=== PATIENT | female | born 1960 | race Caucasian/White ===

== ENCOUNTER 2017-09-17 14:17 | Inpatient (IN) | payer MEDICARE, OTHER ==
--- NOTE | 2017-09-17 15:27 | RAD ---
PORTABLE CHEST 1 VIEW: Date: 09/17/17 Time: 1510 hours HISTORY: Cough. FINDINGS/IMPRESSION: Comparison made with exam of 04/27/17. The heart size is prominent. There is suggestion of an infiltrate at the left lung base laterally. No pneumothoraces seen. A small accompanying left effusion cannot be excluded. No pneumothoraces or fra nk pulmonary edema are seen. POS: [facility]
[2017-09-17 16:01] LABS: #Basophils 0.1 thou/uL (0.0-0.2); #Eosinphils 0.5 thou/uL (0.0-0.7); #Lymphocytes 2.6 thou/uL (1.20-3.40); #Monocytes 1.3 thou/uL (0.11-0.59); #Neutrophils 12.4 thou/uL (1.40-6.50); %Basophils 0.6 % (0.0-1.0); %Eosinophils 3.1 % (0.0-10.0); %Lymphocytes 15.1 % (21.0-51.0); %Monocytes 7.5 % (0.0-10.0); %Neutrophils 73.7 % (42.0-75.0); Mean Corpuscular HGB CONC 32.6 g/dL (32.0-36.0); Mean Corpuscular Hemoglobin 29.6 pg (27.0-31.0); Mean Corpuscular Volume 90.6 fl (81.0-99.0); Platelet Count 438 thou/uL (130-400); RBC Distribution Width 13.5 % (11.5-14.5); Red Blood Cell (RBC) Count 5.74 mill/uL (4.20-5.40); White Blood Cell (WBC) Count 16.9 thou/uL (4.8-10.8)
[2017-09-17 16:24] LABS: CKMB 0.3 ng/mL (0-6.6); Troponin I Less than 0.010 ng/mL (< 0.028)
[2017-09-17 16:33] LABS: ALT (SGPT) 25 U/L (8-55); AST (SGOT) 24 U/L (5-34); Albumin 3.7 g/dL (3.5-5.0); Alkaline Phosphatase 146 U/L (40-150); Anion Gap 19 mmol/L (10-20); BUN (Urea Nitrogen) 4 mg/dL (9.8-20.1); Bilirubin, Total 0.8 mg/dL (0.2-1.2); CK (CPK) 26 U/L (29-168); Calc. Creatinine Clearance 0 mL/min (70-130); Carbon Dioxide 26 mmol/L (22-29); Chloride 99 mmol/L (98-107); Estimated GFR-MDRD Greater than 90; Globulin 4.2 g/dL (2.4-3.5); Glucose 104 mg/dL (70-105); Potassium 3.8 mmol/L (3.5-5.1); Protein, Total 7.9 g/dL (6.0-8.3); Sodium 140 mmol/L (136-145)
[2017-09-17] MEDS ORDERED: cefTRIAXone\\ROCEPHIN 2 GM in Sodium Chloride 0.9% 100 ML IVPB SCH (16:45)
[2017-09-17] MEDS ORDERED: Bisacodyl 5 MG TAB PO PRN (18:23)
[2017-09-17] MEDS ORDERED: Acetaminophen 325 MG TAB PO PRN (18:23)
[2017-09-17] MEDS ORDERED: Acetaminophen 650 MG Suppository PR PRN (18:23)
[2017-09-17] MEDS ORDERED: cefTRIAXone\\ROCEPHIN 1 GM in Sodium Chloride 0.9% 100 ML IVPB SCH (18:30)
--- NOTE | 2017-09-17 23:29 | HP ---
PRIMARY CARE PHYSICIAN: Saleem Vivas M.D. CHIEF COMPLAINT: Cough. HISTORY OF PRESENT ILLNESS: Ms. Monreal is a pleasant 57-year-old lady who was seen at [facility] on 09/17/2017. She reports that she had a cough for the last 4 days. She reports that the cough is productive of gr eenish yellow sputum. She also reports fevers, with a temperature of 101 degrees Fahrenheit at home. She also reports retrosternal burning sensation that started yesterday, worse with deep breathing. She describes it as in the retrosternal region, nonradiating, constant, worse with deep breathing, n ot accompanied by nausea. No known aggravating or relieving factors. She came to the emergency room because of ongoing cough. REVIEW OF SYSTEMS: The following complete review of systems was negative, unless otherwise mentioned in the HPI or below: Constitutional: Weight loss or gain, ability to conduct usual activities. Skin: Rash, itching. Eyes: Double vision, pain. ENT/Mouth: Nose bleeding, neck stiffness, pain, tenderness. Cardiovascular: Palpitations, dyspnea on exertion, orthopnea. Respiratory: Shortness of breath, wheezing, cough, hemoptysis, fever or night sweats. Gastrointestinal: Poor appetite, abdominal pain, heartburn, nausea, vomiting, constipation, or diarrhea. Genitourinary: Urgency, frequency, dysuria, nocturia. Musculoskeletal: Pain, swelling. Neurologic/Psychiatric: Anxiety, depression. Allergy/Immunologic: Skin rash, bleeding tendency. PAST MEDICAL HISTORY: Significant for progressive multiple sclerosis, ulcerative colitis, morbid obe sity, chronic sinus tachycardia, hypertension, depression, Raynaud's syndrome, urinary incontinence w ith chronic Telles catheter and chronic lymphedema of lower extremities, Crohn's disease. PAST SURGICAL HISTORY: Significant for tubal ligation, laparoscopic ileostomy, colectomy and colosto my. FAMILY HISTORY: The patient denies any family history of premature coronary artery disease. ALLERGIES: CLARITHROMYCIN. CURRENT MEDICATIONS: Include baclofen, Canasa, cranberry plus vitamin C, Prozac, cyclobenzaprine, ga bapentin, Gas-X Ultra Strength, multivitamins, nortriptyline, Oscimin, stool softener, vitamin D3, al buterol, Bactroban, Calmoseptine, ibuprofen, morphine, nystatin, Zofran, Robitussin, and acyclovir. SOCIAL HISTORY: The patient denies tobacco use, alcohol use, or recreational drug use. She is an ex -smoker. PHYSICAL EXAMINATION: GENERAL: Mr. Monreal is awake and alert, not in acute distress. VITAL SIGNS: Blood pressure is 120/87, pulse is 132. She is breathing at rate of 20 and saturating 98% on 2 liters of oxygen. She is afebrile. She is morbidly obese, weighing 158.76 kilograms. EYES: No scleral icterus. No conjunctival pallor. ENT: Dry mucosal membranes. No oropharyngeal erythema or exudates. NECK: Supple, nontender, normal range of moment. Trachea is midline. RESPIRATORY: Accessory muscles of breathing are not active. Chest wall movements are symmetric bila terally. LUNGS: Clear to auscultation with diminished air entry at the left base. CARDIOVASCULAR: S1 and S2 are heard, tachycardic and regular. LUNGS: Peripheral pulses palpable. No carotid bruit, no pericardial rub. ABDOMEN: Distended, soft, nontender, bowel sounds heard, she has an ostomy. NEUROLOGIC: Cranial nerves II-XII are intact. MUSCULOSKELETAL: Power is 5/5 in all 4 extremities. SKIN: She has what appears to be a healing herpetic lesion over the upper lip on the left side. LYMPHATIC: No cervical lymphadenopathy. PSYCHIATRIC: Normal mood, normal affect, patient is oriented to person, place, and time. LABORATORY DATA: Mr. Monreal labs and investigations were reviewed. I reviewed her electrocardiogram , which shows sinus tachycardia, no ST changes to suggest an acute coronary syndrome. She has a few premature atrial complexes. I also reviewed her chest x-ray, which shows left-sided pleural effusion and possible left lower lobe infiltrate. She has leukocytosis with 16,900 white cells, of which 73. 7% are neutrophils, elevated hemoglobin of 17, elevated platelet count of 438, normal electrolytes, n ormal creatinine, and unremarkable liver profile. Troponin I is normal. BNP is less than 10. ASSESSMENT AND PLAN: Mr. Monreal is a pleasant 57-year-old lady who was seen at [facility] on 09/17/2017. Her problem list includes: 1. Sepsis: Mr. Monreal is presenting with sepsis, most likely secondary to pneumonia. She will be a dmitted to the hospital for further management, including intravenous fluids and antibiotics. 2. Community-acquired pneumonia. She has already received levofloxacin, ceftriaxone, which I will c ontinue. We will also put her on DuoNebs as needed. 3. Sinus tachycardia: It is unclear whether this is from sepsis or from her past history of chronic sinus tachycardia. I will continue to keep an eye on the heart rate. 4. Multiple sclerosis. Continue home medications once doses are clarified. 5. Hypertension: Monitor vital signs, titrate antihypertensives as needed. 6. Polycythemia and thrombocythemia: Probably secondary to dehydration. Recheck hemoglobin and veronica telet count. Many thanks for allowing me to participate in your patient's care. Please feel free to contact me wi th any questions or concerns. LEVEL OF RISK: High. LEVEL OF COMPLEXITY: High.
[2017-09-18 05:55] LABS: #Eosinphils 0.3 thou/uL (0.0-0.7); #Lymphocytes 2.3 thou/uL (1.20-3.40); #Monocytes 1.3 thou/uL (0.11-0.59); %Basophils 0.1 % (0.0-1.0); %Eosinophils 2.5 % (0.0-10.0); %Lymphocytes 16.3 % (21.0-51.0); %Monocytes 9.5 % (0.0-10.0); %Neutrophils 71.6 % (42.0-75.0); Hemoglobin 15.5 g/dL (12.0-16.0); Mean Corpuscular HGB CONC 31.7 g/dL (32.0-36.0); Mean Corpuscular Hemoglobin 29.2 pg (27.0-31.0); Mean Platelet Volume 6.6 fL (7.4-10.4); Platelet Count 400 thou/uL (130-400); RBC Distribution Width 13.2 % (11.5-14.5); Red Blood Cell (RBC) Count 5.32 mill/uL (4.20-5.40); White Blood Cell (WBC) Count 13.9 thou/uL (4.8-10.8)
[2017-09-18 06:35] LABS: Anion Gap 13 mmol/L (10-20); BUN (Urea Nitrogen) 6 mg/dL (9.8-20.1); Calc. Creatinine Clearance 114 mL/min (70-130); Calcium 9.5 mg/dL (7.8-10.44); Carbon Dioxide 26 mmol/L (22-29); Chloride 101 mmol/L (98-107); Estimated GFR-MDRD Greater than 90; Glucose 94 mg/dL (70-105); Potassium 3.3 mmol/L (3.5-5.1); Sodium 137 mmol/L (136-145)
[2017-09-18] MEDS: Enoxaparin Sodium 40 MG/0.4 ML SYRINGE SC SCH (09:16)
[2017-09-18] MEDS ORDERED: HYDROcodone/Acetaminophen 5/325 mg Tablet PO PRN ×3 (09:47→10:34)
[2017-09-18] MEDS ORDERED: Mesalamine 1000 MG Suppository PR PRN (09:47)
[2017-09-18] MEDS ORDERED: Ondansetron ODT 4 MG TAB PO PRN (09:47)
[2017-09-18] MEDS ORDERED: Guaifenesin DM 100-10/5 ML UDCUP PO PRN (09:47)
[2017-09-18] MEDS ORDERED: Ondansetron HCl/PF 4 MG/2 ML Vial IVP PRN (10:11)
[2017-09-18] MEDS: Baclofen 10 MG TAB PO SCH ×3 (13:23→20:31)
[2017-09-18] MEDS: Simethicone Chewable 80 MG TAB PO SCH ×3 (13:23→21:57)
[2017-09-18] MEDS ORDERED: CRANBERRY FRUIT EXTRACT 500 MG PO SCH (15:00)
[2017-09-18] MEDS: Cyclobenzaprine 10 MG TAB PO SCH ×2 (16:11→20:33)
[2017-09-18] MEDS: Brimonidine Tartrate 0.2% Ophth Soln 5 ml Bottle R EYE SCH ×2 (16:15→20:31)
[2017-09-18] MEDS ORDERED: cefTRIAXone\\ROCEPHIN 1 GM, Syringe 0.4 ML in Sterile Water 9.6 ML SLOW IVP SCH (17:00)
--- NOTE | 2017-09-18 17:52 | PDOC.PN ---
- Subjective Encounter Start Date: 09/18/17 Encounter Start Time: 08:20 Pt seen for followup re: sepsis. Says she still has cough. Sputum+ - Objective MAR Reviewed: Yes Vital Signs & Weight: Vital Signs (12 hours) Temp Pulse Resp BP Pulse Ox 09/18/17 16:58 99.5 F 120 H 18 142/84 H 95 09/18/17 14:03 116 H 18 99 09/18/17 11:36 99.2 F 109 H 18 149/86 H 95 09/18/17 08:00 99.2 F 109 H 18 97 09/18/17 07:46 99.0 F 102 H 16 135/93 H 97 I&O: 09/17/17 09/18/17 09/19/17 06:59 06:59 06:59 Intake Total 430 100 Output Total 650 175 Balance -220 -75 Result Diagrams: 09/18/17 05:05 09/18/17 05:05 Phys Exam - Physical Examination Constitutional: NAD HEENT: PERRLA, moist MMs, sclera anicteric, oral pharynx no lesions Neck: no nodes, no JVD, supple, full ROM Respiratory: no wheezing, no rales, no rhonchi, clear to auscultation bilateral Cardiovascular: RRR, no rub Gastrointestinal: soft, non-tender, no distention, positive bowel sounds ostomy Neurological: moves all 4 limbs Psychiatric: normal affect Dx/Plan (1) Sepsis Code(s): A41.9 - SEPSIS, UNSPECIFIED ORGANISM Status: Acute (2) Hypokalemia Code(s): E87.6 - HYPOKALEMIA Status: Acute (3) Pneumonia Code(s): J18.9 - PNEUMONIA, UNSPECIFIED ORGANISM Status: Acute (4) Multiple sclerosis, secondary progressive Code(s): G35 - MULTIPLE SCLEROSIS Status: Chronic (5) Sinus tachycardia Code(s): R00.0 - TACHYCARDIA, UNSPECIFIED Status: Chronic (6) HTN (hypertension) Code(s): I10 - ESSENTIAL (PRIMARY) HYPERTENSION Status: Chronic - Plan continue antibiotics, PT/OT * . Replace potassium. Continue antibiotics as below. Monitor vital signs, titrate antihypertensives as needed. Review of Systems - Review of Systems Constitutional: negative: fever, chills, sweats, weakness, malaise Respiratory: Cough, Sputum. negative: Dry, Shortness of Breath, Hemoptysis, SOB with Excertion, Pleuritic Pain, Wheezing Cardiovascular: negative: chest pain, palpitations, orthopnea, paroxysmal nocturnal dyspnea, edema, light headedness Gastrointestinal: negative: Nausea, Vomiting, Abdominal Pain, Diarrhea, Constipation, Melena, Hematochezia Genitourinary: negative: Dysuria, Frequency, Incontinence, Hematuria, Retention - Medications/Allergies Allergies/Adverse Reactions: Allergies Allergy/AdvReac Type Severity Reaction Status Date / Time clarithromycin [From Biaxin] Allergy Hives Verified 09/17/17 22:11 Medications: Current Medications Acetaminophen (Tylenol) 650 mg PO Q4H PRN PRN Reason: Headache/Fever or Pain Last Admin: 09/17/17 22:47 Dose: 650 mg Acetaminophen (Tylenol) 650 mg PA Q4H PRN PRN Reason: Headache/Fever or Pain Hydrocodone Bitart/Acetaminophen ([place] 5/325) 1 tab PO Q6H PRN PRN Reason: Moderate Pain (4-6) Hydrocodone Bitart/Acetaminophen ([place] 5/325) 2 tab PO Q6H PRN PRN Reason: Severe Pain (7-10) Albuterol/Ipratropium (Duoneb) 3 ml NEB [id number] PRN PRN Reason: SOB &/or Wheezing Last Admin: 09/18/17 14:03 Dose: 3 ml Baclofen (Lioresal) 10 mg PO QID [facility] Last Admin: 09/18/17 13:23 Dose: 10 mg Bisacodyl (Dulcolax) 10 mg PO DAILYPRN PRN PRN Reason: Constipation Brimonidine Tartrate (Alphagan 0.2% [facility]) 1 drop R EYE TID [facility] Last Admin: 09/18/17 16:15 Dose: 1 drop Cholecalciferol (Vitamin D3) 2,000 units PO DAILY [facility] Cyclobenzaprine HCl (Flexeril) 10 mg PO TID [facility] Last Admin: 09/18/17 16:11 Dose: 10 mg Docusate Sodium (Colace) 100 mg PO DAILY [facility] Enoxaparin Sodium (Lovenox) 40 mg SC 0900 [facility] Last Admin: 09/18/17 09:16 Dose: 40 mg Fluoxetine HCl (Prozac) 20 mg PO BID [facility] Gabapentin (Neurontin) 800 mg PO BID [facility] Guaifenesin/Dextromethorphan (Robitussin Dm) 5 ml PO Q6HR PRN PRN Reason: Congestion Hyoscyamine Sulfate (Levsin) 0.25 mg PO ACHS [facility] Last Admin: 09/18/17 13:23 Dose: 0.25 mg Levofloxacin 750 mg/ Device 150 mls @ 100 mls/hr IVPB 1700 [facility] Last Admin: 09/18/17 16:11 Dose: 150 mls Ceftriaxone Sodium 1 gm/ (Syringe 0.4 ml/ Sterile Water) 10 mls @ 120 mls/hr SLOW IVP 1700 [facility] Ibuprofen (Motrin) 800 mg PO Q6H PRN PRN Reason: Fever>101/MILD Pain Latanoprost (Xalatan 0.005% Ophth Soln) 1 drop EA EYE HS [facility] Melatonin (Melatonin) 3 mg PO HS [facility] Mesalamine (Canasa) 1,000 mg PA HS PRN PRN Reason: Bleeding (Acyclovir [ Acyclovir 3% Ointment] 0.05 Applic) 0.05 applic TOP Q4HR [facility] Ondansetron HCl (Zofran Odt) 4 mg PO Q8H PRN PRN Reason: Nausea/Vomiting Ondansetron HCl (Zofran) 4 mg IVP Q6H PRN PRN Reason: Nausea/Vomiting Last Admin: 09/18/17 10:32 Dose: 4 mg Multivit/Folic Acid/Iron ( Vitamin) 1 tab PO DAILY [facility] Simethicone (Mylicon Chewable) 180 mg PO [facility] Last Admin: 09/18/17 13:23 Dose: 180 mg
[2017-09-18] MEDS ORDERED: Potassium Chloride 20 MEQ TAB PO SCH (18:00)
[2017-09-18] MEDS: FLUoxetine HCl 20 MG CAP PO SCH (20:33)
[2017-09-18] MEDS: Gabapentin 400 MG CAP PO SCH (20:33)
[2017-09-18] MEDS: Melatonin 3 MG TAB PO SCH (20:34)
[2017-09-18] MEDS: Ibuprofen 800 MG TAB PO PRN (20:35)
[2017-09-18] MEDS: Latanoprost 0.005% Ophth Soln 2.5 ml Bottle EA EYE SCH (20:36)
[2017-09-19 06:01] LABS: #Basophils 0.1 thou/uL (0.0-0.2); #Eosinphils 0.6 thou/uL (0.0-0.7); #Lymphocytes 2.9 thou/uL (1.20-3.40); #Monocytes 1.4 thou/uL (0.11-0.59); #Neutrophils 7.7 thou/uL (1.40-6.50); %Basophils 0.5 % (0.0-1.0); %Eosinophils 5.1 % (0.0-10.0); %Lymphocytes 22.8 % (21.0-51.0); %Monocytes 11.1 % (0.0-10.0); %Neutrophils 60.6 % (42.0-75.0); Hemoglobin 14.6 g/dL (12.0-16.0); Mean Corpuscular HGB CONC 31.8 g/dL (32.0-36.0); Mean Corpuscular Hemoglobin 29.3 pg (27.0-31.0); Mean Corpuscular Volume 92.2 fl (81.0-99.0); Mean Platelet Volume 6.3 fL (7.4-10.4); Platelet Count 417 thou/uL (130-400); Red Blood Cell (RBC) Count 4.97 mill/uL (4.20-5.40); White Blood Cell (WBC) Count 12.7 thou/uL (4.8-10.8)
[2017-09-19 06:29] LABS: Anion Gap 12 mmol/L (10-20); BUN (Urea Nitrogen) 10 mg/dL (9.8-20.1); Calc. Creatinine Clearance 78 mL/min (70-130); Calcium 10.1 mg/dL (7.8-10.44); Carbon Dioxide 31 mmol/L (22-29); Chloride 102 mmol/L (98-107); Estimated GFR-MDRD 68; Glucose 108 mg/dL (70-105); Potassium 5.1 mmol/L (3.5-5.1); Sodium 140 mmol/L (136-145)
[2017-09-19] MEDS: FLUoxetine HCl 20 MG CAP PO SCH ×2 (08:54→20:49)
[2017-09-19] MEDS: Docusate 100 MG CAP PO SCH (08:54)
[2017-09-19] MEDS: Baclofen 10 MG TAB PO SCH ×4 (08:55→20:48)
[2017-09-19] MEDS: Simethicone Chewable 80 MG TAB PO SCH ×4 (08:55→20:52)
[2017-09-19] MEDS: Gabapentin 400 MG CAP PO SCH ×2 (08:55→20:49)
[2017-09-19] MEDS: Prenatal Vitamin 1 TAB PO SCH (08:56)
[2017-09-19] MEDS: Cyclobenzaprine 10 MG TAB PO SCH ×3 (08:56→20:48)
[2017-09-19] MEDS: Enoxaparin Sodium 40 MG/0.4 ML SYRINGE SC SCH (08:57)
[2017-09-19] MEDS: Brimonidine Tartrate 0.2% Ophth Soln 5 ml Bottle R EYE SCH ×3 (08:57→20:48)
--- NOTE | 2017-09-19 10:18 | PRG ---
DATE OF SERVICE: 09/19/2017 SUBJECTIVE: The patient was seen and examined at the bedside. She is doing better, but she still altman s quite a bit of cough, which is most of the time nonproductive. Each time she takes deep breath in, it would take her airways and triggers the cough. Her appetite is fair. She stays in bed all the t melina except for the time when she is transferred to the wheelchair, but this is not accomplished yet. OBJECTIVE: VITAL SIGNS: Blood pressure is 146/87, pulse is 97, temperature is 98, respiratory rate is 22, and p ulse oximetry is 97% on 2 liters by nasal cannula. GENERAL: Ms. Monreal is obese lady. HEENT: Head atraumatic, normocephalic. She has a herpetic lesion on her lower lip, which is dry up. Her eyes are PERRLA. Sclerae is nonicteric. NECK: Obese. LUNGS: Breath sounds diminished, especially at the left base with few crackles and rales, no wheezin g. CARDIOVASCULAR: S1, S2, mildly tachycardic. No S3, no S4. ABDOMEN: Obese, slightly tender to deep palpation in the right upper quadrant, and colostomy bag in the left lower abdomen is present with some brownish stool liquidy. EXTREMITIES: A 1-2+ peripheral edema. LABORATORY DATA: Showed a white count of 12.7, hemoglobin 14.6, hematocrit 45.8, platelet count is 4 17, normal electrolytes, CO2 of 31, BUN 10, creatinine 0.86, glucose 108. Microbiology negative for influenza type A and B and the 2 blood cultures are negative. IMPRESSION: 1. Pneumonia. 2. Hypokalemia, improved. 3. Multiple sclerosis, progressive. 4. Hypertension. 5. Herpes labialis. 6. Status post colostomy placement. PLAN: Discontinue Rocephin. Continue Levaquin. Start Mucinex DM. Start physical therapy. We are going to get her bed with trapeze, so she can use her upper extremities until progressive that is wha t she does at home. We will lower her oxygenation to 1 liter per nasal cannula since her pulse oxime try is 97% on 2 liters. We would continue the rest of the regimen.
[2017-09-19] MEDS: guaiFENesin/DM ER PO SCH ×2 (10:26→20:49)
[2017-09-19] MEDS: Latanoprost 0.005% Ophth Soln 2.5 ml Bottle EA EYE SCH (20:50)
[2017-09-19] MEDS: Melatonin 3 MG TAB PO SCH (20:51)
[2017-09-20 05:46] LABS: #Basophils 0.1 thou/uL (0.0-0.2); #Eosinphils 0.6 thou/uL (0.0-0.7); #Monocytes 1.2 thou/uL (0.11-0.59); #Neutrophils 7.7 thou/uL (1.40-6.50); %Basophils 0.5 % (0.0-1.0); %Eosinophils 4.4 % (0.0-10.0); %Lymphocytes 24.3 % (21.0-51.0); %Monocytes 9.4 % (0.0-10.0); %Neutrophils 61.3 % (42.0-75.0); Hemoglobin 14.6 g/dL (12.0-16.0); Mean Corpuscular HGB CONC 32.1 g/dL (32.0-36.0); Mean Corpuscular Hemoglobin 29.3 pg (27.0-31.0); Mean Corpuscular Volume 91.2 fl (81.0-99.0); Mean Platelet Volume 6.8 fL (7.4-10.4); Platelet Count 456 thou/uL (130-400); White Blood Cell (WBC) Count 12.5 thou/uL (4.8-10.8)
[2017-09-20 05:57] LABS: Anion Gap 12 mmol/L (10-20); BUN (Urea Nitrogen) 7 mg/dL (9.8-20.1); Calc. Creatinine Clearance 108 mL/min (70-130); Calcium 9.5 mg/dL (7.8-10.44); Carbon Dioxide 28 mmol/L (22-29); Chloride 101 mmol/L (98-107); Estimated GFR-MDRD Greater than 90; Glucose 92 mg/dL (70-105); Potassium 3.5 mmol/L (3.5-5.1); Sodium 137 mmol/L (136-145)
[2017-09-20] MEDS: Brimonidine Tartrate 0.2% Ophth Soln 5 ml Bottle R EYE SCH ×3 (08:19→21:31)
[2017-09-20] MEDS: Cyclobenzaprine 10 MG TAB PO SCH ×3 (08:20→21:31)
[2017-09-20] MEDS: Baclofen 10 MG TAB PO SCH ×4 (08:20→21:30)
[2017-09-20] MEDS: Gabapentin 400 MG CAP PO SCH ×2 (08:21→21:32)
[2017-09-20] MEDS: FLUoxetine HCl 20 MG CAP PO SCH ×2 (08:22→21:32)
[2017-09-20] MEDS: guaiFENesin/DM ER PO SCH ×2 (08:22→21:32)
[2017-09-20] MEDS: Docusate 100 MG CAP PO SCH (08:23)
[2017-09-20] MEDS: Enoxaparin Sodium 40 MG/0.4 ML SYRINGE SC SCH (08:23)
[2017-09-20] MEDS: Prenatal Vitamin 1 TAB PO SCH (08:23)
[2017-09-20] MEDS: Simethicone Chewable 80 MG TAB PO SCH ×4 (10:53→21:33)
[2017-09-20] MEDS ORDERED: PROVENTIL INHALER 6.7 G (200 INHALATIONS) INH PRN (16:07)
--- NOTE | 2017-09-20 16:09 | PDOC.PN ---
- Subjective Encounter Start Date: 09/20/17 Encounter Start Time: 16:09 Subjective: c/o coughing spells w nausea and SOB - Objective MAR Reviewed: Yes Vital Signs & Weight: Vital Signs (12 hours) Temp Pulse Pulse Resp BP Pulse Ox Pulse Ox 09/20/17 11:38 98.7 F 108 H 22 H 117/73 95 09/20/17 09:13 107 H 94 L 09/20/17 08:00 98.7 F 108 H 22 H 95 09/20/17 07:36 99.0 F 106 H 16 126/82 92 L I&O: 09/19/17 09/20/17 09/21/17 06:59 06:59 06:59 Intake Total 230 630 Output Total 875 1900 Balance -645 -1270 Result Diagrams: 09/20/17 04:36 09/20/17 04:36 Additional Labs: Microbiology 09/17/17 16:22 Nasal swab Influenza Types A,B Direct EIA - Final 09/17/17 16:02 Venous blood - Right Hand Blood Culture - Preliminary NO GROWTH AT 48 HOURS 09/17/17 15:38 Venous blood - Left Arm Blood Culture - Preliminary NO GROWTH AT 48 HOURS Phys Exam - Physical Examination Constitutional: NAD HEENT: PERRLA, moist MMs, sclera anicteric, oral pharynx no lesions, 2+ tonsils Neck: no nodes, no JVD, supple, full ROM Respiratory: no wheezing, no rales, no rhonchi, clear to auscultation bilateral Cardiovascular: RRR, no significant murmur, no rub, gallop Gastrointestinal: soft, non-tender, no distention, positive bowel sounds Musculoskeletal: no edema, pulses present paralysis lower extremities Psychiatric: normal affect, A&O x 3 Skin: no rash Dx/Plan (1) Pneumonia Code(s): J18.9 - PNEUMONIA, UNSPECIFIED ORGANISM Status: Acute Qualifiers: Laterality: left Lung location: lower lobe of lung (2) Sepsis Code(s): A41.9 - SEPSIS, UNSPECIFIED ORGANISM Status: Acute (3) HTN (hypertension) Code(s): I10 - ESSENTIAL (PRIMARY) HYPERTENSION Status: Chronic (4) Morbid obesity Code(s): E66.01 - MORBID (SEVERE) OBESITY DUE TO EXCESS CALORIES Status: Acute (5) Ulcerative colitis Code(s): K51.90 - ULCERATIVE COLITIS, UNSPECIFIED, WITHOUT COMPLICATIONS Status: Acute (6) Multiple sclerosis, secondary progressive Code(s): G35 - MULTIPLE SCLEROSIS Status: Chronic (7) Colostomy in place Code(s): Z93.3 - COLOSTOMY STATUS Status: Acute - Plan continue antibiotics, PT/OT, respiratory therapy, incentive spirometry, DVT proph w/SCDs Add Flonase,albuterol for cough.cont ABx -: will try to find Trapeze for upper body mobilization -: hemodynamically stable. -: DC nikole ein next 24-48 hours -: am labs * . Review of Systems - Review of Systems Constitutional: negative: fever, chills, sweats, weakness, malaise, other Respiratory: Cough, Shortness of Breath. negative: Dry, Hemoptysis, SOB with Excertion, Pleuritic Pain, Sputum, Wheezing Cardiovascular: negative: chest pain, palpitations, orthopnea, paroxysmal nocturnal dyspnea, edema, light headedness, other Gastrointestinal: negative: Nausea, Vomiting, Abdominal Pain, Diarrhea, Constipation, Melena, Hematochezia, Other Genitourinary: negative: Dysuria, Frequency, Incontinence, Hematuria, Retention , Other Musculoskeletal: negative: Neck Pain, Shoulder Pain, Arm Pain, Back Pain, Hand Pain, Leg Pain, Foot Pain, Other Skin: negative: Rash, Lesions, Kenan, Bruising, Other Neurological: negative: Weakness, Numbness, Incoordination, Change in Speech, Confusion, Seizures, Other - Medications/Allergies Allergies/Adverse Reactions: Allergies Allergy/AdvReac Type Severity Reaction Status Date / Time clarithromycin [From Biaxin] Allergy Hives Verified 09/17/17 22:11 Medications: Current Medications Acetaminophen (Tylenol) 650 mg PO Q4H PRN PRN Reason: Headache/Fever or Pain Last Admin: 09/17/17 22:47 Dose: 650 mg Acetaminophen (Tylenol) 650 mg ND Q4H PRN PRN Reason: Headache/Fever or Pain Hydrocodone Bitart/Acetaminophen ([place] 5/325) 1 tab PO Q6H PRN PRN Reason: Moderate Pain (4-6) Hydrocodone Bitart/Acetaminophen ([place] 5/325) 2 tab PO Q6H PRN PRN Reason: Severe Pain (7-10) Albuterol Sulfate (Proventil Hfa) 1 puff INH Q4H PRN PRN Reason: SOB &/or Wheezing Albuterol/Ipratropium (Duoneb) 3 ml NEB [id number] PRN PRN Reason: SOB &/or Wheezing Last Admin: 09/18/17 22:32 Dose: 3 ml Baclofen (Lioresal) 10 mg PO QID [facility] Last Admin: 09/20/17 14:57 Dose: 10 mg Bisacodyl (Dulcolax) 10 mg PO DAILYPRN PRN PRN Reason: Constipation Brimonidine Tartrate (Alphagan 0.2% Oph Soln) 1 drop R EYE TID [facility] Last Admin: 09/20/17 14:56 Dose: 1 drop Cholecalciferol (Vitamin D3) 2,000 units PO DAILY [facility] Last Admin: 09/20/17 08:20 Dose: 2,000 units Cyclobenzaprine HCl (Flexeril) 10 mg PO TID [facility] Last Admin: 09/20/17 14:56 Dose: 10 mg Docusate Sodium (Colace) 100 mg PO DAILY [facility] Last Admin: 09/20/17 08:23 Dose: 100 mg Enoxaparin Sodium (Lovenox) 40 mg SC 0900 [facility] Last Admin: 09/20/17 08:23 Dose: 40 mg Fluoxetine HCl (Prozac) 20 mg PO BID [facility] Last Admin: 09/20/17 08:22 Dose: 20 mg Fluticasone Propionate (Flonase Nasal [place]) 1 gm NASAL DAILY [facility] Gabapentin (Neurontin) 800 mg PO BID [facility] Last Admin: 09/20/17 08:21 Dose: 800 mg Guaifenesin/Dextromethorphan (Robitussin Dm) 5 ml PO Q6HR PRN PRN Reason: Congestion Guaifenesin/Dextromethorphan (Mucinex Dm) 2 tab PO Q12HR [facility] Last Admin: 09/20/17 08:22 Dose: 2 tab Hyoscyamine Sulfate (Levsin) 0.25 mg PO ACHS [facility] Last Admin: 09/20/17 10:52 Dose: 0.25 mg Levofloxacin 750 mg/ Device 150 mls @ 100 mls/hr IVPB 1700 [facility] Last Admin: 09/19/17 17:30 Dose: 150 mls Ibuprofen (Motrin) 800 mg PO Q6H PRN PRN Reason: Fever>101/MILD Pain Last Admin: 09/18/17 20:35 Dose: 800 mg Latanoprost (Xalatan 0.005% Ophth Soln) 1 drop EA EYE [facility] Last Admin: 09/19/17 20:50 Dose: 1 drp Melatonin (Melatonin) 3 mg PO [facility] Last Admin: 09/19/17 20:51 Dose: 3 mg Mesalamine (Canasa) 1,000 mg ND HS PRN PRN Reason: Bleeding (Acyclovir [ Acyclovir 3% Ointment] 0.05 Applic) 0.05 applic TOP Q4HR [facility] Ondansetron HCl (Zofran Odt) 4 mg PO Q8H PRN PRN Reason: Nausea/Vomiting Ondansetron HCl (Zofran) 4 mg IVP Q6H PRN PRN Reason: Nausea/Vomiting Last Admin: 09/18/17 10:32 Dose: 4 mg Multivit/Folic Acid/Iron ( Vitamin) 1 tab PO DAILY [facility] Last Admin: 09/20/17 08:23 Dose: 1 tab Simethicone (Mylicon Chewable) 180 mg PO [facility] Last Admin: 09/20/17 14:57 Dose: 180 mg
[2017-09-20] MEDS: Melatonin 3 MG TAB PO SCH (21:33)
[2017-09-20] MEDS: Ibuprofen 800 MG TAB PO PRN (21:33)
[2017-09-21] MEDS: Simethicone Chewable 80 MG TAB PO SCH ×4 (10:39→20:33)
[2017-09-21] MEDS: Enoxaparin Sodium 40 MG/0.4 ML SYRINGE SC SCH (10:41)
[2017-09-21] MEDS: Prenatal Vitamin 1 TAB PO SCH (10:41)
[2017-09-21] MEDS: Docusate 100 MG CAP PO SCH (10:42)
[2017-09-21] MEDS: Baclofen 10 MG TAB PO SCH ×4 (10:42→20:34)
[2017-09-21] MEDS: guaiFENesin/DM ER PO SCH ×2 (10:42→20:33)
[2017-09-21] MEDS: Cyclobenzaprine 10 MG TAB PO SCH ×3 (10:42→20:34)
[2017-09-21] MEDS: Gabapentin 400 MG CAP PO SCH ×2 (10:42→20:34)
[2017-09-21] MEDS: Fluticasone Propionate Nasal Spray 16 gm Bottle NASAL SCH (10:42)
[2017-09-21] MEDS: Brimonidine Tartrate 0.2% Ophth Soln 5 ml Bottle R EYE SCH ×3 (10:43→22:01)
[2017-09-21] MEDS: FLUoxetine HCl 20 MG CAP PO SCH ×2 (10:43→20:34)
--- NOTE | 2017-09-21 14:20 | PDOC.PN ---
- Subjective Encounter Start Date: 09/21/17 Encounter Start Time: 14:18 Subjective: feels better.stronger w PT.wants to continue - Objective MAR Reviewed: Yes Vital Signs & Weight: Vital Signs (12 hours) Temp Pulse Resp BP Pulse Ox 09/21/17 12:00 97.9 F 100 20 128/87 94 L 09/21/17 08:00 98.2 F 93 16 94 L 09/21/17 07:30 98.2 F 93 16 136/87 91 L 09/21/17 04:00 98.2 F 101 H 20 132/88 94 L I&O: 09/20/17 09/21/17 09/22/17 06:59 06:59 06:59 Intake Total 630 260 Output Total 1900 1580 16 Balance -1270 -1320 -16 Result Diagrams: 09/20/17 04:36 09/20/17 04:36 Additional Labs: Microbiology 09/17/17 16:22 Nasal swab Influenza Types A,B Direct EIA - Final 09/17/17 16:02 Venous blood - Right Hand Blood Culture - Preliminary NO GROWTH AT 48 HOURS 09/17/17 15:38 Venous blood - Left Arm Blood Culture - Preliminary NO GROWTH AT 48 HOURS Phys Exam - Physical Examination Constitutional: NAD HEENT: PERRLA, moist MMs, sclera anicteric, oral pharynx no lesions Neck: no nodes, no JVD, supple, full ROM Respiratory: no wheezing, no rales, no rhonchi, clear to auscultation bilateral Cardiovascular: RRR, no significant murmur Gastrointestinal: soft, non-tender, no distention, positive bowel sounds Musculoskeletal: no edema, pulses present Neurological: non-focal LE paralysis Psychiatric: normal affect, A&O x 3 Skin: no rash Dx/Plan (1) Pneumonia Code(s): J18.9 - PNEUMONIA, UNSPECIFIED ORGANISM Status: Acute Qualifiers: Laterality: left Lung location: lower lobe of lung (2) Sepsis Code(s): A41.9 - SEPSIS, UNSPECIFIED ORGANISM Status: Acute (3) HTN (hypertension) Code(s): I10 - ESSENTIAL (PRIMARY) HYPERTENSION Status: Chronic (4) Morbid obesity Code(s): E66.01 - MORBID (SEVERE) OBESITY DUE TO EXCESS CALORIES Status: Acute (5) Ulcerative colitis Code(s): K51.90 - ULCERATIVE COLITIS, UNSPECIFIED, WITHOUT COMPLICATIONS Status: Acute (6) Multiple sclerosis, secondary progressive Code(s): G35 - MULTIPLE SCLEROSIS Status: Chronic (7) Colostomy in place Code(s): Z93.3 - COLOSTOMY STATUS Status: Acute - Plan continue antibiotics, respiratory therapy, incentive spirometry, DVT proph w/ SCDs Pt requesting Rehab ,will have eval done. -: cont levaquin PO.nebs prn.clinically better -: DC to rehab tomorrow if accepted.if not,resume HH -: hemodynamically stable * . Review of Systems - Review of Systems Constitutional: negative: fever, chills, sweats, weakness, malaise, other ENT: negative: Ear Pain, Ear Discharge, Nose Pain, Nose Discharge, Nose Congestion, Mouth Pain, Mouth Swelling, Throat Pain, Throat Swelling, Other Respiratory: negative: Cough, Dry, Shortness of Breath, Hemoptysis, SOB with Excertion, Pleuritic Pain, Sputum, Wheezing Cardiovascular: negative: chest pain, palpitations, orthopnea, paroxysmal nocturnal dyspnea, edema, light headedness, other Gastrointestinal: negative: Nausea, Vomiting, Abdominal Pain, Diarrhea, Constipation, Melena, Hematochezia, Other Genitourinary: negative: Dysuria, Frequency, Incontinence, Hematuria, Retention , Other Musculoskeletal: negative: Neck Pain, Shoulder Pain, Arm Pain, Back Pain, Hand Pain, Leg Pain, Foot Pain, Other Skin: negative: Rash, Lesions, Kenan, Bruising, Other Neurological: negative: Weakness, Numbness, Incoordination, Change in Speech, Confusion, Seizures, Other - Medications/Allergies Allergies/Adverse Reactions: Allergies Allergy/AdvReac Type Severity Reaction Status Date / Time clarithromycin [From Biaxin] Allergy Hives Verified 09/17/17 22:11 Medications: Current Medications Acetaminophen (Tylenol) 650 mg PO Q4H PRN PRN Reason: Headache/Fever or Pain Last Admin: 09/17/17 22:47 Dose: 650 mg Acetaminophen (Tylenol) 650 mg MD Q4H PRN PRN Reason: Headache/Fever or Pain Hydrocodone Bitart/Acetaminophen ([place] 5/325) 1 tab PO Q6H PRN PRN Reason: Moderate Pain (4-6) Hydrocodone Bitart/Acetaminophen ([place] 5/325) 2 tab PO Q6H PRN PRN Reason: Severe Pain (7-10) Albuterol Sulfate (Proventil Hfa) 1 puff INH Q4H PRN PRN Reason: SOB &/or Wheezing Albuterol/Ipratropium (Duoneb) 3 ml NEB [id number] PRN PRN Reason: SOB &/or Wheezing Last Admin: 09/18/17 22:32 Dose: 3 ml Baclofen (Lioresal) 10 mg PO QID [facility] Last Admin: 09/21/17 12:40 Dose: 10 mg Bisacodyl (Dulcolax) 10 mg PO DAILYPRN PRN PRN Reason: Constipation Brimonidine Tartrate ([place] 0.2% [facility]) 1 drop R EYE TID [facility] Last Admin: 09/21/17 10:43 Dose: 1 drop Cholecalciferol (Vitamin D3) 2,000 units PO DAILY [facility] Last Admin: 09/21/17 10:42 Dose: 2,000 units Cyclobenzaprine HCl (Flexeril) 10 mg PO TID [facility] Last Admin: 09/21/17 10:42 Dose: 10 mg Docusate Sodium (Colace) 100 mg PO DAILY [facility] Last Admin: 09/21/17 10:42 Dose: 100 mg Enoxaparin Sodium (Lovenox) 40 mg SC 0900 [facility] Last Admin: 09/21/17 10:41 Dose: 40 mg Fluoxetine HCl (Prozac) 20 mg PO BID [facility] Last Admin: 09/21/17 10:43 Dose: 20 mg Fluticasone Propionate (Flonase Nasal [place]) 1 gm NASAL DAILY [facility] Last Admin: 09/21/17 10:42 Dose: 1 spr Gabapentin (Neurontin) 800 mg PO BID [facility] Last Admin: 09/21/17 10:42 Dose: 800 mg Guaifenesin/Dextromethorphan (Robitussin Dm) 5 ml PO Q6HR PRN PRN Reason: Congestion Guaifenesin/Dextromethorphan (Mucinex Dm) 2 tab PO Q12HR [facility] Last Admin: 09/21/17 10:42 Dose: 2 tab Hyoscyamine Sulfate (Levsin) 0.25 mg PO ACHS [facility] Last Admin: 09/21/17 10:44 Dose: Not Given Levofloxacin 750 mg/ Device 150 mls @ 100 mls/hr IVPB 1700 [facility] Last Admin: 09/20/17 19:14 Dose: Not Given Ibuprofen (Motrin) 800 mg PO Q6H PRN PRN Reason: Fever>101/MILD Pain Last Admin: 09/20/17 21:33 Dose: 800 mg Levofloxacin (Levaquin) 750 mg PO 2000 [facility] Last Admin: 09/20/17 21:30 Dose: 750 mg Melatonin (Melatonin) 3 mg PO HS [facility] Last Admin: 09/20/17 21:33 Dose: 3 mg Mesalamine (Canasa) 1,000 mg MD HS PRN PRN Reason: Bleeding Ondansetron HCl (Zofran Odt) 4 mg PO Q8H PRN PRN Reason: Nausea/Vomiting Ondansetron HCl (Zofran) 4 mg IVP Q6H PRN PRN Reason: Nausea/Vomiting Last Admin: 09/18/17 10:32 Dose: 4 mg Multivit/Folic Acid/Iron ( Vitamin) 1 tab PO DAILY [facility] Last Admin: 09/21/17 10:41 Dose: 1 tab Simethicone (Mylicon Chewable) 180 mg PO [facility] Last Admin: 09/21/17 12:38 Dose: 180 mg
[2017-09-21] MEDS: Melatonin 3 MG TAB PO SCH (22:01)
[2017-09-22] MEDS: guaiFENesin/DM ER PO SCH ×2 (08:40→20:20)
[2017-09-22] MEDS: Cyclobenzaprine 10 MG TAB PO SCH ×3 (08:40→20:20)
[2017-09-22] MEDS: Gabapentin 400 MG CAP PO SCH ×2 (08:41→20:20)
[2017-09-22] MEDS: FLUoxetine HCl 20 MG CAP PO SCH ×2 (08:41→20:19)
[2017-09-22] MEDS: Prenatal Vitamin 1 TAB PO SCH (08:41)
[2017-09-22] MEDS: Docusate 100 MG CAP PO SCH (08:41)
[2017-09-22] MEDS: Baclofen 10 MG TAB PO SCH ×4 (08:41→20:20)
[2017-09-22] MEDS: Enoxaparin Sodium 40 MG/0.4 ML SYRINGE SC SCH (08:42)
[2017-09-22] MEDS: Fluticasone Propionate Nasal Spray 16 gm Bottle NASAL SCH (08:42)
[2017-09-22] MEDS: Brimonidine Tartrate 0.2% Ophth Soln 5 ml Bottle R EYE SCH ×3 (08:43→20:20)
[2017-09-22] MEDS: Simethicone Chewable 80 MG TAB PO SCH ×4 (08:51→20:19)
[2017-09-22 13:31] VITALS: BMI 48.0
--- NOTE | 2017-09-22 14:19 | PDOC.PN ---
- Subjective Encounter Start Date: 09/22/17 Encounter Start Time: 14:18 Subjective: feels much better.able to use her fingers and snap - Objective MAR Reviewed: Yes Vital Signs & Weight: Vital Signs (12 hours) Temp Pulse Resp BP Pulse Ox 09/22/17 12:00 97.5 F L 98 18 139/82 95 09/22/17 08:01 98.4 F 98 18 95 09/22/17 07:46 98.4 F 98 18 144/93 H 95 Weight Weight 334 lb 11.2 oz I&O: 09/21/17 09/22/17 09/23/17 06:59 06:59 06:59 Intake Total 260 Output Total 7070 882 16 Balance -1320 -882 -16 Result Diagrams: 09/20/17 04:36 09/20/17 04:36 Phys Exam - Physical Examination Constitutional: NAD HEENT: PERRLA, moist MMs, sclera anicteric, oral pharynx no lesions Neck: no nodes, no JVD, supple, full ROM Respiratory: no wheezing, no rales, no rhonchi, clear to auscultation bilateral Cardiovascular: RRR, no significant murmur Gastrointestinal: soft, non-tender, no distention, positive bowel sounds Musculoskeletal: no edema, pulses present paraplegia Psychiatric: normal affect, A&O x 3 Skin: no rash Dx/Plan (1) Pneumonia Code(s): J18.9 - PNEUMONIA, UNSPECIFIED ORGANISM Status: Acute Qualifiers: Laterality: left Lung location: lower lobe of lung (2) Sepsis Code(s): A41.9 - SEPSIS, UNSPECIFIED ORGANISM Status: Acute (3) HTN (hypertension) Code(s): I10 - ESSENTIAL (PRIMARY) HYPERTENSION Status: Chronic (4) Morbid obesity Code(s): E66.01 - MORBID (SEVERE) OBESITY DUE TO EXCESS CALORIES Status: Acute (5) Ulcerative colitis Code(s): K51.90 - ULCERATIVE COLITIS, UNSPECIFIED, WITHOUT COMPLICATIONS Status: Acute (6) Multiple sclerosis, secondary progressive Code(s): G35 - MULTIPLE SCLEROSIS Status: Chronic (7) Colostomy in place Code(s): Z93.3 - COLOSTOMY STATUS Status: Acute - Plan PT/OT, DVT proph w/SCDs rehab eval. -: po ABx.clinically better -: DC when accepted. * . Review of Systems - Review of Systems Constitutional: weakness, malaise. negative: fever, chills, sweats, other ENT: negative: Ear Pain, Ear Discharge, Nose Pain, Nose Discharge, Nose Congestion, Mouth Pain, Mouth Swelling, Throat Pain, Throat Swelling, Other Respiratory: negative: Cough, Dry, Shortness of Breath, Hemoptysis, SOB with Excertion, Pleuritic Pain, Sputum, Wheezing Cardiovascular: negative: chest pain, palpitations, orthopnea, paroxysmal nocturnal dyspnea, edema, light headedness, other Gastrointestinal: negative: Nausea, Vomiting, Abdominal Pain, Diarrhea, Constipation, Melena, Hematochezia, Other Genitourinary: negative: Dysuria, Frequency, Incontinence, Hematuria, Retention , Other Musculoskeletal: negative: Neck Pain, Shoulder Pain, Arm Pain, Back Pain, Hand Pain, Leg Pain, Foot Pain, Other Skin: negative: Rash, Lesions, Kenan, Bruising, Other Neurological: Weakness. negative: Numbness, Incoordination, Change in Speech, Confusion, Seizures, Other - Medications/Allergies Allergies/Adverse Reactions: Allergies Allergy/AdvReac Type Severity Reaction Status Date / Time clarithromycin [From Biaxin] Allergy Hives Verified 09/17/17 22:11 Medications: Current Medications Acetaminophen (Tylenol) 650 mg PO Q4H PRN PRN Reason: Headache/Fever or Pain Last Admin: 09/17/17 22:47 Dose: 650 mg Acetaminophen (Tylenol) 650 mg SD Q4H PRN PRN Reason: Headache/Fever or Pain Hydrocodone Bitart/Acetaminophen ([place] 5/325) 1 tab PO Q6H PRN PRN Reason: Moderate Pain (4-6) Hydrocodone Bitart/Acetaminophen ([place] 5/325) 2 tab PO Q6H PRN PRN Reason: Severe Pain (7-10) Albuterol Sulfate (Proventil Hfa) 1 puff INH Q4H PRN PRN Reason: SOB &/or Wheezing Albuterol/Ipratropium (Duoneb) 3 ml NEB [id number] PRN PRN Reason: SOB &/or Wheezing Last Admin: 09/18/17 22:32 Dose: 3 ml Baclofen (Lioresal) 10 mg PO QID [facility] Last Admin: 09/22/17 12:14 Dose: 10 mg Bisacodyl (Dulcolax) 10 mg PO DAILYPRN PRN PRN Reason: Constipation Brimonidine Tartrate ([place] 0.2% [facility]) 1 drop R EYE TID [facility] Last Admin: 09/22/17 08:43 Dose: 1 drop Cholecalciferol (Vitamin D3) 2,000 units PO DAILY [facility] Last Admin: 09/22/17 08:41 Dose: 2,000 units Cyclobenzaprine HCl (Flexeril) 10 mg PO TID [facility] Last Admin: 09/22/17 08:40 Dose: 10 mg Docusate Sodium (Colace) 100 mg PO DAILY [facility] Last Admin: 09/22/17 08:41 Dose: 100 mg Enoxaparin Sodium (Lovenox) 40 mg SC 0900 [facility] Last Admin: 09/22/17 08:42 Dose: 40 mg Fluoxetine HCl (Prozac) 20 mg PO BID [facility] Last Admin: 09/22/17 08:41 Dose: 20 mg Fluticasone Propionate (Flonase Nasal [place]) 1 gm NASAL DAILY [facility] Last Admin: 09/22/17 08:42 Dose: 1 spr Gabapentin (Neurontin) 800 mg PO BID [facility] Last Admin: 09/22/17 08:41 Dose: 800 mg Guaifenesin/Dextromethorphan (Robitussin Dm) 5 ml PO Q6HR PRN PRN Reason: Congestion Guaifenesin/Dextromethorphan (Mucinex Dm) 2 tab PO Q12HR [facility] Last Admin: 09/22/17 08:40 Dose: 2 tab Hyoscyamine Sulfate (Levsin) 0.25 mg PO ACHS [facility] Last Admin: 09/22/17 12:08 Dose: 0.25 mg Ibuprofen (Motrin) 800 mg PO Q6H PRN PRN Reason: Fever>101/MILD Pain Last Admin: 09/20/17 21:33 Dose: 800 mg Levofloxacin (Levaquin) 750 mg PO 2000 [facility] Last Admin: 09/21/17 20:34 Dose: 750 mg Melatonin (Melatonin) 3 mg PO HS [facility] Last Admin: 09/21/17 22:01 Dose: 3 mg Mesalamine (Canasa) 1,000 mg SD HS PRN PRN Reason: Bleeding Ondansetron HCl (Zofran Odt) 4 mg PO Q8H PRN PRN Reason: Nausea/Vomiting Ondansetron HCl (Zofran) 4 mg IVP Q6H PRN PRN Reason: Nausea/Vomiting Last Admin: 09/18/17 10:32 Dose: 4 mg Multivit/Folic Acid/Iron ( Vitamin) 1 tab PO DAILY [facility] Last Admin: 09/22/17 08:41 Dose: 1 tab Simethicone (Mylicon Chewable) 180 mg PO [facility] Last Admin: 09/22/17 12:14 Dose: 180 mg
[2017-09-22] MEDS: Melatonin 3 MG TAB PO SCH (20:20)
[2017-09-23] MEDS: Baclofen 10 MG TAB PO SCH ×4 (08:24→21:07)
[2017-09-23] MEDS: guaiFENesin/DM ER PO SCH ×3 (08:24→21:09)
[2017-09-23] MEDS: FLUoxetine HCl 20 MG CAP PO SCH ×2 (08:25→21:07)
[2017-09-23] MEDS: Prenatal Vitamin 1 TAB PO SCH (08:25)
[2017-09-23] MEDS: Cyclobenzaprine 10 MG TAB PO SCH ×3 (08:25→21:13)
[2017-09-23] MEDS: Docusate 100 MG CAP PO SCH (08:25)
[2017-09-23] MEDS: Brimonidine Tartrate 0.2% Ophth Soln 5 ml Bottle R EYE SCH ×3 (08:25→21:09)
[2017-09-23] MEDS: Gabapentin 400 MG CAP PO SCH ×2 (08:25→21:07)
[2017-09-23] MEDS: Enoxaparin Sodium 40 MG/0.4 ML SYRINGE SC SCH (08:26)
[2017-09-23] MEDS: Fluticasone Propionate Nasal Spray 16 gm Bottle NASAL SCH (08:26)
[2017-09-23] MEDS: Simethicone Chewable 80 MG TAB PO SCH ×4 (08:27→21:13)
--- NOTE | 2017-09-23 15:05 | PDOC.PN ---
- Subjective Encounter Start Date: 09/23/17 Encounter Start Time: 15:04 Subjective: feels better.no new complaints. -: discussed home situation - Objective MAR Reviewed: Yes Vital Signs & Weight: Vital Signs (12 hours) Temp Pulse Resp BP Pulse Ox 09/23/17 12:00 98.3 F 107 H 22 H 127/83 96 09/23/17 07:51 98.8 F 107 H 22 H 09/23/17 07:23 98.8 F 107 H 22 H 120/78 97 09/23/17 05:59 98.2 F 111 H 20 121/79 97 Weight Weight 334 lb 11.2 oz I&O: 09/22/17 09/23/17 09/24/17 06:59 06:59 06:59 Intake Total 1800 Output Total 882 1507 16 Balance -882 293 -16 Result Diagrams: 09/20/17 04:36 09/20/17 04:36 Additional Labs: Microbiology 09/17/17 16:22 Nasal swab Influenza Types A,B Direct EIA - Final 09/17/17 16:02 Venous blood - Right Hand Blood Culture - Final NO GROWTH IN 5 DAYS 09/17/17 15:38 Venous blood - Left Arm Blood Culture - Final NO GROWTH IN 5 DAYS Phys Exam - Physical Examination Constitutional: NAD HEENT: PERRLA, moist MMs, sclera anicteric, oral pharynx no lesions Neck: no nodes, no JVD, supple, full ROM Respiratory: no wheezing, no rales, no rhonchi, clear to auscultation bilateral Cardiovascular: RRR, no significant murmur Gastrointestinal: soft, non-tender, no distention, positive bowel sounds Musculoskeletal: pulses present, edema present (chr lymphedema w/o excoriation) LE paraplegia Psychiatric: A&O x 3 tearful Skin: no rash Dx/Plan (1) Pneumonia Code(s): J18.9 - PNEUMONIA, UNSPECIFIED ORGANISM Status: Acute Qualifiers: Laterality: left Lung location: lower lobe of lung (2) HTN (hypertension) Code(s): I10 - ESSENTIAL (PRIMARY) HYPERTENSION Status: Chronic (3) Morbid obesity Code(s): E66.01 - MORBID (SEVERE) OBESITY DUE TO EXCESS CALORIES Status: Acute (4) Ulcerative colitis Code(s): K51.90 - ULCERATIVE COLITIS, UNSPECIFIED, WITHOUT COMPLICATIONS Status: Acute (5) Multiple sclerosis, secondary progressive Code(s): G35 - MULTIPLE SCLEROSIS Status: Chronic (6) Colostomy in place Code(s): Z93.3 - COLOSTOMY STATUS Status: Acute (7) Sepsis Code(s): A41.9 - SEPSIS, UNSPECIFIED ORGANISM Status: Suspected - Plan continue antibiotics, PT/OT, incentive spirometry, DVT proph w/SCDs Rehab eval in progress. -: consult PCT for emotional support & Home situation -: cont empiric ABx. -: aspen HERNANDEZ to [facility] today Or tomorrow. * . Review of Systems - Review of Systems Constitutional: negative: fever, chills, sweats, weakness, malaise, other Eyes: negative: Pain, Vision Change, Conjunctivae Inflammation, Eyelid Inflammation, Redness, Other ENT: negative: Ear Pain, Ear Discharge, Nose Pain, Nose Discharge, Nose Congestion, Mouth Pain, Mouth Swelling, Throat Pain, Throat Swelling, Other Respiratory: negative: Cough, Dry, Shortness of Breath, Hemoptysis, SOB with Excertion, Pleuritic Pain, Sputum, Wheezing Cardiovascular: negative: chest pain, palpitations, orthopnea, paroxysmal nocturnal dyspnea, edema, light headedness, other Gastrointestinal: negative: Nausea, Vomiting, Abdominal Pain, Diarrhea, Constipation, Melena, Hematochezia, Other Genitourinary: negative: Dysuria, Frequency, Incontinence, Hematuria, Retention , Other Musculoskeletal: negative: Neck Pain, Shoulder Pain, Arm Pain, Back Pain, Hand Pain, Leg Pain, Foot Pain, Other Skin: negative: Rash, Lesions, Kenan, Bruising, Other Neurological: Weakness (paraplegia LE) - Medications/Allergies Allergies/Adverse Reactions: Allergies Allergy/AdvReac Type Severity Reaction Status Date / Time clarithromycin [From Biaxin] Allergy Hives Verified 09/17/17 22:11 Medications: Current Medications Acetaminophen (Tylenol) 650 mg PO Q4H PRN PRN Reason: Headache/Fever or Pain Last Admin: 09/17/17 22:47 Dose: 650 mg Acetaminophen (Tylenol) 650 mg [place] Q4H PRN PRN Reason: Headache/Fever or Pain Hydrocodone Bitart/Acetaminophen ([place] 5/325) 1 tab PO Q6H PRN PRN Reason: Moderate Pain (4-6) Hydrocodone Bitart/Acetaminophen ([place] 5/325) 2 tab PO Q6H PRN PRN Reason: Severe Pain (7-10) Albuterol Sulfate (Proventil Hfa) 1 puff INH Q4H PRN PRN Reason: SOB &/or Wheezing Albuterol/Ipratropium (Duoneb) 3 ml NEB [id number] PRN PRN Reason: SOB &/or Wheezing Last Admin: 09/18/17 22:32 Dose: 3 ml Baclofen (Lioresal) 10 mg PO QID [facility] Last Admin: 09/23/17 12:06 Dose: 10 mg Bisacodyl (Dulcolax) 10 mg PO DAILYPRN PRN PRN Reason: Constipation Brimonidine Tartrate ([place]ph[place] 0.2% [facility]) 1 drop R EYE TID [facility] Last Admin: 09/23/17 08:25 Dose: 1 drop Cholecalciferol (Vitamin D3) 2,000 units PO DAILY [facility] Last Admin: 09/23/17 09:49 Dose: 2,000 units Cyclobenzaprine HCl (Flexeril) 10 mg PO TID [facility] Last Admin: 09/23/17 08:25 Dose: 10 mg Docusate Sodium (Colace) 100 mg PO DAILY [facility] Last Admin: 09/23/17 08:25 Dose: 100 mg Enoxaparin Sodium (Lovenox) 40 mg SC 0900 [facility] Last Admin: 09/23/17 08:26 Dose: 40 mg Fluoxetine HCl (Prozac) 20 mg PO BID [facility] Last Admin: 09/23/17 08:25 Dose: 20 mg Fluticasone Propionate (Flonase Nasal [place]) 1 gm NASAL DAILY [facility] Last Admin: 09/23/17 08:26 Dose: 1 spr Gabapentin (Neurontin) 800 mg PO BID [facility] Last Admin: 09/23/17 08:25 Dose: 800 mg Guaifenesin/Dextromethorphan (Robitussin Dm) 5 ml PO Q6HR PRN PRN Reason: Congestion Guaifenesin/Dextromethorphan (Mucinex Dm) 2 tab PO Q12HR [facility] Last Admin: 09/23/17 08:24 Dose: 2 tab Hyoscyamine Sulfate (Levsin) 0.25 mg PO ACHS [facility] Last Admin: 09/23/17 12:06 Dose: 0.25 mg Ibuprofen (Motrin) 800 mg PO Q6H PRN PRN Reason: Fever>101/MILD Pain Last Admin: 09/20/17 21:33 Dose: 800 mg Levofloxacin (Levaquin) 750 mg PO 2000 [facility] Last Admin: 09/22/17 20:20 Dose: 750 mg Melatonin (Melatonin) 3 mg PO HS [facility] Last Admin: 09/22/17 20:20 Dose: 3 mg Mesalamine (Canasa) 1,000 mg GA HS PRN PRN Reason: Bleeding Ondansetron HCl (Zofran Odt) 4 mg PO Q8H PRN PRN Reason: Nausea/Vomiting Ondansetron HCl (Zofran) 4 mg IVP Q6H PRN PRN Reason: Nausea/Vomiting Last Admin: 09/18/17 10:32 Dose: 4 mg Multivit/Folic Acid/Iron ( Vitamin) 1 tab PO DAILY [facility] Last Admin: 09/23/17 08:25 Dose: 1 tab Simethicone (Mylicon Chewable) 180 mg PO [facility] Last Admin: 09/23/17 12:07 Dose: 180 mg
[2017-09-23] MEDS: Melatonin 3 MG TAB PO SCH (21:08)
[2017-09-24] MEDS: Cyclobenzaprine 10 MG TAB PO SCH ×3 (08:16→20:31)
[2017-09-24] MEDS: Baclofen 10 MG TAB PO SCH ×4 (08:16→20:31)
[2017-09-24] MEDS: Enoxaparin Sodium 40 MG/0.4 ML SYRINGE SC SCH (08:16)
[2017-09-24] MEDS: FLUoxetine HCl 20 MG CAP PO SCH ×2 (08:17→20:31)
[2017-09-24] MEDS: Docusate 100 MG CAP PO SCH (08:17)
[2017-09-24] MEDS: Gabapentin 400 MG CAP PO SCH ×2 (08:17→20:30)
[2017-09-24] MEDS: Prenatal Vitamin 1 TAB PO SCH (08:17)
[2017-09-24] MEDS: Simethicone Chewable 80 MG TAB PO SCH ×4 (08:20→20:32)
[2017-09-24] MEDS: Fluticasone Propionate Nasal Spray 16 gm Bottle NASAL SCH (08:20)
[2017-09-24] MEDS: Brimonidine Tartrate 0.2% Ophth Soln 5 ml Bottle R EYE SCH ×3 (08:21→20:31)
[2017-09-24] MEDS: guaiFENesin/DM ER PO SCH ×2 (08:22→20:37)
--- NOTE | 2017-09-24 13:23 | PDOC.PN ---
- Subjective Encounter Start Date: 09/24/17 Encounter Start Time: 13:20 Ms. Monreal was seen in follow-up. She says she believes her cough has returned some, and feels a little more short of breath. - Objective MAR Reviewed: Yes Vital Signs & Weight: Vital Signs (12 hours) Temp Pulse Resp BP Pulse Ox 09/24/17 08:00 98.5 F 104 H 20 94 L 09/24/17 07:44 98.5 F 104 H 20 162/90 H 94 L 09/24/17 04:00 98.2 F 104 H 18 146/93 H 96 Weight Weight 334 lb 11.2 oz I&O: 09/23/17 09/24/17 09/25/17 06:59 06:59 06:59 Intake Total 1800 1200 480 Output Total 1507 1982 Balance 293 -782 480 Result Diagrams: 09/20/17 04:36 09/20/17 04:36 Phys Exam - Physical Examination HEENT: PERRLA + rales at the bases Cardiovascular: RRR, no significant murmur, no rub Gastrointestinal: soft, non-tender, positive bowel sounds Musculoskeletal: edema present trace pedal edema, and muscle atrophy Dx/Plan (1) Pneumonia Code(s): J18.9 - PNEUMONIA, UNSPECIFIED ORGANISM Status: Acute Qualifiers: Laterality: left Lung location: lower lobe of lung (2) HTN (hypertension) Code(s): I10 - ESSENTIAL (PRIMARY) HYPERTENSION Status: Chronic (3) Morbid obesity Code(s): E66.01 - MORBID (SEVERE) OBESITY DUE TO EXCESS CALORIES Status: Acute (4) Ulcerative colitis Code(s): K51.90 - ULCERATIVE COLITIS, UNSPECIFIED, WITHOUT COMPLICATIONS Status: Acute (5) Multiple sclerosis, secondary progressive Code(s): G35 - MULTIPLE SCLEROSIS Status: Chronic - Plan * Pneumonia- will re-check CXR in the AM * Incentive Spirometry to help with improving lung expansion * MS- she is not currently on any specific treatment for this * Continue PT/OT. * Awaiting Rehab transfer
[2017-09-24] MEDS: Melatonin 3 MG TAB PO SCH (20:37)
--- NOTE | 2017-09-25 07:51 | RAD ---
CHEST 1 VIEW: HISTORY: Pneumonia. Followup. COMPARISON: 09/17/17. FINDINGS: Cardiac silhouette is magnified by projection. Pulmonary vasculature is unremarkable. Mediastinum i s midline. Left pleural fluid and basilar infiltrate is unchanged from the previous exam. No eviden ce of pneumothorax. IMPRESSION: Left basilar infiltrate and pleural fluid are stable. No new abnormalities are demonstrated. POS: [facility]
[2017-09-25] MEDS: Simethicone Chewable 80 MG TAB PO SCH ×3 (08:27→18:18)
[2017-09-25] MEDS: Cyclobenzaprine 10 MG TAB PO SCH ×2 (08:29→16:22)
[2017-09-25] MEDS: guaiFENesin/DM ER PO SCH (08:29)
[2017-09-25] MEDS: FLUoxetine HCl 20 MG CAP PO SCH (08:29)
[2017-09-25] MEDS: Baclofen 10 MG TAB PO SCH ×3 (08:29→16:25)
[2017-09-25] MEDS: Gabapentin 400 MG CAP PO SCH (08:29)
[2017-09-25] MEDS: Docusate 100 MG CAP PO SCH (08:30)
[2017-09-25] MEDS: Enoxaparin Sodium 40 MG/0.4 ML SYRINGE SC SCH (08:30)
[2017-09-25] MEDS: Brimonidine Tartrate 0.2% Ophth Soln 5 ml Bottle R EYE SCH ×2 (08:31→16:22)
[2017-09-25] MEDS: Fluticasone Propionate Nasal Spray 16 gm Bottle NASAL SCH (08:31)
[2017-09-25] MEDS: Prenatal Vitamin 1 TAB PO SCH (08:32)
--- NOTE | 2017-09-25 11:34 | PDOC.PN ---
- Subjective Encounter Start Date: 09/25/17 Encounter Start Time: 11:32 Ms. Monreal was seen today in follow-up. She is feeling a bit better. Coughing is less. She is using the Incentive Spirometry, and is able to get it up to about 1200ml. - Objective MAR Reviewed: Yes Vital Signs & Weight: Vital Signs (12 hours) Temp Pulse Resp BP Pulse Ox 09/25/17 08:35 98.6 F 106 H 20 97/60 94 L Weight Weight 334 lb 11.2 oz I&O: 09/24/17 09/25/17 09/26/17 06:59 06:59 06:59 Intake Total 1200 480 240 Output Total 1982 350 Balance -782 130 240 Result Diagrams: 09/20/17 04:36 09/20/17 04:36 Phys Exam - Physical Examination HEENT: PERRLA Respiratory: no wheezing, no rales, no rhonchi, clear to auscultation bilateral Cardiovascular: RRR, no significant murmur Gastrointestinal: soft, non-tender, positive bowel sounds Musculoskeletal: no edema Dx/Plan (1) Pneumonia Code(s): J18.9 - PNEUMONIA, UNSPECIFIED ORGANISM Status: Acute Qualifiers: Laterality: left Lung location: lower lobe of lung (2) HTN (hypertension) Code(s): I10 - ESSENTIAL (PRIMARY) HYPERTENSION Status: Chronic (3) Morbid obesity Code(s): E66.01 - MORBID (SEVERE) OBESITY DUE TO EXCESS CALORIES Status: Acute (4) Ulcerative colitis Code(s): K51.90 - ULCERATIVE COLITIS, UNSPECIFIED, WITHOUT COMPLICATIONS Status: Acute (5) Multiple sclerosis, secondary progressive Code(s): G35 - MULTIPLE SCLEROSIS Status: Chronic - Plan * Pneumonia- Improving clinically- continue Levaquin * MS- continue PT/OT. She has noted some improvement in her dexterity in her hands with PT and OT. She also has been able to sit up at the side of the bed with assistance, and is looking forward to being able to do this on her own, and be more independent at home. * HTN- blood pressure is stable * Tachycardia- this may be due to deconditioning- will. Crystal check TFT's in the AM .
[2017-09-25 19:34] VITALS: BP 131/83; TEMP 98.6
--- NOTE | 2017-09-25 22:43 | DIS ---
PRIMARY CARE PHYSICIAN: Dr. Vivas. DATE OF ADMISSION: 09/17/2017 DATE OF DISCHARGE: 09/25/2017 DISCHARGE DISPOSITION: Inpatient rehabilitation at [facility]. DISCHARGE DIAGNOSES: 1. Community-acquired pneumonia. 2. Multiple sclerosis. 3. Severe deconditioning. 4. Hypertension. 5. Raynaud's syndrome. 6. Depression. 7. History of ulcerative colitis. 8. Obesity. DISCHARGE MEDICATIONS: Include Levaquin 750 mg p.o. q. day for 3 days, Travatan Z one drop in the ri ght eye at bedtime, simethicone p.r.n., Zofran 4 mg q.8 hours as needed, mesalamine 1000 mg per rectu m as needed, melatonin 3 mg at bedtime, ibuprofen 800 mg q. 6 hours as needed, hyoscyamine sulfate 0. 125 mg 2 tabs q.i.d., Nesbit 5/325 one to two tabs q.6 hours as needed, gabapentin 800 mg twice a day, Prozac 20 mg twice daily, Colace 100 mg daily, Flexeril 10 mg t.i.d., cranberry extract 500 mg t.i.d ., vitamin D3 of 1000 units daily, Alphagan 0.2 ophthalmic 1 drop in the right eye t.i.d. and baclofe n 10 mg q.i.d. CODE STATUS: FULL CODE. ALLERGIES: CLARITHROMYCIN. HOSPITAL COURSE: Ms. Monreal is a 57-year-old female who presented to the emergency room with product radha cough and fever and also noted some burning in her chest. She was diagnosed with community-acqui red pneumonia. She had an elevated white blood cell count and with a fever qualified for admission [facility]. She was treated with IV antibiotics and improved over the course of the next few d ays. She also had mentioned that she has been very deconditioned due to both the pneumonia as well a s progressive multiple sclerosis and her goal was to be more mobile and more independent at home and for this reason she was screened for inpatient rehabilitation and was accepted and able to be transfe rred there on 09/25/2017.
--- NOTE | 2017-10-01 07:31 | PQF ---
MERRY DONOVAN TONI MD [id number] CLINICAL DOCUMENTATION CLARIFICATION FORM: POST DISCHARGE Addendum to original discharge summary date: 09/25/2017 MERRY DONOVAN [id number] JENNIE ARROYO PLEASE DOCUMENT YOUR RESPONSE BELOW YOUR INPUT IS NEEDED TO CORRECTLY CODE A DIAGNOSIS FOR YOUR PATIENT. DATE: 10/01/2017 ATTN: Dr. Pak Please exercise your independent, professional judgment in responding to the clarification form. Clinical indicators are provided on the bottom of this form for your review Please check appropriate box(s) to clarify if the following diagnosis has been ruled in our ruled out: Please clarify if the diagnosis of sepsis was: [ X ] Sepsis was a Ruled in diagnosis [ ] Continue to treat [ ] Resolved [ ] Sepsis was a Ruled out diagnosis [ ] Cannot rule out diagnosis [ ] Other diagnosis (please specify) [ ] Unable to determine In addition, please specify: Present on Admission (POA): [ X ] Yes [ ] No [ ] Unable to determine For continuity of documentation, please document condition throughout progress notes and discharge summary. Thank You. SIGNS / SYMPTOMS / LABS Per H&P: Sinus tachycardia (unclear if from sepsis or past history of chronic sinus tachycardia). Per ED: Temp max: 101 to 101.9. . Per H&P: Sepsis most likely secondary to pneumonia. Progress notes 09/18 to 07/22: Sepsis. Progress note 09/23: Sepsis, suspected. Progress notes 09/24, 09/25 and discharge summary: No mention of sepsis. RISK FACTORS (per H&P) Pneumonia. TREATMENTS (per progress notes) IV Levofloxacin. IV Ceftriaxone. (This form is maintained as a part of the permanent medical record) 2014 [employer]. All Rights Reserved Catie [email or web address] [phone] MTDMaria Del Carmen
== END 2017-09-25 19:30 | DRG 871 ==
LOC: ERS 14:17 → T4-A 20:23
PROVIDERS: ADMIT Internal Medicine; ATTEND Internal Medicine
DX: A41.9 Sepsis, unspecified organism (principal); J18.9 Pneumonia, unspecified organism; D69.59 Other secondary thrombocytopenia; D75.1 Secondary polycythemia; E66.01 Morbid (severe) obesity due to excess calories; Z68.42 Body mass index [BMI] 45.0-49.9, adult; G35 Multiple sclerosis; E86.0 Dehydration; I10 Essential (primary) hypertension; I73.00 Raynaud's syndrome without gangrene; E87.6 Hypokalemia; B00.1 Herpesviral vesicular dermatitis; F32.9 Major depressive disorder, single episode, unspecified; R32 Unspecified urinary incontinence; Z88.1 Allergy status to other antibiotic agents; Z79.899 Other long term (current) drug therapy; Z93.3 Colostomy status
CPT/HCPCS: 36415; 71045; 80048; 80053; 82550; 82553; 83605; 83880; 84484; 85025; 85379; 87040; 87804; 93005; 94640; 94760; 96365; 96367; A4216; G8978-GP-CN; G8979-GP-CK; G8987-GO-CL; G8988-GO-CK; J0696; J1650; J1956; J2405; J7050; J7620

== ENCOUNTER 2017-11-25 10:26 | Outpatient (CLI) | payer MEDICARE, OTHER ==
--- NOTE | 2017-11-26 01:09 | HP ---
DATE OF SERVICE: 11/25/2017 HISTORY OF PRESENT ILLNESS: Ms. Jose Monreal is a very pleasant 57-year-old who [facility] for evaluation of lymphedema of the lower extremities and trunk. The patient was refer red to the Wound Center by Dr. Rigoberto Tsang. The patient's primary care provider is Dr. Tray laird. Ms. Jose Monreal has no other complaints today. She denies any fever or chills. PAST MEDICAL HISTORY: 1. Multiple sclerosis. 2. Crohn disease. 3. Lymphedema. 4. Raynaud syndrome. 5. History of ulcerative colitis. PAST SURGICAL HISTORY: 1. Tubal ligation. 2. Ganglion cyst removal from the left wrist. 3. Laparoscopic ileostomy in 05/2014. 4. Colectomy and ostomy placement. MEDICATIONS: Patient does not have a list of her medications with her today. She states that her me dications, however, include Flexeril, baclofen, Prozac, gabapentin, melatonin, vitamin D, multivitami n, and probiotic. ALLERGIES: BIAXIN. SOCIAL HISTORY: Significant for tobacco use of 1/2 of a pack of cigarettes per day for 16 years. Th e patient states that she stopped smoking 30 years ago. The patient denies any history of EtOH use. FAMILY HISTORY: Negative for diabetes mellitus or coronary artery disease. PHYSICAL EXAMINATION: VITAL SIGNS: Temperature 98.2, pulse 113, respirations 20, blood pressure 140/83. GENERAL: A 57-year-old sitting on wheelchair in examination room, in no acute distress. HEENT: Normocephalic, atraumatic. NECK: No nuchal rigidity. CHEST: Clear to auscultation. CARDIAC: Regular rate and rhythm. ABDOMEN: Soft. EXTREMITIES: Lymphedema of the lower extremities is present, affecting also the trunk. Circumferenc es of the right lower extremity at the ankle, calf, knee, and thigh are 29 cm, 45 cm, 43 cm, and 63 c m. Circumferences of the left lower extremity at the ankle, calf, knee, and thigh are 29 cm, 40 cm, 46 cm, and 64 cm. The abdominal circumference is 170 cm. Hyperpigmentation and hyperkeratosis are p resent over the right and left lower extremities. NEUROLOGIC: Grossly nonfocal. ASSESSMENT AND PLAN: 1. Lymphedema tarda, stage III. The patient is presently using a pneumatic pump specifically [employer] mpression [id number] at a pressure setting of 60. I will see Ms. Monreal again in 4 weeks, at this time, t he circumferences of the right and left lower extremities and of the abdomen will be obtained again. The patient has been instructed in self MLD with . The patient has also been instructed to fol low a low sodium diet. 2. Multiple sclerosis. 3. Crohn disease. 4. Raynaud syndrome. 5. History of ulcerative colitis.
== END 2017-11-25 10:27 | disposition home or self-care (01) ==
LOC: WCC 10:26
PROVIDERS: ATTEND Family Medicine
DX: I89.0 Lymphedema, not elsewhere classified (principal); G35 Multiple sclerosis; K50.90 Crohn's disease, unspecified, without complications; I73.00 Raynaud's syndrome without gangrene; Z87.898 Personal history of other specified conditions
CPT/HCPCS: 97139; G0463; 99203

== ENCOUNTER 2017-12-23 08:35 | Outpatient (CLI) | payer MEDICARE, OTHER ==
--- NOTE | 2017-12-23 12:26 | PRG ---
DATE OF SERVICE: 12/23/2017 HISTORY OF PRESENT ILLNESS: Ms. Jose Monreal is a very pleasant 57-year-old who presents to the [facility] Center for evaluation of lymphedema of the lower extremities and trunk. The patient was refer red to the Wound Center by Zulema Tsang. The patient's primary care physician is Dr. Vivas. Ms. Jose Monreal has no complaints today. She denies any fever or chills. PHYSICAL EXAMINATION: VITAL SIGNS: Temperature 98.4, respirations 19, blood pressure 134/88. EXTREMITIES: Lymphedema of the right lower extremities is present affecting also the trunk. Circumf erences of the right lower extremity at the ankle, calf, and knee are 29.4 cm, 39.7 cm, and 54.5 cm. Circumferences of the left lower extremity at the ankle, calf, and knee are 29.5 cm, 40.5 cm, and 57 .8 cm. Hyperpigmentation and keratosis are present over the right and left lower extremities. ASSESSMENT AND PLAN: 1. Lymphedema tarda, stage 3. The patient is currently using a pneumatic pump specifically bio [employer] ression [id number] at a pressure setting of 60. The patient has been using her pneumatic pump on a daily basis. She has also been performing self manual lymph drainage in conjunction with the use of her pn eumatic pump. The patient was previously placed on a low sodium diet. Ms. Monreal will be discharged from clinic today with followup on a p.r.n. basis. 2. Multiple sclerosis. 3. Crohn's disease. 4. Raynaud's syndrome. 5. History of ulcerative colitis.
== END 2017-12-23 08:36 | disposition home or self-care (01) ==
LOC: WCC 08:35
PROVIDERS: ATTEND Family Medicine
DX: I80.9 Phlebitis and thrombophlebitis of unspecified site (principal); G35 Multiple sclerosis; K50.90 Crohn's disease, unspecified, without complications; I73.00 Raynaud's syndrome without gangrene; Z87.19 Personal history of other diseases of the digestive system
CPT/HCPCS: 97139; G0463; 99213

== ENCOUNTER 2017-12-31 15:41 | Emergency (ER) | payer MEDICARE, OTHER ==
[2017-12-31 16:25] LABS: #Basophils 0.1 thou/uL (0.0-0.2); #Eosinphils 0.6 thou/uL (0.0-0.7); #Lymphocytes 3.2 thou/uL (1.20-3.40); #Monocytes 0.7 thou/uL (0.11-0.59); #Neutrophils 5.3 thou/uL (1.40-6.50); %Eosinophils 5.7 % (0.0-10.0); %Lymphocytes 32.4 % (21.0-51.0); Hemoglobin 15.9 g/dL (12.0-16.0); Mean Corpuscular HGB CONC 33.2 g/dL (32.0-36.0); Mean Corpuscular Hemoglobin 29.8 pg (27.0-31.0); Mean Corpuscular Volume 89.7 fl (81.0-99.0); Mean Platelet Volume 6.3 fL (7.4-10.4); Platelet Count 379 thou/uL (130-400); RBC Distribution Width 13.2 % (11.5-14.5); Red Blood Cell (RBC) Count 5.33 mill/uL (4.20-5.40); White Blood Cell (WBC) Count 9.7 thou/uL (4.8-10.8)
[2017-12-31 16:27] LABS: Bilirubin Negative (Negative); Blood, Urine Large (Negative); Clarity TURBID (Clear); Glucose, Urine (Dipstick) Negative (Negative); Leukocyte Large (Negative); Nitrite Positive (Negative); Protein, Urine (Dipstick) 30 mg/dL (Neg-Trace); Specific Gravity, Urine 1.014 (1.002-1.036); Urobilinogen 0.2 mg/dL (0.2-1.0); pH, Urine 5.5 (5.0-9.0)
[2017-12-31 16:30] LABS: Bacteria/HPF 4+ HPF (None Seen); Hyaline Casts/LPF 4-6 HYALINE CAST LPF (0-3 Hyaline); Pathc Cast-AUWi Flag 1.43 (0-2.49); Squamous Epithelial 0-3 HPF (0-3)
[2017-12-31 16:31] LABS: Yeast-AUWi Flag 486.6 (0-25.0)
[2017-12-31 16:51] LABS: ALT (SGPT) 29 U/L (8-55); AST (SGOT) 27 U/L (5-34); Albumin 3.5 g/dL (3.5-5.0); Alkaline Phosphatase 123 U/L (40-150); Anion Gap 14 mmol/L (10-20); BUN (Urea Nitrogen) 4 mg/dL (9.8-20.1); Bilirubin, Total 0.4 mg/dL (0.2-1.2); CK (CPK) 12 U/L (29-168); Calc. Creatinine Clearance 0 mL/min (70-130); Calcium 9.3 mg/dL (7.8-10.44); Carbon Dioxide 23 mmol/L (22-29); Chloride 103 mmol/L (98-107); Estimated GFR-MDRD Greater than 90; Globulin 4.1 g/dL (2.4-3.5); Glucose 115 mg/dL (70-105); Potassium 3.9 mmol/L (3.5-5.1); Protein, Total 7.6 g/dL (6.0-8.3); Sodium 136 mmol/L (136-145)
[2017-12-31 16:53] LABS: Crystals/HPF RARE CA OXALATE HPF (Negative); Yeast-All Forms None Seen HPF (None Seen)
[2017-12-31 16:56] LABS: CKMB 0.4 ng/mL (0-6.6); Troponin I Less than 0.010 ng/mL (< 0.028)
[2017-12-31] MEDS ORDERED: cefTRIAXone\\ROCEPHIN 2 GM VIAL ONE (17:18)
[2017-12-31] MEDS ORDERED: methylPREDNISolone Sod Succ/PF 125 MG/2 ML VIAL ONE (17:18)
[2017-12-31] MEDS ORDERED: Water For Inject, Bacteriostat 30 ML ONE (17:18)
--- NOTE | 2017-12-31 18:03 | RAD ---
CHEST ONE VIEW: HISTORY: Abdominal pain and shortness of breath x2 weeks. Hematuria. COMPARISON: 09/25/2017 FINDINGS: Stable cardiac silhouette. The pulmonary vessels are within normal limits. Chronic blunting of the left costophrenic angle. Patchy opacities of the lung parenchyma. No consolidation or mass. No pne umothorax or osseous abnormalities. IMPRESSION: 1. Chronic changes in the left lung base. 2. No acute cardiopulmonary process. POS: NAVEEN
--- NOTE | 2017-12-31 19:38 | CT ---
CT ABDOMEN AND PELVIS NONCONTRAST: INDICATIONS: Right flank pain. COMPARISON: CT from 03/16/2011. FINDINGS: Scattered patchy densities of the imaged lung bases are incompletely evaluated and may relate to volu me loss and/or scarring. No discrete urolithiasis or obstructive uropathy. A left lower quadrant os malcolm is present. There is scattered vascular disease. Vague hypodensity at the superior aspect of t he right hepatic lobe is incompletely assessed on the basis of the noncontrast imaging. No free air or ascites. There is scattered osseous degenerative change. There are areas of endplate irregularit y and associated height loss of the imaged lower thoracic and lumbar spine. Otherwise, no significan t interval change. IMPRESSION: No urolithiasis or obstructive uropathy. Additional details are as described above, within the limit ations of a noncontrast technique. POS: LUCIANO
== END 2017-12-31 19:58 | disposition home or self-care (01) ==
LOC: ERS 15:41
DX: N30.01 Acute cystitis with hematuria (principal); G35 Multiple sclerosis; E66.9 Obesity, unspecified; F32.9 Major depressive disorder, single episode, unspecified; Z87.891 Personal history of nicotine dependence; Z79.899 Other long term (current) drug therapy
CPT/HCPCS: 71045; 74176; 80053; 81003; 81015; 82553; 84484; 85025; 93005; 94640; 96365; 96375; J0696; J2930; J7620

== ENCOUNTER 2018-07-09 17:25 | Inpatient (IN) | payer MEDICARE, OTHER ==
[2018-07-09 18:24] LABS: #Lymphocytes 1.1 thou/uL (1.20-3.40); #Monocytes 0.5 thou/uL (0.11-0.59); #Neutrophils 15.4 thou/uL (1.40-6.50); %Basophils 0.2 % (0.0-1.0); %Eosinophils 0.2 % (0.0-10.0); %Lymphocytes 6.6 % (21.0-51.0); %Monocytes 2.8 % (0.0-10.0); %Neutrophils 90.1 % (42.0-75.0); Hemoglobin 16.9 g/dL (12.0-16.0); Mean Corpuscular HGB CONC 32.3 g/dL (32.0-36.0); Mean Corpuscular Hemoglobin 28.8 pg (27.0-31.0); Mean Corpuscular Volume 89.2 fL (78.0-98.0); Mean Platelet Volume 6.4 fL (7.4-10.4); Platelet Count 459 thou/uL (130-400); RBC Distribution Width 13.4 % (11.5-14.5); Red Blood Cell (RBC) Count 5.85 mill/uL (4.20-5.40)
[2018-07-09 18:47] LABS: ALT (SGPT) 35 U/L (8-55); AST (SGOT) 29 U/L (5-34); Albumin 3.9 g/dL (3.5-5.0); Alkaline Phosphatase 149 U/L (40-150); Anion Gap 12 mmol/L (10-20); BUN (Urea Nitrogen) 10 mg/dL (9.8-20.1); Bilirubin, Total 0.4 mg/dL (0.2-1.2); Calc. Creatinine Clearance 0 mL/min (70-130); Calcium 9.9 mg/dL (7.8-10.44); Carbon Dioxide 28 mmol/L (22-29); Chloride 104 mmol/L (98-107); Estimated GFR-MDRD Greater than 90; Globulin 4.3 g/dL (2.4-3.5); Glucose 140 mg/dL (70-105); Potassium 4.1 mmol/L (3.5-5.1); Protein, Total 8.2 g/dL (6.0-8.3); Sodium 140 mmol/L (136-145)
--- NOTE | 2018-07-09 18:57 | RAD ---
CHEST ONE VIEW: 07/09/18 INDICATION: History of cough. COMPARISON: Prior chest radiograph dated 12/31/17. FINDINGS: There is stable prominent left pericardial fat pad. Chronic lung changes are stable. Moderate cardiom egaly is stable. No acute osseous abnormality is evident. IMPRESSION: No acute abnormality. POS: BH
--- NOTE | 2018-07-09 19:00 | RAD ---
LEFT FOOT THREE VIEWS: 07/09/18 INDICATION: History of a sore in the left heel. FINDINGS: There is soft tissue gas involving the posterior heel pad. There is diffuse osteopenia. There is scat tered osteoporosis. No definite acute osseous abnormality is evident. IMPRESSION: Soft tissue wound involving the posterior heel. Diffuse osteopenia. No acute osseous abnormality. POS: BH
[2018-07-09] MEDS ORDERED: Piperacillin/Tazobactam 4.5 GM VIAL ONE (20:41)
[2018-07-09 21:07] LABS: Bilirubin Negative (Negative); Blood, Urine Negative (Negative); Clarity CLOUDY (Clear); Glucose, Urine (Dipstick) Negative (Negative); Leukocyte Moderate (Negative); Nitrite Positive (Negative); Protein, Urine (Dipstick) Negative (Neg-Trace); Specific Gravity, Urine 1.021 (1.002-1.036); Urobilinogen 0.2 mg/dL (0.2-1.0)
[2018-07-09 21:08] LABS: Bacteria/HPF 1+ HPF (None Seen); Pathc Cast-AUWi Flag 1.45 (0-2.49); Squamous Epithelial None Seen HPF (0-3); WBC/HPF 21-50 HPF (0-3)
[2018-07-09 21:18] LABS: RBC/HPF 0-3 HPF (0-3)
[2018-07-09 21:19] LABS: Hyaline Casts/LPF NONE SEEN LPF (0-3 Hyaline)
[2018-07-09] MEDS ORDERED: Clindamycin/D5W 600 mg/50 ml Premix Bag ONE (21:34)
[2018-07-09 21:49] LABS: Lactic Acid 1.5 mmol/L (0.5-2.2)
[2018-07-09] MEDS ORDERED: Vancomycin HCl 1.5 GM in Sodium Chloride 0.9% 250 ML 300 ML IVPB SCH (23:15)
[2018-07-09 23:43] VITALS: BMI 43.3
[2018-07-10] MEDS ORDERED: Ondansetron ODT 4 MG TAB PO PRN (00:07)
[2018-07-10] MEDS ORDERED: Bisacodyl 5 MG TAB PO PRN (00:07)
[2018-07-10] MEDS ORDERED: Guaifenesin DM 100-10/5 ML UDCUP PO PRN (00:07)
[2018-07-10] MEDS ORDERED: Zolpidem Tartrate 5 MG TAB PO PRN (00:07)
[2018-07-10] MEDS ORDERED: HYDROcodone/Acetaminophen 5/325 mg Tablet PO PRN (00:07)
[2018-07-10] MEDS ORDERED: Acetaminophen 325 MG TAB PO PRN (00:07)
[2018-07-10] MEDS ORDERED: Senokot S 8.6-50 MG TAB PO PRN (00:07)
[2018-07-10] MEDS ORDERED: Ondansetron PF 4 MG/2 ML Vial IVP PRN (00:07)
[2018-07-10] MEDS: Sodium Chloride 0.9% 1,000 ML IV SCH (00:39)
[2018-07-10] MEDS: Piperacillin/Tazobactam 3.375 GM in Sodium Chloride 0.9% 100 ML IVPB SCH ×3 (03:33→15:33)
[2018-07-10] MEDS ORDERED: HYDROcodone/Acetaminophen 7.5/325 mg Tablet PO PRN (03:59)
[2018-07-10] MEDS ORDERED: Mesalamine 1000 MG Suppository PR PRN (03:59)
[2018-07-10] MEDS ORDERED: Ibuprofen 800 MG TAB PO PRN (03:59)
[2018-07-10] MEDS ORDERED: traZODone HCl 50 MG TAB PO PRN (03:59)
[2018-07-10 05:52] LABS: #Basophils 0.1 thou/uL (0.0-0.2); #Eosinphils 0.1 thou/uL (0.0-0.7); #Lymphocytes 4.2 thou/uL (1.20-3.40); #Monocytes 1.7 thou/uL (0.11-0.59); #Neutrophils 13.3 thou/uL (1.40-6.50); %Basophils 0.3 % (0.0-1.0); %Eosinophils 0.5 % (0.0-10.0); %Lymphocytes 21.8 % (21.0-51.0); %Monocytes 8.5 % (0.0-10.0); %Neutrophils 68.9 % (42.0-75.0); Hemoglobin 14.7 g/dL (12.0-16.0); Mean Corpuscular HGB CONC 32.8 g/dL (32.0-36.0); Mean Corpuscular Hemoglobin 29.2 pg (27.0-31.0); Mean Corpuscular Volume 88.9 fL (78.0-98.0); Mean Platelet Volume 6.5 fL (7.4-10.4); Platelet Count 407 thou/uL (130-400); RBC Distribution Width 13.3 % (11.5-14.5); Red Blood Cell (RBC) Count 5.03 mill/uL (4.20-5.40); White Blood Cell (WBC) Count 19.4 thou/uL (4.8-10.8)
[2018-07-10] MEDS: Baclofen 10 MG TAB PO SCH ×4 (05:52→21:39)
--- NOTE | 2018-07-10 06:00 | HP ---
CHIEF COMPLAINT: Left lower heel cellulitis. HISTORY OF PRESENT ILLNESS: This is a 58-year-old female with past medical history of multiple sclerosis, Crohn disease, Raynaud syndrome, scotopic sensitivity syndrome, lymphedema, obesity, right eye blindness, presenting with left lower heel cellulitis. Per patient, she had a little blister that was noted at the heel. It was like the size of a quarter, very small, and the patient stated that she lanced it by herself with a sterile needle and since then has become erythematous, painful, and that prompted her to come to the hospital. Per patient, she states that she was diagnosed with multiple sclerosis when she was 30 years old back in . The patient states that in 2008, she became wheelchair-bound. In 2013, she became bedbound and now she feels like she has been progressively getting better and now she just wheelchair. She is able to go out and she feels like she has progressed a little better in terms of her multiple sclerosis, but the patient states that in the past couple of days, she was having severe nerve pain, which at that time, her gabapentin was increased, and the patient now noticed that she has a little blister, and she lanced the blister and now it has turned to be very erythematous and very painful. The patient also states that due to the nerve pain that she was having, she was also started on prednisone for her multiple sclerosis related pain. At this point, the patient endorses left lower extremity pain. Otherwise, the patient denies any shortness of breath, chest pain, palpitations, fever, nausea, vomiting, dysuria, hematuria, melena, or hematochezia. Of note, the patient has had cellulitis in the past. In 2009, the patient stated that she had something similar to what she has now. PAST MEDICAL HISTORY: Significant for Crohn disease, multiple sclerosis, Raynaud, scotopic sensitivity syndrome, right eye blindness, and lymphedema. FAMILY HISTORY: Reviewed and noncontributory to this visit. PAST SURGICAL HISTORY: The patient had colon removed. The patient had tubal ligation done. The patient had left wrist surgery in the past. The patient had colostomy in the past. PSYCHIATRIC HISTORY: Depression. SOCIAL HISTORY: The patient lives at home. The patient states that she has her in the home. The patient denies any alcohol use or illicit drug use. The patient was a former tobacco user. The patient smoked cigarettes. The patient quit a long time ago. ALLERGIES: THE PATIENT IS ALLERGIC TO BIAXIN AND CLARITHROMYCIN. CURRENT MEDICATIONS: 1. Advair. 2. Baclofen. 3. Flexeril. 4. Brimonidine. 5. Travatan. 6. Gabapentin. 7. Melatonin. 8. Hyoscyamine. 9. Prednisone. 10. Vitamin D3. 11. [place]. PHYSICAL EXAMINATION: VITAL SIGNS: Blood pressure is 152/130, pulse of 99, respiratory rate of 18, temperature of 98.7, and O2 saturation of 97%. EKG that was done in the ED shows sinus tachycardia. IMAGING: The patient's chest films were negative. The patient's lower extremity, left, x-ray showed soft tissue gas involving the posterior heel. There is diffuse osteopenia. There is scattered osteoporosis. No definite acute osseous abnormality is evident. LABORATORY DATA: WBC is 17,000, hemoglobin is 16.9, platelet count is 459, and neutrophils 90%. Sodium is 140, potassium is 4.1, chloride is 104, carbon dioxide of 28, BUN is 10, creatinine is 0.66, glucose is 140. Lactic acid of 2.5. CRP is 1.82. Urinalysis, positive urine nitrite and leukocyte esterases. ASSESSMENT AND PLAN: This is a 58-year-old female with multiple comorbidities being admitted for; 1. Sepsis secondary to the left lower heel ulcer. At this point, we will rule out osteomyelitis. We have ordered MRI of the left lower extremity. We will follow up results of the MRI. We will start the patient on broad-spectrum antibiotics. We will continue IV fluids. We will monitor the patient's CBC in the a.m. 2. Urinary tract infection, asymptomatic. At this point, the patient is on antibiotics. We will continue the patient on antibiotics. 3. History of multiple sclerosis, currently stable. We will monitor the patient closely. We will continue the patient on her home medications. 4. History of Crohn disease, currently stable. We will continue the patient on her home medications. 5. Hypertension, uncontrolled at this time. We will give the patient p.r.n. blood pressure medications to control the patient's blood pressure. 6. Obesity. We will manage the patient on healthy diet. 7. Hyperlipidemia. We will continue the patient on home medications. 8. Functional quadriplegic. At this point, we will continue to care for the patient and we will manage the patient accordingly. 9. Deep venous thrombosis and gastrointestinal prophylaxis. Job ID: [id number]
[2018-07-10 06:07] LABS: Anion Gap 10 mmol/L (10-20); BUN (Urea Nitrogen) 9 mg/dL (9.8-20.1); Calc. Creatinine Clearance 240 mL/min (70-130); Carbon Dioxide 22 mmol/L (22-29); Chloride 110 mmol/L (98-107); Estimated GFR-MDRD Greater than 90; Glucose 85 mg/dL (70-105); Potassium 3.4 mmol/L (3.5-5.1); Sodium 139 mmol/L (136-145)
[2018-07-10] MEDS: Mometasone/Formoterol 120 PUFF INHALER INH SCH ×2 (07:34→18:55)
[2018-07-10] MEDS: predniSONE 20 MG TAB PO SCH (08:27)
[2018-07-10] MEDS: FLUoxetine HCl 20 MG CAP PO SCH ×2 (08:29→21:36)
[2018-07-10] MEDS: Simethicone Chewable 80 MG TAB PO SCH ×4 (08:30→21:32)
[2018-07-10] MEDS: Cyclobenzaprine 10 MG TAB PO SCH ×3 (08:30→21:35)
[2018-07-10] MEDS: Lactinex Tablet PO SCH (08:31)
[2018-07-10] MEDS: Gabapentin 400 MG CAP PO SCH ×4 (08:32→21:36)
[2018-07-10] MEDS: Famotidine 20 MG TAB PO SCH ×2 (08:32→21:39)
[2018-07-10] MEDS: Enoxaparin Sodium 40 MG/0.4 ML SYRINGE SC SCH (08:34)
[2018-07-10] MEDS: Famotidine/PF 20 mg/2ml Vial SLOW IVP SCH ×2 (08:35→21:54)
[2018-07-10] MEDS ORDERED: Non-Formulary Item 1 EACH (Fluticasone/Salmeterol [Advair Hfa 115/21 Inhaler] 2 INH) INH SCH (09:00)
--- NOTE | 2018-07-10 09:21 | PDOC.PN ---
- Subjective Encounter Start Date: 07/10/18 Encounter Start Time: 07:40 -: old records requested/rev Patient seen and examined. No new complaints. No overnight events - Objective Resuscitation Status - Order Detail: 07/10/18 00:07 Resuscitation Status Routine Resuscitation Status: DNAR: NO Resuscitation Discussed with: patient MAR Reviewed: Yes Vital Signs & Weight: Vital Signs (12 hours) Temp Pulse Resp BP Pulse Ox 07/10/18 08:13 98.7 F 98 147/88 H 97 07/10/18 07:34 97 20 99 07/10/18 03:41 98.1 F 102 H 15 134/78 95 07/10/18 00:07 98.7 F 107 H 18 141/91 H 96 07/09/18 23:35 96 07/09/18 23:20 98.7 F 111 H 18 141/91 H 96 Weight Weight 302 lb I&O: 07/09/18 07/10/18 07/11/18 06:59 06:59 06:59 Intake Total 1400 Output Total 775 Balance 625 Result Diagrams: 07/10/18 05:34 07/10/18 05:34 Radiology Reviewed by me: Yes (foot xray and chest xray) EKG Reviewed by me: Yes (nsr) Phys Exam - Physical Examination Constitutional: NAD HEENT: PERRLA, moist MMs, sclera anicteric Neck: no JVD, supple Respiratory: no wheezing, no rales, no rhonchi Cardiovascular: RRR, no significant murmur, no rub Gastrointestinal: soft, non-tender, no distention, positive bowel sounds morbid obesity rodriguez+ Musculoskeletal: no edema, pulses present left heel with dressing Lymphatic: no nodes Psychiatric: normal affect, A&O x 3 Skin: no rash, normal turgor Dx/Plan (1) Complicated UTI (urinary tract infection) Code(s): N39.0 - URINARY TRACT INFECTION, SITE NOT SPECIFIED Status: Acute Comment: related with indwelling rodriguez catheter (2) Hypokalemia Code(s): E87.6 - HYPOKALEMIA Status: Acute (3) Lactic acidosis Code(s): E87.2 - ACIDOSIS Status: Acute (4) Sepsis Code(s): A41.9 - SEPSIS, UNSPECIFIED ORGANISM Status: Acute (5) Colostomy in place Code(s): Z93.3 - COLOSTOMY STATUS Status: Chronic (6) HTN (hypertension) Code(s): I10 - ESSENTIAL (PRIMARY) HYPERTENSION Status: Chronic (7) Morbid obesity Code(s): E66.01 - MORBID (SEVERE) OBESITY DUE TO EXCESS CALORIES Status: Chronic Comment: with BMI 43 (8) Multiple sclerosis, secondary progressive Code(s): G35 - MULTIPLE SCLEROSIS Status: Chronic (9) Ulcerative colitis Code(s): K51.90 - ULCERATIVE COLITIS, UNSPECIFIED, WITHOUT COMPLICATIONS Status: Chronic (10) Neurogenic bladder Code(s): N31.9 - NEUROMUSCULAR DYSFUNCTION OF BLADDER, UNSPECIFIED Status: Chronic - Plan cont current plan of care, continue antibiotics * continue vancomycin and zosyn * wound care * continue IVF * will consult dr ocampo * medication reviewed as below * symptomatic treatment * follow culture result. * home medication reconciled Review of Systems - Review of Systems ENT: negative: Ear Pain, Ear Discharge, Nose Pain, Nose Discharge, Nose Congestion, Mouth Pain, Mouth Swelling, Throat Pain, Throat Swelling, Other Respiratory: negative: Cough, Dry, Shortness of Breath, Hemoptysis, SOB with Excertion, Pleuritic Pain, Sputum, Wheezing Cardiovascular: negative: chest pain, palpitations, orthopnea, paroxysmal nocturnal dyspnea, edema, light headedness, other Gastrointestinal: negative: Nausea, Vomiting, Abdominal Pain, Diarrhea, Constipation, Melena, Hematochezia, Other Genitourinary: negative: Dysuria, Frequency, Incontinence, Hematuria, Retention , Other Musculoskeletal: negative: Neck Pain, Shoulder Pain, Arm Pain, Back Pain, Hand Pain, Leg Pain, Foot Pain, Other Skin: negative: Rash, Lesions, Kenan, Bruising, Other - Medications/Allergies Allergies/Adverse Reactions: Allergies Allergy/AdvReac Type Severity Reaction Status Date / Time clarithromycin [From Biaxin] Allergy Hives Verified 07/10/18 00:44 Medications: Current Medications Acetaminophen (Tylenol) 650 mg PO Q4H PRN PRN Reason: Headache/Fever/Mild Pain (1-3) Hydrocodone Bitart/Acetaminophen ([place] 5/325) 1 tab PO Q4H PRN PRN Reason: Moderate Pain (4-6) Hydrocodone Bitart/Acetaminophen ([place] 7.5/325) 1 tab PO Q4H PRN PRN Reason: Severe Pain (7-10) Acidophilus (Floranex) 1 tab PO DAILY [facility] Last Admin: 07/10/18 08:31 Dose: 1 tab Baclofen (Lioresal) 15 mg PO 0600,2100 [facility] Last Admin: 07/10/18 05:52 Dose: 15 mg Baclofen (Lioresal) 5 mg PO 1100,1600 [facility] Bisacodyl (Dulcolax) 10 mg PO DAILYPRN PRN PRN Reason: Constipation Last Admin: 07/10/18 00:54 Dose: 10 mg Brimonidine Tartrate (Alphagan 0.2% Ophth Soln) 1 drop R EYE TID [facility] Cholecalciferol (Vitamin D3) 5,000 units PO DAILY [facility] Last Admin: 07/10/18 08:28 Dose: 5,000 units Cyclobenzaprine HCl (Flexeril) 10 mg PO TID [facility] Last Admin: 07/10/18 08:30 Dose: 10 mg Docusate Sodium (Colace) 100 mg PO HS [facility] Enoxaparin Sodium (Lovenox) 40 mg SC 0900 [facility] Last Admin: 07/10/18 08:34 Dose: 40 mg Famotidine (Pepcid) 20 mg SLOW IVP Q12HR [facility] Last Admin: 07/10/18 08:35 Dose: Not Given Famotidine (Pepcid) 20 mg PO BID [facility] Last Admin: 07/10/18 08:32 Dose: 20 mg Fluoxetine HCl (Prozac) 20 mg PO BID [facility] Last Admin: 07/10/18 08:29 Dose: 20 mg Gabapentin (Neurontin) 800 mg PO QID [facility] Last Admin: 07/10/18 08:32 Dose: 800 mg Guaifenesin/Dextromethorphan (Robitussin Dm) 15 ml PO Q4H PRN PRN Reason: Cough Hyoscyamine Sulfate (Levsin) 0.25 mg PO QID [facility] Last Admin: 07/10/18 08:31 Dose: 0.25 mg Sodium Chloride (Normal Saline 0.9%) 1,000 mls @ 60 mls/hr IV .[id number] [facility] Last Admin: 07/10/18 00:39 Dose: 1,000 mls Vancomycin HCl 2 gm/ Sodium (Chloride) 500 mls @ 250 mls/hr IVPB 0100,1300 [facility] Last Admin: 07/10/18 00:46 Dose: 500 mls Piperacillin Sod/Tazobactam (Sod 3.375 gm/ Sodium Chloride) 100 mls @ 200 mls/ hr IVPB 0300,0900,1500,2100 [facility] Last Admin: 07/10/18 08:23 Dose: 100 mls Ibuprofen (Motrin) 800 mg PO Q6H PRN PRN Reason: Fever>101/(Mi/Mod/Sev) Pain Influenza Virus Vaccine Quadrival (Fluzone Quad 0928-9968 Syringe) 0.5 ml IM .ONCE ONE Stop: 07/11/18 09:01 Latanoprost (Xalatan 0.005% Ophth Soln) 1 drop R EYE HS [facility] Mesalamine (Canasa) 1,000 mg MS HSPRN PRN PRN Reason: Bleeding Miscellaneous Medication (Pharmacy To Dose) 0 each IVPB PRN PRN PRN Reason: VANC/ZOSYN Pharmacy to Dose Mometasone Furoate/Formoterol Fumar (Dulera 100 Mcg/5 Mcg Inhaler) 2 puff INH BID-RT [facility] Last Admin: 07/10/18 07:34 Dose: 2 puff Ondansetron HCl (Zofran Odt) 4 mg PO Q6H PRN PRN Reason: Nausea/Vomiting Ondansetron HCl (Zofran) 4 mg IVP Q6H PRN PRN Reason: Nausea/Vomiting Prednisone (Prednisone) 20 mg PO QAM-WM [facility] Stop: 07/12/18 08:01 Last Admin: 07/10/18 08:27 Dose: 20 mg Prednisone (Prednisone) 10 mg PO QA-[facility] Stop: 07/16/18 08:01 Senna/Docusate Sodium (Senokot S) 2 tab PO BIDPRN PRN PRN Reason: Constipation Simethicone (Mylicon Chewable) 240 mg PO QID [facility] Last Admin: 07/10/18 08:30 Dose: 240 mg Sodium Chloride (Flush - Normal Saline) 10 ml IVF Q12HR [facility] Last Admin: 07/10/18 08:35 Dose: Not Given Sodium Chloride (Flush - Normal Saline) 10 ml IVF PRN PRN PRN Reason: Saline Flush Last Admin: 07/10/18 03:34 Dose: 10 ml Sodium Chloride (Nancy-128 5% Oph Kandy) 1 drop R EYE QID KAREN Trazodone HCl (Desyrel) 50 mg PO HS PRN PRN Reason: Insomnia Zolpidem Tartrate (Ambien) 5 mg PO HSPRN PRN PRN Reason: Insomnia
--- NOTE | 2018-07-10 13:11 | MRI ---
MRI LEFT HEEL WITHOUT CONTRAST: INDICATIONS: History of left heel ulcer. Concern for osteomyelitis. FINDINGS: There is some soft tissue edema overlying the posterior aspect of the heel without evidence of a defi nite drainable fluid collection. There is some bone marrow edema involving the superior aspect of th e posterior tuberosity of the calcaneus, near the Achilles insertion, which is more suspicious for st ress reaction from the Achilles. There is no definite destructive osteolysis on this noncontrast MRI examination to suggest osteomyelitis. The visualized ATFL, PTFL, and calcaneofibular ligaments appe ar intact. The deltoid ligaments appear intact. The visualized aspects of the syndesmotic ligaments are intact. The talar dome appears within normal limits. No joint effusion is evident. The planta r fascia appears within normal limits. There is mild edema of the intrinsic foot musculature. There is subcutaneous edema involving the ankle, the hindfoot, and the dorsal aspect of the midfoot. Lisf ranc ligaments are intact. IMPRESSION: 1. Soft tissue ulceration at the posterior aspect of the heel. Possible cellulitis of the foot, ank le, and hindfoot. This can also be seen with lymphedema. 2. No definite destructive osteolysis suggestive of osteomyelitis. 3. Mild marrow edema involving the superior aspect of the posterior tuberosity of the calcaneus, mike r the Achilles insertion, which may reflect a stress reaction from the Achilles insertion. Osteomyel itis is felt to be less likely. POS: LUCIANO
[2018-07-10] MEDS: Brimonidine Tartrate 0.2% Ophth Soln 5 ml Bottle R EYE SCH ×3 (13:22→21:42)
[2018-07-10] MEDS: Sodium Chloride 5% Opth 15 ML BOT R EYE SCH ×4 (13:22→21:31)
[2018-07-10] MEDS: cefTRIAXone\\ROCEPHIN 2 GM in Sodium Chloride 0.9% 100 ML IVPB SCH (17:13)
[2018-07-10] MEDS ORDERED: Non-Formulary Item 1 EACH (Travoprost [Travatan Z] 1 DROP) R EYE SCH (21:00)
[2018-07-10] MEDS: Docusate 100 MG CAP PO SCH (21:38)
[2018-07-10] MEDS: Latanoprost 0.005% Ophth Soln 2.5 ml Bottle R EYE SCH (21:41)
[2018-07-11] MEDS: Sodium Chloride 0.9% 1,000 ML IV SCH ×2 (04:03→15:21)
[2018-07-11] MEDS: Baclofen 10 MG TAB PO SCH ×4 (06:44→21:16)
--- NOTE | 2018-07-11 07:51 | CON ---
DATE OF CONSULTATION: 07/10/2018 REASON FOR CONSULTATION: Heel area of ulceration and erythema. HISTORY OF PRESENT ILLNESS: 58-year-old who has a longstanding history of multiple sclerosis with paraparesis, Raynaud disease, and Crohn disease as well as the patient had the total colectomy in 2013, which the main reason was because of her problems in dealing with frequent episodes of severe constipation. The biopsy of the colon done by Dr. Alvarez in the past identified the ulcerative colitis rather than Crohn disease. At this time, she presents for admission with a heel ulcer on the left side, which developed as an initial little blister. The patient takes very careful precautions to prevent pressure in the sites and she believes that pressure is not the reason for this area of blistering. She was concerned of the possibility of a spider bite. She proceeded to puncture that blister with a needle and then she developed erythema and pain, and was admitted for management. Otherwise, she seems to be getting better from her neurological function, at least according to her own perception. Denies any headaches. No visual symptoms, sore throat, odynophagia, or dysphagia. No dyspnea or chest pain. No abdominal pain. She has a little bit increase in stool output since she came to the hospital through the ileostomy. MEDICAL HISTORY: Includes ulcerative colitis, multiple sclerosis with paraparesis, Raynaud disease, blindness, and lymphedema. FAMILY HISTORY: Noncontributory. SURGICAL HISTORY: Total colectomy, mostly for management of severe constipation episodes; has had a previous tubal ligation, previous colostomy, and now an ileostomy. SOCIAL HISTORY: Lives at home, has a lot of help and spends most of the time in the bed. Former smoker. ALLERGIES: BIAXIN. MEDICATIONS: Current medication list includes; 1. Tylenol. 2. [place]. 3. Floranex. 4. Lioresal. 5. Dulcolax. 6. Alphagan. 7. Vitamin D. 8. Colace. 9. Flexeril. 10. Lovenox. 11. Pepcid. 12. Prozac. 13. Neurontin. 14. Robitussin. 15. Fluzone. 16. Dulera. 17. Zosyn. 18. Vancomycin. PHYSICAL EXAMINATION: VITAL SIGNS: She has been afebrile. Other vital signs are not remarkable. SKIN: Shows the area of ulceration in the left heel, measuring about 2 cm, oval shaped. The base is fresh and red. There is a little bit of erythema surrounding this area. The patient has a peripheral IV access and has a chronic indwelling Telles catheter for many years now. HEENT: Ocular movements conjugate. Oral cavity is not remarkable. NECK: No jugular venous distention. LUNGS: Symmetric. Clear breath sounds. CARDIAC: S1, S2, regular rate. No S3 or S4. ABDOMEN: Soft. Not distended or tender. Ileostomy appears well. Bowel sounds are present. EXTREMITIES: She has paraparesis and she can slightly move her toes more on the right side than the left. NEUROLOGIC: Cognitive function appears to be intact. LABORATORY DATA: White cell count was 17,000 and now 19.4, hemoglobin 14, platelets 407. Chemistry with a sodium 139 and creatinine 0.56. Liver profile was normal. Urinalysis with 21 to 50 wbc's. MICROBIOLOGY: Urine with Klebsiella, Enterobacter, and nonhemolytic Streptococcus. 2 sets of blood cultures thus far no growth. IMAGING STUDIES: Include a lower extremity MRI with soft tissue ulceration, possible cellulitis, no destructive osteolysis to suggest osteomyelitis, mild marrow edema, superior aspect of posterior tuberosity of the calcaneus near the Achilles insertion. Foot x-ray with soft tissue wound and diffuse osteopenia. There is a chest x-ray from July 09 with no acute abnormalities noted. There is an abdomen and pelvis CT with no urolithiasis or obstructive uropathy noted. ASSESSMENT: 1. Multiple sclerosis with paraparesis, which is quite severe. 2. Left heel area of blistering followed by ulceration after the patient decided to poke the blister with a needle with evidence of cellulitis. 3. Leukocytosis with a left shift. 4. Prednisone use. DISCUSSION: The neutrophilia is probably related mostly due to the corticosteroids administered in the form of prednisone. The inflammatory process in the left heel is not of the extent that one would expect that degree of neutrophilia. We will transition her regimen to Rocephin daily, discontinue the current antimicrobials, and eventually transition to oral antimicrobials for discharge planning. The patient is pretty adamant that she does not believe this is a pressure-induced change since she is so careful with her foot and she suspects more of an insect-related injury. Job ID: [id number]
[2018-07-11] MEDS: Mometasone/Formoterol 120 PUFF INHALER INH SCH ×2 (08:02→19:17)
[2018-07-11] MEDS: Brimonidine Tartrate 0.2% Ophth Soln 5 ml Bottle R EYE SCH ×3 (09:25→21:18)
[2018-07-11] MEDS: Sodium Chloride 5% Opth 15 ML BOT R EYE SCH ×4 (09:25→21:18)
[2018-07-11] MEDS: Enoxaparin Sodium 40 MG/0.4 ML SYRINGE SC SCH (09:25)
[2018-07-11] MEDS: predniSONE 20 MG TAB PO SCH (09:26)
[2018-07-11] MEDS: Simethicone Chewable 80 MG TAB PO SCH ×4 (09:26→21:16)
[2018-07-11] MEDS: Gabapentin 400 MG CAP PO SCH ×4 (09:26→21:17)
[2018-07-11] MEDS: FLUoxetine HCl 20 MG CAP PO SCH ×2 (09:26→21:17)
[2018-07-11] MEDS: Famotidine 20 MG TAB PO SCH ×2 (09:27→21:18)
[2018-07-11] MEDS: Cyclobenzaprine 10 MG TAB PO SCH ×3 (09:27→21:17)
[2018-07-11] MEDS: Lactinex Tablet PO SCH (09:27)
--- NOTE | 2018-07-11 11:09 | PDOC.PN ---
- Subjective Encounter Start Date: 07/11/18 Encounter Start Time: 08:30 Patient seen and examined. No new complaints. No overnight events - Objective Resuscitation Status - Order Detail: 07/10/18 00:07 Resuscitation Status Routine Resuscitation Status: DNAR: NO Resuscitation Discussed with: patient ROXANN Reviewed: Yes Vital Signs & Weight: Vital Signs (12 hours) Temp Pulse Resp BP Pulse Ox 07/11/18 08:00 97.5 F L 87 18 150/88 H 96 07/11/18 03:57 97.9 F 93 13 163/93 H 99 07/11/18 00:10 98.0 F 98 20 129/69 94 L Weight Weight 302 lb I&O: 07/10/18 07/11/18 07/12/18 06:59 06:59 06:59 Intake Total 1400 3670 Output Total 775 4575 Balance 625 -905 Result Diagrams: 07/10/18 05:34 07/10/18 05:34 Radiology Reviewed by me: Yes (mri leg noted) EKG Reviewed by me: Yes (nsr) Phys Exam - Physical Examination Constitutional: NAD HEENT: PERRLA, moist MMs, sclera anicteric Neck: no JVD, supple Respiratory: no wheezing, no rales, no rhonchi Cardiovascular: RRR, no significant murmur, no rub Gastrointestinal: soft, no distention, positive bowel sounds Musculoskeletal: no edema, pulses present left foot with dressing Psychiatric: normal affect, A&O x 3 Skin: no rash, normal turgor Dx/Plan (1) Complicated UTI (urinary tract infection) Code(s): N39.0 - URINARY TRACT INFECTION, SITE NOT SPECIFIED Status: Acute Comment: related with indwelling rodriguez catheter (2) Hypokalemia Code(s): E87.6 - HYPOKALEMIA Status: Acute (3) Lactic acidosis Code(s): E87.2 - ACIDOSIS Status: Acute (4) Sepsis Code(s): A41.9 - SEPSIS, UNSPECIFIED ORGANISM Status: Acute (5) Colostomy in place Code(s): Z93.3 - COLOSTOMY STATUS Status: Chronic (6) HTN (hypertension) Code(s): I10 - ESSENTIAL (PRIMARY) HYPERTENSION Status: Chronic (7) Morbid obesity Code(s): E66.01 - MORBID (SEVERE) OBESITY DUE TO EXCESS CALORIES Status: Chronic Comment: with BMI 43 (8) Multiple sclerosis, secondary progressive Code(s): G35 - MULTIPLE SCLEROSIS Status: Chronic (9) Ulcerative colitis Code(s): K51.90 - ULCERATIVE COLITIS, UNSPECIFIED, WITHOUT COMPLICATIONS Status: Chronic (10) Neurogenic bladder Code(s): N31.9 - NEUROMUSCULAR DYSFUNCTION OF BLADDER, UNSPECIFIED Status: Chronic - Plan cont current plan of care, continue antibiotics * medication reviewed as below * symptomatic treatment * continue rocephin. * wound care * transfer to medical Review of Systems - Review of Systems ENT: negative: Ear Pain, Ear Discharge, Nose Pain, Nose Discharge, Nose Congestion, Mouth Pain, Mouth Swelling, Throat Pain, Throat Swelling, Other Respiratory: negative: Cough, Dry, Shortness of Breath, Hemoptysis, SOB with Excertion, Pleuritic Pain, Sputum, Wheezing Cardiovascular: negative: chest pain, palpitations, orthopnea, paroxysmal nocturnal dyspnea, edema, light headedness, other Gastrointestinal: negative: Nausea, Vomiting, Abdominal Pain, Diarrhea, Constipation, Melena, Hematochezia, Other Genitourinary: negative: Dysuria, Frequency, Incontinence, Hematuria, Retention , Other Musculoskeletal: negative: Neck Pain, Shoulder Pain, Arm Pain, Back Pain, Hand Pain, Leg Pain, Foot Pain, Other Skin: negative: Rash, Lesions, Ken[place], Bruising, Other - Medications/Allergies Allergies/Adverse Reactions: Allergies Allergy/AdvReac Type Severity Reaction Status Date / Time clarithromycin [From Biaxin] Allergy Hives Verified 07/10/18 00:44 Medications: Current Medications Acetaminophen (Tylenol) 650 mg PO Q4H PRN PRN Reason: Headache/Fever/Mild Pain (1-3) Hydrocodone Bitart/Acetaminophen ([place] 5/325) 1 tab PO Q4H PRN PRN Reason: Moderate Pain (4-6) Hydrocodone Bitart/Acetaminophen ([place] 7.5/325) 1 tab PO Q4H PRN PRN Reason: Severe Pain (7-10) Acidophilus (Floranex) 1 tab PO DAILY [facility] Last Admin: 07/11/18 09:27 Dose: 1 tab Baclofen (Lioresal) 15 mg PO 0600,2100 [facility] Last Admin: 07/11/18 06:44 Dose: 15 mg Baclofen (Lioresal) 5 mg PO 1100,1600 [facility] Last Admin: 07/10/18 17:13 Dose: 5 mg Bisacodyl (Dulcolax) 10 mg PO DAILYPRN PRN PRN Reason: Constipation Last Admin: 07/10/18 00:54 Dose: 10 mg Brimonidine Tartrate (Alphagan 0.2% Ophth Soln) 1 drop R EYE TID [facility] Last Admin: 07/11/18 09:25 Dose: 1 drop Cholecalciferol (Vitamin D3) 5,000 units PO DAILY [facility] Last Admin: 07/11/18 09:27 Dose: 5,000 units Cyclobenzaprine HCl (Flexeril) 10 mg PO TID [facility] Last Admin: 07/11/18 09:27 Dose: 10 mg Docusate Sodium (Colace) 100 mg PO HS [facility] Last Admin: 07/10/18 21:38 Dose: 100 mg Enoxaparin Sodium (Lovenox) 40 mg SC 0900 [facility] Last Admin: 07/11/18 09:25 Dose: 40 mg Famotidine (Pepcid) 20 mg PO BID [facility] Last Admin: 07/11/18 09:27 Dose: 20 mg Fluoxetine HCl (Prozac) 20 mg PO BID [facility] Last Admin: 07/11/18 09:26 Dose: 20 mg Gabapentin (Neurontin) 800 mg PO QID [facility] Last Admin: 07/11/18 09:26 Dose: 800 mg Guaifenesin/Dextromethorphan (Robitussin Dm) 15 ml PO Q4H PRN PRN Reason: Cough Hyoscyamine Sulfate (Levsin) 0.25 mg PO QID [facility] Last Admin: 07/11/18 09:26 Dose: 0.25 mg Sodium Chloride (Normal Saline 0.9%) 1,000 mls @ 60 mls/hr IV .[id number] [facility] Last Admin: 07/11/18 04:03 Dose: 1,000 mls Ceftriaxone Sodium 2 gm/ (Sodium Chloride) 100 mls @ 200 mls/hr IVPB 1600 [facility] Last Admin: 07/10/18 17:13 Dose: 100 mls Ibuprofen (Motrin) 800 mg PO Q6H PRN PRN Reason: Fever>101/(Mi/Mod/Sev) Pain Latanoprost (Xalatan 0.005% Ophth Soln) 1 drop R EYE HS [facility] Last Admin: 07/10/18 21:41 Dose: 1 drop Mesalamine (Canasa) 1,000 mg DC HSPRN PRN PRN Reason: Bleeding Mometasone Furoate/Formoterol Fumar (Dulera 100 Mcg/5 Mcg Inhaler) 2 puff INH BID-RT [facility] Last Admin: 07/11/18 08:02 Dose: 2 puff Ondansetron HCl (Zofran Odt) 4 mg PO Q6H PRN PRN Reason: Nausea/Vomiting Ondansetron HCl (Zofran) 4 mg IVP Q6H PRN PRN Reason: Nausea/Vomiting Prednisone (Prednisone) 20 mg PO QA-[facility] Stop: 07/12/18 08:01 Last Admin: 07/11/18 09:26 Dose: 20 mg Prednisone (Prednisone) 10 mg PO [facility] [place] Stop: 07/16/18 08:01 Senna/Docusate Sodium (Senokot S) 2 tab PO BIDPRN PRN PRN Reason: Constipation Simethicone (Mylicon Chewable) 240 mg PO QID [facility] Last Admin: 07/11/18 09:26 Dose: 240 mg Sodium Chloride (Flush - Normal Saline) 10 ml IVF Q12HR [facility] Last Admin: 07/11/18 09:30 Dose: Not Given Sodium Chloride (Flush - Normal Saline) 10 ml IVF PRN PRN PRN Reason: Saline Flush Last Admin: 07/10/18 03:34 Dose: 10 ml Sodium Chloride (Nancy-128 5% Oph Kandy) 1 drop R EYE QID [facility] Last Admin: 07/11/18 09:25 Dose: 1 drop Trazodone HCl (Desyrel) 50 mg PO HS PRN PRN Reason: Insomnia Zolpidem Tartrate (Ambien) 5 mg PO HSPRN PRN PRN Reason: Insomnia
[2018-07-11] MEDS: cefTRIAXone\\ROCEPHIN 2 GM in Sodium Chloride 0.9% 100 ML IVPB SCH (15:19)
--- NOTE | 2018-07-11 16:16 | PQF ---
MERRY DONOVAN, MONTY CHU MD [id number] [facility] [id number] CLINICAL DOCUMENTATION IMPROVEMENT CLARIFICATION FORM: ICD-10 Updated PLEASE DO AN ADDENDUM TO THE PROGRESS NOTE WITH ANY DOCUMENTATION UPDATES OR ADDITIONS AND CARRY THROUGH TO DC SUMMARY. THANK YOU. DATE: 07-11-18 ATTN: DR. MONTE Please exercise your independent, professional judgment in responding to the clarification form. Clinical indicators are provided on the bottom of this form for your review Please check appropriate box(es): [ x ] Sepsis due to UTI due to Indwelling Bella Catheter [ x ] Sepsis due to Left Heel Cellulitis [ ] Other diagnosis [ ] Unable to determine In addition, please specify: Present on Admission (POA): [ x ] Yes [ ] No [ ] Unable to determine For continuity of documentation, please document condition throughout progress notes and discharge summary. Thank You. CLINICAL INDICATORS - SIGNS / SYMPTOMS / LABS LABS: WBC LACTIC ACID 07-09 17.0 2.5 - 19.4 ED: PULSE 99 -125; BP 161/119 ED DX: CELLULITIS; SEPSIS; UTI 12- H&P ([facility]): SEPSIS SECONDARY TO LEFT LOWER HEEL ULCER; UTI, ASYMPTOMATIC. 12-2 ([facility]): COMPLICATED UTI R/T INDWELLING BELLA CATHETER; SEPSIS; 2 (GE): LEFT HEEL W/ EVIDENCE OF CELLULITIS RISK FACTORS ED: HX MULTIPLE SCLEROSIS 12- H&P ([facility]): PRESENTED WITH LEFT LOWER HEEL CELLULITIS - ([facility]) COMPLICATED UTI R/T INDWELLING BELLA; NEUROGENIC BLADDER TREATMENTS: ED: LEFT FOOT X-RAY CPOE: * ID CONSULT * -2 LE MRI MAR: VANCOMYCIN IV 12- CLINDAMYCIN IV 12- ZOSYN IV 12- ROCEPHIN IV 07-10 IVF NS 12- X 2L / 07-10 THANK YOU, MONY (This form is maintained as a part of the permanent medical record) 2014 [email or web address]. All Rights Reserved Mony Emmanuel RN, BS [email or web address] Cell [facility]
[2018-07-11] MEDS: Docusate 100 MG CAP PO SCH (21:17)
[2018-07-11] MEDS: Latanoprost 0.005% Ophth Soln 2.5 ml Bottle R EYE SCH (21:18)
[2018-07-12 02:10] LABS: Vancomycin, Trough 4.6 ug/mL
[2018-07-12] MEDS: Baclofen 10 MG TAB PO SCH ×4 (06:05→20:46)
[2018-07-12] MEDS: Mometasone/Formoterol 120 PUFF INHALER INH SCH ×2 (07:10→18:48)
[2018-07-12] MEDS: Lactinex Tablet PO SCH (08:11)
[2018-07-12] MEDS: FLUoxetine HCl 20 MG CAP PO SCH ×2 (08:11→20:35)
[2018-07-12] MEDS: Gabapentin 400 MG CAP PO SCH ×4 (08:11→20:36)
[2018-07-12] MEDS: Famotidine 20 MG TAB PO SCH ×2 (08:11→20:35)
[2018-07-12] MEDS: predniSONE 20 MG TAB PO SCH (08:11)
[2018-07-12] MEDS: Cyclobenzaprine 10 MG TAB PO SCH ×3 (08:11→20:35)
[2018-07-12] MEDS: Simethicone Chewable 80 MG TAB PO SCH ×4 (08:12→20:47)
[2018-07-12] MEDS: Enoxaparin Sodium 40 MG/0.4 ML SYRINGE SC SCH (08:12)
[2018-07-12] MEDS: Sodium Chloride 5% Opth 15 ML BOT R EYE SCH ×4 (08:13→20:38)
[2018-07-12] MEDS: Brimonidine Tartrate 0.2% Ophth Soln 5 ml Bottle R EYE SCH ×3 (08:14→20:35)
[2018-07-12 08:53] LABS: #Basophils 0.1 thou/uL (0.0-0.2); #Eosinphils 0.6 thou/uL (0.0-0.7); #Lymphocytes 4.4 thou/uL (1.20-3.40); #Monocytes 1.2 thou/uL (0.11-0.59); #Neutrophils 8.5 thou/uL (1.40-6.50); %Basophils 0.5 % (0.0-1.0); %Eosinophils 4.1 % (0.0-10.0); %Lymphocytes 29.9 % (21.0-51.0); %Monocytes 7.8 % (0.0-10.0); %Neutrophils 57.6 % (42.0-75.0); Mean Corpuscular HGB CONC 31.3 g/dL (32.0-36.0); Mean Corpuscular Hemoglobin 27.9 pg (27.0-31.0); Mean Corpuscular Volume 89.1 fL (78.0-98.0); Mean Platelet Volume 7.3 fL (7.4-10.4); Platelet Count 405 thou/uL (130-400); RBC Distribution Width 13.4 % (11.5-14.5); Red Blood Cell (RBC) Count 5.39 mill/uL (4.20-5.40); White Blood Cell (WBC) Count 14.8 thou/uL (4.8-10.8)
[2018-07-12 09:02] LABS: Anion Gap 11 mmol/L (10-20); BUN (Urea Nitrogen) 9 mg/dL (9.8-20.1); CRP (Inflammatory) 1.57 mg/dL (= or < 0.5); Calc. Creatinine Clearance 240 mL/min (70-130); Carbon Dioxide 25 mmol/L (22-29); Chloride 106 mmol/L (98-107); Estimated GFR-MDRD Greater than 90; Glucose 86 mg/dL (70-105); Potassium 3.7 mmol/L (3.5-5.1); Sodium 138 mmol/L (136-145)
[2018-07-12 10:54] LABS: Band 1 % (5-11); Eosinophils 1 % (0-10); Lymphocytes 29 % (21-51); MDiff Complete? YES; Monocytes 6 % (0-10); Neutrophil 60 % (42-75); PLT Morphology Comment Appears Adequate; Reactive Lymphocytes 2 % (0-10)
--- NOTE | 2018-07-12 11:53 | PDOC.PN ---
- Subjective Encounter Start Date: 07/12/18 Encounter Start Time: 09:45 Patient seen and examined. No new complaints. No overnight events - Objective Resuscitation Status - Order Detail: 07/10/18 00:07 Resuscitation Status Routine Resuscitation Status: DNAR: NO Resuscitation Discussed with: patient ROXANN Reviewed: Yes Vital Signs & Weight: Vital Signs (12 hours) Temp Pulse Resp BP Pulse Ox 07/12/18 09:00 96 07/12/18 07:31 97.7 F 95 18 133/83 96 07/12/18 05:43 97.7 F 95 18 127/85 97 07/12/18 01:00 97.9 F 100 16 125/80 94 L Weight Admit Weight 302 lb Weight 302 lb I&O: 07/11/18 07/12/18 07/13/18 06:59 06:59 06:59 Intake Total 3670 2848 Output Total 4575 3850 Balance -905 -1002 Result Diagrams: 07/12/18 08:28 07/12/18 08:28 Additional Labs: Accuchecks 07/12/18 05:21 POC Glucose 96 Phys Exam - Physical Examination Constitutional: NAD HEENT: PERRLA, moist MMs, sclera anicteric Neck: no JVD, supple Respiratory: no wheezing, no rales, no rhonchi Cardiovascular: RRR, no significant murmur, no rub Gastrointestinal: soft, non-tender, no distention, positive bowel sounds Musculoskeletal: no edema, pulses present left foot wound with dressing Neurological: non-focal, normal sensation Lymphatic: no nodes Psychiatric: normal affect Skin: no rash, normal turgor Dx/Plan (1) Complicated UTI (urinary tract infection) Code(s): N39.0 - URINARY TRACT INFECTION, SITE NOT SPECIFIED Status: Acute Comment: related with indwelling rodriguez catheter (2) Hypokalemia Code(s): E87.6 - HYPOKALEMIA Status: Acute (3) Lactic acidosis Code(s): E87.2 - ACIDOSIS Status: Acute (4) Sepsis Code(s): A41.9 - SEPSIS, UNSPECIFIED ORGANISM Status: Acute (5) Colostomy in place Code(s): Z93.3 - COLOSTOMY STATUS Status: Chronic (6) HTN (hypertension) Code(s): I10 - ESSENTIAL (PRIMARY) HYPERTENSION Status: Chronic (7) Morbid obesity Code(s): E66.01 - MORBID (SEVERE) OBESITY DUE TO EXCESS CALORIES Status: Chronic Comment: with BMI 43 (8) Multiple sclerosis, secondary progressive Code(s): G35 - MULTIPLE SCLEROSIS Status: Chronic (9) Ulcerative colitis Code(s): K51.90 - ULCERATIVE COLITIS, UNSPECIFIED, WITHOUT COMPLICATIONS Status: Chronic (10) Neurogenic bladder Code(s): N31.9 - NEUROMUSCULAR DYSFUNCTION OF BLADDER, UNSPECIFIED Status: Chronic - Plan cont current plan of care, continue antibiotics * continue rocephin * add macrobid * medication reviewed as below * symptomatic treatment * wound care. Review of Systems - Review of Systems ENT: negative: Ear Pain, Ear Discharge, Nose Pain, Nose Discharge, Nose Congestion, Mouth Pain, Mouth Swelling, Throat Pain, Throat Swelling, Other Respiratory: negative: Cough, Dry, Shortness of Breath, Hemoptysis, SOB with Excertion, Pleuritic Pain, Sputum, Wheezing Cardiovascular: negative: chest pain, palpitations, orthopnea, paroxysmal nocturnal dyspnea, edema, light headedness, other Gastrointestinal: negative: Nausea, Vomiting, Abdominal Pain, Diarrhea, Constipation, Melena, Hematochezia, Other Genitourinary: negative: Dysuria, Frequency, Incontinence, Hematuria, Retention , Other Musculoskeletal: negative: Neck Pain, Shoulder Pain, Arm Pain, Back Pain, Hand Pain, Leg Pain, Foot Pain, Other - Medications/Allergies Allergies/Adverse Reactions: Allergies Allergy/AdvReac Type Severity Reaction Status Date / Time clarithromycin [From Biaxin] Allergy Hives Verified 07/10/18 00:44 Medications: Current Medications Acetaminophen (Tylenol) 650 mg PO Q4H PRN PRN Reason: Headache/Fever/Mild Pain (1-3) Hydrocodone Bitart/Acetaminophen ([place] 5/325) 1 tab PO Q4H PRN PRN Reason: Moderate Pain (4-6) Hydrocodone Bitart/Acetaminophen ([place] 7.5/325) 1 tab PO Q4H PRN PRN Reason: Severe Pain (7-10) Acidophilus (Floranex) 1 tab PO DAILY [facility] Last Admin: 07/12/18 08:11 Dose: 1 tab Baclofen (Lioresal) 15 mg PO 0600,2100 [facility] Last Admin: 07/12/18 06:05 Dose: 15 mg Baclofen (Lioresal) 5 mg PO 1100,1600 [facility] Last Admin: 07/12/18 11:07 Dose: 5 mg Bisacodyl (Dulcolax) 10 mg PO DAILYPRN PRN PRN Reason: Constipation Last Admin: 07/10/18 00:54 Dose: 10 mg Brimonidine Tartrate (Alphagan 0.2% Ophth Soln) 1 drop R EYE TID [facility] Last Admin: 07/12/18 08:14 Dose: 1 drop Cholecalciferol (Vitamin D3) 5,000 units PO DAILY [facility] Last Admin: 07/12/18 09:02 Dose: 5,000 units Cyclobenzaprine HCl (Flexeril) 10 mg PO TID [facility] Last Admin: 07/12/18 08:11 Dose: 10 mg Docusate Sodium (Colace) 100 mg PO HS [facility] Last Admin: 07/11/18 21:17 Dose: 100 mg Enoxaparin Sodium (Lovenox) 40 mg SC 0900 [facility] Last Admin: 07/12/18 08:12 Dose: 40 mg Famotidine (Pepcid) 20 mg PO BID [facility] Last Admin: 07/12/18 08:11 Dose: 20 mg Fluoxetine HCl (Prozac) 20 mg PO BID [facility] Last Admin: 07/12/18 08:11 Dose: 20 mg Gabapentin (Neurontin) 800 mg PO QID [facility] Last Admin: 07/12/18 08:11 Dose: 800 mg Guaifenesin/Dextromethorphan (Robitussin Dm) 15 ml PO Q4H PRN PRN Reason: Cough Hyoscyamine Sulfate (Levsin) 0.25 mg PO QID [facility] Last Admin: 07/12/18 08:10 Dose: 0.25 mg Ceftriaxone Sodium 2 gm/ (Sodium Chloride) 100 mls @ 200 mls/hr IVPB 1600 [facility] Last Admin: 07/11/18 15:19 Dose: 100 mls Ibuprofen (Motrin) 800 mg PO Q6H PRN PRN Reason: Fever>101/(Mi/Mod/Sev) Pain Latanoprost (Xalatan 0.005% Ophth Soln) 1 drop R EYE HS [facility] Last Admin: 07/11/18 21:18 Dose: 1 drop Mesalamine (Canasa) 1,000 mg NV HSPRN PRN PRN Reason: Bleeding Mometasone Furoate/Formoterol Fumar (Dulera 100 Mcg/5 Mcg Inhaler) 2 puff INH BID-RT [facility] Last Admin: 07/12/18 07:10 Dose: 2 puff Ondansetron HCl (Zofran Odt) 4 mg PO Q6H PRN PRN Reason: Nausea/Vomiting Ondansetron HCl (Zofran) 4 mg IVP Q6H PRN PRN Reason: Nausea/Vomiting Prednisone (Prednisone) 10 mg PO QAM-[facility] Stop: 07/16/18 08:01 Senna/Docusate Sodium (Senokot S) 2 tab PO BIDPRN PRN PRN Reason: Constipation Simethicone (Mylicon Chewable) 240 mg PO QID [facility] Last Admin: 07/12/18 08:12 Dose: 240 mg Sodium Chloride (Flush - Normal Saline) 10 ml IVF Q12HR [facility] Last Admin: 07/12/18 08:14 Dose: 10 ml Sodium Chloride (Flush - Normal Saline) 10 ml IVF PRN PRN PRN Reason: Saline Flush Last Admin: 07/10/18 03:34 Dose: 10 ml Sodium Chloride (Nancy-128 5% Oph Kandy) 1 drop R EYE QID [facility] Last Admin: 07/12/18 08:13 Dose: 1 drop Trazodone HCl (Desyrel) 50 mg PO HS PRN PRN Reason: Insomnia Zolpidem Tartrate (Ambien) 5 mg PO HSPRN PRN PRN Reason: Insomnia
[2018-07-12] MEDS: cefTRIAXone\\ROCEPHIN 2 GM in Sodium Chloride 0.9% 100 ML IVPB SCH (16:40)
[2018-07-12] MEDS: Amoxicillin/Potassium Clav 875 MG TAB PO SCH (20:33)
[2018-07-12] MEDS: Docusate 100 MG CAP PO SCH (20:35)
[2018-07-12] MEDS: Latanoprost 0.005% Ophth Soln 2.5 ml Bottle R EYE SCH (20:37)
[2018-07-12] MEDS ORDERED: Nitrofurantoin Monohyd/M-Cryst 100 MG CAP PO SCH (21:00)
[2018-07-13] MEDS: Baclofen 10 MG TAB PO SCH ×4 (06:34→21:08)
[2018-07-13] MEDS: Mometasone/Formoterol 120 PUFF INHALER INH SCH ×2 (07:11→19:32)
[2018-07-13] MEDS: predniSONE 5 MG TAB PO SCH (09:05)
[2018-07-13] MEDS: Cyclobenzaprine 10 MG TAB PO SCH ×3 (09:06→21:08)
[2018-07-13] MEDS: Amoxicillin/Potassium Clav 875 MG TAB PO SCH ×2 (09:06→21:07)
[2018-07-13] MEDS: Gabapentin 400 MG CAP PO SCH ×4 (09:07→21:08)
[2018-07-13] MEDS: FLUoxetine HCl 20 MG CAP PO SCH ×2 (09:07→21:08)
[2018-07-13] MEDS: Lactinex Tablet PO SCH (09:07)
[2018-07-13] MEDS: Enoxaparin Sodium 40 MG/0.4 ML SYRINGE SC SCH (09:07)
[2018-07-13] MEDS: Famotidine 20 MG TAB PO SCH ×2 (09:07→21:09)
[2018-07-13] MEDS: Simethicone Chewable 80 MG TAB PO SCH ×4 (09:08→21:10)
[2018-07-13] MEDS: Sodium Chloride 5% Opth 15 ML BOT R EYE SCH ×4 (09:09→21:07)
[2018-07-13] MEDS: Brimonidine Tartrate 0.2% Ophth Soln 5 ml Bottle R EYE SCH ×3 (09:09→21:07)
--- NOTE | 2018-07-13 09:56 | PDOC.PN ---
- Subjective Encounter Start Date: 07/13/18 Encounter Start Time: 08:50 Patient seen and examined. No new complaints. No overnight events - Objective Resuscitation Status - Order Detail: 07/10/18 00:07 Resuscitation Status Routine Resuscitation Status: DNAR: NO Resuscitation Discussed with: patient ROXANN Reviewed: Yes Vital Signs & Weight: Vital Signs (12 hours) Temp Pulse Resp BP Pulse Ox 07/13/18 08:03 97.8 F 79 18 129/86 99 07/13/18 07:11 85 16 98 07/13/18 04:00 97.5 F L 90 18 115/79 95 07/13/18 00:00 98.1 F 90 18 127/86 96 Weight Admit Weight 302 lb Weight 302 lb I&O: 07/12/18 07/13/18 07/14/18 06:59 06:59 06:59 Intake Total 2848 2920 Output Total 3850 5850 Balance -1002 2931 Result Diagrams: 07/12/18 08:28 07/12/18 08:28 Phys Exam - Physical Examination Constitutional: NAD HEENT: PERRLA, moist MMs, sclera anicteric Neck: no JVD, supple Respiratory: no wheezing, no rales, no rhonchi Cardiovascular: RRR, no significant murmur, no rub Gastrointestinal: soft, non-tender, no distention, positive bowel sounds morbid obesity+ Musculoskeletal: no edema, pulses present wound with dressing Lymphatic: no nodes Psychiatric: normal affect Skin: no rash, normal turgor Dx/Plan (1) Complicated UTI (urinary tract infection) Code(s): N39.0 - URINARY TRACT INFECTION, SITE NOT SPECIFIED Status: Acute Comment: related with indwelling rodriguez catheter (2) Hypokalemia Code(s): E87.6 - HYPOKALEMIA Status: Acute (3) Lactic acidosis Code(s): E87.2 - ACIDOSIS Status: Acute (4) Sepsis Code(s): A41.9 - SEPSIS, UNSPECIFIED ORGANISM Status: Acute (5) Colostomy in place Code(s): Z93.3 - COLOSTOMY STATUS Status: Chronic (6) HTN (hypertension) Code(s): I10 - ESSENTIAL (PRIMARY) HYPERTENSION Status: Chronic (7) Morbid obesity Code(s): E66.01 - MORBID (SEVERE) OBESITY DUE TO EXCESS CALORIES Status: Chronic Comment: with BMI 43 (8) Multiple sclerosis, secondary progressive Code(s): 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 Review of Systems - Review of Systems ENT: negative: Ear Pain, Ear Discharge, Nose Pain, Nose Discharge, Nose Congestion, Mouth Pain, Mouth Swelling, Throat Pain, Throat Swelling, Other Respiratory: negative: Cough, Dry, Shortness of Breath, Hemoptysis, SOB with Excertion, Pleuritic Pain, Sputum, Wheezing Cardiovascular: negative: chest pain, palpitations, orthopnea, paroxysmal nocturnal dyspnea, edema, light headedness, other Gastrointestinal: negative: Nausea, Vomiting, Abdominal Pain, Diarrhea, Constipation, Melena, Hematochezia, Other Genitourinary: negative: Dysuria, Frequency, Incontinence, Hematuria, Retention , Other Musculoskeletal: negative: Neck Pain, Shoulder Pain, Arm Pain, Back Pain, Hand Pain, Leg Pain, Foot Pain, Other - Medications/Allergies Allergies/Adverse Reactions: Allergies Allergy/AdvReac Type Severity Reaction Status Date / Time clarithromycin [From Biaxin] Allergy Hives Verified 07/10/18 00:44 Medications: Current Medications Acetaminophen (Tylenol) 650 mg PO Q4H PRN PRN Reason: Headache/Fever/Mild Pain (1-3) Hydrocodone Bitart/Acetaminophen ([place] 5/325) 1 tab PO Q4H PRN PRN Reason: Moderate Pain (4-6) Hydrocodone Bitart/Acetaminophen ([place] 7.5/325) 1 tab PO Q4H PRN PRN Reason: Severe Pain (7-10) Acidophilus (Floranex) 1 tab PO DAILY [facility] Last Admin: 07/13/18 09:07 Dose: 1 tab Amoxicillin/Clavulanate Potassium (Augmentin) 875 mg PO BID [facility] Last Admin: 07/13/18 09:06 Dose: 875 mg Baclofen (Lioresal) 15 mg PO 0600,2100 [facility] Last Admin: 07/13/18 06:34 Dose: 15 mg Baclofen (Lioresal) 5 mg PO 1100,1600 [facility] Last Admin: 07/12/18 16:06 Dose: 5 mg Bisacodyl (Dulcolax) 10 mg PO DAILYPRN PRN PRN Reason: Constipation Last Admin: 07/10/18 00:54 Dose: 10 mg Brimonidine Tartrate (Alphagan 0.2% Ophth Soln) 1 drop R EYE TID [facility] Last Admin: 07/13/18 09:09 Dose: 1 drop Cholecalciferol (Vitamin D3) 5,000 units PO DAILY [facility] Last Admin: 07/13/18 09:06 Dose: 5,000 units Cyclobenzaprine HCl (Flexeril) 10 mg PO TID [facility] Last Admin: 07/13/18 09:06 Dose: 10 mg Docusate Sodium (Colace) 100 mg PO HS [facility] Last Admin: 07/12/18 20:35 Dose: 100 mg Enoxaparin Sodium (Lovenox) 40 mg SC 0900 [facility] Last Admin: 07/13/18 09:07 Dose: 40 mg Famotidine (Pepcid) 20 mg PO BID [facility] Last Admin: 07/13/18 09:07 Dose: 20 mg Fluoxetine HCl (Prozac) 20 mg PO BID [facility] Last Admin: 07/13/18 09:07 Dose: 20 mg Gabapentin (Neurontin) 800 mg PO QID [facility] Last Admin: 07/13/18 09:07 Dose: 800 mg Guaifenesin/Dextromethorphan (Robitussin Dm) 15 ml PO Q4H PRN PRN Reason: Cough Hyoscyamine Sulfate (Levsin) 0.25 mg PO QID [facility] Last Admin: 07/13/18 09:07 Dose: 0.25 mg Ibuprofen (Motrin) 800 mg PO Q6H PRN PRN Reason: Fever>101/(Mi/Mod/Sev) Pain Latanoprost (Xalatan 0.005% Ophth Soln) 1 drop R EYE HS [facility] Last Admin: 07/12/18 20:37 Dose: 1 drop Mesalamine (Canasa) 1,[address] HSPRN PRN PRN Reason: Bleeding Mometasone Furoate/Formoterol Fumar (Dulera 100 Mcg/5 Mcg Inhaler) 2 puff INH BID-RT [facility] Last Admin: 07/13/18 07:11 Dose: 2 puff Ondansetron HCl (Zofran Odt) 4 mg PO Q6H PRN PRN Reason: Nausea/Vomiting Ondansetron HCl (Zofran) 4 mg IVP Q6H PRN PRN Reason: Nausea/Vomiting Prednisone (Prednisone) 10 mg PO QAM[facility] Stop: 07/16/18 08:01 Last Admin: 07/13/18 09:05 Dose: 10 mg Senna/Docusate Sodium (Senokot S) 2 tab PO BIDPRN PRN PRN Reason: Constipation Simethicone (Mylicon Chewable) 240 mg PO QID [facility] Last Admin: 07/13/18 09:08 Dose: 240 mg Sodium Chloride (Flush - Normal Saline) 10 ml IVF Q12HR [facility] Last Admin: 07/13/18 09:08 Dose: 10 ml Sodium Chloride (Flush - Normal Saline) 10 ml IVF PRN PRN PRN Reason: Saline Flush Last Admin: 07/10/18 03:34 Dose: 10 ml Sodium Chloride (Nancy-128 5% Oph Kandy) 1 drop R EYE QID [facility] Last Admin: 07/13/18 09:09 Dose: 1 drop Trazodone HCl (Desyrel) 50 mg PO HS PRN PRN Reason: Insomnia Zolpidem Tartrate (Ambien) 5 mg PO HSPRN PRN PRN Reason: Insomnia
[2018-07-13] MEDS: Latanoprost 0.005% Ophth Soln 2.5 ml Bottle R EYE SCH (21:07)
[2018-07-13] MEDS: Docusate 100 MG CAP PO SCH (21:09)
[2018-07-14] MEDS: Baclofen 10 MG TAB PO SCH ×4 (05:12→20:56)
[2018-07-14] MEDS: Mometasone/Formoterol 120 PUFF INHALER INH SCH ×2 (06:25→19:50)
[2018-07-14 08:29] LABS: #Basophils 0.1 thou/uL (0.0-0.2); #Eosinphils 0.4 thou/uL (0.0-0.7); #Monocytes 1.1 thou/uL (0.11-0.59); %Eosinophils 3.1 % (0.0-10.0); %Lymphocytes 29.3 % (21.0-51.0); %Monocytes 8.1 % (0.0-10.0); %Neutrophils 58.5 % (42.0-75.0); Hemoglobin 15.6 g/dL (12.0-16.0); Mean Corpuscular HGB CONC 30.4 g/dL (32.0-36.0); Mean Corpuscular Hemoglobin 27.3 pg (27.0-31.0); Mean Platelet Volume 6.5 fL (7.4-10.4); Platelet Count 408 thou/uL (130-400); RBC Distribution Width 13.3 % (11.5-14.5); Red Blood Cell (RBC) Count 5.69 mill/uL (4.20-5.40); White Blood Cell (WBC) Count 13.6 thou/uL (4.8-10.8)
[2018-07-14] MEDS: Simethicone Chewable 80 MG TAB PO SCH ×4 (08:44→20:59)
[2018-07-14] MEDS: Gabapentin 400 MG CAP PO SCH ×4 (08:44→20:58)
[2018-07-14] MEDS: Lactinex Tablet PO SCH (08:44)
[2018-07-14] MEDS: predniSONE 5 MG TAB PO SCH (08:44)
[2018-07-14] MEDS: Amoxicillin/Potassium Clav 875 MG TAB PO SCH ×2 (08:45→20:56)
[2018-07-14] MEDS: Famotidine 20 MG TAB PO SCH ×2 (08:45→20:58)
[2018-07-14] MEDS: Cyclobenzaprine 10 MG TAB PO SCH ×3 (08:45→20:58)
[2018-07-14] MEDS: FLUoxetine HCl 20 MG CAP PO SCH ×2 (08:45→20:58)
[2018-07-14] MEDS: Enoxaparin Sodium 40 MG/0.4 ML SYRINGE SC SCH (08:46)
[2018-07-14] MEDS: Sodium Chloride 5% Opth 15 ML BOT R EYE SCH ×4 (08:46→20:56)
[2018-07-14] MEDS: Brimonidine Tartrate 0.2% Ophth Soln 5 ml Bottle R EYE SCH ×3 (08:46→20:56)
[2018-07-14 08:52] LABS: Anion Gap 13 mmol/L (10-20); BUN (Urea Nitrogen) 16 mg/dL (9.8-20.1); Calc. Creatinine Clearance 228 mL/min (70-130); Calcium 9.7 mg/dL (7.8-10.44); Carbon Dioxide 28 mmol/L (22-29); Chloride 102 mmol/L (98-107); Estimated GFR-MDRD Greater than 90; Glucose 85 mg/dL (70-105); Potassium 3.7 mmol/L (3.5-5.1); Sodium 139 mmol/L (136-145)
--- NOTE | 2018-07-14 10:17 | PDOC.PN ---
- Subjective Encounter Start Date: 07/14/18 Encounter Start Time: 09:30 Patient seen and examined. No new complaints. No overnight events - Objective Resuscitation Status - Order Detail: 07/10/18 00:07 Resuscitation Status Routine Resuscitation Status: DNAR: NO Resuscitation Discussed with: patient ROXANN Reviewed: Yes Vital Signs & Weight: Vital Signs (12 hours) Temp Pulse Resp BP Pulse Ox 07/14/18 08:21 97.7 F 90 20 125/90 95 07/14/18 06:25 87 16 97 07/14/18 05:11 97.4 F L 90 18 131/87 95 07/14/18 00:55 97.9 F 95 18 92/68 95 Weight Admit Weight 302 lb Weight 302 lb I&O: 07/13/18 07/14/18 07/15/18 06:59 06:59 06:59 Intake Total 2920 3420 Output Total 5850 3400 Balance -2930 20 Result Diagrams: 07/14/18 08:17 07/14/18 08:17 Phys Exam - Physical Examination Constitutional: NAD HEENT: PERRLA, moist MMs, sclera anicteric Neck: no JVD, supple Respiratory: no wheezing, no rales, no rhonchi Cardiovascular: RRR, no significant murmur, no rub Gastrointestinal: soft, non-tender, no distention, positive bowel sounds Musculoskeletal: no edema, pulses present Lymphatic: no nodes Psychiatric: normal affect, A&O x 3 Skin: no rash, normal turgor Dx/Plan (1) Complicated UTI (urinary tract infection) Code(s): N39.0 - URINARY TRACT INFECTION, SITE NOT SPECIFIED Status: Acute Comment: related with indwelling rodriguez catheter (2) Hypokalemia Code(s): E87.6 - HYPOKALEMIA Status: Acute (3) Lactic acidosis Code(s): E87.2 - ACIDOSIS Status: Acute (4) Sepsis Code(s): A41.9 - SEPSIS, UNSPECIFIED ORGANISM Status: Acute (5) Colostomy in place Code(s): Z93.3 - COLOSTOMY STATUS Status: Chronic (6) HTN (hypertension) Code(s): I10 - ESSENTIAL (PRIMARY) HYPERTENSION Status: Chronic (7) Morbid obesity Code(s): E66.01 - MORBID (SEVERE) OBESITY DUE TO EXCESS CALORIES Status: Chronic Comment: with BMI 43 (8) Multiple sclerosis, secondary progressive Code(s): 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 Review of Systems - Review of Systems ENT: negative: Ear Pain, Ear Discharge, Nose Pain, Nose Discharge, Nose Congestion, Mouth Pain, Mouth Swelling, Throat Pain, Throat Swelling, Other Respiratory: negative: Cough, Dry, Shortness of Breath, Hemoptysis, SOB with Excertion, Pleuritic Pain, Sputum, Wheezing Cardiovascular: negative: chest pain, palpitations, orthopnea, paroxysmal nocturnal dyspnea, edema, light headedness, other Gastrointestinal: negative: Nausea, Vomiting, Abdominal Pain, Diarrhea, Constipation, Melena, Hematochezia, Other Genitourinary: negative: Dysuria, Frequency, Incontinence, Hematuria, Retention , Other Musculoskeletal: negative: Neck Pain, Shoulder Pain, Arm Pain, Back Pain, Hand Pain, Leg Pain, Foot Pain, Other Skin: negative: Rash, Lesions, [place], Bruising, Other - Medications/Allergies Allergies/Adverse Reactions: Allergies Allergy/AdvReac Type Severity Reaction Status Date / Time clarithromycin [From Biaxin] Allergy Hives Verified 07/10/18 00:44 Medications: Current Medications Acetaminophen (Tylenol) 650 mg PO Q4H PRN PRN Reason: Headache/Fever/Mild Pain (1-3) Hydrocodone Bitart/Acetaminophen ([place] 5/325) 1 tab PO Q4H PRN PRN Reason: Moderate Pain (4-6) Hydrocodone Bitart/Acetaminophen ([place] 7.5/325) 1 tab PO Q4H PRN PRN Reason: Severe Pain (7-10) Acidophilus (Floranex) 1 tab PO DAILY [facility] Last Admin: 07/14/18 08:44 Dose: 1 tab Amoxicillin/Clavulanate Potassium (Augmentin) 875 mg PO BID [facility] Last Admin: 07/14/18 08:45 Dose: 875 mg Baclofen (Lioresal) 15 mg PO 0600,2100 [facility] Last Admin: 07/14/18 05:12 Dose: 15 mg Baclofen (Lioresal) 5 mg PO 1100,1600 [facility] Last Admin: 07/13/18 16:24 Dose: 5 mg Bisacodyl (Dulcolax) 10 mg PO DAILYPRN PRN PRN Reason: Constipation Last Admin: 07/10/18 00:54 Dose: 10 mg Brimonidine Tartrate (Alphagan 0.2% Ophth Soln) 1 drop R EYE TID [facility] Last Admin: 07/14/18 08:46 Dose: 1 drop Cholecalciferol (Vitamin D3) 5,000 units PO DAILY [facility] Last Admin: 07/14/18 08:45 Dose: 5,000 units Cyclobenzaprine HCl (Flexeril) 10 mg PO TID [facility] Last Admin: 07/14/18 08:45 Dose: 10 mg Docusate Sodium (Colace) 100 mg PO [facility] Last Admin: 07/13/18 21:09 Dose: 100 mg Enoxaparin Sodium (Lovenox) 40 mg SC 0900 [facility] Last Admin: 07/14/18 08:46 Dose: 40 mg Famotidine (Pepcid) 20 mg PO BID [facility] Last Admin: 07/14/18 08:45 Dose: 20 mg Fluoxetine HCl (Prozac) 20 mg PO BID [facility] Last Admin: 07/14/18 08:45 Dose: 20 mg Gabapentin (Neurontin) 800 mg PO QID [facility] Last Admin: 07/14/18 08:44 Dose: 800 mg Guaifenesin/Dextromethorphan (Robitussin Dm) 15 ml PO Q4H PRN PRN Reason: Cough Hyoscyamine Sulfate (Levsin) 0.25 mg PO QID [facility] Last Admin: 07/14/18 08:43 Dose: 0.25 mg Ibuprofen (Motrin) 800 mg PO Q6H PRN PRN Reason: Fever>101/(Mi/Mod/Sev) Pain Last Admin: 07/13/18 21:27 Dose: 800 mg Latanoprost (Xalatan 0.005% Ophth Soln) 1 drop R EYE [facility] Last Admin: 07/13/18 21:07 Dose: 1 drop Mesalamine (Canasa) 1,000 mg [place] HSPRN PRN PRN Reason: Bleeding Mometasone Furoate/Formoterol Fumar (Dulera 100 Mcg/5 Mcg Inhaler) 2 puff INH BID-RT [facility] Last Admin: 07/14/18 06:25 Dose: 2 puff Ondansetron HCl (Zofran Odt) 4 mg PO Q6H PRN PRN Reason: Nausea/Vomiting Ondansetron HCl (Zofran) 4 mg IVP Q6H PRN PRN Reason: Nausea/Vomiting Prednisone (Prednisone) 10 mg PO QAM[facility] Stop: 07/16/18 08:01 Last Admin: 07/14/18 08:44 Dose: 10 mg Senna/Docusate Sodium (Senokot S) 2 tab PO BIDPRN PRN PRN Reason: Constipation Simethicone (Mylicon Chewable) 240 mg PO QID [facility] Last Admin: 07/14/18 08:44 Dose: 240 mg Sodium Chloride (Flush - Normal Saline) 10 ml IVF Q12HR [facility] Last Admin: 07/14/18 08:47 Dose: 10 ml Sodium Chloride (Flush - Normal Saline) 10 ml IVF PRN PRN PRN Reason: Saline Flush Last Admin: 07/10/18 03:34 Dose: 10 ml Sodium Chloride (Nancy-128 5% Oph Kandy) 1 drop R EYE QID [facility] Last Admin: 07/14/18 08:46 Dose: 1 drop Trazodone HCl (Desyrel) 50 mg PO HS PRN PRN Reason: Insomnia Zolpidem Tartrate (Ambien) 5 mg PO HSPRN PRN PRN Reason: Insomnia
[2018-07-14] MEDS: Latanoprost 0.005% Ophth Soln 2.5 ml Bottle R EYE SCH (20:56)
[2018-07-14] MEDS: Docusate 100 MG CAP PO SCH (20:58)
[2018-07-15] MEDS: Baclofen 10 MG TAB PO SCH ×4 (05:44→20:57)
[2018-07-15] MEDS: Mometasone/Formoterol 120 PUFF INHALER INH SCH ×2 (07:36→19:08)
[2018-07-15] MEDS: Sodium Chloride 5% Opth 15 ML BOT R EYE SCH ×4 (09:24→20:54)
[2018-07-15] MEDS: Simethicone Chewable 80 MG TAB PO SCH ×4 (09:25→20:57)
[2018-07-15] MEDS: FLUoxetine HCl 20 MG CAP PO SCH ×2 (09:26→20:56)
[2018-07-15] MEDS: Cyclobenzaprine 10 MG TAB PO SCH ×3 (09:26→20:58)
[2018-07-15] MEDS: Gabapentin 400 MG CAP PO SCH ×4 (09:27→20:56)
[2018-07-15] MEDS: Amoxicillin/Potassium Clav 875 MG TAB PO SCH ×2 (09:27→20:56)
[2018-07-15] MEDS: Lactinex Tablet PO SCH (09:27)
[2018-07-15] MEDS: predniSONE 5 MG TAB PO SCH (09:27)
[2018-07-15] MEDS: Enoxaparin Sodium 40 MG/0.4 ML SYRINGE SC SCH (09:28)
[2018-07-15] MEDS: Famotidine 20 MG TAB PO SCH ×2 (09:28→20:58)
[2018-07-15] MEDS: Brimonidine Tartrate 0.2% Ophth Soln 5 ml Bottle R EYE SCH ×3 (09:29→20:55)
--- NOTE | 2018-07-15 11:01 | PDOC.PN ---
- Subjective Encounter Start Date: 07/15/18 Encounter Start Time: 09:30 Patient seen and examined. No new complaints. No overnight events - Objective Resuscitation Status - Order Detail: 07/10/18 00:07 Resuscitation Status Routine Resuscitation Status: DNAR: NO Resuscitation Discussed with: patient ROXANN Reviewed: Yes Vital Signs & Weight: Vital Signs (12 hours) Temp Pulse Resp BP Pulse Ox 07/15/18 08:00 98.2 F 93 18 118/88 07/15/18 04:51 97.7 F 91 16 134/84 97 07/15/18 01:20 97.9 F 96 16 125/85 95 Weight Admit Weight 302 lb Weight 302 lb I&O: 07/14/18 07/15/18 07/16/18 06:59 06:59 06:59 Intake Total 3420 2210 Output Total 3400 4210 Balance -1999 Result Diagrams: 07/14/18 08:17 07/14/18 08:17 Phys Exam - Physical Examination Constitutional: NAD HEENT: PERRLA, moist MMs, sclera anicteric Neck: no JVD, supple Respiratory: no wheezing, no rales, no rhonchi Cardiovascular: RRR, no significant murmur, no rub Gastrointestinal: soft, non-tender, no distention Musculoskeletal: no edema, pulses present Lymphatic: no nodes Psychiatric: normal affect Skin: no rash, normal turgor Dx/Plan (1) Complicated UTI (urinary tract infection) Code(s): N39.0 - URINARY TRACT INFECTION, SITE NOT SPECIFIED Status: Acute Comment: related with indwelling rodriguez catheter (2) Hypokalemia Code(s): E87.6 - HYPOKALEMIA Status: Acute (3) Lactic acidosis Code(s): E87.2 - ACIDOSIS Status: Acute (4) Sepsis Code(s): A41.9 - SEPSIS, UNSPECIFIED ORGANISM Status: Acute (5) Colostomy in place Code(s): Z93.3 - COLOSTOMY STATUS Status: Chronic (6) HTN (hypertension) Code(s): I10 - ESSENTIAL (PRIMARY) HYPERTENSION Status: Chronic (7) Morbid obesity Code(s): E66.01 - MORBID (SEVERE) OBESITY DUE TO EXCESS CALORIES Status: Chronic Comment: with BMI 43 (8) Multiple sclerosis, secondary progressive Code(s): G35 - MULTIPLE SCLEROSIS Status: Chronic (9) Ulcerative colitis Code(s): K51.90 - ULCERATIVE COLITIS, UNSPECIFIED, WITHOUT COMPLICATIONS Status: Chronic (10) Neurogenic bladder Code(s): N31.9 - NEUROMUSCULAR DYSFUNCTION OF BLADDER, UNSPECIFIED Status: Chronic - Plan cont current plan of care, continue antibiotics, PT/OT, social science instructor * medication reviewed as below * symptomatic treatment * stable medically * await final discharge disposition decision as rehab declined and she does not want to go to [facility]. Review of Systems - Review of Systems ENT: negative: Ear Pain, Ear Discharge, Nose Pain, Nose Discharge, Nose Congestion, Mouth Pain, Mouth Swelling, Throat Pain, Throat Swelling, Other Respiratory: negative: Cough, Dry, Shortness of Breath, Hemoptysis, SOB with Excertion, Pleuritic Pain, Sputum, Wheezing Cardiovascular: negative: chest pain, palpitations, orthopnea, paroxysmal nocturnal dyspnea, edema, light headedness, other Gastrointestinal: negative: Nausea, Vomiting, Abdominal Pain, Diarrhea, Constipation, Melena, Hematochezia, Other Genitourinary: negative: Dysuria, Frequency, Incontinence, Hematuria, Retention , Other Musculoskeletal: negative: Neck Pain, Shoulder Pain, Arm Pain, Back Pain, Hand Pain, Leg Pain, Foot Pain, Other - Medications/Allergies Allergies/Adverse Reactions: Allergies Allergy/AdvReac Type Severity Reaction Status Date / Time clarithromycin [From Biaxin] Allergy Hives Verified 07/10/18 00:44 Medications: Current Medications Acetaminophen (Tylenol) 650 mg PO Q4H PRN PRN Reason: Headache/Fever/Mild Pain (1-3) Hydrocodone Bitart/Acetaminophen ([place] 5/325) 1 tab PO Q4H PRN PRN Reason: Moderate Pain (4-6) Hydrocodone Bitart/Acetaminophen ([place] 7.5/325) 1 tab PO Q4H PRN PRN Reason: Severe Pain (7-10) Acidophilus (Floranex) 1 tab PO DAILY [facility] Last Admin: 07/15/18 09:27 Dose: 1 tab Amoxicillin/Clavulanate Potassium (Augmentin) 875 mg PO BID [facility] Last Admin: 07/15/18 09:27 Dose: 875 mg Baclofen (Lioresal) 15 mg PO 0600,2100 [facility] Last Admin: 07/15/18 05:44 Dose: 15 mg Baclofen (Lioresal) 5 mg PO 1100,1600 [facility] Last Admin: 07/14/18 16:50 Dose: 5 mg Bisacodyl (Dulcolax) 10 mg PO DAILYPRN PRN PRN Reason: Constipation Last Admin: 07/10/18 00:54 Dose: 10 mg Brimonidine Tartrate (Alphagan 0.2% Ophth Soln) 1 drop R EYE TID [facility] Last Admin: 07/15/18 09:29 Dose: 1 drop Cholecalciferol (Vitamin D3) 5,000 units PO DAILY [facility] Last Admin: 07/15/18 09:26 Dose: 5,000 units Cyclobenzaprine HCl (Flexeril) 10 mg PO TID [facility] Last Admin: 07/15/18 09:26 Dose: 10 mg Docusate Sodium (Colace) 100 mg PO HS [facility] Last Admin: 07/14/18 20:58 Dose: 100 mg Enoxaparin Sodium (Lovenox) 40 mg SC 0900 [facility] Last Admin: 07/15/18 09:28 Dose: 40 mg Famotidine (Pepcid) 20 mg PO BID [facility] Last Admin: 07/15/18 09:28 Dose: 20 mg Fluoxetine HCl (Prozac) 20 mg PO BID [facility] Last Admin: 07/15/18 09:26 Dose: 20 mg Gabapentin (Neurontin) 800 mg PO QID [facility] Last Admin: 07/15/18 09:27 Dose: 800 mg Guaifenesin/Dextromethorphan (Robitussin Dm) 15 ml PO Q4H PRN PRN Reason: Cough Hyoscyamine Sulfate (Levsin) 0.25 mg PO QID [facility] Last Admin: 07/15/18 09:29 Dose: 0.25 mg Ibuprofen (Motrin) 800 mg PO Q6H PRN PRN Reason: Fever>101/(Mi/Mod/Sev) Pain Last Admin: 07/13/18 21:27 Dose: 800 mg Latanoprost (Xalatan 0.005% Ophth Soln) 1 drop R EYE HS [facility] Last Admin: 07/14/18 20:56 Dose: 1 drop Mesalamine (Canasa) 1,000 mg [place] HSPRN PRN PRN Reason: Bleeding Mometasone Furoate/Formoterol Fumar (Dulera 100 Mcg/5 Mcg Inhaler) 2 puff INH BID-RT [facility] Last Admin: 07/15/18 07:36 Dose: 2 puff Ondansetron HCl (Zofran Odt) 4 mg PO Q6H PRN PRN Reason: Nausea/Vomiting Ondansetron HCl (Zofran) 4 mg IVP Q6H PRN PRN Reason: Nausea/Vomiting Prednisone (Prednisone) 10 mg PO QAM-[facility] Stop: 07/16/18 08:01 Last Admin: 07/15/18 09:27 Dose: 10 mg Senna/Docusate Sodium (Senokot S) 2 tab PO BIDPRN PRN PRN Reason: Constipation Simethicone (Mylicon Chewable) 240 mg PO QID [facility] Last Admin: 07/15/18 09:25 Dose: 240 mg Sodium Chloride (Flush - Normal Saline) 10 ml IVF Q12HR [facility] Last Admin: 07/15/18 09:30 Dose: 10 ml Sodium Chloride (Flush - Normal Saline) 10 ml IVF PRN PRN PRN Reason: Saline Flush Last Admin: 07/10/18 03:34 Dose: 10 ml Sodium Chloride (Nancy-128 5% Oph Kandy) 1 drop R EYE QID [facility] Last Admin: 07/15/18 09:24 Dose: 1 drop Trazodone HCl (Desyrel) 50 mg PO HS PRN PRN Reason: Insomnia Zolpidem Tartrate (Ambien) 5 mg PO HSPRN PRN PRN Reason: Insomnia
[2018-07-15] MEDS: Latanoprost 0.005% Ophth Soln 2.5 ml Bottle R EYE SCH (20:56)
[2018-07-15] MEDS: Docusate 100 MG CAP PO SCH (20:57)
[2018-07-16] MEDS: Baclofen 10 MG TAB PO SCH ×4 (05:21→20:23)
[2018-07-16] MEDS: Mometasone/Formoterol 120 PUFF INHALER INH SCH ×2 (06:59→17:58)
[2018-07-16] MEDS: Sodium Chloride 5% Opth 15 ML BOT R EYE SCH ×4 (08:46→20:24)
[2018-07-16] MEDS: Lactinex Tablet PO SCH (08:48)
[2018-07-16] MEDS: Amoxicillin/Potassium Clav 875 MG TAB PO SCH ×2 (08:48→20:26)
[2018-07-16] MEDS: Cyclobenzaprine 10 MG TAB PO SCH ×3 (08:48→20:26)
[2018-07-16] MEDS: Famotidine 20 MG TAB PO SCH ×2 (08:49→20:27)
[2018-07-16] MEDS: FLUoxetine HCl 20 MG CAP PO SCH ×2 (08:49→20:27)
[2018-07-16] MEDS: predniSONE 5 MG TAB PO SCH (08:49)
[2018-07-16] MEDS: Enoxaparin Sodium 40 MG/0.4 ML SYRINGE SC SCH (08:50)
[2018-07-16] MEDS: Gabapentin 400 MG CAP PO SCH ×4 (08:50→20:27)
[2018-07-16] MEDS: Simethicone Chewable 80 MG TAB PO SCH ×4 (08:51→20:26)
[2018-07-16] MEDS: Brimonidine Tartrate 0.2% Ophth Soln 5 ml Bottle R EYE SCH ×3 (08:55→20:25)
--- NOTE | 2018-07-16 10:38 | PDOC.PN ---
- Subjective Encounter Start Date: 07/16/18 Encounter Start Time: 09:30 Patient seen and examined. No new complaints. No overnight events - Objective Resuscitation Status - Order Detail: 07/10/18 00:07 Resuscitation Status Routine Resuscitation Status: DNAR: NO Resuscitation Discussed with: patient ROXANN Reviewed: Yes Vital Signs & Weight: Vital Signs (12 hours) Temp Pulse Resp BP BP Pulse Ox 07/16/18 08:00 97.8 F 98 18 104/71 97 07/16/18 06:59 93 20 99 07/16/18 04:00 97.9 F 89 20 122/84 95 07/16/18 00:29 98.1 F 97 20 120/85 95 Weight Admit Weight 302 lb Weight 302 lb I&O: 07/15/18 07/16/18 07/17/18 06:59 06:59 06:59 Intake Total 2210 2970 Output Total 4210 3600 Balance -2000 -630 Result Diagrams: 07/14/18 08:17 07/14/18 08:17 Phys Exam - Physical Examination Constitutional: NAD HEENT: PERRLA, moist MMs, sclera anicteric Neck: no JVD, supple Respiratory: no wheezing, no rales, no rhonchi Cardiovascular: RRR, no significant murmur, no rub Gastrointestinal: soft, non-tender, no distention Musculoskeletal: no edema, pulses present Lymphatic: no nodes Psychiatric: normal affect, A&O x 3 Skin: no rash, normal turgor Dx/Plan (1) Complicated UTI (urinary tract infection) Code(s): N39.0 - URINARY TRACT INFECTION, SITE NOT SPECIFIED Status: Acute Comment: related with indwelling rodriguez catheter (2) Hypokalemia Code(s): E87.6 - HYPOKALEMIA Status: Acute (3) Lactic acidosis Code(s): E87.2 - ACIDOSIS Status: Acute (4) Sepsis Code(s): A41.9 - SEPSIS, UNSPECIFIED ORGANISM Status: Acute (5) Colostomy in place Code(s): Z93.3 - COLOSTOMY STATUS Status: Chronic (6) HTN (hypertension) Code(s): I10 - ESSENTIAL (PRIMARY) HYPERTENSION Status: Chronic (7) Morbid obesity Code(s): E66.01 - MORBID (SEVERE) OBESITY DUE TO EXCESS CALORIES Status: Chronic Comment: with BMI 43 (8) Multiple sclerosis, secondary progressive Code(s): G35 - MULTIPLE SCLEROSIS Status: Chronic (9) Ulcerative colitis Code(s): K51.90 - ULCERATIVE COLITIS, UNSPECIFIED, WITHOUT COMPLICATIONS Status: Chronic (10) Neurogenic bladder Code(s): N31.9 - NEUROMUSCULAR DYSFUNCTION OF BLADDER, UNSPECIFIED Status: Chronic - Plan cont current plan of care, continue antibiotics, licensed social worker * medication reviewed as below * symptomatic treatment * continue augmentin * await discharge placement. Review of Systems - Review of Systems ENT: negative: Ear Pain, Ear Discharge, Nose Pain, Nose Discharge, Nose Congestion, Mouth Pain, Mouth Swelling, Throat Pain, Throat Swelling, Other Respiratory: negative: Cough, Dry, Shortness of Breath, Hemoptysis, SOB with Excertion, Pleuritic Pain, Sputum, Wheezing Cardiovascular: negative: chest pain, palpitations, orthopnea, paroxysmal nocturnal dyspnea, edema, light headedness, other Gastrointestinal: negative: Nausea, Vomiting, Abdominal Pain, Diarrhea, Constipation, Melena, Hematochezia, Other Genitourinary: negative: Dysuria, Frequency, Incontinence, Hematuria, Retention , Other Musculoskeletal: negative: Neck Pain, Shoulder Pain, Arm Pain, Back Pain, Hand Pain, Leg Pain, Foot Pain, Other - Medications/Allergies Allergies/Adverse Reactions: Allergies Allergy/AdvReac Type Severity Reaction Status Date / Time clarithromycin [From Biaxin] Allergy Hives Verified 07/10/18 00:44 Medications: Current Medications Acetaminophen (Tylenol) 650 mg PO Q4H PRN PRN Reason: Headache/Fever/Mild Pain (1-3) Hydrocodone Bitart/Acetaminophen ([place] 5/325) 1 tab PO Q4H PRN PRN Reason: Moderate Pain (4-6) Hydrocodone Bitart/Acetaminophen ([place] 7.5/325) 1 tab PO Q4H PRN PRN Reason: Severe Pain (7-10) Acidophilus (Floranex) 1 tab PO DAILY [facility] Last Admin: 07/16/18 08:48 Dose: 1 tab Amoxicillin/Clavulanate Potassium (Augmentin) 875 mg PO BID [facility] Last Admin: 07/16/18 08:48 Dose: 875 mg Baclofen (Lioresal) 15 mg PO 0600,2100 [facility] Last Admin: 07/16/18 05:21 Dose: 15 mg Baclofen (Lioresal) 5 mg PO 1100,1600 [facility] Last Admin: 07/16/18 10:34 Dose: 5 mg Bisacodyl (Dulcolax) 10 mg PO DAILYPRN PRN PRN Reason: Constipation Last Admin: 07/10/18 00:54 Dose: 10 mg Brimonidine Tartrate (Alphagan 0.2% Ophth Soln) 1 drop R EYE TID [facility] Last Admin: 07/16/18 08:55 Dose: 1 drop Cholecalciferol (Vitamin D3) 5,000 units PO DAILY [facility] Last Admin: 07/16/18 08:49 Dose: 5,000 units Cyclobenzaprine HCl (Flexeril) 10 mg PO TID [facility] Last Admin: 07/16/18 08:48 Dose: 10 mg Docusate Sodium (Colace) 100 mg PO HS [facility] Last Admin: 07/15/18 20:57 Dose: 100 mg Enoxaparin Sodium (Lovenox) 40 mg SC 0900 [facility] Last Admin: 07/16/18 08:50 Dose: 40 mg Famotidine (Pepcid) 20 mg PO BID [facility] Last Admin: 07/16/18 08:49 Dose: 20 mg Fluoxetine HCl (Prozac) 20 mg PO BID [facility] Last Admin: 07/16/18 08:49 Dose: 20 mg Gabapentin (Neurontin) 800 mg PO QID [facility] Last Admin: 07/16/18 08:50 Dose: 800 mg Guaifenesin/Dextromethorphan (Robitussin Dm) 15 ml PO Q4H PRN PRN Reason: Cough Hyoscyamine Sulfate (Levsin) 0.25 mg PO QID [facility] Last Admin: 07/16/18 08:52 Dose: 0.25 mg Ibuprofen (Motrin) 800 mg PO Q6H PRN PRN Reason: Fever>101/(Mi/Mod/Sev) Pain Last Admin: 07/13/18 21:27 Dose: 800 mg Latanoprost (Xalatan 0.005% Ophth Soln) 1 drop R EYE HS [facility] Last Admin: 07/15/18 20:56 Dose: 1 drop Mesalamine (Canasa) 1,000 mg ME HSPRN PRN PRN Reason: Bleeding Last Admin: 07/15/18 11:59 Dose: 1,000 mg Mometasone Furoate/Formoterol Fumar (Dulera 100 Mcg/5 Mcg Inhaler) 2 puff INH BID-RT [facility] Last Admin: 07/16/18 06:59 Dose: 2 puff Ondansetron HCl (Zofran Odt) 4 mg PO Q6H PRN PRN Reason: Nausea/Vomiting Ondansetron HCl (Zofran) 4 mg IVP Q6H PRN PRN Reason: Nausea/Vomiting Senna/Docusate Sodium (Senokot S) 2 tab PO BIDPRN PRN PRN Reason: Constipation Simethicone (Mylicon Chewable) 240 mg PO QID [facility] Last Admin: 07/16/18 08:51 Dose: 240 mg Sodium Chloride (Flush - Normal Saline) 10 ml IVF Q12HR [facility] Last Admin: 07/16/18 08:53 Dose: 10 ml Sodium Chloride (Flush - Normal Saline) 10 ml IVF PRN PRN PRN Reason: Saline Flush Last Admin: 07/10/18 03:34 Dose: 10 ml Sodium Chloride (Nancy-128 5% Oph Kandy) 1 drop R EYE QID [facility] Last Admin: 07/16/18 08:46 Dose: 1 drop Trazodone HCl (Desyrel) 50 mg PO HS PRN PRN Reason: Insomnia Zolpidem Tartrate (Ambien) 5 mg PO HSPRN PRN PRN Reason: Insomnia
--- NOTE | 2018-07-16 12:12 | EKG ---
Test Reason : Blood Pressure : / mmHG Vent. Rate : 116 BPM Atrial Rate : 116 BPM P-R Int : 146 ms QRS Dur : 088 ms QT Int : 344 ms P-R-T Axes : 028 002 000 degrees QTc Int : 478 ms Sinus tachycardia Otherwise normal EKG Confirmed by ELENA REYES DO ([id number]), business editor KATIE MICHAELS ([id number]) on 07/16/2018 12:12:02 PM Referred By: AMY Confirmed By:ELENA REYES DO
[2018-07-16] MEDS: Docusate 100 MG CAP PO SCH (20:26)
[2018-07-16] MEDS: Latanoprost 0.005% Ophth Soln 2.5 ml Bottle R EYE SCH (20:26)
[2018-07-17] MEDS: Baclofen 10 MG TAB PO SCH ×4 (05:08→21:43)
--- NOTE | 2018-07-17 08:34 | PDOC.PN ---
- Subjective Encounter Start Date: 07/17/18 Encounter Start Time: 07:10 Patient seen and examined. No new complaints. No overnight events - Objective Resuscitation Status - Order Detail: 07/10/18 00:07 Resuscitation Status Routine Resuscitation Status: DNAR: NO Resuscitation Discussed with: patient ROXANN Reviewed: Yes Vital Signs & Weight: Vital Signs (12 hours) Temp Pulse Resp BP Pulse Ox 07/17/18 08:00 97.9 F 86 18 130/83 97 07/17/18 04:00 98.2 F 87 16 123/83 96 07/17/18 00:00 97.7 F 90 16 108/78 95 Weight Admit Weight 302 lb Weight 302 lb I&O: 07/16/18 07/17/18 07/18/18 06:59 06:59 06:59 Intake Total 2970 4560 Output Total 3600 3900 Balance -630 660 Result Diagrams: 07/14/18 08:17 07/14/18 08:17 Phys Exam - Physical Examination Constitutional: NAD HEENT: PERRLA, moist MMs, sclera anicteric Neck: no JVD, supple Respiratory: no wheezing, no rales, no rhonchi Cardiovascular: RRR, no significant murmur, no rub Gastrointestinal: soft, non-tender, no distention rodriguez+ Musculoskeletal: no edema, pulses present left heel with dressing Lymphatic: no nodes Psychiatric: normal affect, A&O x 3 Skin: no rash, normal turgor Dx/Plan (1) Complicated UTI (urinary tract infection) Code(s): N39.0 - URINARY TRACT INFECTION, SITE NOT SPECIFIED Status: Acute Comment: related with indwelling rodriguez catheter (2) Hypokalemia Code(s): E87.6 - HYPOKALEMIA Status: Acute (3) Lactic acidosis Code(s): E87.2 - ACIDOSIS Status: Acute (4) Sepsis Code(s): A41.9 - SEPSIS, UNSPECIFIED ORGANISM Status: Acute (5) Colostomy in place Code(s): Z93.3 - COLOSTOMY STATUS Status: Chronic (6) HTN (hypertension) Code(s): I10 - ESSENTIAL (PRIMARY) HYPERTENSION Status: Chronic (7) Morbid obesity Code(s): E66.01 - MORBID (SEVERE) OBESITY DUE TO EXCESS CALORIES Status: Chronic Comment: with BMI 43 (8) Multiple sclerosis, secondary progressive Code(s): G35 - MULTIPLE SCLEROSIS Status: Chronic (9) Ulcerative colitis Code(s): K51.90 - ULCERATIVE COLITIS, UNSPECIFIED, WITHOUT COMPLICATIONS Status: Chronic (10) Neurogenic bladder Code(s): N31.9 - NEUROMUSCULAR DYSFUNCTION OF BLADDER, UNSPECIFIED Status: Chronic (11) Functional quadriplegia secondary to MS Code(s): G35 - MULTIPLE SCLEROSIS; R53.2 - FUNCTIONAL QUADRIPLEGIA Status: Chronic (12) Pressure ulcer, heel, left, unstageable Code(s): L89.620 - PRESSURE ULCER OF LEFT HEEL, UNSTAGEABLE Status: Acute Comment: present on admission - Plan cont current plan of care, continue antibiotics * continue augmentin * pt is not feeling safe to go home, she prefer to go to rehab at [facility], await approval * medication reviewed as below * symptomatic treatment * wound care. Review of Systems - Review of Systems Eyes: negative: Pain, Vision Change, Conjunctivae Inflammation, Eyelid Inflammation, Redness, Other ENT: negative: Ear Pain, Ear Discharge, Nose Pain, Nose Discharge, Nose Congestion, Mouth Pain, Mouth Swelling, Throat Pain, Throat Swelling, Other Respiratory: negative: Cough, Dry, Shortness of Breath, Hemoptysis, SOB with Excertion, Pleuritic Pain, Sputum, Wheezing Cardiovascular: negative: chest pain, palpitations, orthopnea, paroxysmal nocturnal dyspnea, edema, light headedness, other Gastrointestinal: negative: Nausea, Vomiting, Abdominal Pain, Diarrhea, Constipation, Melena, Hematochezia, Other Genitourinary: negative: Dysuria, Frequency, Incontinence, Hematuria, Retention , Other Musculoskeletal: negative: Neck Pain, Shoulder Pain, Arm Pain, Back Pain, Hand Pain, Leg Pain, Foot Pain, Other Skin: negative: Rash, Lesions, Ken[place], Bruising, Other - Medications/Allergies Allergies/Adverse Reactions: Allergies Allergy/AdvReac Type Severity Reaction Status Date / Time clarithromycin [From Biaxin] Allergy Hives Verified 07/10/18 00:44 Medications: Current Medications Acetaminophen (Tylenol) 650 mg PO Q4H PRN PRN Reason: Headache/Fever/Mild Pain (1-3) Hydrocodone Bitart/Acetaminophen ([place] 5/325) 1 tab PO Q4H PRN PRN Reason: Moderate Pain (4-6) Hydrocodone Bitart/Acetaminophen ([place] 7.5/325) 1 tab PO Q4H PRN PRN Reason: Severe Pain (7-10) Acidophilus (Floranex) 1 tab PO DAILY [facility] Last Admin: 07/16/18 08:48 Dose: 1 tab Amoxicillin/Clavulanate Potassium (Augmentin) 875 mg PO BID [facility] Last Admin: 07/16/18 20:26 Dose: 875 mg Baclofen (Lioresal) 15 mg PO 0600,2100 [facility] Last Admin: 07/17/18 05:08 Dose: 15 mg Baclofen (Lioresal) 5 mg PO 1100,1600 [facility] Last Admin: 07/16/18 16:24 Dose: 5 mg Bisacodyl (Dulcolax) 10 mg PO DAILYPRN PRN PRN Reason: Constipation Last Admin: 07/10/18 00:54 Dose: 10 mg Brimonidine Tartrate (Alphagan 0.2% Ophth Soln) 1 drop R EYE TID [facility] Last Admin: 07/16/18 20:25 Dose: 1 drop Cholecalciferol (Vitamin D3) 5,000 units PO DAILY [facility] Last Admin: 07/16/18 08:49 Dose: 5,000 units Cyclobenzaprine HCl (Flexeril) 10 mg PO TID [facility] Last Admin: 07/16/18 20:26 Dose: 10 mg Docusate Sodium (Colace) 100 mg PO HS [facility] Last Admin: 07/16/18 20:26 Dose: 100 mg Enoxaparin Sodium (Lovenox) 40 mg SC 0900 [facility] Last Admin: 07/16/18 08:50 Dose: 40 mg Famotidine (Pepcid) 20 mg PO BID [facility] Last Admin: 07/16/18 20:27 Dose: 20 mg Fluoxetine HCl (Prozac) 20 mg PO BID [facility] Last Admin: 07/16/18 20:27 Dose: 20 mg Gabapentin (Neurontin) 800 mg PO QID [facility] Last Admin: 07/16/18 20:27 Dose: 800 mg Guaifenesin/Dextromethorphan (Robitussin Dm) 15 ml PO Q4H PRN PRN Reason: Cough Hyoscyamine Sulfate (Levsin) 0.25 mg PO QID [facility] Last Admin: 07/16/18 20:22 Dose: 0.25 mg Ibuprofen (Motrin) 800 mg PO Q6H PRN PRN Reason: Fever>101/(Mi/Mod/Sev) Pain Last Admin: 07/13/18 21:27 Dose: 800 mg Latanoprost (Xalatan 0.005% Ophth Soln) 1 drop R EYE HS [facility] Last Admin: 07/16/18 20:26 Dose: 1 drop Mesalamine (Canasa) 1,000 mg ME HSPRN PRN PRN Reason: Bleeding Last Admin: 07/15/18 11:59 Dose: 1,000 mg Mometasone Furoate/Formoterol Fumar (Dulera 100 Mcg/5 Mcg Inhaler) 2 puff INH BID-RT [facility] Last Admin: 07/16/18 17:58 Dose: 2 puff Ondansetron HCl (Zofran Odt) 4 mg PO Q6H PRN PRN Reason: Nausea/Vomiting Ondansetron HCl (Zofran) 4 mg IVP Q6H PRN PRN Reason: Nausea/Vomiting Senna/Docusate Sodium (Senokot S) 2 tab PO BIDPRN PRN PRN Reason: Constipation Simethicone (Mylicon Chewable) 240 mg PO QID [facility] Last Admin: 07/16/18 20:26 Dose: 240 mg Sodium Chloride (Flush - Normal Saline) 10 ml IVF Q12HR [facility] Last Admin: 07/16/18 20:28 Dose: 10 ml Sodium Chloride (Flush - Normal Saline) 10 ml IVF PRN PRN PRN Reason: Saline Flush Last Admin: 07/10/18 03:34 Dose: 10 ml Sodium Chloride (Nancy-128 5% Oph Kandy) 1 drop R EYE QID [facility] Last Admin: 07/16/18 20:24 Dose: 1 drop Trazodone HCl (Desyrel) 50 mg PO HS PRN PRN Reason: Insomnia Zolpidem Tartrate (Ambien) 5 mg PO HSPRN PRN PRN Reason: Insomnia
[2018-07-17] MEDS: Sodium Chloride 5% Opth 15 ML BOT R EYE SCH ×4 (09:17→21:39)
[2018-07-17] MEDS: Enoxaparin Sodium 40 MG/0.4 ML SYRINGE SC SCH (09:18)
[2018-07-17] MEDS: Lactinex Tablet PO SCH (09:19)
[2018-07-17] MEDS: Amoxicillin/Potassium Clav 875 MG TAB PO SCH ×2 (09:19→21:42)
[2018-07-17] MEDS: Cyclobenzaprine 10 MG TAB PO SCH ×3 (09:19→21:44)
[2018-07-17] MEDS: FLUoxetine HCl 20 MG CAP PO SCH ×2 (09:20→21:44)
[2018-07-17] MEDS: Simethicone Chewable 80 MG TAB PO SCH ×4 (09:20→21:41)
[2018-07-17] MEDS: Famotidine 20 MG TAB PO SCH ×2 (09:20→21:44)
[2018-07-17] MEDS: Brimonidine Tartrate 0.2% Ophth Soln 5 ml Bottle R EYE SCH ×3 (09:25→16:12)
[2018-07-17] MEDS: Gabapentin 400 MG CAP PO SCH ×4 (09:25→21:42)
[2018-07-17] MEDS: Mometasone/Formoterol 120 PUFF INHALER INH SCH ×2 (12:20→18:11)
[2018-07-17] MEDS: Latanoprost 0.005% Ophth Soln 2.5 ml Bottle R EYE SCH (21:44)
[2018-07-17] MEDS: Docusate 100 MG CAP PO SCH (21:44)
[2018-07-18] MEDS: Baclofen 10 MG TAB PO SCH ×3 (05:21→16:16)
[2018-07-18] MEDS: Mometasone/Formoterol 120 PUFF INHALER INH SCH (06:55)
[2018-07-18 07:53] VITALS: BP 108/73; TEMP 98.2
[2018-07-18] MEDS: Simethicone Chewable 80 MG TAB PO SCH ×3 (09:42→16:17)
[2018-07-18] MEDS: Lactinex Tablet PO SCH (09:43)
[2018-07-18] MEDS: Gabapentin 400 MG CAP PO SCH ×3 (09:43→16:15)
[2018-07-18] MEDS: FLUoxetine HCl 20 MG CAP PO SCH (09:43)
[2018-07-18] MEDS: Amoxicillin/Potassium Clav 875 MG TAB PO SCH (09:44)
[2018-07-18] MEDS: Brimonidine Tartrate 0.2% Ophth Soln 5 ml Bottle R EYE SCH ×2 (09:44→16:15)
[2018-07-18] MEDS: Famotidine 20 MG TAB PO SCH (09:44)
[2018-07-18] MEDS: Sodium Chloride 5% Opth 15 ML BOT R EYE SCH ×3 (09:44→16:21)
[2018-07-18] MEDS: Enoxaparin Sodium 40 MG/0.4 ML SYRINGE SC SCH (09:44)
[2018-07-18] MEDS: Cyclobenzaprine 10 MG TAB PO SCH ×2 (09:44→16:17)
--- NOTE | 2018-07-18 09:48 | PDOC.PN ---
- Subjective Encounter Start Date: 07/18/18 Encounter Start Time: 08:00 Patient seen and examined. No new complaints. No overnight events - Objective Resuscitation Status - Order Detail: 07/10/18 00:07 Resuscitation Status Routine Resuscitation Status: DNAR: NO Resuscitation Discussed with: patient ROXANN Reviewed: Yes Vital Signs & Weight: Vital Signs (12 hours) Temp Pulse Resp BP Pulse Ox 07/18/18 07:46 98.2 F 98 20 108/73 96 07/18/18 06:55 92 97 Weight Admit Weight 302 lb Weight 302 lb I&O: 07/17/18 07/18/18 07/19/18 06:59 06:59 06:59 Intake Total 4560 2810 Output Total 3900 3400 Balance 660 -590 Result Diagrams: 07/14/18 08:17 07/14/18 08:17 Phys Exam - Physical Examination Constitutional: NAD HEENT: PERRLA, moist MMs, sclera anicteric Neck: no JVD, supple Respiratory: no wheezing, no rales, no rhonchi Cardiovascular: RRR, no significant murmur, no rub Gastrointestinal: soft, non-tender, no distention, positive bowel sounds Musculoskeletal: no edema, pulses present Lymphatic: no nodes Psychiatric: normal affect, A&O x 3 Skin: no rash, normal turgor Dx/Plan (1) Complicated UTI (urinary tract infection) Code(s): N39.0 - URINARY TRACT INFECTION, SITE NOT SPECIFIED Status: Acute Comment: related with indwelling rodirguez catheter (2) Hypokalemia Code(s): E87.6 - HYPOKALEMIA Status: Acute (3) Lactic acidosis Code(s): E87.2 - ACIDOSIS Status: Acute (4) Sepsis Code(s): A41.9 - SEPSIS, UNSPECIFIED ORGANISM Status: Acute (5) Colostomy in place Code(s): Z93.3 - COLOSTOMY STATUS Status: Chronic (6) HTN (hypertension) Code(s): I10 - ESSENTIAL (PRIMARY) HYPERTENSION Status: Chronic (7) Morbid obesity Code(s): E66.01 - MORBID (SEVERE) OBESITY DUE TO EXCESS CALORIES Status: Chronic Comment: with BMI 43 (8) Multiple sclerosis, secondary progressive Code(s): G35 - MULTIPLE SCLEROSIS Status: Chronic (9) Ulcerative colitis Code(s): K51.90 - ULCERATIVE COLITIS, UNSPECIFIED, WITHOUT COMPLICATIONS Status: Chronic (10) Neurogenic bladder Code(s): N31.9 - NEUROMUSCULAR DYSFUNCTION OF BLADDER, UNSPECIFIED Status: Chronic (11) Functional quadriplegia secondary to MS Code(s): G35 - MULTIPLE SCLEROSIS; R53.2 - FUNCTIONAL QUADRIPLEGIA Status: Chronic (12) Pressure ulcer, heel, left, unstageable Code(s): L89.620 - PRESSURE ULCER OF LEFT HEEL, UNSTAGEABLE Status: Acute Comment: present on admission - Plan cont current plan of care, continue antibiotics, PT/OT, social media sr strategy manager * medically stable for discharge * medication reviewed as below * symptomatic treatment * await placement. Review of Systems - Review of Systems ENT: negative: Ear Pain, Ear Discharge, Nose Pain, Nose Discharge, Nose Congestion, Mouth Pain, Mouth Swelling, Throat Pain, Throat Swelling, Other Respiratory: negative: Cough, Dry, Shortness of Breath, Hemoptysis, SOB with Excertion, Pleuritic Pain, Sputum, Wheezing Cardiovascular: negative: chest pain, palpitations, orthopnea, paroxysmal nocturnal dyspnea, edema, light headedness, other Gastrointestinal: negative: Nausea, Vomiting, Abdominal Pain, Diarrhea, Constipation, Melena, Hematochezia, Other Genitourinary: negative: Dysuria, Frequency, Incontinence, Hematuria, Retention , Other Musculoskeletal: negative: Neck Pain, Shoulder Pain, Arm Pain, Back Pain, Hand Pain, Leg Pain, Foot Pain, Other - Medications/Allergies Allergies/Adverse Reactions: Allergies Allergy/AdvReac Type Severity Reaction Status Date / Time clarithromycin [From Biaxin] Allergy Hives Verified 07/10/18 00:44 Medications: Current Medications Acetaminophen (Tylenol) 650 mg PO Q4H PRN PRN Reason: Headache/Fever/Mild Pain (1-3) Hydrocodone Bitart/Acetaminophen ([place] 5/325) 1 tab PO Q4H PRN PRN Reason: Moderate Pain (4-6) Hydrocodone Bitart/Acetaminophen ([place] 7.5/325) 1 tab PO Q4H PRN PRN Reason: Severe Pain (7-10) Acidophilus (Floranex) 1 tab PO DAILY [facility] Last Admin: 07/17/18 09:19 Dose: 1 tab Amoxicillin/Clavulanate Potassium (Augmentin) 875 mg PO BID [facility] Last Admin: 07/17/18 21:42 Dose: 875 mg Baclofen (Lioresal) 15 mg PO 0600,2100 [facility] Last Admin: 07/18/18 05:21 Dose: 15 mg Baclofen (Lioresal) 5 mg PO 1100,1600 [facility] Last Admin: 07/17/18 16:06 Dose: 5 mg Bisacodyl (Dulcolax) 10 mg PO DAILYPRN PRN PRN Reason: Constipation Last Admin: 07/10/18 00:54 Dose: 10 mg Brimonidine Tartrate (Alphagan 0.2% Ophth Soln) 1 drop R EYE TID [facility] Last Admin: 07/17/18 16:12 Dose: 1 drop Cholecalciferol (Vitamin D3) 5,000 units PO DAILY [facility] Last Admin: 07/17/18 09:19 Dose: 5,000 units Cyclobenzaprine HCl (Flexeril) 10 mg PO TID [facility] Last Admin: 07/17/18 21:44 Dose: 10 mg Docusate Sodium (Colace) 100 mg PO [facility] Last Admin: 07/17/18 21:44 Dose: 100 mg Enoxaparin Sodium (Lovenox) 40 mg SC 0900 [facility] Last Admin: 07/17/18 09:18 Dose: 40 mg Famotidine (Pepcid) 20 mg PO BID [facility] Last Admin: 07/17/18 21:44 Dose: 20 mg Fluoxetine HCl (Prozac) 20 mg PO BID [facility] Last Admin: 07/17/18 21:44 Dose: 20 mg Gabapentin (Neurontin) 800 mg PO QID [facility] Last Admin: 07/17/18 21:42 Dose: 800 mg Guaifenesin/Dextromethorphan (Robitussin Dm) 15 ml PO Q4H PRN PRN Reason: Cough Hyoscyamine Sulfate (Levsin) 0.25 mg PO QID [facility] Last Admin: 07/17/18 21:42 Dose: 0.25 mg Ibuprofen (Motrin) 800 mg PO Q6H PRN PRN Reason: Fever>101/(Mi/Mod/Sev) Pain Last Admin: 07/13/18 21:27 Dose: 800 mg Latanoprost (Xalatan 0.005% Ophth Soln) 1 drop R EYE [facility] Last Admin: 07/17/18 21:44 Dose: 1 drop Mesalamine (Canasa) 1,000 mg [place] HSPRN PRN PRN Reason: Bleeding Last Admin: 07/15/18 11:59 Dose: 1,000 mg Mometasone Furoate/Formoterol Fumar (Dulera 100 Mcg/5 Mcg Inhaler) 2 puff INH BID-RT [facility] Last Admin: 07/18/18 06:55 Dose: 2 puff Ondansetron HCl (Zofran Odt) 4 mg PO Q6H PRN PRN Reason: Nausea/Vomiting Ondansetron HCl (Zofran) 4 mg IVP Q6H PRN PRN Reason: Nausea/Vomiting Senna/Docusate Sodium (Senokot S) 2 tab PO BIDPRN PRN PRN Reason: Constipation Simethicone (Mylicon Chewable) 240 mg PO QID [facility] Last Admin: 07/17/18 21:41 Dose: 240 mg Sodium Chloride (Flush - Normal Saline) 10 ml IVF Q12HR [facility] Last Admin: 07/17/18 21:45 Dose: Not Given Sodium Chloride (Flush - Normal Saline) 10 ml IVF PRN PRN PRN Reason: Saline Flush Last Admin: 07/10/18 03:34 Dose: 10 ml Sodium Chloride (Nancy-128 5% Oph Kandy) 1 drop R EYE QID [facility] Last Admin: 07/17/18 21:39 Dose: 1 drop Trazodone HCl (Desyrel) 50 mg PO HS PRN PRN Reason: Insomnia Zolpidem Tartrate (Ambien) 5 mg PO HSPRN PRN PRN Reason: Insomnia
--- NOTE | 2018-07-18 15:09 | DIS ---
DATE OF ADMISSION: 07/09/2018 DATE OF DISCHARGE: 07/18/2018 PRIMARY CARE PHYSICIAN: Dr. Vivas. DISCHARGE DISPOSITION: [facility] home. PRIMARY DISCHARGE DIAGNOSES: Urinary tract infection related with Telles catheter, hypokalemia, lactic acidosis, left heel pressure ulcer unstageable present on admission, sepsis resolved. SECONDARY DISCHARGE DIAGNOSES: History of neurogenic bladder, multiple sclerosis, functional quadriplegia, morbid obesity, ulcerative colitis, colostomy in place, hypertension. PRIMARY PROCEDURE/OPERATION: None. RADIOLOGICAL INVESTIGATION: MRI of lower extremity, foot x-ray. SIGNIFICANT LABORATORY DATA: WBC 13.6, hemoglobin 15.6, platelet 408. Creatinine 0.59. Electrolytes normal. Urine culture grew Klebsiella and Enterococcus faecalis. Blood culture negative. DISCHARGE MEDICATIONS: 1. Baclofen 15 mg b.i.d. 2. Alphagan ophthalmic drops t.i.d. 3. Vitamin D3 of 5000 units daily. 4. Flexeril 10 mg t.i.d. 5. Colace 100 mg at bedtime. 6. Prozac 20 mg b.i.d. 7. Advair 2 inhalations b.i.d. 8. Gabapentin 800 mg q.i.d. 9. [place] 7.5 one tablet q.4 hourly p.r.n. 10. Probiotic one capsule daily. 11. Mesalamine 1000 mg per rectum at bedtime p.r.n. 12. Travatan ophthalmic drops at bedtime. 13. Trazodone 50 mg p.o. at bedtime p.r.n. 14. Augmentin 875 mg twice daily for 5 more days. CONTRAINDICATION: None. CODE STATUS: DNR. INPATIENT LINE UP MACHINE OPERATOR: Dr. Boland. ALLERGIES: CLARITHROMYCIN. DISCHARGE PLAN: Posthospital, the patient is discharged to detention home. HOSPITAL COURSE: A 58-year-old female with above-mentioned medical problem, who was admitted by Dr. Steel. Please see his H and P for further details. The patient was admitted for left heel ulcer, which was related with pressure ulcer. MRI did not show any osteomyelitis. She also had UTI, which was related with a Telles catheter. While in hospital, she was given antibiotic therapy. Dr. Boland was consulted and Dr. Boland recommended to continue Augmentin for few more days. This patient remained in the hospital for longer because she was waiting for discharge placement. She was declined by all rehab facilities and finally, she agreed to go to detention home. The patient is doing very well. At this point, she is medically stable. The patient is seen and examined at bedside today. Please see my progress note from today for further detail. Paperwork for discharge, done. Discharge medication reconciliation, done. TOTAL TIME SPENT: Total time spent to coordinate discharge today is 31 minutes. Job ID: [id number]
== END 2018-07-18 18:20 | DRG 698 ==
LOC: ERS 17:25 → 2NO 20:10 → T4-B 07-11 12:26
PROVIDERS: ADMIT Internal Medicine; ATTEND Internal Medicine
DX: T83.511A Infection and inflammatory reaction due to indwelling urethral catheter, initial encounter (principal); A41.9 Sepsis, unspecified organism; R53.2 Functional quadriplegia; L03.116 Cellulitis of left lower limb; K50.90 Crohn's disease, unspecified, without complications; Z68.41 Body mass index [BMI] 40.0-44.9, adult; E87.2 Acidosis; N39.0 Urinary tract infection, site not specified; I73.00 Raynaud's syndrome without gangrene; H54.40 Blindness, one eye, unspecified eye; F32.9 Major depressive disorder, single episode, unspecified; I10 Essential (primary) hypertension; E78.5 Hyperlipidemia, unspecified; E87.6 Hypokalemia; L89.620 Pressure ulcer of left heel, unstageable; G35 Multiple sclerosis; E66.01 Morbid (severe) obesity due to excess calories; N31.9 Neuromuscular dysfunction of bladder, unspecified; Z93.3 Colostomy status; Z87.891 Personal history of nicotine dependence
CPT/HCPCS: 36415; 36416; 71045; 80048; 80053; 80202; 81003; 81015; 83605; 85025; 86140; 87040; 87077; 87086; 87186; 93005; 94664; 96361; 96365; 96367; G8978-GP-CM; G8979-GP-CK; G8987-GO-CM; G8988-GO-CK; J0696; J1650; J2543; J3370; J3490; J7050; S0028

== ENCOUNTER 2019-02-23 11:03 | Day surgery (SDC) | payer MEDICARE, OTHER ==
[2019-02-23] MEDS ORDERED: Fleet Enema 133 ML BOT FS SCH (12:15)
--- NOTE | 2019-02-23 16:59 | OP ---
DATE OF PROCEDURE: 02/23/2019 PROCEDURES PERFORMED: Ileoscopy through stoma and flexible proctosigmoidoscopy with biopsy and snare polyp. PREOPERATIVE DIAGNOSES: Hematochezia and surveillance of chronic ulcerative proctitis. DESCRIPTION OF PROCEDURE: Informed consent was obtained from the patient. The procedure was performed without sedation. The endoscope was advanced through her stoma into the distal ileum for several centimeters. The mucosa of the distal ileum was normal. She was turned up on her side and rectal exam was performed and was normal. There may be a small shallow anal fissure. The endoscope was advanced to the proximal rectum, where the staple line was encountered. She has a rectal stump, status post prior colectomy. There was a 5 mm polyp in the proximal rectum, which was removed by snare cautery polypectomy. This could be an area of granulation tissue near a staple. Rule out a dysplastic polyp. The rectal mucosa was diffusely erythematous with friability and granularity consistent with chronic ulcerative colitis. Biopsies were obtained randomly through the rectum to rule out dysplasia. IMPRESSION: 1. Normal ileoscopy through the stoma. 2. Diffuse grainy friable proctitis consistent with her history of ulcerative colitis status post subtotal colectomy with a rectal stump remaining. Random biopsies taken from the rectum to rule out dysplasia. 3. A 5 mm polyp removed from the proximal rectum. RECOMMENDATIONS: 1. Await histopathology. 2. Canasa suppository daily. Prior to this, she has only just been taking it on a p.r.n. basis. 3. Repeat proctoscopy in a year for ulcerative colitis surveillance. Job ID: [id number]
== END 2019-02-23 15:10 | disposition home or self-care (01) ==
LOC: SDC 11:03
PROVIDERS: ATTEND Internal Medicine Gastroenterology
PROC: 0DJD8ZZ Inspection of Lower Intestinal Tract, Via Natural or Artificial Opening Endoscopic (ICD-10-PCS; principal; 2019-02-23)
PROC: 0DBP8ZX Excision of Rectum, Via Natural or Artificial Opening Endoscopic, Diagnostic (ICD-10-PCS; 2019-02-23)
DX: K62.1 Rectal polyp (principal); K52.9 Noninfective gastroenteritis and colitis, unspecified; E66.01 Morbid (severe) obesity due to excess calories; F41.9 Anxiety disorder, unspecified; J45.909 Unspecified asthma, uncomplicated; G35 Multiple sclerosis; I73.00 Raynaud's syndrome without gangrene; Z90.49 Acquired absence of other specified parts of digestive tract; Z87.891 Personal history of nicotine dependence; Z68.43 Body mass index [BMI] 50.0-59.9, adult; Z88.1 Allergy status to other antibiotic agents; Z79.51 Long term (current) use of inhaled steroids; Z79.899 Other long term (current) drug therapy
CPT/HCPCS: 88305

== ENCOUNTER 2019-03-09 12:54 | Outpatient (CLI) | payer MEDICARE, OTHER ==
--- NOTE | 2019-03-09 16:50 | ULT ---
PELVIC ULTRASOUND: 03/09/19 HISTORY: Postmenopausal bleeding. COMPARISON: None. TECHNIQUE: Transabdominal and endovaginal imaging of the pelvis is performed. FINDINGS: Markedly limited evaluation. Pelvic structures could not be assessed. No obvious masses or free fluid . IMPRESSION: Markedly limited evaluation. POS: OFF
== END 2019-03-09 12:55 | disposition home or self-care (01) ==
LOC: ULT 12:54
PROVIDERS: ATTEND Family Medicine
DX: M62.3 Immobility syndrome (paraplegic) (principal); N95.0 Postmenopausal bleeding
CPT/HCPCS: 76856

== ENCOUNTER 2019-03-18 16:40 | Inpatient (IN) | payer MEDICARE, OTHER ==
[~2019-03-18 16:40] MED LIST: Iopamidol 370 76% 100 ML VIAL ONE
--- NOTE | 2019-03-18 17:33 | RAD ---
XR Chest 1 View Portable History: Dyspnea Comparison: Radiograph 2018 Findings: Scarring left lateral costophrenic sulcus is similar. Old right rib fractures with peripher al pleural thickening. No pneumothorax. No focal confluent airspace consolidation. Cardiac silhouette is similar. Impression: Chronic findings. No acute intrathoracic abnormality.
[2019-03-18 17:55] LABS: #Eosinphils 0.2 thou/uL (0.0-0.7); #Lymphocytes 1.5 thou/uL (1.20-3.40); #Neutrophils 8.9 thou/uL (1.40-6.50); %Basophils 0.3 % (0.0-1.0); %Eosinophils 1.4 % (0.0-10.0); %Lymphocytes 12.7 % (21.0-51.0); %Monocytes 8.9 % (0.0-10.0); %Neutrophils 76.7 % (42.0-75.0); Hemoglobin 16.4 g/dL (12.0-16.0); Mean Corpuscular HGB CONC 32.7 g/dL (32.0-36.0); Mean Corpuscular Hemoglobin 29.2 pg (27.0-31.0); Mean Corpuscular Volume 89.3 fL (78.0-98.0); Mean Platelet Volume 6.6 fL (7.4-10.4); Platelet Count 401 thou/uL (130-400); RBC Distribution Width 12.7 % (11.5-14.5); Red Blood Cell (RBC) Count 5.62 mill/uL (4.20-5.40); White Blood Cell (WBC) Count 11.6 thou/uL (4.8-10.8)
[2019-03-18 18:20] LABS: ALT (SGPT) 34 U/L (8-55); AST (SGOT) 30 U/L (5-34); Albumin 3.9 g/dL (3.5-5.0); Alkaline Phosphatase 113 U/L (40-150); Anion Gap 16 mmol/L (10-20); BUN (Urea Nitrogen) 5 mg/dL (9.8-20.1); Bilirubin, Total 0.5 mg/dL (0.2-1.2); CK (CPK) 31 U/L (29-168); Calc. Creatinine Clearance 0 mL/min (70-130); Calcium 9.6 mg/dL (7.8-10.44); Carbon Dioxide 23 mmol/L (22-29); Chloride 103 mmol/L (98-107); Estimated GFR-MDRD Greater than 90; Globulin 3.1 g/dL (2.4-3.5); Glucose 107 mg/dL (70-105); Lipase 8 U/L (8-78); Potassium 3.8 mmol/L (3.5-5.1); Sodium 138 mmol/L (136-145)
[2019-03-18 18:24] LABS: CKMB 0.6 ng/mL (0-6.6)
[2019-03-18 18:32] LABS: Bilirubin Negative (Negative); Blood, Urine Negative (Negative); Calcium Oxalate Crystals 1+ HPF (None Seen); Clarity Turbid (Clear); Glucose, Urine (Dipstick) Normal (Negative); Leukocyte 500 Leu/uL (Negative); Nitrite 2+ (Negative); Protein, Urine (Dipstick) 10 mg/dL (Neg-Trace); Squamous Epithelial None Seen HPF (0-3); Urobilinogen Normal mg/dL (Less than 2); WBC/HPF Greater than 50 HPF (0-3)
[2019-03-18 18:40] LABS: Bacteria/HPF 3+ HPF (None Seen); Mucous/LPF 1+ LPF (<2+); RBC/HPF 0-3 HPF (0-3)
--- NOTE | 2019-03-18 19:39 | CT ---
CTA Angio Chest W WO Con History: Elevated d-dimer. Fever and weakness. Comparison: Chest radiograph same day Findings: CT angiogram chest performed after the intravenous ministration of contrast. 3-D rendering provided. Evaluation for distal embolism is limited due to the delayed phase of contrast. No proximal segmental pulmonary arterial filling defect. Pulmonary trunk size is normal. Large volume pe ricardial fat. Mild atelectasis within the lung bases. No focal consolidation. No pneumothorax or effusion. No mediastinal adenopathy. Likely subacute superior endplate compression fracture at T8. No acute displaced rib fracture. Impression: 1. No proximal segmental pulmonary arterial filling defect. 2. No evidence for pneumonia. 3. Likely subacute T8 superior endplate compression fracture with 15-20% anterior height loss. No ret ropulsion.
[2019-03-18] MEDS ORDERED: cefTRIAXone\\ROCEPHIN 2 GM VIAL ONE (20:30)
[2019-03-18] MEDS ORDERED: Sodium Chloride 0.9% 100 ML ONE (20:30)
[2019-03-18] MEDS ORDERED: Ondansetron PF 4 MG/2 ML Vial IVP PRN (21:16)
[2019-03-18] MEDS ORDERED: Ondansetron ODT 4 MG TAB SL PRN (21:16)
[2019-03-18] MEDS: Sodium Chloride 0.9% 1,000 ML IV SCH (21:28)
[2019-03-18 22:54] VITALS: BMI 44.4
[2019-03-19] MEDS: Diabetic Tussin 200 MG/10 ML UDCUP PO PRN ×3 (00:22→23:56)
[2019-03-19] MEDS: Sodium Chloride 0.9% 1,000 ML IV SCH (07:10)
[2019-03-19] MEDS ORDERED: Meclizine HCl 25 MG TAB PO PRN (08:03)
[2019-03-19] MEDS ORDERED: traMADol HCl 50 MG TAB PO PRN (08:03)
[2019-03-19] MEDS ORDERED: traZODone HCl 50 MG TAB PO PRN (08:03)
[2019-03-19] MEDS ORDERED: hydrALAZINE 20 MG/ML VIAL SLOW IVP PRN (08:07)
[2019-03-19] MEDS ORDERED: cefTRIAXone Sodium 2 MG in Syringe 0 ML IVPB SCH (08:15)
[2019-03-19] MEDS: cefTRIAXone\\ROCEPHIN 2 GM in Sodium Chloride 0.9% 100 ML IVPB SCH (08:40)
[2019-03-19] MEDS: Famotidine 20 MG TAB PO SCH ×2 (08:43→20:08)
[2019-03-19] MEDS: FLUoxetine HCl 20 MG CAP PO SCH ×2 (08:43→20:08)
[2019-03-19] MEDS ORDERED: Bacteriostatic Water 30 ML VIAL FS PRN (08:45)
[2019-03-19] MEDS ORDERED: PROBIOTIC BLEND PO SCH (09:00)
[2019-03-19] MEDS ORDERED: Lactinex Tablet PO SCH (09:00)
[2019-03-19] MEDS ORDERED: Non-Formulary Item 1 EACH (Fluticasone/Salmeterol [Advair Hfa 115/21 Inhaler] 2 INH) INH SCH (09:00)
[2019-03-19] MEDS: Gabapentin 400 MG CAP PO SCH ×4 (09:52→20:08)
[2019-03-19] MEDS: Brimonidine Tartrate 0.2% Ophth Soln 5 ml Bottle R EYE SCH ×3 (09:52→20:06)
[2019-03-19] MEDS: methylPREDNISolone Sod Succ 40 MG VIAL IVP SCH (09:55)
[2019-03-19] MEDS: Simethicone Chewable 80 MG TAB PO SCH ×4 (09:56→20:07)
[2019-03-19] MEDS: Cyclobenzaprine 10 MG TAB PO PRN ×2 (10:12→20:09)
[2019-03-19] MEDS: Lactinex Tablet PO SCH (11:42)
[2019-03-19] MEDS: Baclofen 10 MG TAB PO SCH ×3 (11:46→23:57)
[2019-03-19] MEDS ORDERED: Non-Formulary Item 1 EACH (Lactobacillus Acidophilus [Probiotic] 1 CAPSULE) PO SCH (12:00)
[2019-03-19] MEDS: HYDROcodone/Acetaminophen 7.5/325 mg Tablet PO PRN ×3 (14:24→23:58)
[2019-03-19] MEDS: Multivitamin W/ Minerals 1 TAB PO SCH (17:38)
[2019-03-19 18:30] LABS: Actual Bicarbonate (HCO3a) 26.5 mEq/L (22-28); Base Excess (BEa) 1.3 mEq/L (-2.0 to +3.0); CO2 Tension 43.6 mmHg (35.0-45.0); Calcium, Ionized 1.24 mmol/L (1.12-1.30); Carboxyhemoglobin (COHb) 1.3 gm% (0.0-3.0); Hemoglobin (Hb) 16.1 g/dL (12.0-16.0)
[2019-03-19] MEDS: Mometasone/Formoterol 120 PUFF INHALER INH SCH (18:38)
[2019-03-19 18:48] LABS: Puncture Site RBRACH
[2019-03-19] MEDS: Latanoprost 0.005% Ophth Soln 2.5 ml Bottle R EYE SCH (20:06)
[2019-03-19] MEDS: Docusate 100 MG CAP PO SCH (20:08)
[2019-03-19] MEDS: Mesalamine 1000 MG Suppository PR PRN (20:17)
[2019-03-19] MEDS ORDERED: Prevnar 13-Val Conj/PF 0.5 ML SYRINGE IM ONE (21:00)
--- NOTE | 2019-03-19 22:12 | CON ---
DATE OF CONSULTATION: CONSULTING PHYSICIAN: Israel Taylor DO REASON FOR CONSULTATION: Shortness of breath. HISTORY OF PRESENT ILLNESS: The patient is a 58-year-old female, who came to the hospital with subacute onset of shortness of breath. Initially, she told me it had been over the last 2 or 3 days, but it sounds like symptoms have been progressive over several months. She was told recently in the ER that she had asthma, but in questioning her, she has never had any formal pulmonary function test. She tells me she has had episodes where her blood pressure shoots up. She has also had difficulty swallowing. She says that speech therapy has modified her diet because she has such difficulty with her swallowing. Apparently, albuterol does make her breathing better. PAST MEDICAL HISTORY: 1. 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 2. Lymphedema. 3. Obesity. 4. Inflammatory bowel disease. PAST SURGICAL HISTORY: 1. Colectomy. 2. Bilateral tubal ligation. 3. Left wrist surgery. 4. Colostomy after failed ileostomy. SOCIAL HISTORY: Quit smoking more than 10 years ago. Does not consume alcohol. ALLERGIES: BIAXIN. MEDICATIONS: Prior to admission, multiple, these are listed in the home medication section in the chart and I have reviewed them personally. REVIEW OF SYSTEMS: The patient is not on oxygen at home. She is limited in her mobility to a wheelchair. She has several students who go to a [employer] that live with her and attend to her needs. PHYSICAL EXAMINATION: VITAL SIGNS: Temperature 98.5, pulse 114, respirations 19, O2 saturation 94%, blood pressure 134/92. The patient is 5 feet 10, weighs 309 pounds. HEENT: She has a class 4 Mallampati airway. NECK: No adenopathy or JVD. LUNGS: She has very faint expiratory wheezing bilaterally. CARDIOVASCULAR: S1 and S2. Regular. ABDOMEN: Soft, obese, nontender. EXTREMITIES: Brawny edema from her knees downward. LABORATORY DATA: Sodium 138, potassium 3.8, chloride 103, CO2 23, BUN 5, creatinine 0.5 glucose 107. Troponin 0.01. BNP 16.2. Urinalysis demonstrates numerous white blood cells. White blood cell count is 11.6, hematocrit is 50.2, and platelet count 401. ASSESSMENT: Dyspnea. Probably multifactorial. She could have some component of asthma. Diastolic dysfunction needs to be in the differential. Aspiration could also be an issue given her multiple sclerosis and previous history. Also I suspect she has underlying obstructive sleep apnea. RECOMMENDATIONS: I agree with the antibiotics, steroids, and nebulization treatments. Additionally, I would check an ABG to make sure she does not have CO2 retention and obesity hypoventilation syndrome. Thank you for the referral. We will follow with you. Job ID: [id number]
[2019-03-20] MEDS: HYDROcodone/Acetaminophen 7.5/325 mg Tablet PO PRN ×2 (04:19→20:58)
[2019-03-20] MEDS: Cyclobenzaprine 10 MG TAB PO PRN (04:19)
[2019-03-20] MEDS: Diabetic Tussin 200 MG/10 ML UDCUP PO PRN ×3 (04:20→20:58)
[2019-03-20] MEDS: Baclofen 10 MG TAB PO SCH ×3 (05:25→18:23)
[2019-03-20 06:52] LABS: Hemoglobin 16.4 g/dL (12.0-16.0); Mean Corpuscular HGB CONC 31.7 g/dL (32.0-36.0); Mean Corpuscular Hemoglobin 28.7 pg (27.0-31.0); Mean Corpuscular Volume 90.8 fL (78.0-98.0); Mean Platelet Volume 6.9 fL (7.4-10.4); Platelet Count 314 thou/uL (130-400); RBC Distribution Width 12.9 % (11.5-14.5); Red Blood Cell (RBC) Count 5.71 mill/uL (4.20-5.40); White Blood Cell (WBC) Count 11.1 thou/uL (4.8-10.8)
[2019-03-20 07:10] LABS: Anion Gap 17 mmol/L (10-20); BUN (Urea Nitrogen) 5 mg/dL (9.8-20.1); Calc. Creatinine Clearance 222 mL/min (70-130); Calcium 9.6 mg/dL (7.8-10.44); Carbon Dioxide 25 mmol/L (22-29); Chloride 102 mmol/L (98-107); Estimated GFR-MDRD Greater than 90; Glucose 90 mg/dL (70-105); Potassium 3.6 mmol/L (3.5-5.1); Sodium 140 mmol/L (136-145)
[2019-03-20 07:16] LABS: #Eosinphils 0.1 thou/uL (0.0-0.7); #Lymphocytes 1.3 thou/uL (1.20-3.40); #Monocytes 1.7 thou/uL (0.11-0.59); #Neutrophils 8.1 thou/uL (1.40-6.50); %Basophils 0.2 % (0.0-1.0); %Eosinophils 0.5 % (0.0-10.0); %Lymphocytes 11.4 % (21.0-51.0); %Monocytes 14.9 % (0.0-10.0)
[2019-03-20] MEDS: Mometasone/Formoterol 120 PUFF INHALER INH SCH ×2 (07:23→18:35)
[2019-03-20 07:37] LABS: RBC Morphology Normal
[2019-03-20] MEDS: Brimonidine Tartrate 0.2% Ophth Soln 5 ml Bottle R EYE SCH ×3 (08:00→20:33)
[2019-03-20] MEDS: Simethicone Chewable 80 MG TAB PO SCH ×4 (08:04→20:39)
[2019-03-20] MEDS: cefTRIAXone\\ROCEPHIN 2 GM in Sodium Chloride 0.9% 100 ML IVPB SCH (08:05)
[2019-03-20] MEDS: Gabapentin 400 MG CAP PO SCH ×4 (08:07→20:32)
[2019-03-20] MEDS: methylPREDNISolone Sod Succ 40 MG VIAL IVP SCH (08:07)
[2019-03-20] MEDS: FLUoxetine HCl 20 MG CAP PO SCH ×2 (08:07→20:32)
[2019-03-20] MEDS: Famotidine 20 MG TAB PO SCH ×2 (08:07→20:32)
[2019-03-20 08:43] LABS: Actual Bicarbonate (HCO3a) 23.6 mEq/L (22-28); Base Excess (BEa) -0.8 mEq/L (-2.0 to +3.0); CO2 Tension 38.4 mmHg (35.0-45.0); Calcium, Ionized 1.22 mmol/L (1.12-1.30); Carboxyhemoglobin (COHb) 1.3 gm% (0.0-3.0); Hemoglobin (Hb) 15.8 g/dL (12.0-16.0); Potassium - ABG Lab 3.31 mmol/L (3.70-5.30); pH, Arterial 7.41 (7.35-7.45)
[2019-03-20 08:44] LABS: O2 Tension (PaO2) 59.1 mmHg (80.0-100.0)
[2019-03-20 08:45] LABS: Puncture Site RRA
--- NOTE | 2019-03-20 09:03 | RAD ---
Exam: Chest one view COMPARISON: 03/18/2019 FINDINGS: Normal cardiac silhouette. Pulmonary vessels and hilum Right costophrenic angle is clear. Chronic changes opacify the left heart border and left hemidiaphra gm. No pneumothorax or osseous abnormalities IMPRESSION: No acute cardiopulmonary process.
--- NOTE | 2019-03-20 09:12 | HP ---
CHIEF COMPLAINT: Shortness of breath and generalized weakness. HISTORY OF PRESENT ILLNESS: This is a very pleasant 58-year-old white female with past medical history of advanced multiple sclerosis with profound debility and paraplegic from the waist down, chronic muscle spasm, degenerative disk disease, chronic pain, asthma, ulcerative colitis status post subtotal colectomy. She does occasionally have rectal bleeding from the stump of her colon/rectum from her UC disease. Patient with neuropathic pain, UC, elevated BMI, and debility. The patient states that she lives at home and she does have several care takers, who are able to help care for her. The patient does also have home health care who assists with activity such as bathing. Over the past several days, the patient complaining of feeling worse including worsening shortness of breath, generalized weakness, sore throat, cough. The patient presented to [facility] for further evaluation. In the emergency department found to have elevated D-dimer and the CT angiography of the chest was performed, please see full radiographic study for details. CT angiography of the chest negative for acute PE, no pneumonia, no other acute cardiothoracic pathology. The patient states that she was supposed to get an echocardiogram completed last by her primary care though she missed the appointment, secondary to being sick. The patient denies prior history of cardiac disease, no AR, denies history of heart failure. PAST MEDICAL HISTORY: 1. Debilitating multiple sclerosis, resulting in bedbound state, hemiplegia from the waist down. 2. Ulcerative colitis, status post subtotal colectomy, she still has a very small portion of her sigmoid colon, which does occasionally bleed per the patient, this is chronic. 3. Chronic pain syndrome. 4. Neuropathic pain. 5. Muscle spasms. 6. Asthma. 7. Elevated BMI. 8. Debility. REVIEW OF SYSTEMS: A 10-point review of systems was completed and negative aside from above what mentioned in the history of present illness. MEDICATIONS: Please see home medication list for details 1. Trazodone. 2. Tramadol. 3. Travoprost. 4. Lyrica. 5. Vitamin 6. Mupirocin. 7. Baclofen. 8. Meclizine. 9. Duloxetine. 10. Ibuprofen. 11. Advair 12. Hydrocodone. 13. Gabapentin. ALLERGIES: Clarithromycin PHYSICAL EXAMINATION: VITAL SIGNS: Temperature 98.6 pulse 73, respirations 18, O2 saturation 94% on 2L nasal cannula, and blood pressure 123/78. GENERAL: The patient appears ill, in mild acute pulmonary distress. HEENT: hoarseness to her voice, moist oral mucosa without lesion or exudates on the tonsil. NECK: No lymphadenopathy . CARDIOVASCULAR: Regular rate and rhythm, faint heart sounds secondary to body habitus. No appreciable murmur, rubs, or gallops. LUNGS: There is few scattered wheezing in the upper airways, no rales, no ronchus appreciated, poor air movement secondary to body habitus. ABDOMEN: Soft, non tender, non distended, obese. No appreciable hepatomegaly or splenomegaly. BACK: Diffusely tender to palpation of the spine, without obvious deformities EXTREMITIES: +1 lower extremity edema, which is chronic for the patient. There is muscle wasting in the lower extremities. NEUROLOGIC: The patient has 1/4 motor strength in lower extremities and 3/4 bilaterally in the upper extremities. The patient has no new neurologic deficits. Decreased sensation in lower extremities. LABORATORY DATA: WBC 11, hemoglobin 16.4, platelets, D-dimer 0.64, sodium, anion gap 16. See lab report for full details ASSESSMENT: 1. Sepsis. 2. Complicated urinary tract infection 3. Shortness of breath with hypoxia. 4. Asthma with acute exacerbation 5. Advanced multiple sclerosis, with severe debility and plegia of the lower extremity bilaterally and bedbound state. 6. Neuropathic pain. 7. Chronic pain. 8. Muscle spasms. 9. Elevated BMI 10. Ulcerative colitis, status post subtotal colectomy with frequent rectal bleeding. 11. Debility. PLAN: 1. Admit to medical floor/surgical unit. 2. Broad spectrum antibiotics for complicated urinary tract infection de escilate to culture and sensitivity as able. 3. Urine culture. 4. Blood culture. 5. The patient's CT angiography of the chest is normal, negative for PE, no obvious heart failure, the patient's shortness of breath has likely attributed to her elevated BMI, obesity hypoventilation is suspected vs asthma exacerbation 6. Pulmonology consultation, recommendation appreciated. 7. Small volume nebulizers scheduled and as needed. 8. Continue Advair, if available on formulary. 9. Echocardiogram. 10. Lower extremity US rule out DVT. 11. GI prophylaxis. 12. DVT prophylaxis. 13. Continue other home medications as able Job ID: [id number] [facility]
--- NOTE | 2019-03-20 09:54 | PRG ---
DATE OF SERVICE: 03/20/2019 SUBJECTIVE: The patient is complaining of shortness of breath and tachycardia. OBJECTIVE: VITAL SIGNS: Temperature 99.7, pulse 121, respirations 20, O2 saturation 94%, blood pressure 173/99. HEENT: Unremarkable. NECK: No adenopathy or JVD. LUNGS: Mild expiratory wheezing. CARDIAC: S1 and S2. Tachycardic. ABDOMEN: Soft. EXTREMITIES: No edema. LABORATORY DATA: White blood cell count 11, hematocrit 51.9, platelet count 314. ABG; pH 7.41, pCO2 of 38, pO2 of 59. Sodium 140, potassium 3.6, chloride 102, CO2 of 25, BUN 5, creatinine 0.6, glucose 90. Chest x-ray, basically negative. Echocardiogram demonstrates mild concentric LVH. Valvular function is normal. ASSESSMENT: 1. Asthmatic bronchitis. 2. No evidence of obesity hypoventilation syndrome by ABG. 3. Multiple sclerosis, perhaps weakened diaphragmatic function. PLAN: 1. Continue antibiotics and steroids. 2. We will decrease frequency of nebulization treatments given her tachycardia. Job ID: [id number]
[2019-03-20] MEDS: Enoxaparin Sodium 40 MG/0.4 ML SYRINGE SC SCH (10:00)
[2019-03-20] MEDS: Lactinex Tablet PO SCH (11:54)
[2019-03-20] MEDS: Ipratropium Bromide 2.5 ml Neb NEB SCH ×2 (14:29→22:00)
[2019-03-20] MEDS: Levalbuterol HCl 0.63 MG/3 ML NEB NEB SCH ×2 (14:31→21:59)
--- NOTE | 2019-03-20 14:44 | PQF ---
CLINICAL DOCUMENTATION IMPROVEMENT CLARIFICATION FORM: ICD-10 Updated PLEASE DO AN ADDENDUM TO THE PROGRESS NOTE WITH ANY DOCUMENTATION UPDATES OR ADDITIONS AND CARRY THROUGH TO DC SUMMARY. THANK YOU. DATE: 03/20/19 ATTN: DR. RODNEY Please exercise your independent, professional judgment in responding to the clarification form. Clinical indicators are provided on the bottom of this form for your review Please check appropriate box(es): [ ] Sepsis d/t UTI [ XX ] Sepsis d/t UTI d/t Indwelling Catheter [ ] Other diagnosis [ ] Unable to determine In addition, please specify: Present on Admission (POA): [ XX ] Yes [ ] No [ ] Unable to determine For continuity of documentation, please document condition throughout progress notes and discharge summary. Thank You. CLINICAL INDICATORS - SIGNS / SYMPTOMS / LABS H&P: "SEPSIS" PULSE 110 RR 22 RISKS: COMPLICATED URINARY TRACT INFECTION ADVANCED MULTIPLE SCLEROSIS CHRONIC INDWELLING CATHETER TREATMENT: IV ROCEPHIN (ER-PRESENT) IV LEVAQUIN (ER) IV FLUIDS (ER) URINE CULTURES (This form is maintained as a part of the permanent medical record) 2014 [email or web address] All Rights Reserved EMMANUELLE [email or web address] Office: [phone] [facility] CAMPUSMaria Del Carmen
--- NOTE | 2019-03-20 15:31 | PDOC.HOSPP ---
- Subjective Subjective: Seen and examined. Patient tremulous after Duoneb, tachycardia. ABG and CXR ordered and reviewed. Patient seen again a while after Duoneb has worn off and improved. Breathing better overall. Motor strength is profoundly weak at baseline. Wheezing is improving since admission. Pain better controlled. - Objective Vital Signs & Weight: Vital Signs (12 hours) Temp Pulse Resp BP Pulse Ox 03/20/19 14:29 115 H 18 95 03/20/19 12:00 100.3 F H 130 H 20 127/81 93 L 03/20/19 09:00 140/80 03/20/19 08:00 99.7 F H 121 H 20 173/99 H 94 L 03/20/19 07:20 112 H 16 94 L 03/20/19 03:58 98.3 F 113 H 22 H 141/77 H 93 L Weight Admit Weight 309 lb 12.8 oz Weight 309 lb 12.8 oz I&O: 03/19/19 03/20/19 03/21/19 06:59 06:59 06:59 Intake Total 1036 1320 240 Output Total 925 3750 Balance 111 -2430 240 Result Diagrams: 03/20/19 06:05 03/20/19 06:05 Radiology Reviewed by me: Yes (CXR reviewed.) ROS - Medication Medications: Active Medications Generic Name Dose Route Start Last Admin Trade Name Freq PRN Reason Stop Dose Admin Hydrocodone Bitart/Acetaminophen 1 tab 03/19/19 08:03 03/20/19 04:19 [place] 7.5/325 PO 1 tab Q4H PRN Administration Moderate to Severe Pain (6-10) Acidophilus 1 tab 03/19/19 12:00 03/20/19 11:54 Floranex PO 1 tab 1200 KAREN Administration Albuterol/Ipratropium 3 ml 03/19/19 00:11 03/19/19 08:49 Duoneb NEB 3 ml [id number] PRN Administration SOB &/or Wheezing Baclofen 15 mg 03/19/19 23:59 03/19/19 23:57 Lioresal PO 15 mg 2359 KAREN Administration Baclofen 15 mg 03/20/19 06:00 03/20/19 05:25 Lioresal PO 15 mg 0600 KAREN Administration Baclofen 5 mg 03/19/19 12:00 03/20/19 11:54 Lioresal PO 5 mg 1200 KAREN Administration Baclofen 5 mg 03/19/19 18:00 03/19/19 17:40 Lioresal PO 5 mg 1800 KAREN Administration Brimonidine Tartrate 1 drop 03/19/19 09:00 03/20/19 14:34 Alphagan 0.2% Ophth Soln R EYE 1 drp TID KAREN Administration Cholecalciferol 5,000 units 03/19/19 09:00 03/20/19 08:06 Vitamin D3 PO 5,000 units DAILY KAREN Administration Cyclobenzaprine HCl 10 mg 03/19/19 08:02 03/20/19 04:19 Flexeril PO 10 mg Q8H PRN Administration Muscle Spasm Docusate Sodium 100 mg 03/19/19 21:00 03/19/19 20:08 Colace PO 100 mg HS KAREN Administration Enoxaparin Sodium 40 mg 03/20/19 09:00 03/20/19 10:00 Lovenox SC 40 mg 0900 KAREN Administration Famotidine 20 mg 03/19/19 09:00 03/20/19 08:07 Pepcid PO 20 mg BID KAREN Administration Fluoxetine HCl 20 mg 03/19/19 09:00 03/20/19 08:07 Prozac PO 20 mg BID KAREN Administration Gabapentin 800 mg 03/19/19 09:00 03/20/19 12:14 Neurontin PO 800 mg QID KAREN Administration Guaifenesin 200 mg 03/19/19 00:15 03/20/19 12:01 Robitussin Sf PO 200 mg Q4H PRN Administration Cough Hyoscyamine Sulfate 0.25 mg 03/19/19 11:30 03/20/19 11:53 Levsin PO 0.25 mg ACHS KAREN Administration Ceftriaxone Sodium 2 gm/ 100 mls @ 200 mls/hr 03/19/19 09:00 03/20/19 08:05 Sodium Chloride IVPB 100 mls Q24HR KAREN Administration Ipratropium [place] 2.5 ml 03/20/19 15:00 03/20/19 14:29 Atrovent NEB 2.5 ml [id number] KAREN Administration Iron/Minerals/Multivitamins 1 tab 03/19/19 17:00 03/19/19 17:38 Theragran M PO 1 tab QPM-WM KAREN Administration Latanoprost 1 drop 03/19/19 21:00 03/19/19 20:06 Xalatan 0.005% Ophth Soln R EYE 1 drop HS KAREN Administration Levalbuterol HCl 0.63 mg 03/20/19 15:00 03/20/19 14:31 Xopenex NEB 0.63 mg [id number] KAREN Administration Mesalamine 1,000 mg 03/19/19 08:03 03/19/19 20:17 Canasa PA 1,000 mg HSPRN PRN Administration Bleeding Methylprednisolone Sodium Succinate 40 mg 03/19/19 09:00 03/20/19 08:07 Solu-Medrol IVP 40 mg DAILY KAREN Administration Mometasone Furoate/Formoterol Fumar 2 puff 03/19/19 18:30 03/20/19 07:23 Dulera 100 Mcg/5 Mcg Inhaler INH 2 puff BID-RT KAREN Administration Simethicone 240 mg 03/19/19 09:00 03/20/19 12:14 Mylicon Chewable PO 240 mg QID KAREN Administration Tramadol HCl 50 mg 03/19/19 08:03 03/19/19 11:47 Ultram PO 50 mg Q6H PRN Administration Mild-Moderate Pain (1-5) - Exam ill appearing Eye: PERRL ENT: moist mucosa Neck: supple, symmetric, no JVD Heart - other findings: Rapid regular rate. No murmur. No gallops. No rubs Respiratory: no rales, no ronchi, wheezes Respiratory - other findings: Decreased pulmonary excursion. Gastrointestinal: soft, non-tender, non-distended, normal bowel sounds Extremities: 1+ LE edema Skin: normal turgor, no lesions Neurological: no new deficit Musculoskeletal: generalized weakness, diffuse muscle atrophy Psychiatric: normal affect, normal behavior, A&O x 3 Hosp A/P (1) Asthma exacerbation Code(s): J45.901 - UNSPECIFIED ASTHMA WITH (ACUTE) EXACERBATION Status: Acute (2) Complicated UTI (urinary tract infection) Code(s): N39.0 - URINARY TRACT INFECTION, SITE NOT SPECIFIED Status: Acute (3) HTN (hypertension) Code(s): I10 - ESSENTIAL (PRIMARY) HYPERTENSION Status: Chronic (4) Morbid obesity Code(s): E66.01 - MORBID (SEVERE) OBESITY DUE TO EXCESS CALORIES Status: Chronic (5) Multiple sclerosis, secondary progressive Code(s): G35 - MULTIPLE SCLEROSIS Status: Chronic (6) Neurogenic bladder Code(s): N31.9 - NEUROMUSCULAR DYSFUNCTION OF BLADDER, UNSPECIFIED Status: Chronic (7) Ulcerative colitis Code(s): K51.90 - ULCERATIVE COLITIS, UNSPECIFIED, WITHOUT COMPLICATIONS Status: Chronic - Plan Plan: Pulmonology consultation, recommendations appreciated IV steroids IV abx with coverage for pulmonary and UTI organisms Stop Duonebs with albuterol for worsening tachycardia Start Xopenex and Ipratropium [id number] Echo with preserved EF CTA chest neg for PE or focal PNA Obesity hypoventilation syndrome less likely based off ABG UTI culture with Klebsiella species GI and DVT PPX
[2019-03-20] MEDS: Multivitamin W/ Minerals 1 TAB PO SCH (16:26)
[2019-03-20] MEDS: Latanoprost 0.005% Ophth Soln 2.5 ml Bottle R EYE SCH (20:32)
[2019-03-20] MEDS: Docusate 100 MG CAP PO SCH (20:32)
[2019-03-20] MEDS ORDERED: Benzonatate 100 MG CAP PO SCH (23:30)
[2019-03-21] MEDS: Baclofen 10 MG TAB PO SCH ×4 (00:05→17:53)
[2019-03-21 06:32] LABS: Hemoglobin 15.7 g/dL (12.0-16.0); Mean Corpuscular HGB CONC 33.2 g/dL (32.0-36.0); Mean Corpuscular Hemoglobin 29.5 pg (27.0-31.0); Mean Corpuscular Volume 88.9 fL (78.0-98.0); Mean Platelet Volume 6.9 fL (7.4-10.4); Platelet Count 274 thou/uL (130-400); Red Blood Cell (RBC) Count 5.33 mill/uL (4.20-5.40); White Blood Cell (WBC) Count 13.3 thou/uL (4.8-10.8)
[2019-03-21 06:42] LABS: Anion Gap 14 mmol/L (10-20); BUN (Urea Nitrogen) 6 mg/dL (9.8-20.1); Calc. Creatinine Clearance 246 mL/min (70-130); Calcium 9.3 mg/dL (7.8-10.44); Carbon Dioxide 25 mmol/L (22-29); Chloride 102 mmol/L (98-107); Estimated GFR-MDRD Greater than 90; Glucose 86 mg/dL (70-105); Potassium 3.3 mmol/L (3.5-5.1); Sodium 138 mmol/L (136-145)
[2019-03-21 06:54] LABS: Band 10 % (5-11); Lymphocytes 12 % (21-51); MDiff Complete? YES; Monocytes 15 % (0-10); Neutrophil 63 % (42-75); Platelet Morphology Comment Appears Adequate; RBC Morphology Normal
[2019-03-21] MEDS: Mometasone/Formoterol 120 PUFF INHALER INH SCH ×2 (07:02→18:11)
[2019-03-21] MEDS: Levalbuterol HCl 0.63 MG/3 ML NEB NEB SCH ×3 (07:05→22:07)
[2019-03-21] MEDS: Ipratropium Bromide 2.5 ml Neb NEB SCH ×3 (07:06→22:08)
[2019-03-21] MEDS: Brimonidine Tartrate 0.2% Ophth Soln 5 ml Bottle R EYE SCH ×3 (08:08→20:26)
[2019-03-21] MEDS: HYDROcodone/Acetaminophen 7.5/325 mg Tablet PO PRN (08:12)
[2019-03-21] MEDS: Diabetic Tussin 200 MG/10 ML UDCUP PO PRN ×2 (08:14→11:52)
[2019-03-21] MEDS: Enoxaparin Sodium 40 MG/0.4 ML SYRINGE SC SCH (08:15)
[2019-03-21] MEDS: Gabapentin 400 MG CAP PO SCH ×4 (08:16→20:21)
[2019-03-21] MEDS: Famotidine 20 MG TAB PO SCH ×2 (08:16→20:22)
[2019-03-21] MEDS: FLUoxetine HCl 20 MG CAP PO SCH ×2 (08:16→20:22)
[2019-03-21] MEDS: methylPREDNISolone Sod Succ 40 MG VIAL IVP SCH (08:16)
[2019-03-21] MEDS: cefTRIAXone\\ROCEPHIN 2 GM in Sodium Chloride 0.9% 100 ML IVPB SCH (08:23)
[2019-03-21] MEDS: Simethicone Chewable 80 MG TAB PO SCH ×4 (10:01→20:22)
[2019-03-21] MEDS ORDERED: Clopidogrel Bisulfate 75 MG TAB ONE (11:37)
[2019-03-21] MEDS: Lactinex Tablet PO SCH (11:43)
--- NOTE | 2019-03-21 13:06 | PRG ---
DATE OF SERVICE: 03/21/2019 SUBJECTIVE: The patient is coughing more than what she was. Continues to be short of breath. OBJECTIVE: VITAL SIGNS: On exam, temperature is 98.2, pulse 112, respirations 20, O2 saturation 93%, and blood pressure 148/83. HEENT: Unremarkable. NECK: No adenopathy or JVD. LUNGS: Coarse wheezing bilaterally. CARDIAC: S1 and S2. Regular. ABDOMEN: Soft. EXTREMITIES: No edema. ASSESSMENT: Asthmatic bronchitis. PLAN: I would continue steroids, nebulization therapy, and antibiotics. This trial probably take several days to get better. Job ID: [id number]
--- NOTE | 2019-03-21 13:57 | PDOC.HOSPP ---
- Subjective Subjective: Seen and examined. Patient coughing more and wheezing more. Patient still feeling and looking ill. Less tremulous/ shaky off Albuterol. No new complaints - Objective Vital Signs & Weight: Vital Signs (12 hours) Temp Pulse Resp BP Pulse Ox 03/21/19 11:48 98.2 F 112 H 22 H 148/83 H 93 L 03/21/19 08:00 97 03/21/19 07:21 98.0 F 118 H 22 H 142/75 H 97 03/21/19 07:06 91 L 03/21/19 07:05 113 H 16 90 L 03/21/19 07:02 113 H 20 91 L 03/21/19 04:01 98.7 F 122 H 20 132/74 93 L Weight Admit Weight 309 lb 12.8 oz Weight 309 lb 12.8 oz I&O: 03/20/19 03/21/19 03/22/19 06:59 06:59 06:59 Intake Total 1320 2020 Output Total 3750 3050 Balance -2430 -1030 Result Diagrams: 03/21/19 06:16 03/21/19 06:16 ROS - Medication Medications: Active Medications Generic Name Dose Route Start Last Admin Trade Name Freq PRN Reason Stop Dose Admin Hydrocodone Bitart/Acetaminophen 1 tab 03/19/19 08:03 03/21/19 08:12 [place] 7.5/325 PO 1 tab Q4H PRN Administration Moderate to Severe Pain (6-10) Acidophilus 1 tab 03/19/19 12:00 03/21/19 11:43 Floranex PO 1 tab 1200 KAREN Administration Albuterol/Ipratropium 3 ml 03/19/19 00:11 03/19/19 08:49 Duoneb NEB 3 ml [id number] PRN Administration SOB &/or Wheezing Baclofen 15 mg 03/19/19 23:59 03/21/19 00:05 Lioresal PO 15 mg 2359 KAREN Administration Baclofen 15 mg 03/20/19 06:00 03/21/19 05:27 Lioresal PO 15 mg 0600 KAREN Administration Baclofen 5 mg 03/19/19 12:00 03/21/19 11:42 Lioresal PO 5 mg 1200 KAREN Administration Baclofen 5 mg 03/19/19 18:00 08/12/19 18:23 Lioresal PO 5 mg 1800 KAREN Administration Brimonidine Tartrate 1 drop 03/19/19 09:00 03/21/19 08:08 Alphagan 0.2% Ophth Soln R EYE 1 drp TID KAREN Administration Cholecalciferol 5,000 units 03/19/19 09:00 03/21/19 08:17 Vitamin D3 PO 5,000 units DAILY KAREN Administration Cyclobenzaprine HCl 10 mg 03/19/19 08:02 03/20/19 04:19 Flexeril PO 10 mg Q8H PRN Administration Muscle Spasm Docusate Sodium 100 mg 03/19/19 21:00 03/20/19 20:32 Colace PO 100 mg HS KAREN Administration Enoxaparin Sodium 40 mg 03/20/19 09:00 03/21/19 08:15 Lovenox SC 40 mg 0900 KAREN Administration Famotidine 20 mg 03/19/19 09:00 03/21/19 08:16 Pepcid PO 20 mg BID KAREN Administration Fluoxetine HCl 20 mg 03/19/19 09:00 03/21/19 08:16 Prozac PO 20 mg BID KAREN Administration Gabapentin 800 mg 03/19/19 09:00 03/21/19 13:48 Neurontin PO 800 mg QID KAREN Administration Guaifenesin 200 mg 03/19/19 00:15 03/21/19 11:52 Robitussin Sf PO 200 mg Q4H PRN Administration Cough Hyoscyamine Sulfate 0.25 mg 03/19/19 11:30 03/21/19 11:41 Levsin PO 0.25 mg ACHS KAREN Administration Ceftriaxone Sodium 2 gm/ 100 mls @ 200 mls/hr 03/19/19 09:00 03/21/19 08:23 Sodium Chloride IVPB 100 mls Q24HR KAREN Administration Ipratropium [place] 2.5 ml 03/20/19 15:00 03/21/19 07:06 Atrovent NEB 2.5 ml [id number] KAREN Administration Iron/Minerals/Multivitamins 1 tab 03/19/19 17:00 03/20/19 16:26 Theragran M PO 1 tab QPM-WM KAREN Administration Latanoprost 1 drop 03/19/19 21:00 03/20/19 20:32 Xalatan 0.005% Ophth Soln R EYE 1 drop HS KAREN Administration Levalbuterol HCl 0.63 mg 03/20/19 15:00 03/21/19 07:05 Xopenex NEB 0.63 mg [id number] KAREN Administration Mesalamine 1,000 mg 03/19/19 08:03 03/19/19 20:17 [place] 1,000 mg HSPRN PRN Administration Bleeding Methylprednisolone Sodium Succinate 40 mg 03/19/19 09:00 03/21/19 08:16 Solu-Medrol IVP 40 mg DAILY KAREN Administration Mometasone Furoate/Formoterol Fumar 2 puff 03/19/19 18:30 03/21/19 07:02 Dulera 100 Mcg/5 Mcg Inhaler INH 2 puff BID-RT KAREN Administration Simethicone 240 mg 03/19/19 09:00 03/21/19 13:48 Mylicon Chewable PO 240 mg QID KAREN Administration Tramadol HCl 50 mg 03/19/19 08:03 03/19/19 11:47 Ultram PO 50 mg Q6H PRN Administration Mild-Moderate Pain (1-5) - Exam ill appearing Eye: PERRL Eye - other findings: EOMI ENT: normocephalic atraumatic Neck: supple Heart: RRR, no murmur, no gallops Respiratory: rhonchi, wheezes. negative: no rales Respiratory - other findings: Decreased chest expansion secondary to body habitus Gastrointestinal: soft, non-tender, non-distended, normal bowel sounds Extremities: 1+ LE edema Skin: no rashes Neurological: CN's grossly intact, no new deficit Neurological - other findings: LE plegic at baseline Musculoskeletal: generalized weakness, diffuse muscle atrophy Psychiatric: normal affect, A&O x 3 Hosp A/P (1) Asthma exacerbation Code(s): J45.901 - UNSPECIFIED ASTHMA WITH (ACUTE) EXACERBATION Status: Acute (2) Complicated UTI (urinary tract infection) Code(s): N39.0 - URINARY TRACT INFECTION, SITE NOT SPECIFIED Status: Acute (3) HTN (hypertension) Code(s): I10 - ESSENTIAL (PRIMARY) HYPERTENSION Status: Chronic (4) Morbid obesity Code(s): E66.01 - MORBID (SEVERE) OBESITY DUE TO EXCESS CALORIES Status: Chronic (5) Multiple sclerosis, secondary progressive Code(s): G35 - MULTIPLE SCLEROSIS Status: Chronic (6) Neurogenic bladder Code(s): N31.9 - NEUROMUSCULAR DYSFUNCTION OF BLADDER, UNSPECIFIED Status: Chronic (7) Ulcerative colitis Code(s): K51.90 - ULCERATIVE COLITIS, UNSPECIFIED, WITHOUT COMPLICATIONS Status: Chronic - Plan Plan: Pulmonology consultation, recommendations appreciated IV steroids IV abx with coverage for pulmonary and UTI organisms Continue Xopenex and Ipratropium [id number] Echo with preserved EF CTA chest neg for PE or focal PNA UTI culture with Klebsiella species GI and DVT PPX Continue current plan of care
[2019-03-21] MEDS: Multivitamin W/ Minerals 1 TAB PO SCH (16:35)
[2019-03-21] MEDS: Docusate 100 MG CAP PO SCH (20:22)
[2019-03-21] MEDS: Mesalamine 1000 MG Suppository PR PRN (20:23)
[2019-03-21] MEDS: Latanoprost 0.005% Ophth Soln 2.5 ml Bottle R EYE SCH (20:27)
[2019-03-21] MEDS ORDERED: Benzonatate 100 MG CAP PO SCH (21:30)
[2019-03-22] MEDS: Baclofen 10 MG TAB PO SCH ×5 (00:47→23:51)
[2019-03-22 05:46] LABS: #Basophils 0.1 thou/uL (0.0-0.2); #Lymphocytes 3.2 thou/uL (1.20-3.40); #Monocytes 1.2 thou/uL (0.11-0.59); #Neutrophils 3.9 thou/uL (1.40-6.50); %Basophils 0.7 % (0.0-1.0); %Eosinophils 0.2 % (0.0-10.0); %Lymphocytes 38.4 % (21.0-51.0); %Neutrophils 46.7 % (42.0-75.0); Hemoglobin 14.6 g/dL (12.0-16.0); Mean Corpuscular HGB CONC 31.4 g/dL (32.0-36.0); Mean Corpuscular Hemoglobin 28.5 pg (27.0-31.0); Mean Corpuscular Volume 90.8 fL (78.0-98.0); Mean Platelet Volume 6.8 fL (7.4-10.4); Platelet Count 328 thou/uL (130-400); RBC Distribution Width 12.9 % (11.5-14.5); Red Blood Cell (RBC) Count 5.14 mill/uL (4.20-5.40); White Blood Cell (WBC) Count 8.4 thou/uL (4.8-10.8)
[2019-03-22 06:05] LABS: Anion Gap 9 mmol/L (10-20); BUN (Urea Nitrogen) 6 mg/dL (9.8-20.1); Calc. Creatinine Clearance 255 mL/min (70-130); Calcium 9.4 mg/dL (7.8-10.44); Carbon Dioxide 33 mmol/L (22-29); Chloride 100 mmol/L (98-107); Estimated GFR-MDRD Greater than 90; Glucose 86 mg/dL (70-105); Potassium 3.4 mmol/L (3.5-5.1); Sodium 139 mmol/L (136-145)
[2019-03-22] MEDS: Levalbuterol HCl 0.63 MG/3 ML NEB NEB SCH ×5 (06:57→23:14)
[2019-03-22] MEDS: Ipratropium Bromide 2.5 ml Neb NEB SCH ×3 (06:59→18:39)
[2019-03-22] MEDS: Mometasone/Formoterol 120 PUFF INHALER INH SCH ×2 (07:00→18:39)
--- NOTE | 2019-03-22 07:58 | PRG ---
DATE OF SERVICE: 03/22/2019 SUBJECTIVE: She says she feels better today. She is having a runny nose and a croupy cough. OBJECTIVE: VITAL SIGNS: Temperature 98.0, pulse 101, respirations 20, O2 saturation 94% on 1 L, and blood pressure 156/99. HEENT: Unremarkable. NECK: No JVD. LUNGS: Decreased wheezing. CARDIAC: S1 and S2. Regular. ABDOMEN: Soft. EXTREMITIES: Edematous. LABORATORY DATA: White blood cell count 8.4, hematocrit 46.6, and platelet count 328. Sodium 139, potassium 3.4, chloride 100, CO2 of 33, BUN 6, creatinine 0.5, and glucose 86. ASSESSMENT: Asthmatic bronchitis. PLAN: Continue nebs, steroids, and antibiotics. I think she can probably go home by tomorrow. I will be out of town. If there is any further pulmonary concerns, please call one of my partners on-call. Job ID: [id number]
[2019-03-22] MEDS: Enoxaparin Sodium 40 MG/0.4 ML SYRINGE SC SCH (09:26)
[2019-03-22] MEDS: Gabapentin 400 MG CAP PO SCH ×4 (09:26→21:55)
[2019-03-22] MEDS: cefTRIAXone\\ROCEPHIN 2 GM in Sodium Chloride 0.9% 100 ML IVPB SCH (09:26)
[2019-03-22] MEDS: Famotidine 20 MG TAB PO SCH ×2 (09:27→21:55)
[2019-03-22] MEDS: FLUoxetine HCl 20 MG CAP PO SCH ×2 (09:27→21:55)
[2019-03-22] MEDS: Simethicone Chewable 80 MG TAB PO SCH ×4 (09:28→21:54)
[2019-03-22] MEDS: Brimonidine Tartrate 0.2% Ophth Soln 5 ml Bottle R EYE SCH ×3 (09:28→21:53)
[2019-03-22] MEDS: methylPREDNISolone Sod Succ 40 MG VIAL IVP SCH (09:32)
--- NOTE | 2019-03-22 12:19 | PDOC.HOSPP ---
- Subjective Subjective: Seen and examined. Clinically improving. Still with cough, feels like she cant get the mucus out. Cough is weak from MS and possible weaking of the diaphragm. Patient overall feeling much better. - Objective Vital Signs & Weight: Vital Signs (12 hours) Temp Pulse Resp BP BP Pulse Ox 03/22/19 11:52 98.4 F 93 20 158/98 H 94 L 03/22/19 08:00 96 03/22/19 07:27 98.2 F 94 18 148/93 H 95 03/22/19 06:59 101 H 20 94 L 03/22/19 06:57 101 H 20 94 L 03/22/19 04:00 98.0 F 90 20 156/99 H 94 L Weight Admit Weight 309 lb 12.8 oz Weight 309 lb 12.8 oz I&O: 03/21/19 03/22/19 03/23/19 06:59 06:59 06:59 Intake Total 2020 1810 Output Total 3050 1650 Balance -1030 160 Result Diagrams: 03/22/19 05:21 03/22/19 05:21 ROS - Medication Medications: Active Medications Generic Name Dose Route Start Last Admin Trade Name Freq PRN Reason Stop Dose Admin Hydrocodone Bitart/Acetaminophen 1 tab 03/19/19 08:03 03/21/19 08:12 [place] 7.5/325 PO 1 tab Q4H PRN Administration Moderate to Severe Pain (6-10) Acidophilus 1 tab 03/19/19 12:00 03/21/19 11:43 Floranex PO 1 tab 1200 KAREN Administration Albuterol/Ipratropium 3 ml 03/19/19 00:11 03/19/19 08:49 Duoneb NEB 3 ml [id number] PRN Administration SOB &/or Wheezing Baclofen 15 mg 03/19/19 23:59 03/22/19 00:47 Lioresal PO 15 mg 2359 KAREN Administration Baclofen 15 mg 03/20/19 06:00 03/22/19 05:13 Lioresal PO 15 mg 0600 KAREN Administration Baclofen 5 mg 03/19/19 12:00 03/21/19 11:42 Lioresal PO 5 mg 1200 KAREN Administration Baclofen 5 mg 03/19/19 18:00 03/21/19 17:53 Lioresal PO 5 mg 1800 KAREN Administration Brimonidine Tartrate 1 drop 03/19/19 09:00 03/22/19 09:28 Alphagan 0.2% Ophth Soln R EYE 1 drp TID KAREN Administration Cholecalciferol 5,000 units 03/19/19 09:00 03/22/19 09:26 Vitamin D3 PO 5,000 units DAILY KAREN Administration Cyclobenzaprine HCl 10 mg 03/19/19 08:02 03/20/19 04:19 Flexeril PO 10 mg Q8H PRN Administration Muscle Spasm Docusate Sodium 100 mg 03/19/19 21:00 03/21/19 20:22 Colace PO 100 mg HS KAREN Administration Enoxaparin Sodium 40 mg 03/20/19 09:00 03/22/19 09:26 Lovenox SC 40 mg 0900 KAREN Administration Famotidine 20 mg 03/19/19 09:00 03/22/19 09:27 Pepcid PO 20 mg BID KAREN Administration Fluoxetine HCl 20 mg 03/19/19 09:00 03/22/19 09:27 Prozac PO 20 mg BID KAREN Administration Gabapentin 800 mg 03/19/19 09:00 03/22/19 09:26 Neurontin PO 800 mg QID KAREN Administration Guaifenesin 200 mg 03/19/19 00:15 03/21/19 11:52 Robitussin Sf PO 200 mg Q4H PRN Administration Cough Hyoscyamine Sulfate 0.25 mg 03/19/19 11:30 03/22/19 09:27 Levsin PO 0.25 mg ACHS KAREN Administration Ceftriaxone Sodium 2 gm/ 100 mls @ 200 mls/hr 03/19/19 09:00 03/22/19 09:26 Sodium Chloride IVPB 100 mls Q24HR KAREN Administration Ipratropium [place] 2.5 ml 03/20/19 15:00 03/22/19 06:59 Atrovent NEB 2.5 ml [id number] KAREN Administration Iron/Minerals/Multivitamins 1 tab 03/19/19 17:00 03/21/19 16:35 Theragran M PO 1 tab QPM-WM KAREN Administration Latanoprost 1 drop 03/19/19 21:00 03/21/19 20:27 Xalatan 0.005% Ophth Soln R EYE 1 drop HS KAREN Administration Levalbuterol HCl 0.63 mg 03/20/19 15:00 03/22/19 06:57 Xopenex NEB 0.63 mg [id number] KAREN Administration Mesalamine 1,000 mg 03/19/19 08:03 03/21/19 20:23 [place]asa [place] 1,000 mg HSPRN PRN Administration Bleeding Methylprednisolone Sodium Succinate 40 mg 03/19/19 09:00 03/22/19 09:32 Solu-Medrol IVP 40 mg DAILY KAREN Administration Mometasone Furoate/Formoterol Fumar 2 puff 03/19/19 18:30 03/22/19 07:00 Dulera 100 Mcg/5 Mcg Inhaler INH 2 puff BID-RT KAREN Administration Simethicone 240 mg 03/19/19 09:00 03/22/19 09:28 Mylicon Chewable PO 240 mg QID KAREN Administration Tramadol HCl 50 mg 03/19/19 08:03 03/19/19 11:47 Ultram PO 50 mg Q6H PRN Administration Mild-Moderate Pain (1-5) - Exam ill appearing Eye: PERRL ENT: moist mucosa Neck: supple, symmetric Heart: RRR, no murmur, no gallops, no rubs Respiratory: rhonchi, tachypneic, wheezes. negative: CTAB, rales Gastrointestinal: soft, non-tender, non-distended, normal bowel sounds, no rigidity Extremities: no cyanosis, 1+ LE edema Skin: no rashes Neurological: CN's grossly intact, normal sensation to touch, no new deficit. negative: speech deficit, vision deficit Musculoskeletal: generalized weakness, diffuse muscle atrophy Psychiatric: A&O x 3 Hosp A/P (1) Asthma exacerbation Code(s): J45.901 - UNSPECIFIED ASTHMA WITH (ACUTE) EXACERBATION Status: Acute (2) Complicated UTI (urinary tract infection) Code(s): N39.0 - URINARY TRACT INFECTION, SITE NOT SPECIFIED Status: Acute (3) HTN (hypertension) Code(s): I10 - ESSENTIAL (PRIMARY) HYPERTENSION Status: Chronic (4) Morbid obesity Code(s): E66.01 - MORBID (SEVERE) OBESITY DUE TO EXCESS CALORIES Status: Chronic (5) Multiple sclerosis, secondary progressive Code(s): G35 - MULTIPLE SCLEROSIS Status: Chronic (6) Neurogenic bladder Code(s): N31.9 - NEUROMUSCULAR DYSFUNCTION OF BLADDER, UNSPECIFIED Status: Chronic (7) Ulcerative colitis Code(s): K51.90 - ULCERATIVE COLITIS, UNSPECIFIED, WITHOUT COMPLICATIONS Status: Chronic - Plan Plan: Pulmonology consultation, recommendations appreciated IV steroids IV abx with coverage for pulmonary and UTI organisms Continue Xopenex and Ipratropium [id number] Add Mucinex 1200mg BID for 3 days to help patient cough out mucus deep in her lungs Echo with preserved EF CTA chest neg for PE or focal PNA UTI culture with Klebsiella species GI and DVT PPX Continue current plan of care Clinically improving on maximum medical therapy - will attempt to wean off oxygen Anticipate D/c if clinically continues to improve in the next 24-48 hours
[2019-03-22] MEDS: Lactinex Tablet PO SCH (12:20)
[2019-03-22] MEDS: Multivitamin W/ Minerals 1 TAB PO SCH (16:21)
[2019-03-22] MEDS ORDERED: guaiFENesin 200 MG TAB PO SCH (21:00)
[2019-03-22] MEDS: Latanoprost 0.005% Ophth Soln 2.5 ml Bottle R EYE SCH (21:53)
[2019-03-22] MEDS: Docusate 100 MG CAP PO SCH (21:54)
[2019-03-22] MEDS: Mesalamine 1000 MG Suppository PR PRN (22:01)
[2019-03-22] MEDS ORDERED: guaiFENesin ER 600 MG TAB PO SCH (22:15)
[2019-03-23] MEDS: Baclofen 10 MG TAB PO SCH ×3 (05:56→17:48)
[2019-03-23 06:04] LABS: #Basophils 0.1 thou/uL (0.0-0.2); #Lymphocytes 3.8 thou/uL (1.20-3.40); #Monocytes 1.1 thou/uL (0.11-0.59); #Neutrophils 3.9 thou/uL (1.40-6.50); %Basophils 0.7 % (0.0-1.0); %Eosinophils 0.5 % (0.0-10.0); %Lymphocytes 43.3 % (21.0-51.0); %Monocytes 11.8 % (0.0-10.0); %Neutrophils 43.7 % (42.0-75.0); Hemoglobin 14.4 g/dL (12.0-16.0); Mean Corpuscular HGB CONC 31.6 g/dL (32.0-36.0); Mean Corpuscular Hemoglobin 28.5 pg (27.0-31.0); Mean Corpuscular Volume 90.2 fL (78.0-98.0); Platelet Count 335 thou/uL (130-400); RBC Distribution Width 12.6 % (11.5-14.5); Red Blood Cell (RBC) Count 5.06 mill/uL (4.20-5.40); White Blood Cell (WBC) Count 8.8 thou/uL (4.8-10.8)
[2019-03-23 06:24] LABS: Anion Gap 12 mmol/L (10-20); BUN (Urea Nitrogen) 10 mg/dL (9.8-20.1); Calc. Creatinine Clearance 260 mL/min (70-130); Calcium 9.3 mg/dL (7.8-10.44); Carbon Dioxide 28 mmol/L (22-29); Chloride 103 mmol/L (98-107); Estimated GFR-MDRD Greater than 90; Glucose 98 mg/dL (70-105); Potassium 3.1 mmol/L (3.5-5.1); Sodium 140 mmol/L (136-145)
[2019-03-23] MEDS: Levalbuterol HCl 0.63 MG/3 ML NEB NEB SCH ×3 (07:01→20:20)
[2019-03-23] MEDS: Mometasone/Formoterol 120 PUFF INHALER INH SCH ×2 (07:04→20:16)
[2019-03-23] MEDS: Ipratropium Bromide 2.5 ml Neb NEB SCH ×2 (07:04→13:40)
[2019-03-23] MEDS: Brimonidine Tartrate 0.2% Ophth Soln 5 ml Bottle R EYE SCH ×3 (07:55→22:00)
[2019-03-23] MEDS: Simethicone Chewable 80 MG TAB PO SCH ×4 (07:56→22:16)
[2019-03-23] MEDS: guaiFENesin ER 600 MG TAB PO SCH ×2 (07:57→21:59)
[2019-03-23] MEDS: Famotidine 20 MG TAB PO SCH ×2 (07:57→22:00)
[2019-03-23] MEDS: Enoxaparin Sodium 40 MG/0.4 ML SYRINGE SC SCH (07:58)
[2019-03-23] MEDS: cefTRIAXone\\ROCEPHIN 2 GM in Sodium Chloride 0.9% 100 ML IVPB SCH (07:58)
[2019-03-23] MEDS: FLUoxetine HCl 20 MG CAP PO SCH ×2 (07:58→21:59)
[2019-03-23] MEDS: Gabapentin 400 MG CAP PO SCH ×4 (07:58→21:58)
[2019-03-23] MEDS: methylPREDNISolone Sod Succ 40 MG VIAL IVP SCH (07:59)
[2019-03-23] MEDS ORDERED: Potassium Chloride 20 MEQ TAB PO SCH ×2 (09:15→17:30)
[2019-03-23] MEDS: Lactinex Tablet PO SCH (11:11)
--- NOTE | 2019-03-23 15:52 | PDOC.HOSPP ---
- Subjective Encounter Date: 03/23/19 Encounter Time: 11:30 Subjective: Patient seen and examined. No new complaints. No overnight events - Objective Vital Signs & Weight: Vital Signs (12 hours) Temp Pulse Resp BP Pulse Ox 03/23/19 13:40 102 H 20 96 03/23/19 13:38 102 H 20 96 03/23/19 12:06 98.4 F 91 20 158/97 H 96 03/23/19 08:00 97 03/23/19 07:40 97.8 F 96 20 153/87 H 97 03/23/19 07:05 94 L 03/23/19 07:04 93 16 94 L 03/23/19 07:01 93 16 94 L Weight Admit Weight 309 lb 12.8 oz Weight 309 lb 12.8 oz I&O: 03/22/19 03/23/19 03/24/19 06:59 06:59 06:59 Intake Total 1810 500 Output Total 1650 2550 Balance 160 -2049 Result Diagrams: 03/23/19 05:22 03/23/19 05:22 ROS - Review of Systems Constitutional: denies: fever, chills, sweats, weakness, malaise, other Eyes: denies: pain, vision change, conjunctivae inflammation, eyelid inflammation, redness, other ENT: denies: ear pain, ear discharge, nose pain, nose discharge, nose congestion , mouth pain, mouth swelling, throat pain, throat swelling, other Respiratory: denies: cough, dry, shortness of breath, hemoptysis, SOB with excertion, pleuritic pain, sputum, wheezing, other Cardiovascular: denies: chest pain, palpitations, orthopnea, paroxysmal noc. dyspnea, edema, light headedness, other Gastrointestinal: denies: nausea, vomitting, abdominal pain, diarrhea, constipation, melena, hematochezia, other Genitourinary: denies: dysuria, frequency, incontinence, hematuria, retention, other Musculoskeletal: denies: neck pain, shoulder pain, arm pain, back pain, hand pain, leg pain, foot pain, other Skin: denies: rash, lesions, susana, bruising, other - Medication Medications: Active Medications Generic Name Dose Route Start Last Admin Trade Name Freq PRN Reason Stop Dose Admin Hydrocodone Bitart/Acetaminophen 1 tab 03/19/19 08:03 03/21/19 08:12 [place] 7.5/325 PO 1 tab Q4H PRN Administration Moderate to Severe Pain (6-10) Acidophilus 1 tab 03/19/19 12:00 03/23/19 11:11 Floranex PO 1 tab 1200 KAREN Administration Baclofen 15 mg 03/19/19 23:59 03/22/19 23:51 Lioresal PO 15 mg 2359 KAREN Administration Baclofen 15 mg 03/20/19 06:00 03/23/19 05:56 Lioresal PO 15 mg 0600 KAREN Administration Baclofen 5 mg 03/19/19 12:00 03/23/19 11:11 Lioresal PO 5 mg 1200 KAREN Administration Baclofen 5 mg 03/19/19 18:00 03/22/19 17:48 Lioresal PO 5 mg 1800 KAREN Administration Brimonidine Tartrate 1 drop 03/19/19 09:00 03/23/19 14:17 [place]phagan 0.2% Ophth Soln R EYE 1 drp TID KAREN Administration Cholecalciferol 5,000 units 03/19/19 09:00 03/23/19 07:56 Vitamin D3 PO 5,000 units DAILY KAREN Administration Cyclobenzaprine HCl 10 mg 03/19/19 08:02 03/20/19 04:19 Flexeril PO 10 mg Q8H PRN Administration Muscle Spasm Docusate Sodium 100 mg 03/19/19 21:00 03/22/19 21:54 Colace PO 100 mg HS KAREN Administration Enoxaparin Sodium 40 mg 03/20/19 09:00 03/23/19 07:58 Lovenox SC 40 mg 09 KAREN Administration Famotidine 20 mg 03/19/19 09:00 03/23/19 07:57 Pepcid PO 20 mg BID KAREN Administration Fluoxetine HCl 20 mg 03/19/19 09:00 03/23/19 07:58 Prozac PO 20 mg BID KAREN Administration Gabapentin 800 mg 03/19/19 09:00 03/23/19 14:00 Neurontin PO 800 mg QID KAREN Administration Guaifenesin 200 mg 03/19/19 00:15 03/21/19 11:52 Robitussin Sf PO 200 mg Q4H PRN Administration Cough Guaifenesin 1,200 mg 03/23/19 09:00 03/23/19 07:57 Mucinex PO 1,200 mg BID KAREN Administration Hyoscyamine Sulfate 0.25 mg 03/19/19 11:30 03/23/19 11:10 Levsin PO 0.25 mg ACHS KAREN Administration Ceftriaxone Sodium 2 gm/ 100 mls @ 200 mls/hr 03/19/19 09:00 03/23/19 07:58 Sodium Chloride IVPB 100 mls Q24HR KAREN Administration Ipratropium [place] 2.5 ml 03/20/19 15:00 03/23/19 13:40 Atrovent NEB 2.5 ml [id number] KAREN Administration Iron/Minerals/Multivitamins 1 tab 03/19/19 17:00 03/22/19 16:21 Theragran M PO 1 tab QPM-WM KAREN Administration Latanoprost 1 drop 03/19/19 21:00 03/22/19 21:53 Xalatan 0.005% Ophth Soln R EYE 1 drop HS KAREN Administration Levalbuterol HCl 0.63 mg 03/22/19 19:00 03/23/19 13:38 Xopenex NEB 0.63 mg [id number] KAREN Administration Mesalamine 1,000 mg 03/19/19 08:03 03/22/19 22:01 [place] 1,000 mg HSPRN PRN Administration Bleeding Methylprednisolone Sodium Succinate 40 mg 03/19/19 09:00 03/23/19 07:59 Solu-Medrol IVP 40 mg DAILY KAREN Administration Mometasone Furoate/Formoterol Fumar 2 puff 03/19/19 18:30 03/23/19 07:04 Dulera 100 Mcg/5 Mcg Inhaler INH 2 puff BID-RT KAREN Administration Simethicone 240 mg 03/19/19 09:00 03/23/19 14:00 Mylicon Chewable PO 240 mg QID KAREN Administration Sodium Chloride 10 ml 03/23/19 09:00 03/23/19 08:03 Flush - Normal Saline IVF 10 ml Q12HR KAREN Administration Tramadol HCl 50 mg 03/19/19 08:03 03/19/19 11:47 Ultram PO 50 mg Q6H PRN Administration Mild-Moderate Pain (1-5) - Exam NAD, awake alert Eye: PERRL, anicteric sclera ENT: normocephalic atraumatic, no oropharyngeal lesions Neck: supple, symmetric, no JVD Heart: RRR, no murmur, no gallops Respiratory: CTAB, no wheezes, no rales Gastrointestinal: soft, non-tender, non-distended Gastrointestinal - other findings: colostomy+ Extremities: no cyanosis, no clubbing, no edema Extremeties - other findings: rodriguez+ Skin: normal turgor, no lesions Musculoskeletal: normal tone Psychiatric: normal affect, normal behavior Hosp A/P (1) Asthma exacerbation Code(s): J45.901 - UNSPECIFIED ASTHMA WITH (ACUTE) EXACERBATION Status: Acute Qualifiers: Asthma severity: moderate (2) Colostomy in place Code(s): Z93.3 - COLOSTOMY STATUS Status: Chronic (3) Functional quadriplegia secondary to MS Code(s): G35 - MULTIPLE SCLEROSIS; R53.2 - FUNCTIONAL QUADRIPLEGIA Status: Chronic (4) HTN (hypertension) Code(s): I10 - ESSENTIAL (PRIMARY) HYPERTENSION Status: Chronic (5) Morbid obesity Code(s): E66.01 - MORBID (SEVERE) OBESITY DUE TO EXCESS CALORIES Status: Chronic (6) Multiple sclerosis, secondary progressive Code(s): G35 - MULTIPLE SCLEROSIS Status: Chronic (7) Neurogenic bladder Code(s): N31.9 - NEUROMUSCULAR DYSFUNCTION OF BLADDER, UNSPECIFIED Status: Chronic (8) Ulcerative colitis Code(s): K51.90 - ULCERATIVE COLITIS, UNSPECIFIED, WITHOUT COMPLICATIONS Status: Chronic - Plan old records reviewed/req, respiratory therapy continue to wean off oxygen medication reviewed as above symptomatic treatment currently on optimum medical therapy for asthma will change to PO prednisone will change rocephin to omnicef discharge planning
[2019-03-23] MEDS ORDERED: Furosemide 20 MG/2 ML VIAL SLOW IVP SCH (17:30)
--- NOTE | 2019-03-23 17:48 | PRG ---
DATE OF SERVICE: 03/23/2019 SERVICE: Pulmonary Medicine. INTERVAL HISTORY: The patient is doing fine from respiratory standpoint. She is breathing comfortably. She has no conversational dyspnea. Otherwise, there has been no interval change in her condition. She is doing her best work with physical therapy to get as strong as possible. Otherwise, there has been no interval change to her condition. PHYSICAL EXAMINATION: VITAL SIGNS: Afebrile, pulse 91, blood pressure 158/97, respirations 20, and saturation 96% on 2 L nasal cannula. GENERAL: The patient is awake and alert, in no apparent distress. LUNGS: Very good air entry. No prolonged expiratory phase is present. Dependent crackles are minimal. HEART: Normal rate and regular. ABDOMEN: Soft, nontender, nondistended. Bowel sounds are positive. MUSCULOSKELETAL: No cyanosis or clubbing. There is 2+ pitting in bilateral lower extremities. NEUROLOGIC: Grossly nonfocal. LABORATORY DATA: WBC 8.8, hemoglobin 14.4, platelets 335,000. Potassium 3.1. Basic metabolic profile is otherwise unremarkable/stable. Klebsiella is growing in the urine, which is a pansensitive organism. Blood cultures x2 are unremarkable. ASSESSMENT: 1. Acute hypoxic respiratory failure, resolved. 2. Asthma with acute exacerbation. 3. Obstructive sleep apnea, suspected. 4. Hypokalemia. DISCUSSION AND PLAN: I will replace the potassium. We will try her on a little bit of BiPAP tonight to see if this improves her quality of rest. If it does, she will likely need to pursue a polysomnogram in the outpatient setting. From purely respiratory standpoint, the patient is stable for transition out of the hospital. I will continue to follow while she remains in-house for now. Job ID: [id number]
[2019-03-23] MEDS: Multivitamin W/ Minerals 1 TAB PO SCH (17:49)
[2019-03-23] MEDS: Cefdinir 300 MG CAP PO SCH (21:58)
[2019-03-23] MEDS: Docusate 100 MG CAP PO SCH (21:59)
[2019-03-23] MEDS: Latanoprost 0.005% Ophth Soln 2.5 ml Bottle R EYE SCH (22:00)
[2019-03-24] MEDS: Levalbuterol HCl 0.63 MG/3 ML NEB NEB SCH ×4 (00:28→18:21)
[2019-03-24] MEDS: Ipratropium Bromide 2.5 ml Neb NEB SCH ×3 (00:29→13:22)
[2019-03-24] MEDS: Baclofen 10 MG TAB PO SCH ×4 (00:59→17:43)
[2019-03-24] MEDS: Mesalamine 1000 MG Suppository PR PRN ×2 (01:00→22:20)
[2019-03-24 05:49] LABS: #Basophils 0.1 thou/uL (0.0-0.2); #Eosinphils 0.1 thou/uL (0.0-0.7); #Lymphocytes 4.8 thou/uL (1.20-3.40); #Monocytes 1.3 thou/uL (0.11-0.59); #Neutrophils 5.8 thou/uL (1.40-6.50); %Basophils 0.9 % (0.0-1.0); %Eosinophils 0.6 % (0.0-10.0); %Lymphocytes 39.3 % (21.0-51.0); %Neutrophils 48.2 % (42.0-75.0); Hemoglobin 15.1 g/dL (12.0-16.0); Mean Corpuscular HGB CONC 32.5 g/dL (32.0-36.0); Mean Corpuscular Hemoglobin 29.3 pg (27.0-31.0); Mean Platelet Volume 6.7 fL (7.4-10.4); Platelet Count 397 thou/uL (130-400); RBC Distribution Width 12.6 % (11.5-14.5); Red Blood Cell (RBC) Count 5.17 mill/uL (4.20-5.40); White Blood Cell (WBC) Count 12.1 thou/uL (4.8-10.8)
[2019-03-24 06:18] LABS: Anion Gap 12 mmol/L (10-20); BUN (Urea Nitrogen) 11 mg/dL (9.8-20.1); Calc. Creatinine Clearance 242 mL/min (70-130); Calcium 9.6 mg/dL (7.8-10.44); Carbon Dioxide 28 mmol/L (22-29); Chloride 103 mmol/L (98-107); Estimated GFR-MDRD Greater than 90; Glucose 108 mg/dL (70-105); Potassium 4.2 mmol/L (3.5-5.1); Sodium 139 mmol/L (136-145)
[2019-03-24] MEDS: Mometasone/Formoterol 120 PUFF INHALER INH SCH ×2 (07:13→18:23)
[2019-03-24] MEDS: Brimonidine Tartrate 0.2% Ophth Soln 5 ml Bottle R EYE SCH ×3 (09:20→20:39)
[2019-03-24] MEDS: predniSONE 20 MG TAB PO SCH (09:20)
[2019-03-24] MEDS: guaiFENesin ER 600 MG TAB PO SCH ×2 (09:21→20:30)
[2019-03-24] MEDS: Enoxaparin Sodium 40 MG/0.4 ML SYRINGE SC SCH (09:21)
[2019-03-24] MEDS: Simethicone Chewable 80 MG TAB PO SCH ×4 (09:21→20:27)
[2019-03-24] MEDS: Famotidine 20 MG TAB PO SCH ×2 (09:22→20:29)
[2019-03-24] MEDS: Cefdinir 300 MG CAP PO SCH ×2 (09:22→20:29)
[2019-03-24] MEDS: FLUoxetine HCl 20 MG CAP PO SCH ×2 (09:22→20:29)
[2019-03-24] MEDS: Gabapentin 400 MG CAP PO SCH ×4 (09:22→20:28)
[2019-03-24] MEDS: Lactinex Tablet PO SCH (12:42)
[2019-03-24] MEDS ORDERED: Ibuprofen 200 MG TAB PO PRN (12:51)
--- NOTE | 2019-03-24 13:18 | PDOC.HOSPP ---
- Subjective Encounter Date: 03/24/19 Encounter Time: 10:15 Subjective: breathing better used bipap only for an hour or so - Objective Vital Signs & Weight: Vital Signs (12 hours) Temp Pulse Resp BP BP Pulse Ox Pulse Ox 03/24/19 12:00 98.8 F 97 20 160/94 H 94 L 03/24/19 10:33 95 03/24/19 09:36 95 03/24/19 08:00 98.3 F 99 18 127/85 96 03/24/19 07:11 98 03/24/19 07:07 87 98 03/24/19 04:56 97.7 F 95 20 149/94 H 97 Pulse Ox 03/24/19 12:00 03/24/19 10:33 03/24/19 09:36 95 03/24/19 08:00 03/24/19 07:11 03/24/19 07:07 03/24/19 04:56 Weight Admit Weight 309 lb 12.8 oz Weight 309 lb 12.8 oz I&O: 03/23/19 03/24/19 03/25/19 06:59 06:59 06:59 Intake Total 500 1910 Output Total 2550 2900 Balance -0 -990 Result Diagrams: 03/24/19 05:30 03/24/19 05:30 ROS - Medication Medications: Active Medications Generic Name Dose Route Start Last Admin Trade Name Freq PRN Reason Stop Dose Admin Hydrocodone Bitart/Acetaminophen 1 tab 03/19/19 08:03 03/21/19 08:12 [place] 7.5/325 PO 1 tab Q4H PRN Administration Moderate to Severe Pain (6-10) Acidophilus 1 tab 03/19/19 12:00 03/24/19 12:42 Floranex PO 1 tab 1200 KAREN Administration Baclofen 15 mg 03/19/19 23:59 03/24/19 00:59 Lioresal PO 15 mg 2359 KAREN Administration Baclofen 15 mg 03/20/19 06:00 03/24/19 05:46 Lioresal PO 15 mg 0600 KAREN Administration Baclofen 5 mg 03/19/19 12:00 03/24/19 12:42 Lioresal PO 5 mg 1200 KAREN Administration Baclofen 5 mg 03/19/19 18:00 03/23/19 17:48 Lioresal PO 5 mg 1800 KAREN Administration Brimonidine Tartrate 1 drop 03/19/19 09:00 03/24/19 09:20 Alphagan 0.2% Ophth Soln R EYE 1 drp TID KAREN Administration Cefdinir 300 mg 03/23/19 21:00 03/24/19 09:22 Omnicef PO 300 mg BID KAREN Administration Cholecalciferol 5,000 units 03/19/19 09:00 03/24/19 09:22 Vitamin D3 PO 5,000 units DAILY KAREN Administration Cyclobenzaprine HCl 10 mg 03/19/19 08:02 03/20/19 04:19 Flexeril PO 10 mg Q8H PRN Administration Muscle Spasm Docusate Sodium 100 mg 03/19/19 21:00 03/23/19 21:59 Colace PO 100 mg HS KAREN Administration Enoxaparin Sodium 40 mg 03/20/19 09:00 03/24/19 09:21 Lovenox SC 40 mg 0900 KAREN Administration Famotidine 20 mg 03/19/19 09:00 03/24/19 09:22 Pepcid PO 20 mg BID KAREN Administration Fluoxetine HCl 20 mg 03/19/19 09:00 03/24/19 09:22 Prozac PO 20 mg BID KAREN Administration Gabapentin 800 mg 03/19/19 09:00 03/24/19 12:43 Neurontin PO 800 mg QID KAREN Administration Guaifenesin 200 mg 03/19/19 00:15 03/21/19 11:52 Robitussin Sf PO 200 mg Q4H PRN Administration Cough Guaifenesin 1,200 mg 03/23/19 09:00 03/24/19 09:21 Mucinex PO 1,200 mg BID KAREN Administration Hyoscyamine Sulfate 0.25 mg 03/19/19 11:30 03/24/19 12:42 Levsin PO 0.25 mg ACHS KAREN Administration Ipratropium Oolitic 2.5 ml 03/20/19 15:00 03/24/19 07:11 Atrovent NEB 2.5 ml [id number] KAREN Administration Iron/Minerals/Multivitamins 1 tab 03/19/19 17:00 03/23/19 17:49 Theragran M PO 1 tab QPM-WM KAREN Administration Latanoprost 1 drop 03/19/19 21:00 03/23/19 22:00 Xalatan 0.005% Ophth Soln R EYE 1 drop HS KAREN Administration Levalbuterol HCl 0.63 mg 03/22/19 19:00 03/24/19 07:07 Xopenex NEB 0.63 mg [id number] KAREN Administration Mesalamine 1,000 mg 03/19/19 08:03 03/24/19 01:00 Canasa PA 1,000 mg HSPRN PRN Administration Bleeding Mometasone Furoate/Formoterol Fumar 2 puff 03/19/19 18:30 03/24/19 07:13 Dulera 100 Mcg/5 Mcg Inhaler INH 2 puff BID-RT KAREN Administration Prednisone 40 mg 03/24/19 08:00 03/24/19 09:20 Prednisone PO 40 mg QAM-WM KAREN Administration Simethicone 240 mg 03/19/19 09:00 03/24/19 12:43 Mylicon Chewable PO 240 mg QID KAREN Administration Sodium Chloride 10 ml 03/23/19 09:00 03/24/19 09:23 Flush - Normal Saline IVF 10 ml Q12HR KAREN Administration Tramadol HCl 50 mg 03/19/19 08:03 03/19/19 11:47 Ultram PO 50 mg Q6H PRN Administration Mild-Moderate Pain (1-5) - Exam NAD, awake alert Eye: PERRL, anicteric sclera ENT: normocephalic atraumatic, no oropharyngeal lesions Neck: supple, no JVD Heart: RRR, no gallops Respiratory: no wheezes, no rales, rhonchi Gastrointestinal: soft, non-tender, normal bowel sounds Gastrointestinal - other findings: colostomy has stool in it Extremities: no clubbing, 1+ LE edema Neurological: CN's grossly intact, no focal deficits Psychiatric: normal affect, A&O x 3 Hosp A/P (1) Asthma exacerbation Code(s): J45.901 - UNSPECIFIED ASTHMA WITH (ACUTE) EXACERBATION Status: Acute Qualifiers: Asthma severity: moderate (2) Functional quadriplegia secondary to MS Code(s): G35 - MULTIPLE SCLEROSIS; R53.2 - FUNCTIONAL QUADRIPLEGIA Status: Chronic (3) HTN (hypertension) Code(s): I10 - ESSENTIAL (PRIMARY) HYPERTENSION Status: Chronic (4) Morbid obesity Code(s): E66.01 - MORBID (SEVERE) OBESITY DUE TO EXCESS CALORIES Status: Chronic (5) Multiple sclerosis, secondary progressive Code(s): G35 - MULTIPLE SCLEROSIS Status: Chronic (6) Neurogenic bladder Code(s): N31.9 - NEUROMUSCULAR DYSFUNCTION OF BLADDER, UNSPECIFIED Status: Chronic (7) Ulcerative colitis Code(s): K51.90 - ULCERATIVE COLITIS, UNSPECIFIED, WITHOUT COMPLICATIONS Status: Chronic - Plan may dc home if ok with pulmonary to f/u with neurologist at [facility] for progressive MS with a new option available per patient for treatment hemostable continue baclofen, flexeril, motrin, omnicef, prednisone, prozac, neurontin and trazadone.
--- NOTE | 2019-03-24 15:27 | PRG ---
DATE OF SERVICE: 03/24/2019 SERVICE: Pulmonary Medicine. INTERVAL HISTORY: The patient is doing fine from respiratory standpoint. Breathing comfortably. She only used the BiPAP for about an hour and a half last night. She was able to put it on and go to sleep, but then she woke up feeling like she was suffocating. As such, she took that thing off. She had a good day this morning, but then had a little bit of a coughing fit today, and she started having increasing shortness of breath since then. She is having some conversational dyspnea. Otherwise, she refused taking her Lasix last night. PHYSICAL EXAMINATION: VITAL SIGNS: Afebrile. Pulse 97, blood pressure 160/94, respirations 20, saturation 94% on room air. GENERAL: The patient is awake and alert, in no apparent distress. LUNGS: Crackles are present dependently. There are rhonchi present, which are more pronounced on exhalation. With forced exhalation, she has very large airway rhonchi. My suspicion is that we are dealing with tracheobronchomalacia. LABORATORY DATA: WBC 12.1, hemoglobin 15.1, platelets 397,000. Basic metabolic profile is otherwise unremarkable. Urine is growing Klebsiella pneumoniae. ASSESSMENT: 1. Acute hypoxic respiratory failure, resolved. 2. Asthma with acute exacerbation. 3. Tracheobronchomalacia, suspected. 4. Obstructive sleep apnea, suspected. 5. Hypokalemia, resolved. DISCUSSION AND PLAN: The patient is stable for transition out of the hospital. She will need 10 days of steroids and 5 days of antibiotic. I would like for her to have an outpatient oximetry study. She refused the Lasix last night, though I do think she has a little bit of diastolic dysfunction and volume overload based on the CT scan. I talked to the patient about taking a dose of Lasix and she is not interested in that. I believe the patient is at high risk for having sleep apnea and tracheobronchomalacia. Both of these can contribute to some of the symptoms that she is experiencing. She does not believe that she has sleep apnea and is not interested in pursuing a polysomnogram. As a compromise, I requested that she undergo a nocturnal oximetry study, which she has consented to. If this shows intermittent desaturation, polysomnogram will be pursued in the outpatient setting. I would like for her to follow up with Dr. Angulo or myself in 2 to 3 weeks in the outpatient setting with results of the nocturnal oximetry. At this point, she has no further requirements for inpatient Pulmonary Critical Care opinion, and I will sign off. Please call with additional questions or concerns. Job ID: [id number]
[2019-03-24] MEDS: Multivitamin W/ Minerals 1 TAB PO SCH (17:43)
[2019-03-24] MEDS: Docusate 100 MG CAP PO SCH (20:29)
[2019-03-24] MEDS: Latanoprost 0.005% Ophth Soln 2.5 ml Bottle R EYE SCH (20:46)
[2019-03-25] MEDS: Ipratropium Bromide 2.5 ml Neb NEB SCH ×2 (00:03→07:05)
[2019-03-25] MEDS: Levalbuterol HCl 0.63 MG/3 ML NEB NEB SCH ×2 (00:07→07:06)
[2019-03-25] MEDS: Baclofen 10 MG TAB PO SCH ×3 (00:16→11:20)
[2019-03-25] MEDS: Mometasone/Formoterol 120 PUFF INHALER INH SCH (07:00)
[2019-03-25] MEDS: guaiFENesin ER 600 MG TAB PO SCH (08:16)
[2019-03-25] MEDS: Cefdinir 300 MG CAP PO SCH (08:16)
[2019-03-25] MEDS: Gabapentin 400 MG CAP PO SCH ×2 (08:16→12:12)
[2019-03-25] MEDS: FLUoxetine HCl 20 MG CAP PO SCH (08:17)
[2019-03-25] MEDS: predniSONE 20 MG TAB PO SCH (08:17)
[2019-03-25] MEDS: Famotidine 20 MG TAB PO SCH (08:17)
[2019-03-25] MEDS: Simethicone Chewable 80 MG TAB PO SCH ×2 (08:18→12:12)
[2019-03-25] MEDS: Brimonidine Tartrate 0.2% Ophth Soln 5 ml Bottle R EYE SCH (08:19)
[2019-03-25] MEDS: Enoxaparin Sodium 40 MG/0.4 ML SYRINGE SC SCH (08:20)
--- NOTE | 2019-03-25 10:09 | EKG ---
Test Reason : Blood Pressure : / mmHG Vent. Rate : 112 BPM Atrial Rate : 112 BPM P-R Int : 156 ms QRS Dur : 096 ms QT Int : 348 ms P-R-T Axes : 034 000 -14 degrees QTc Int : 475 ms Sinus tachycardia with Premature atrial complexes T wave abnormality, consider inferior ischemia Abnormal ECG Confirmed by PILAR HASSAN, TERRELL ([id number]), business editor KARSTEN MENDOZA ([id number]) on 03/25/2019 10:08:39 AM Referred By: Confirmed By:TERRELL QUEZADA MD
[2019-03-25] MEDS: Lactinex Tablet PO SCH (11:19)
[2019-03-25 12:00] VITALS: BP 138/95; TEMP 98.2
--- NOTE | 2019-03-25 18:18 | DIS ---
DATE OF ADMISSION: 03/18/2019 DATE OF DISCHARGE: 03/25/2019 DISCHARGE DISPOSITION: To home. PRIMARY DISCHARGE DIAGNOSES: 1. Asthma exacerbation, resolved. 2. Functional quadriplegia secondary to multiple sclerosis. 3. Possible obstructive sleep apnea. 4. Hypertension. 5. Morbid obesity. 6. Secondary progressive multiple sclerosis. 7. Neurogenic bladder. 8. Ulcerative colitis with colostomy. PROCEDURES DONE DURING HOSPITALIZATION: CT angio chest done showed no segmental pulmonary arterial filling defect was seen, subacute T8 superior endplate compression fracture. No retropulsion was seen. Echo with 2D Doppler showed ejection fraction of 60% to 65%, mild concentric LVH. Blood cultures x2, no growth. Urine culture grew Klebsiella sensitive to all antibiotics except nitrofurantoin. H and H 15 and 46, platelet count is 397. BUN 11, creatinine 0.5. Troponin x1 negative. BNP 16.2, CK-MB 0.6. DISCHARGE MEDICATIONS: 1. Baclofen 15 mg at 6:00 a.m. and midnight and 5 mg at 12 noon and 6:00 p.m. 2. Alphagan eye drops to right eye three times daily. 3. Vitamin D3 5000 units p.o. daily. 4. Flexeril 10 mg three times daily. 5. Colace 100 mg p.o. at bedtime. 6. Prozac 20 mg twice daily. 7. Advair inhaler twice daily. 8. Gabapentin 800 mg p.o. 4 times daily. 9. Probiotic one capsule daily. 10. Meclizine p.r.n. 11. Mesalamine 1000 mg per rectal at bedtime p.r.n. 12. Lyrica 50 mg three times daily. 13. Ultram p.r.n. for pain. 14. Omnicef 300 mg p.o. twice daily for another 2 days. 15. Prednisone 40 mg p.o. daily for another 2 days. 16. Trazodone 50 mg p.o. at bedtime p.r.n. for insomnia. ALLERGIES: TO CLARITHROMYCIN. INPATIENT CONSULT: Dr. Angulo/Dr. Griffiths for Pulmonology. DISCHARGE PLAN: The patient to follow up with Dr. Angulo in 2 to 3 weeks for oximetry studies. She needs to follow up with her primary care physician in [address] Miramontes her neurologist at [facility] in 2 weeks. BRIEF COURSE DURING HOSPITALIZATION: The patient initially got admitted on the with complaints of shortness of breath and generalized weakness. She was admitted to medical floor for complicated UTI, sepsis, asthma with acute exacerbation. The patient also has advanced multiple sclerosis and is bed-bound with functional quadriplegia. She has had consultation with Dr. Angulo for Pulmonology. The patient was placed on steroids along with broad-spectrum antibiotics. She has responded well to above measures. Echo showed good ejection fraction. The patient has multiple caregivers at home. She has been cleared for discharge by Dr. Griffiths. The patient needs to continue her antibiotics and steroids for another 2 days. She has been advised to have oximetry studies to rule out obstructive sleep apnea/obesity hypoventilation syndrome with Dr. Angulo in 2 weeks. The patient did not want to have a sleep study done. She also needs to follow up with her neurologist, Dr. Miramontes in 2 to 3 weeks. She is otherwise hemodynamically stable prior to discharge. She is eating well as well. Please note, I have seen and examined the patient on the day of discharge. Job ID: [id number] MTDD
== END 2019-03-25 12:45 | disposition home or self-care (01) | DRG 698 ==
LOC: ERS 16:40 → T4-B 19:45
PROVIDERS: ADMIT Hospitalist; ATTEND Hospitalist
DX: T83.511A Infection and inflammatory reaction due to indwelling urethral catheter, initial encounter (principal); A41.9 Sepsis, unspecified organism; J96.01 Acute respiratory failure with hypoxia; R53.2 Functional quadriplegia; Z68.41 Body mass index [BMI] 40.0-44.9, adult; J45.901 Unspecified asthma with (acute) exacerbation; K51.90 Ulcerative colitis, unspecified, without complications; G47.33 Obstructive sleep apnea (adult) (pediatric); N39.0 Urinary tract infection, site not specified; B96.1 Klebsiella pneumoniae [K. pneumoniae] as the cause of diseases classified elsewhere; M62.838 Other muscle spasm; E66.01 Morbid (severe) obesity due to excess calories; N31.9 Neuromuscular dysfunction of bladder, unspecified; G35 Multiple sclerosis; G89.4 Chronic pain syndrome; E87.6 Hypokalemia; Z16.30 Resistance to unspecified antimicrobial drugs; Z74.01 Bed confinement status; Z88.1 Allergy status to other antibiotic agents; Z79.899 Other long term (current) drug therapy
CPT/HCPCS: 36415; 71045; 71275; 80048; 80053; 81003; 81015; 82550; 82553; 82805; 83605; 83690; 83880; 84484; 85025; 85379; 87040; 87077; 87086; 87186; 90471; 90670; 93005; 93306; 94760; 96361; 96365; 96375; G0009; J0696; J1650; J1940; J1956; J2920; J3490; J7512; J7614; J7620; Q9967

== ENCOUNTER 2019-03-30 14:57 | Inpatient (IN) | payer MEDICARE, OTHER ==
[2019-03-30 15:54] LABS: #Basophils 0.1 thou/uL (0.0-0.2); #Eosinphils 0.4 thou/uL (0.0-0.7); #Lymphocytes 3.3 thou/uL (1.20-3.40); #Neutrophils 8.6 thou/uL (1.40-6.50); %Basophils 0.6 % (0.0-1.0); %Eosinophils 3.1 % (0.0-10.0); %Lymphocytes 24.3 % (21.0-51.0); %Monocytes 7.5 % (0.0-10.0); %Neutrophils 64.5 % (42.0-75.0); Hemoglobin 16.6 g/dL (12.0-16.0); Mean Corpuscular HGB CONC 33.2 g/dL (32.0-36.0); Mean Corpuscular Hemoglobin 29.5 pg (27.0-31.0); Mean Corpuscular Volume 88.7 fL (78.0-98.0); Mean Platelet Volume 6.7 fL (7.4-10.4); Platelet Count 507 thou/uL (130-400); Red Blood Cell (RBC) Count 5.64 mill/uL (4.20-5.40); White Blood Cell (WBC) Count 13.3 thou/uL (4.8-10.8)
[2019-03-30 16:03] LABS: Bilirubin Negative (Negative); Blood, Urine Negative (Negative); Calcium Oxalate Crystals 2+ HPF (None Seen); Clarity Turbid (Clear); Glucose, Urine (Dipstick) Normal (Negative); Leukocyte 500 Leu/uL (Negative); Nitrite 2+ (Negative); Protein, Urine (Dipstick) 10 mg/dL (Neg-Trace); Squamous Epithelial 0-3 HPF (0-3); Urobilinogen Normal mg/dL (Less than 2); WBC/HPF 21-50 HPF (0-3)
[2019-03-30 16:04] LABS: Actual Bicarbonate (HCO3a) 25.2 mEq/L (22-28); Analyzer IN Cardio ER; Base Excess (BEa) 1.9 mEq/L (-2.0 to +3.0); CO2 Tension 35.8 mmHg (35.0-45.0); Hemoglobin (Hb) 16.6 g/dL (12.0-16.0); O2 Tension (PaO2) 88.5 mmHg (80.0-100.0); Potassium - ABG Lab 3.33 mmol/L (3.70-5.30); Puncture Site RRA; pH, Arterial 7.47 (7.35-7.45)
[2019-03-30] MEDS ORDERED: Ketorolac Tromethamine 30 MG/ML VIAL ONE (16:14)
[2019-03-30 16:20] LABS: RBC/HPF 0-3 HPF (0-3)
[2019-03-30 16:21] LABS: Bacteria/HPF 1+ HPF (None Seen); Yeast-Budding 4+ HPF (None Seen)
[2019-03-30] MEDS ORDERED: Piperacillin/Tazobactam 4.5 GM VIAL ONE (16:45)
[2019-03-30 16:53] LABS: ALT (SGPT) 63 U/L (8-55); AST (SGOT) 49 U/L (5-34); Albumin 3.8 g/dL (3.5-5.0); Alkaline Phosphatase 106 U/L (40-150); Anion Gap 19 mmol/L (10-20); BUN (Urea Nitrogen) Less than 4 mg/dL (9.8-20.1); Bilirubin, Total 0.6 mg/dL (0.2-1.2); Calc. Creatinine Clearance 0 mL/min (70-130); Calcium 9.7 mg/dL (7.8-10.44); Carbon Dioxide 20 mmol/L (22-29); Chloride 102 mmol/L (98-107); Estimated GFR-MDRD Greater than 90; Globulin 3.7 g/dL (2.4-3.5); Glucose 102 mg/dL (70-105); Potassium 3.9 mmol/L (3.5-5.1); Protein, Total 7.5 g/dL (6.0-8.3); Sodium 137 mmol/L (136-145)
--- NOTE | 2019-03-30 16:53 | RAD ---
RADIOGRAPH CHEST 1 VIEW: Date: 03/30/2019. Time: 4:04 p.m. HISTORY: A 58-year-old female with dyspnea. COMPARISON: 03/20/2019. FINDINGS: Lung volumes are very low on the current study. There is a new focal small airspace opacity in the l eft lower lung zone. There is blunting of the left lateral costophrenic angle consistent with a smal l left pleural effusion. There is no pulmonary edema or pneumothorax. IMPRESSION: 1. New small airspace density in the left mid-lower lung zone, either atelectasis, pneumonia, or asp iration. 2. Small left pleural effusion. JN [] POS: [facility]
[2019-03-30] MEDS ORDERED: Fluconazole 100 MG TAB PO SCH ×2 (18:30→21:45)
[2019-03-30 19:40] VITALS: BMI 43.4
[2019-03-30] MEDS ORDERED: Acetaminophen 325 MG TAB PO PRN (21:34)
[2019-03-30] MEDS ORDERED: HYDROcodone/Acetaminophen 7.5/325 mg Tablet PO PRN (21:40)
[2019-03-30] MEDS ORDERED: Meclizine HCl 25 MG TAB PO PRN (21:40)
[2019-03-30] MEDS: Benzonatate 100 MG CAP PO PRN (22:06)
[2019-03-30] MEDS ORDERED: Brimonidine Tartrate 0.2% Ophth Soln 5 ml Bottle R EYE SCH (22:15)
[2019-03-30] MEDS ORDERED: Sodium Chloride 0.9% 1,000 ML IV SCH (22:15)
[2019-03-30] MEDS ORDERED: Docusate 100 MG CAP PO SCH (22:30)
[2019-03-30] MEDS ORDERED: Nystatin Powder 15 GM BOT TOP SCH (22:30)
[2019-03-30] MEDS ORDERED: Famotidine 20 MG TAB PO SCH (22:30)
[2019-03-30] MEDS ORDERED: Cyclobenzaprine 10 MG TAB PO SCH (22:30)
[2019-03-30] MEDS ORDERED: FLUoxetine HCl 20 MG CAP PO SCH (22:30)
[2019-03-30] MEDS ORDERED: Gabapentin 400 MG CAP PO SCH (22:30)
[2019-03-30] MEDS ORDERED: Mesalamine 1000 MG Suppository PR SCH (22:30)
[2019-03-30] MEDS ORDERED: Latanoprost 0.005% Ophth Soln 2.5 ml Bottle R EYE SCH (22:30)
[2019-03-30] MEDS ORDERED: Sodium Chloride 5% Opth 15 ML BOT R EYE SCH (22:30)
[2019-03-30] MEDS ORDERED: Simethicone Chewable 80 MG TAB PO SCH (22:30)
[2019-03-30] MEDS ORDERED: Levalbuterol HCl 0.63 MG/3 ML NEB NEB SCH (23:45)
[2019-03-31] MEDS: Piperacillin/Tazobactam 3.375 GM in Sodium Chloride 0.9% 100 ML IVPB SCH ×4 (02:14→21:14)
--- NOTE | 2019-03-31 03:50 | HP ---
PRIMARY CARE PHYSICIAN: Lory Hsieh. CHIEF COMPLAINT: Shortness of breath. HISTORY OF PRESENT ILLNESS: Ms. Monreal is a 58-year-old female who reported to the emergency room today for shortness of breath. The patient reports that she was just recently discharged from [facility] on Wednesday the , had some shortness of breath at that time, was seen and managed over several days. Prior to discharge, was seen by Pulmonology and was cleared for discharge by Dr. Griffiths. The patient reports that she just has not felt well since discharge, reports that she does not really feel much better as far as her breathing is concerned. Reports that she has had a dry cough, feels like she needs to cough, but is unable to cough anything up. She reports that her shortness of breath is better when lying flat due to her MS. She reports that she is able to stretch out and feels better. The patient states she has had increase of swelling over her last hospitalization and suffers from chronic lymphedema. The patient does report that she has some candidal type of rash in the perineum, upper thigh area that she developed since last admission. White blood cell count 13.3. The patient has been on steroids for her breathing which could account for some of the increase in the white blood cell count. Hemoglobin 16.6, hematocrit 50, platelet count 507. Chemistry with carbon dioxide 20, BUN less than 4, creatinine 0.6, AST 49, ALT 63. Troponin x1 is undetectable. BNP is less than 10. Urine, turbid, 2+ nitrite, leukocyte esterase, white blood cells, 1+ bacteria and 4+ yeast. The patient did just finish a course of Omnicef. We will send this urine off for culture. She denies dysuria. ER staff did talk to Dr. Griffiths. Dr. Faith also talked to Dr. Rosario who discharged the patient 4 days ago. She was subsequently admitted to observation for further management. PAST MEDICAL HISTORY: 1. Debilitating multiple sclerosis resulting in bed-bound state, hemiplegia from the waist down. 2. History of ulcerative colitis, status post subtotal colectomy. The patient reports that she has a very small portion of her sigmoid colon which does bleed occasionally. 3. Chronic pain syndrome. 4. Neuropathic pain. 5. Muscle spasms. 6. Asthma. 7. Elevated BMI. 8. Debility. 9. Also has a history of Raynaud syndrome, scotopic sensitivity syndrome, right eye blindness, lymphedema. FAMILY HISTORY: Noncontributory. PAST SURGICAL HISTORY: Colon removed, tubal ligation, left wrist surgery, has a colostomy. PSYCHIATRIC HISTORY: Depression. SOCIAL HISTORY: The patient lives at home. Reports that she has roommates who help care for her. She does have home health, PT/OT who come to visit her at the house. She is a former tobacco smoker. ALLERGIES: CLARITHROMYCIN. HOME MEDICATIONS: 1. Baclofen 50 mg p.o. b.i.d. 2. Alphagan 1 drop right eye t.i.d. 3. Vitamin D 5000 units p.o. daily. 4. Flexeril 10 mg p.o. t.i.d. 5. Colace 100 mg p.o. at bedtime. 6. Prozac 20 mg p.o. b.i.d. 7. Fluticasone/salmeterol/Advair 2 inhalations b.i.d. 8. Gabapentin 800 mg p.o. q.i.d. 9. Hydrocodone/Tylenol 7.5/325 p.o. q.4 hours p.r.n. 10. Hyoscyamine 0.25 mg p.o. q.i.d. 11. Probiotic 1 capsule q.a.m. 12. Lactobacillus 1 capsule p.o. 12 noon. 13. Meclizine 25 mg p.o. b.i.d. p.r.n. 14. Canasa 1000 mg p.r.n. at night. 15. Bactroban 1 application topical p.r.n. 16. Multivitamin 1 tab p.o. q.p.m. 17. Simethicone mg p.o. q.i.d. 18. Sodium chloride 5% eye drops, 1 drop right eye q.i.d. 19. Travatan 1 drop right eye at bedtime. REVIEW OF SYSTEMS: Reports dyspnea. Reports low-grade fever, dry cough, increased lymphedema. All other systems are reviewed and are negative unless mentioned in the HPI. PHYSICAL EXAMINATION: VITAL SIGNS: Blood pressure 117/94, pulse is 115, respirations 24, temperature is 98.3, pO2 sats 97% on 2 L. GENERAL: The patient appears chronically ill, mild pulmonary distress. HEENT: Head is atraumatic and normocephalic. Mucous membranes are moist. Mouth exam is normal. NECK: Supple. Normal range of motion. CARDIOVASCULAR: Regular rate and rhythm. LUNGS: Scattered wheezing. Rhonchi on expiration. Exam limited by body habitus. ABDOMEN: Soft and nontender. Exam limited by body habitus. BACK: Diffusely tender to palpation of the spine. No step off. No deformities are noted. EXTREMITIES: +1 edema to bilateral lower extremities. There is also evidence of muscle wasting in the lower extremities. NEUROLOGIC: 1/4 motor strength in lower extremities, 3/4 bilaterally in upper extremities. No focal sensory motor new deficits. ASSESSMENT AND PLAN: 1. Urine with evidence of urinary tract infection with yeast. We will continue the Zosyn, Diflucan, nystatin to Celina rash. We will send urine off for culture. Blood cultures have been taken and are pending. 2. The patient becomes an inpatient, Pulmonology consultation recommended. The patient was supposed to have some pulmonary tests as an outpatient basis. Would appreciate their input when appropriate. Shortness of breath with some hypoxia, possible asthma exacerbation. We will reorder the Xopenex that she was on on last admission. The patient reports that she just finished this course of steroids. We will continue the Advair. 3. Gastrointestinal and deep venous thrombosis prophylaxis. 4. Continue home medications. 5. PT, OT evaluation and treatment. 6. Plan discussed with Dr. Rosario who discharged this patient 4 days ago and is familiar with the case, he agrees with plan. 7. Hospital course is dependent on clinical findings. Job ID: [id number]
[2019-03-31] MEDS: Baclofen 10 MG TAB PO SCH ×5 (05:12→23:35)
[2019-03-31 06:09] LABS: #Basophils 0.1 thou/uL (0.0-0.2); #Eosinphils 0.5 thou/uL (0.0-0.7); #Lymphocytes 2.8 thou/uL (1.20-3.40); #Neutrophils 6.4 thou/uL (1.40-6.50); %Basophils 0.7 % (0.0-1.0); %Eosinophils 4.8 % (0.0-10.0); %Lymphocytes 25.8 % (21.0-51.0); %Monocytes 9.3 % (0.0-10.0); %Neutrophils 59.4 % (42.0-75.0); Hemoglobin 14.4 g/dL (12.0-16.0); Mean Corpuscular HGB CONC 31.5 g/dL (32.0-36.0); Mean Corpuscular Hemoglobin 28.6 pg (27.0-31.0); Mean Corpuscular Volume 90.7 fL (78.0-98.0); Mean Platelet Volume 6.7 fL (7.4-10.4); Platelet Count 403 thou/uL (130-400); Red Blood Cell (RBC) Count 5.02 mill/uL (4.20-5.40); White Blood Cell (WBC) Count 10.8 thou/uL (4.8-10.8)
[2019-03-31] MEDS: Mometasone/Formoterol 120 PUFF INHALER INH SCH ×2 (06:31→19:04)
[2019-03-31] MEDS: Levalbuterol HCl 0.63 MG/3 ML NEB NEB SCH ×3 (06:33→19:02)
[2019-03-31 07:37] LABS: ALT (SGPT) 76 U/L (8-55); AST (SGOT) 50 U/L (5-34); Albumin 3.3 g/dL (3.5-5.0); Alkaline Phosphatase 88 U/L (40-150); Anion Gap 10 mmol/L (10-20); BUN (Urea Nitrogen) Less than 4 mg/dL (9.8-20.1); Bilirubin, Total 0.7 mg/dL (0.2-1.2); Calc. Creatinine Clearance 221 mL/min (70-130); Calcium 8.8 mg/dL (7.8-10.44); Carbon Dioxide 27 mmol/L (22-29); Chloride 104 mmol/L (98-107); Estimated GFR-MDRD Greater than 90; Globulin 2.7 g/dL (2.4-3.5); Glucose 99 mg/dL (70-105); Potassium 3.4 mmol/L (3.5-5.1); Sodium 138 mmol/L (136-145)
[2019-03-31] MEDS: Fluconazole 100 MG TAB PO SCH (08:23)
[2019-03-31] MEDS: Gabapentin 400 MG CAP PO SCH ×4 (08:24→21:17)
[2019-03-31] MEDS: Saccharomyces boulardii 250 MG CAP PO SCH (08:24)
[2019-03-31] MEDS: Cyclobenzaprine 10 MG TAB PO SCH ×3 (08:24→21:17)
[2019-03-31] MEDS: Enoxaparin Sodium 40 MG/0.4 ML SYRINGE SC SCH (08:25)
[2019-03-31] MEDS: Famotidine 20 MG TAB PO SCH ×2 (08:25→21:18)
[2019-03-31] MEDS: FLUoxetine HCl 20 MG CAP PO SCH ×2 (08:25→21:17)
[2019-03-31] MEDS: Brimonidine Tartrate 0.2% Ophth Soln 5 ml Bottle R EYE SCH ×3 (08:31→21:20)
[2019-03-31] MEDS: Sodium Chloride 5% Opth 15 ML BOT R EYE SCH ×4 (08:31→21:18)
[2019-03-31] MEDS: Nystatin Powder 15 GM BOT TOP SCH ×2 (08:32→21:20)
[2019-03-31] MEDS: Mupirocin 2% Ointment 22 GM Tube TOP PRN (08:33)
[2019-03-31] MEDS: Simethicone Chewable 80 MG TAB PO SCH ×4 (08:36→21:16)
[2019-03-31] MEDS ORDERED: Non-Formulary Item 1 EACH (Fluticasone/Salmeterol [Advair Hfa 115/21 Inhaler] 2 INH) INH SCH (09:00)
[2019-03-31] MEDS ORDERED: FOS PO SCH (09:00)
[2019-03-31] MEDS ORDERED: B LON PO SCH (09:00)
[2019-03-31] MEDS ORDERED: B BIF PO SCH (09:00)
[2019-03-31] MEDS ORDERED: [UNRECOGNIZED DRUG - OTHER] PO SCH (09:00)
[2019-03-31] MEDS ORDERED: ACID PO SCH (09:00)
[2019-03-31] MEDS ORDERED: CASEI PO SCH (09:00)
[2019-03-31] MEDS: Lactinex Tablet PO SCH (11:21)
--- NOTE | 2019-03-31 16:56 | PDOC.HOSPP ---
- Subjective Encounter Date: 03/31/19 Encounter Time: 14:25 Subjective: Non-productive cough is present. Subjectively feels better with oxygen in place. Chronic indwelling rodriguez. Redness to bakari area due to Celina. No nausea or vomiting. States does not have nebulizer or rescue inhaler at home. - Objective Vital Signs & Weight: Vital Signs (12 hours) Temp Pulse Resp BP Pulse Ox 03/31/19 16:13 98.3 F 112 H 18 106/74 97 03/31/19 14:03 80 16 03/31/19 11:45 98.8 F 107 H 18 116/81 90 L 03/31/19 08:00 97.8 F 99 16 113/78 96 03/31/19 06:33 100 16 Weight Weight 302 lb 11.2 oz I&O: 03/30/19 03/31/19 04/01/19 06:59 06:59 06:59 Intake Total 100 600 Output Total 750 Balance -650 600 Result Diagrams: 03/31/19 05:42 03/31/19 06:42 ROS - Medication Medications: Active Medications Generic Name Dose Route Start Last Admin Trade Name Freq PRN Reason Stop Dose Admin Acidophilus 1 tab 03/31/19 12:00 03/31/19 11:21 Floranex PO 1 tab 1200 KAREN Administration Baclofen 15 mg 03/31/19 05:00 03/31/19 05:12 Lioresal PO 15 mg 0500,2300 KAREN Administration Baclofen 10 mg 03/31/19 11:00 03/31/19 11:21 Lioresal PO 10 mg 1100,1700 KAREN Administration Benzonatate 100 mg 03/30/19 21:42 03/30/19 22:06 Tessalon PO 100 mg Q4H PRN Administration Cough Brimonidine Tartrate 1 drop 03/31/19 09:00 03/31/19 14:36 Alphagan 0.2% Ophth Soln R EYE 1 drp TID KAREN Administration Cholecalciferol 5,000 units 03/31/19 09:00 03/31/19 08:23 Vitamin D3 PO 5,000 units DAILY KAREN Administration Cyclobenzaprine HCl 10 mg 03/31/19 09:00 03/31/19 14:35 Flexeril PO 10 mg TID KAREN Administration Enoxaparin Sodium 40 mg 03/31/19 09:00 03/31/19 08:25 Lovenox SC 40 mg 0900 KAREN Administration Famotidine 20 mg 03/31/19 09:00 03/31/19 08:25 Pepcid PO 20 mg BID KAREN Administration Fluconazole 200 mg 03/31/19 09:00 03/31/19 08:23 Diflucan PO 04/01/19 09:01 200 mg DAILY KAREN Administration Fluoxetine HCl 20 mg 03/31/19 09:00 03/31/19 08:25 Prozac PO 20 mg BID KAREN Administration Gabapentin 800 mg 03/31/19 09:00 03/31/19 13:36 Neurontin PO 800 mg QID KAREN Administration Hyoscyamine Sulfate 0.25 mg 03/31/19 09:00 03/31/19 13:34 Levsin PO 0.25 mg QID KAREN Administration Piperacillin Sod/Tazobactam 100 mls @ 200 mls/hr 03/31/19 02:00 03/31/19 14: 35 Sod 3.375 gm/ Sodium Chloride IVPB 100 mls 0200,0800,1400,2000 KAREN Administration Levalbuterol HCl 0.63 mg 03/31/19 07:00 03/31/19 14:03 Xopenex NEB 0.63 mg [id number] KAREN Administration Mometasone Furoate/Formoterol Fumar 2 puff 03/31/19 06:30 03/31/19 06:31 Dulera 100 Mcg/5 Mcg Inhaler INH 1 puff BID-RT KAREN Administration Mupirocin 0 gm 03/30/19 21:40 03/31/19 08:33 Bactroban 2% Ointment TOP 1 applic PRN PRN Administration Wound Care Nystatin 0 gm 03/31/19 09:00 03/31/19 08:32 Mycostatin Powder TOP 1 applic BID KAREN Administration Saccharomyces Boulardii 250 mg 03/31/19 09:00 03/31/19 08:24 Florastor PO 250 mg QAM KAREN Administration Simethicone 240 mg 03/31/19 09:00 03/31/19 13:33 Mylicon Chewable PO 240 mg QID KAREN Administration Sodium Chloride 1 drop 03/31/19 09:00 03/31/19 13:38 Nancy-128 5% Oph Kandy R EYE 1 drp QID KAREN Administration - Exam General - other findings: Resting, occasional spasms of cough during interview Eye: anicteric sclera ENT: moist mucosa Neck: no lymphadenopathy Heart - other findings: mildly tachycardic Respiratory: rhonchi, wheezes Gastrointestinal: soft, non-tender, non-distended Gastrointestinal - other findings: obese Extremeties - other findings: Chronic lymphedema Skin - other findings: Tinea cruris Neurological - other findings: sensory/motor deficits related to MS are unchanged from baseline Psychiatric: A&O x 3 Hosp A/P (1) Reactive airway disease with acute exacerbation Code(s): J45.901 - UNSPECIFIED ASTHMA WITH (ACUTE) EXACERBATION Status: Acute (2) UTI (urinary tract infection) Status: Acute (3) Lactic acidosis Code(s): E87.2 - ACIDOSIS Status: Acute (4) HTN (hypertension) Code(s): I10 - ESSENTIAL (PRIMARY) HYPERTENSION Status: Chronic (5) Morbid obesity Code(s): E66.01 - MORBID (SEVERE) OBESITY DUE TO EXCESS CALORIES Status: Chronic (6) Multiple sclerosis, secondary progressive Code(s): G35 - MULTIPLE SCLEROSIS Status: Chronic (7) Neurogenic bladder Code(s): N31.9 - NEUROMUSCULAR DYSFUNCTION OF BLADDER, UNSPECIFIED Status: Chronic (8) Ulcerative colitis Code(s): K51.90 - ULCERATIVE COLITIS, UNSPECIFIED, WITHOUT COMPLICATIONS Status: Chronic - Plan 1. ID - urine culture pending, >100K CFU GNR, presently on Zosyn. Add topical antifungal, continue diflucan for tinea cruris. 2. Pulm - oxygen/nebs/inhaled steroids. Recheck AM CXR to follow up small mid- lower lung zone infiltrate and pleural effusion noted on admission. Contacted case management about ordering DME (nebulizer.) Patient received machine in 2017, does not know where it is, at this time would need to private pay for new machine. Rescue inhaler prescription at the time of discharge would be helpful for her. 3. Discussed with utilization review, approved for inpt, status changed. 4. On service w/ [employer] and has seen Jeff Sharan [employer] SERV[employer] with [facility] mobile unit. 5. Cont PT/Jozef lift/trapeze bars High risk given age/comorbities/limitations of mobility
[2019-03-31] MEDS: Multivitamin W/ Minerals 1 TAB PO SCH (17:00)
[2019-03-31] MEDS: Budesonide 0.5 MG/2 ML NEB INH SCH (19:01)
[2019-03-31] MEDS: Arformoterol 15 MCG/2 ML NEB NEB SCH (19:02)
[2019-03-31] MEDS ORDERED: Non-Formulary Item 1 EACH (Travoprost [Travatan Z] 1 DROP) R EYE SCH (21:00)
[2019-03-31] MEDS: Mesalamine 1000 MG Suppository PR SCH (21:16)
[2019-03-31] MEDS: Docusate 100 MG CAP PO SCH (21:17)
[2019-03-31] MEDS: Latanoprost 0.005% Ophth Soln 2.5 ml Bottle R EYE SCH (21:20)
[2019-03-31] MEDS: Clotrimazole 1 % Cream 30 GM TUBE TOP SCH (21:21)
[2019-03-31] MEDS: Benzonatate 100 MG CAP PO PRN (23:18)
[2019-04-01] MEDS ORDERED: guaiFENesin ER 600 MG TAB PO PRN (00:16)
[2019-04-01] MEDS: Piperacillin/Tazobactam 3.375 GM in Sodium Chloride 0.9% 100 ML IVPB SCH ×4 (02:00→20:44)
[2019-04-01] MEDS: Baclofen 10 MG TAB PO SCH ×4 (05:29→20:47)
[2019-04-01] MEDS: Levalbuterol HCl 0.63 MG/3 ML NEB NEB SCH (06:51)
[2019-04-01] MEDS: Arformoterol 15 MCG/2 ML NEB NEB SCH ×2 (06:54→18:34)
[2019-04-01] MEDS: Budesonide 0.5 MG/2 ML NEB INH SCH ×2 (06:54→18:32)
[2019-04-01] MEDS: Mometasone/Formoterol 120 PUFF INHALER INH SCH ×2 (06:55→18:34)
[2019-04-01] MEDS: Cyclobenzaprine 10 MG TAB PO SCH ×3 (09:06→20:46)
[2019-04-01] MEDS: Saccharomyces boulardii 250 MG CAP PO SCH (09:06)
[2019-04-01] MEDS: Simethicone Chewable 80 MG TAB PO SCH ×4 (09:06→21:42)
[2019-04-01] MEDS: Fluconazole 100 MG TAB PO SCH (09:06)
[2019-04-01] MEDS: Gabapentin 400 MG CAP PO SCH ×4 (09:06→20:46)
[2019-04-01] MEDS: Famotidine 20 MG TAB PO SCH ×2 (09:06→20:46)
[2019-04-01] MEDS: FLUoxetine HCl 20 MG CAP PO SCH ×2 (09:06→20:46)
[2019-04-01] MEDS: Clotrimazole 1 % Cream 30 GM TUBE TOP SCH ×2 (09:07→20:52)
[2019-04-01] MEDS: Enoxaparin Sodium 40 MG/0.4 ML SYRINGE SC SCH (09:07)
[2019-04-01] MEDS: Brimonidine Tartrate 0.2% Ophth Soln 5 ml Bottle R EYE SCH ×3 (09:08→20:52)
[2019-04-01] MEDS: Nystatin Powder 15 GM BOT TOP SCH ×2 (09:09→20:51)
[2019-04-01] MEDS: Sodium Chloride 5% Opth 15 ML BOT R EYE SCH ×4 (09:10→20:54)
--- NOTE | 2019-04-01 09:22 | RAD ---
CHEST 1 VIEW: HISTORY: Followup left mid zone infiltrate. COMPARISON: 03/20/2019 and 03/30/2019. FINDINGS: Normal cardiac silhouette. Persistent opacification of the left lung base with increased obscuration of the left hemidiaphragm suggesting worsening pleural effusion. Interval development of an opacity in the right lung base. No pneumothorax. IMPRESSION: Interval worsening bibasilar opacity. POS: [facility]
[2019-04-01] MEDS ORDERED: Benzonatate 100 MG CAP PO PRN (12:33)
[2019-04-01] MEDS: Lactinex Tablet PO SCH (12:53)
[2019-04-01] MEDS ORDERED: Ipratropium Bromide 2.5 ml Neb NEB SCH (13:00)
[2019-04-01] MEDS ORDERED: Magnesium 2 GM/50 ML 2 GM in Premix Bag 1 BAG IVPB SCH (13:30)
[2019-04-01] MEDS: methylPREDNISolone Sod Succ 40 MG VIAL IVP SCH ×2 (14:53→23:19)
--- NOTE | 2019-04-01 15:16 | CON ---
DATE OF CONSULTATION: HISTORY OF PRESENT ILLNESS: A 58-year-old morbidly obese female with multiple sclerosis. She is 138 kg, presented to the ER on 03/30 with shortness of breath, coughing, unresponsive to usual home medication. She did have tightness. She is wheezing. There is clear low-grade fever. She was just recently discharged from the hospital. Extensive history well outlined. PAST MEDICAL HISTORY: 1. Coronary artery disease. 2. Chronic stasis. 3. Raynaud phenomenon. 4. Colostomy. 5. Indwelling catheter. 6. Multiple sclerosis. 7. Asthma. 8. Possibly COPD. 9. Depression. PAST SURGERIES: 1. Tubal ligation. 2. Left wrist surgery. 3. Colostomy. HABITS: Tobacco, former smoker. No alcohol abuse. HOME MEDICINES: 1. Baclofen 10 twice a day. 2. Eye drops. 3. Prozac 20. 4. Flexeril 10 three times a day. 5. Gabapentin 800 four times a day. 6. Advair inhaler. 7. Meclizine p.r.n. ALLERGIES: BIAXIN. REVIEW OF SYSTEMS: Otherwise 10-point negative. PHYSICAL EXAMINATION: GENERAL: The patient in mild distress. VITAL SIGNS: O2 saturation 96% on 2L, respiratory rate 18, pulse 107, temperature 98, blood pressure 113/80. CHEST: Bilateral rhonchi, crackles, minimal wheezing. CARDIAC: Normal S1 and S2. No gallops. ABDOMEN: No masses. LABORATORY DATA: Urine is growing Stenotrophomonas maltophilia, which is generally sensitive mainly to sulfa and Levaquin. X-ray shows chronic changes. IMPRESSION: 1. Bronchitis. 2. Asthma. 3. Chronic obstructive pulmonary disease exacerbation. 4. Urinary tract infection. 5. Multiple sclerosis. 6. Chronic pain. 7. Depression. PLAN: DuoNeb and steroids initiated. Magnesium being given. We will follow and notify Dr. Angulo. TIME SPENT: 70 minutes, 50% direct patient care. Job ID: [id number]
[2019-04-01] MEDS: Multivitamin W/ Minerals 1 TAB PO SCH (16:22)
--- NOTE | 2019-04-01 16:31 | PDOC.HOSPP ---
- Subjective Subjective: Seen and examined. Breathing is very difficult. Patient with weak cough unable to get any phlegm out. Patient feeling very weak. Denies fever or chills. - Objective Vital Signs & Weight: Vital Signs (12 hours) Temp Pulse Resp BP Pulse Ox 04/01/19 13:55 105 H 20 94 L 04/01/19 11:56 98 F 107 H 18 113/80 97 04/01/19 07:09 97.7 F 104 H 15 103/69 99 04/01/19 06:51 109 H 18 97 Weight Weight 302 lb 11.2 oz I&O: 03/31/19 04/01/19 04/02/19 06:59 06:59 06:59 Intake Total 100 960 Output Total 750 1550 250 Balance -650 -590 250 Result Diagrams: 03/31/19 05:42 03/31/19 06:42 Radiology Reviewed by me: Yes (Chest xray) ROS - Medication Medications: Active Medications Generic Name Dose Route Start Last Admin Trade Name Freq PRN Reason Stop Dose Admin Acidophilus 1 tab 03/31/19 12:00 04/01/19 12:53 Floranex PO 1 tab 1200 KAREN Administration Albuterol/Ipratropium 3 ml 04/01/19 19:00 04/01/19 13:55 Duoneb NEB 3 ml [id number] KAREN Administration Arformoterol Tartrate 15 mcg 03/31/19 18:30 04/01/19 06:54 Brovana NEB 15 mcg BID-RT KAREN Administration Baclofen 15 mg 03/31/19 05:00 04/01/19 05:29 Lioresal PO 15 mg 0500,2300 KAREN Administration Baclofen 5 mg 04/01/19 11:00 04/01/19 12:53 Lioresal PO 5 mg 1100,1700 KAREN Administration Benzonatate 100 mg 03/30/19 21:42 03/31/19 23:18 Tessalon PO 100 mg Q4H PRN Administration Cough Brimonidine Tartrate 1 drop 03/31/19 09:00 04/01/19 13:09 Alphagan 0.2% Ophth Soln R EYE 1 drp TID KAREN Administration Budesonide 0.5 mg 03/31/19 18:30 04/01/19 06:54 Pulmicort Neb Solution INH 0.5 mg BID-RT KAREN Administration Cholecalciferol 5,000 units 03/31/19 09:00 04/01/19 09:07 Vitamin D3 PO 5,000 units DAILY KAREN Administration Clotrimazole 1 gm 03/31/19 21:00 04/01/19 09:07 Lotrimin 1% Cream TOP 1 applic BID KAREN Administration Cyclobenzaprine HCl 10 mg 03/31/19 09:00 04/01/19 14:53 Flexeril PO 10 mg TID KAREN Administration Docusate Sodium 100 mg 03/31/19 21:00 03/31/19 21:17 Colace PO 100 mg HS KAREN Administration Enoxaparin Sodium 40 mg 03/31/19 09:00 04/01/19 09:07 Lovenox SC 40 mg 0900 KAREN Administration Famotidine 20 mg 03/31/19 09:00 04/01/19 09:06 Pepcid PO 20 mg BID KAREN Administration Fluoxetine HCl 20 mg 03/31/19 09:00 04/01/19 09:06 Prozac PO 20 mg BID KAREN Administration Gabapentin 800 mg 03/31/19 09:00 04/01/19 12:54 Neurontin PO 800 mg QID KAREN Administration Hyoscyamine Sulfate 0.25 mg 03/31/19 09:00 04/01/19 12:54 Levsin PO 0.25 mg QID KAREN Administration Piperacillin Sod/Tazobactam 100 mls @ 200 mls/hr 03/31/19 02:00 04/01/19 12: 54 Sod 3.375 gm/ Sodium Chloride IVPB 100 mls 0200,0800,1400,2000 KAREN Administration Iron/Minerals/Multivitamins 1 tab 03/31/19 17:00 03/31/19 17:00 Theragran M PO 1 tab QPM-WM KAREN Administration Latanoprost 1 drop 03/31/19 21:00 03/31/19 21:20 Xalatan 0.005% Ophth Soln R EYE 1 drp HS KAREN Administration Mesalamine 1,000 mg 03/31/19 21:00 03/31/19 21:16 Canasa OR 1,000 mg HS KAREN Administration Methylprednisolone Sodium Succinate 40 mg 04/01/19 18:00 04/01/19 14:53 Solu-Medrol IVP 40 mg Q6HR KAREN Administration Mupirocin 0 gm 03/30/19 21:40 03/31/19 08:33 Bactroban 2% Ointment TOP 1 applic PRN PRN Administration Wound Care Nystatin 0 gm 03/31/19 09:00 04/01/19 09:09 Mycostatin Powder TOP 1 applic BID KAREN Administration Saccharomyces Boulardii 250 mg 03/31/19 09:00 04/01/19 09:06 Florastor PO 250 mg QAM KAREN Administration Simethicone 240 mg 03/31/19 09:00 04/01/19 12:54 Mylicon Chewable PO 240 mg QID KAREN Administration Sodium Chloride 1 drop 03/31/19 09:00 04/01/19 12:54 Nancy-128 5% Oph Kandy R EYE 1 drp QID KAREN Administration - Exam NAD, awake alert Eye: PERRL, anicteric sclera ENT: moist mucosa. negative: no oropharyngeal lesions ENT - other findings: Shallow oral apthus ulcers Neck: supple, symmetric Heart: RRR, no murmur, no gallops, no rubs Respiratory: no rales, rhonchi, tachypneic, wheezes Gastrointestinal: soft, non-tender, non-distended, normal bowel sounds, no guarding, no rigidity Extremities: 1+ LE edema Skin: no lesions Neurological: CN's grossly intact, no weakness, no new deficit (Chronic LE paralysis from MS) Musculoskeletal: generalized weakness Psychiatric: normal affect, A&O x 3 Hosp A/P (1) Reactive airway disease with acute exacerbation Code(s): J45.901 - UNSPECIFIED ASTHMA WITH (ACUTE) EXACERBATION Status: Acute (2) UTI (urinary tract infection) Status: Acute (3) Asthma exacerbation Code(s): J45.901 - UNSPECIFIED ASTHMA WITH (ACUTE) EXACERBATION Status: Acute Qualifiers: Asthma severity: moderate (4) Complicated UTI (urinary tract infection) Code(s): N39.0 - URINARY TRACT INFECTION, SITE NOT SPECIFIED Status: Acute (5) Sepsis Code(s): A41.9 - SEPSIS, UNSPECIFIED ORGANISM Status: Resolved (6) Morbid obesity Code(s): E66.01 - MORBID (SEVERE) OBESITY DUE TO EXCESS CALORIES Status: Chronic (7) Multiple sclerosis, secondary progressive Code(s): G35 - MULTIPLE SCLEROSIS Status: Chronic (8) Neurogenic bladder Code(s): N31.9 - NEUROMUSCULAR DYSFUNCTION OF BLADDER, UNSPECIFIED Status: Chronic - Plan Plan: Pulmonary consultation, recommendations appreciated Start IV steroids Continue IV ABX Xopenex and Ipratropium bromide inhalation scheduled and PRN Guaifenesin 1200mg x 3 days as expectorant Cultures noted MS may be affecting the diaphragm and contributing to weak cough and asthma exacerbation Continue home meds as able GI and DVT PPX
[2019-04-01] MEDS: Docusate 100 MG CAP PO SCH (20:46)
[2019-04-01] MEDS: guaiFENesin ER 600 MG TAB PO SCH (20:47)
[2019-04-01] MEDS: Latanoprost 0.005% Ophth Soln 2.5 ml Bottle R EYE SCH (20:51)
[2019-04-01] MEDS ORDERED: guaiFENesin 200 MG TAB PO SCH (21:00)
[2019-04-01] MEDS: Mesalamine 1000 MG Suppository PR SCH (21:05)
[2019-04-01] MEDS: Cepastat Lozenges 1 LOZ PO PRN (23:19)
[2019-04-01] MEDS: Benzonatate 100 MG CAP PO PRN (23:26)
[2019-04-02] MEDS: Piperacillin/Tazobactam 3.375 GM in Sodium Chloride 0.9% 100 ML IVPB SCH ×2 (02:35→08:39)
[2019-04-02] MEDS: Arformoterol 15 MCG/2 ML NEB NEB SCH ×2 (06:13→19:55)
[2019-04-02] MEDS: Budesonide 0.5 MG/2 ML NEB INH SCH ×2 (06:16→19:56)
[2019-04-02] MEDS: Mometasone/Formoterol 120 PUFF INHALER INH SCH ×2 (06:16→19:56)
[2019-04-02] MEDS: Baclofen 10 MG TAB PO SCH ×4 (06:22→20:35)
[2019-04-02] MEDS: methylPREDNISolone Sod Succ 40 MG VIAL IVP SCH ×3 (06:22→17:34)
[2019-04-02] MEDS: guaiFENesin ER 600 MG TAB PO SCH ×2 (08:40→20:37)
[2019-04-02] MEDS: Cyclobenzaprine 10 MG TAB PO SCH ×3 (08:41→20:36)
[2019-04-02] MEDS: Famotidine 20 MG TAB PO SCH ×2 (08:41→20:36)
[2019-04-02] MEDS: Gabapentin 400 MG CAP PO SCH ×4 (08:41→20:35)
[2019-04-02] MEDS: Enoxaparin Sodium 40 MG/0.4 ML SYRINGE SC SCH (08:42)
[2019-04-02] MEDS: FLUoxetine HCl 20 MG CAP PO SCH ×2 (08:42→20:36)
[2019-04-02] MEDS: Saccharomyces boulardii 250 MG CAP PO SCH (08:42)
[2019-04-02] MEDS: Brimonidine Tartrate 0.2% Ophth Soln 5 ml Bottle R EYE SCH ×3 (08:43→20:42)
[2019-04-02] MEDS: Mupirocin 2% Ointment 22 GM Tube TOP PRN (08:45)
[2019-04-02] MEDS: Clotrimazole 1 % Cream 30 GM TUBE TOP SCH ×2 (08:46→20:43)
[2019-04-02] MEDS: Nystatin Powder 15 GM BOT TOP SCH ×2 (08:47→20:43)
[2019-04-02] MEDS: Sodium Chloride 5% Opth 15 ML BOT R EYE SCH ×4 (08:49→20:42)
[2019-04-02] MEDS: Simethicone Chewable 80 MG TAB PO SCH ×4 (09:51→20:34)
--- NOTE | 2019-04-02 10:27 | PRG ---
DATE OF SERVICE: 04/02/2019 SUBJECTIVE: This morning, she says she feels better. She is coughing, but improved. OBJECTIVE: VITAL SIGNS: Sats are 95% on 3 L, respiratory rate 18, temperature 98, blood pressure 143/72, and pulse 114. CHEST: Anterior rhonchi. CARDIAC: Normal S1 and S2. No gallops. ABDOMEN: No masses. IMPRESSION: 1. Urinary tract infection. 2. Bronchitis. 3. Multiple sclerosis. PLAN: Continue present treatment, steroids, and neb treatment. We will follow. Job ID: [id number]
[2019-04-02] MEDS: Lactinex Tablet PO SCH (11:21)
--- NOTE | 2019-04-02 11:33 | PDOC.HOSPP ---
- Subjective Subjective: Patient states she is feeling better. Breathing better. Still with weak cough, not getting much phlegm out. Able to get an occasional deep breath, though mainly short shallow breaths. Denies fever/ chills. - Objective Vital Signs & Weight: Vital Signs (12 hours) Temp Pulse Resp BP Pulse Ox 04/02/19 08:00 98.3 F 114 H 18 143/72 H 94 L 04/02/19 06:13 115 H 14 97 04/02/19 04:42 110 H 04/02/19 00:39 93 L 04/02/19 00:33 120 H 12 Weight Weight 302 lb 11.2 oz I&O: 04/01/19 04/02/19 04/03/19 06:59 06:59 06:59 Intake Total 960 2350 Output Total 1550 2750 Balance -590 -400 Result Diagrams: 03/31/19 05:42 03/31/19 06:42 ROS - Medication Medications: Active Medications Generic Name Dose Route Start Last Admin Trade Name Freq PRN Reason Stop Dose Admin Acidophilus 1 tab 03/31/19 12:00 04/02/19 11:21 Floranex PO 1 tab 1200 KAREN Administration Albuterol/Ipratropium 3 ml 04/01/19 19:00 04/02/19 06:16 Duoneb NEB 3 ml [id number] KAREN Administration Arformoterol Tartrate 15 mcg 03/31/19 18:30 04/02/19 06:13 Brovana NEB 15 mcg BID-RT KAREN Administration Baclofen 15 mg 03/31/19 05:00 04/02/19 06:22 Lioresal PO 15 mg 0500,2300 KAREN Administration Baclofen 5 mg 04/01/19 11:00 04/02/19 11:21 Lioresal PO 5 mg 1100,1700 KAREN Administration Benzonatate 100 mg 03/30/19 21:42 04/01/19 23:26 Tessalon PO 100 mg Q4H PRN Administration Cough Brimonidine Tartrate 1 drop 03/31/19 09:00 04/02/19 08:43 Alphagan 0.2% Ophth Soln R EYE 1 drp TID KAREN Administration Budesonide 0.5 mg 03/31/19 18:30 04/02/19 06:16 Pulmicort Neb Solution INH 0.5 mg BID-RT KAREN Administration Cholecalciferol 5,000 units 03/31/19 09:00 04/02/19 08:39 Vitamin D3 PO 5,000 units DAILY KAREN Administration Clotrimazole 1 gm 03/31/19 21:00 04/02/19 08:46 Lotrimin 1% Cream TOP 1 applic BID KAREN Administration Cyclobenzaprine HCl 10 mg 03/31/19 09:00 04/02/19 08:41 Flexeril PO 10 mg TID KAREN Administration Docusate Sodium 100 mg 03/31/19 21:00 04/01/19 20:46 Colace PO 100 mg HS AKREN Administration Enoxaparin Sodium 40 mg 03/31/19 09:00 04/02/19 08:42 Lovenox SC 40 mg 0900 KAREN Administration Famotidine 20 mg 03/31/19 09:00 04/02/19 08:41 Pepcid PO 20 mg BID KAREN Administration Fluoxetine HCl 20 mg 03/31/19 09:00 04/02/19 08:42 Prozac PO 20 mg BID KAREN Administration Gabapentin 800 mg 03/31/19 09:00 04/02/19 08:41 Neurontin PO 800 mg QID KAREN Administration Guaifenesin 1,200 mg 04/01/19 21:00 04/02/19 08:40 Mucinex PO 04/04/19 09:01 1,200 mg Q12HR KAREN Administration Hyoscyamine Sulfate 0.25 mg 03/31/19 09:00 04/02/19 09:50 Levsin PO 0.25 mg QID KAREN Administration Iron/Minerals/Multivitamins 1 tab 03/31/19 17:00 04/01/19 16:22 Theragran M PO 1 tab QPM-WM KAREN Administration Latanoprost 1 drop 03/31/19 21:00 04/01/19 20:51 Xalatan 0.005% Ophth Soln R EYE 1 drp HS KAREN Administration Mesalamine 1,000 mg 03/31/19 21:00 04/01/19 21:05 Canasa [place] 1,000 mg HS KAREN Administration Methylprednisolone Sodium Succinate 40 mg 04/01/19 18:00 04/02/19 06:22 Solu-Medrol IVP 40 mg Q6HR KAREN Administration Mometasone Furoate/Formoterol Fumar 2 puff 04/01/19 18:30 04/02/19 06:16 Dulera 200 Mcg/5 Mcg Inhaler INH 2 puff BID-RT KAREN Administration Mupirocin 0 gm 03/30/19 21:40 04/02/19 08:45 Bactroban 2% Ointment TOP 1 applic PRN PRN Administration Wound Care Nystatin 0 gm 03/31/19 09:00 04/02/19 08:47 Mycostatin Powder TOP 1 applic BID KAREN Administration Saccharomyces Boulardii 250 mg 03/31/19 09:00 04/02/19 08:42 Florastor PO 250 mg QAM KAREN Administration Simethicone 240 mg 03/31/19 09:00 04/02/19 09:51 Mylicon Chewable PO 240 mg QID KAREN Administration Sodium Chloride 1 drop 03/31/19 09:00 04/02/19 08:49 Nancy-128 5% Oph Kandy R EYE 1 drp QID KAREN Administration Throat Lozenges 1 aziza 04/01/19 12:33 04/01/19 23:19 Cepastat Lozenges PO 1 aziza Q2H PRN Administration Sore Throat - Exam ill appearing Eye: PERRL Eye - other findings: EOMI ENT: moist mucosa Neck: supple Heart: RRR, no murmur, no gallops, no rubs Respiratory: no rales, rhonchi, wheezes. negative: normal chest expansion Respiratory - other findings: Increased bronchial course barking cough, louder wheezing Gastrointestinal: soft, non-tender, non-distended, normal bowel sounds, no guarding, no rigidity Extremities: 1+ LE edema Neurological: CN's grossly intact, no focal deficits, no new deficit Musculoskeletal: generalized weakness Psychiatric: normal affect, A&O x 3 Hosp A/P (1) Reactive airway disease with acute exacerbation Code(s): J45.901 - UNSPECIFIED ASTHMA WITH (ACUTE) EXACERBATION Status: Acute (2) UTI (urinary tract infection) Status: Acute (3) Asthma exacerbation Code(s): J45.901 - UNSPECIFIED ASTHMA WITH (ACUTE) EXACERBATION Status: Acute Qualifiers: Asthma severity: moderate (4) Complicated UTI (urinary tract infection) Code(s): N39.0 - URINARY TRACT INFECTION, SITE NOT SPECIFIED Status: Acute (5) Sepsis Code(s): A41.9 - SEPSIS, UNSPECIFIED ORGANISM Status: Resolved (6) Morbid obesity Code(s): E66.01 - MORBID (SEVERE) OBESITY DUE TO EXCESS CALORIES Status: Chronic (7) Multiple sclerosis, secondary progressive Code(s): G35 - MULTIPLE SCLEROSIS Status: Chronic (8) Neurogenic bladder Code(s): N31.9 - NEUROMUSCULAR DYSFUNCTION OF BLADDER, UNSPECIFIED Status: Chronic - Plan Plan: Pulmonary consultation, recommendations appreciated Continue IV steroids Continue IV ABX, Levaquin should cover both pulmonary organisms and UTI with pseudomonas Xopenex and Ipratropium bromide inhalation scheduled and PRN Guaifenesin 1200mg x 3 days as expectorant Cultures noted MS may be affecting the diaphragm and contributing to weak cough and asthma exacerbation Continue home meds as able GI and DVT PPX Improving on maximum medical management
[2019-04-02] MEDS: Multivitamin W/ Minerals 1 TAB PO SCH (17:33)
[2019-04-02] MEDS: Benzonatate 100 MG CAP PO PRN (20:34)
[2019-04-02] MEDS: Docusate 100 MG CAP PO SCH (20:36)
[2019-04-02] MEDS: Latanoprost 0.005% Ophth Soln 2.5 ml Bottle R EYE SCH (20:43)
[2019-04-02] MEDS: Mesalamine 1000 MG Suppository PR SCH (20:43)
[2019-04-03] MEDS: methylPREDNISolone Sod Succ 40 MG VIAL IVP SCH ×4 (00:18→17:56)
[2019-04-03] MEDS: Benzonatate 100 MG CAP PO PRN ×2 (00:20→05:52)
[2019-04-03] MEDS: Baclofen 10 MG TAB PO SCH ×3 (05:50→17:55)
[2019-04-03] MEDS: Budesonide 0.5 MG/2 ML NEB INH SCH ×2 (06:24→20:21)
[2019-04-03] MEDS: Mometasone/Formoterol 120 PUFF INHALER INH SCH ×2 (06:26→20:23)
[2019-04-03] MEDS: Arformoterol 15 MCG/2 ML NEB NEB SCH ×2 (06:35→20:19)
[2019-04-03] MEDS: Enoxaparin Sodium 40 MG/0.4 ML SYRINGE SC SCH (08:11)
[2019-04-03] MEDS: Simethicone Chewable 80 MG TAB PO SCH ×4 (08:11→20:58)
[2019-04-03] MEDS: Saccharomyces boulardii 250 MG CAP PO SCH (08:12)
[2019-04-03] MEDS: guaiFENesin ER 600 MG TAB PO SCH ×2 (08:12→20:57)
[2019-04-03] MEDS: Gabapentin 400 MG CAP PO SCH ×4 (08:13→20:58)
[2019-04-03] MEDS: Cyclobenzaprine 10 MG TAB PO SCH ×3 (08:13→20:57)
[2019-04-03] MEDS: Famotidine 20 MG TAB PO SCH ×2 (08:13→20:57)
[2019-04-03] MEDS: FLUoxetine HCl 20 MG CAP PO SCH ×2 (08:13→20:57)
[2019-04-03] MEDS: Brimonidine Tartrate 0.2% Ophth Soln 5 ml Bottle R EYE SCH ×3 (08:23→21:00)
[2019-04-03] MEDS: Nystatin Powder 15 GM BOT TOP SCH ×2 (08:23→21:13)
[2019-04-03] MEDS: Clotrimazole 1 % Cream 30 GM TUBE TOP SCH ×2 (08:23→21:02)
[2019-04-03] MEDS: Sodium Chloride 5% Opth 15 ML BOT R EYE SCH ×4 (08:24→20:56)
--- NOTE | 2019-04-03 08:40 | PRG ---
DATE OF SERVICE: 04/03/2019 SUBJECTIVE: She is still very frustrated about cough, wheezing, and shortness of breath. OBJECTIVE: VITAL SIGNS: On exam, her temperature is 98.2, pulse 114, O2 saturation 96% on 3 L, and respiratory rate 16. HEENT: Unremarkable. NECK: No adenopathy or JVD. LUNGS: I do not hear any audible wheezing at the current time, but she does have a very profound cough. ABDOMEN: Soft, obese, nontender, and nondistended. EXTREMITIES: No edema. LABORATORY DATA: No new labs were done today. ASSESSMENT: 1. Asthmatic bronchitis with continued symptoms. 2. Multiple sclerosis. PLAN: 1. I have added Pulmicort to her nebulization regimen. 2. Try EzPAP. 3. Apparently, she gave her home nebulizer away to hospice organization. She does not currently have a nebulization system at home. She is probably not strong enough to actuate metered-dose inhaler, so some type of nebulization machine will have to be found for her. Job ID: [id number]
--- NOTE | 2019-04-03 12:21 | PDOC.HOSPP ---
- Subjective Encounter Date: 04/03/19 Encounter Time: 12:18 Subjective: Morbidly obese female with debiluitating MS associated with paraparesis, neurogenic bladder and bowel s/p diversion colostomy and chronic rodriguez, recently discharge following treatment for COPD exacerbation, now readmitted for worsening SOB and cough. Still coughing with minimal sputum production. feeling better otherwise. - Objective Vital Signs & Weight: Vital Signs (12 hours) Pulse Resp Pulse Ox 04/03/19 06:24 114 H 16 96 04/03/19 02:20 94 L Weight Weight 302 lb 11.2 oz I&O: 04/02/19 04/03/19 04/04/19 06:59 06:59 06:59 Intake Total 2350 1440 Output Total 2750 1865 Balance -400 -425 Result Diagrams: 03/31/19 05:42 03/31/19 06:42 ROS - Medication Medications: Active Medications Generic Name Dose Route Start Last Admin Trade Name Freq PRN Reason Stop Dose Admin Acidophilus 1 tab 03/31/19 12:00 04/02/19 11:21 Floranex PO 1 tab 1200 KAREN Administration Arformoterol Tartrate 15 mcg 03/31/19 18:30 04/03/19 06:35 Brovana NEB 15 mcg BID-RT KAREN Administration Baclofen 15 mg 03/31/19 05:00 04/03/19 05:50 Lioresal PO 15 mg 0500,2300 KAREN Administration Baclofen 5 mg 04/01/19 11:00 04/02/19 17:35 Lioresal PO 5 mg 1100,1700 KAREN Administration Benzonatate 100 mg 03/30/19 21:42 04/03/19 05:52 Tessalon PO 100 mg Q4H PRN Administration Cough Brimonidine Tartrate 1 drop 03/31/19 09:00 04/03/19 08:23 Alphagan 0.2% Ophth Soln R EYE 1 drp TID KAREN Administration Budesonide 0.5 mg 03/31/19 18:30 04/03/19 06:24 Pulmicort Neb Solution INH 0.5 mg BID-RT KAREN Administration Cholecalciferol 5,000 units 03/31/19 09:00 04/03/19 08:12 Vitamin D3 PO 5,000 units DAILY KAREN Administration Clotrimazole 1 gm 03/31/19 21:00 04/03/19 08:23 Lotrimin 1% Cream TOP 1 applic BID KAREN Administration Cyclobenzaprine HCl 10 mg 03/31/19 09:00 04/03/19 08:13 Flexeril PO 10 mg TID KAREN Administration Docusate Sodium 100 mg 03/31/19 21:00 04/02/19 20:36 Colace PO 100 mg HS KAREN Administration Enoxaparin Sodium 40 mg 03/31/19 09:00 04/03/19 08:11 Lovenox SC 40 mg 0900 KAREN Administration Famotidine 20 mg 03/31/19 09:00 04/03/19 08:13 Pepcid PO 20 mg BID KAREN Administration Fluoxetine HCl 20 mg 03/31/19 09:00 04/03/19 08:13 Prozac PO 20 mg BID KAREN Administration Gabapentin 800 mg 03/31/19 09:00 04/03/19 08:13 Neurontin PO 800 mg QID KAREN Administration Guaifenesin 1,200 mg 04/01/19 21:00 04/03/19 08:12 Mucinex PO 04/04/19 09:01 1,200 mg Q12HR KAREN Administration Hyoscyamine Sulfate 0.25 mg 03/31/19 09:00 04/03/19 08:11 Levsin PO 0.25 mg QID KAREN Administration Iron/Minerals/Multivitamins 1 tab 03/31/19 17:00 04/02/19 17:33 Theragran M PO 1 tab QPM-WM KAREN Administration Latanoprost 1 drop 03/31/19 21:00 04/02/19 20:43 Xalatan 0.005% Ophth Soln R EYE 1 drp HS KAREN Administration Levofloxacin 750 mg 04/03/19 06:00 04/03/19 05:50 Levaquin PO 04/10/19 06:01 750 mg 0600 KAREN Administration Mesalamine 1,000 mg 03/31/19 21:00 04/02/19 20:43 Canasa [place] 1,000 mg HS KAREN Administration Methylprednisolone Sodium Succinate 40 mg 04/01/19 18:00 04/03/19 05:50 Solu-Medrol IVP 40 mg Q6HR KAREN Administration Mometasone Furoate/Formoterol Fumar 2 puff 04/01/19 18:30 04/03/19 06:26 Dulera 200 Mcg/5 Mcg Inhaler INH 2 puff BID-RT KAREN Administration Mupirocin 0 gm 03/30/19 21:40 04/02/19 08:45 Bactroban 2% Ointment TOP 1 applic PRN PRN Administration Wound Care Nystatin 0 gm 03/31/19 09:00 04/03/19 08:23 Mycostatin Powder TOP 1 applic BID KAREN Administration Saccharomyces Boulardii 250 mg 03/31/19 09:00 04/03/19 08:12 Florastor PO 250 mg QAM KAREN Administration Simethicone 240 mg 03/31/19 09:00 04/03/19 08:11 Mylicon Chewable PO 240 mg QID KAREN Administration Sodium Chloride 1 drop 03/31/19 09:00 04/03/19 08:24 [id number]-128 5% Oph Kandy R EYE 1 drp QID KAREN Administration Throat Lozenges 1 aziza 04/01/19 12:33 04/01/19 23:19 Cepastat Lozenges PO 1 aziza Q2H PRN Administration Sore Throat - Exam awake alert General - other findings: morbidly obese Eye: anicteric sclera ENT: normocephalic atraumatic Heart: RRR Heart - other findings: tachycardic Respiratory: no ronchi Respiratory - other findings: fair air entry with crackles on the right lung base posteriorly. Gastrointestinal: soft, non-distended, normal bowel sounds Gastrointestinal - other findings: morbidly obese with pannus. colostomy noted Extremities: no cyanosis, no edema Extremeties - other findings: loose skin with some varicosities on both legs but no edema Neurological: CN's grossly intact Neurological - other findings: paraparesis as well as mild left upper limb weakness noted Psychiatric: normal affect, A&O x 3 Hosp A/P (1) COPD exacerbation Code(s): J44.1 - CHRONIC OBSTRUCTIVE PULMONARY DISEASE W (ACUTE) EXACERBATION Status: Acute (2) Acute bronchitis Code(s): J20.9 - ACUTE BRONCHITIS, UNSPECIFIED Status: Acute (3) Complicated UTI (urinary tract infection) Code(s): N39.0 - URINARY TRACT INFECTION, SITE NOT SPECIFIED Status: Acute (4) Colostomy in place Code(s): Z93.3 - COLOSTOMY STATUS Status: Chronic (5) Functional quadriplegia secondary to MS Code(s): G35 - MULTIPLE SCLEROSIS; R53.2 - FUNCTIONAL QUADRIPLEGIA Status: Chronic (6) Morbid obesity Code(s): E66.01 - MORBID (SEVERE) OBESITY DUE TO EXCESS CALORIES Status: Chronic (7) Multiple sclerosis, secondary progressive Code(s): G35 - MULTIPLE SCLEROSIS Status: Chronic (8) Neurogenic bladder Code(s): N31.9 - NEUROMUSCULAR DYSFUNCTION OF BLADDER, UNSPECIFIED Status: Chronic (9) Ulcerative colitis Code(s): K51.90 - ULCERATIVE COLITIS, UNSPECIFIED, WITHOUT COMPLICATIONS Status: Chronic - Plan Continue bronchodilators, steroid, oxygen and antibiotics. Continue other supportive care. mucomyst treatment contemplated. Continue PT
[2019-04-03] MEDS: Lactinex Tablet PO SCH (12:35)
[2019-04-03] MEDS: Multivitamin W/ Minerals 1 TAB PO SCH (17:55)
[2019-04-03] MEDS: Montelukast Sodium 10 mg Tablet PO SCH (20:57)
[2019-04-03] MEDS: Docusate 100 MG CAP PO SCH (20:57)
[2019-04-03] MEDS: Mesalamine 1000 MG Suppository PR SCH (21:00)
[2019-04-03] MEDS: Latanoprost 0.005% Ophth Soln 2.5 ml Bottle R EYE SCH (21:08)
[2019-04-04] MEDS: methylPREDNISolone Sod Succ 40 MG VIAL IVP SCH ×2 (00:19→06:13)
[2019-04-04] MEDS: Baclofen 10 MG TAB PO SCH ×5 (00:27→22:47)
[2019-04-04 05:29] LABS: #Lymphocytes 0.9 thou/uL (1.20-3.40); #Monocytes 0.9 thou/uL (0.11-0.59); %Eosinophils 0.2 % (0.0-10.0); %Lymphocytes 5.9 % (21.0-51.0); %Monocytes 5.9 % (0.0-10.0); Hemoglobin 14.8 g/dL (12.0-16.0); Mean Corpuscular HGB CONC 31.4 g/dL (32.0-36.0); Mean Corpuscular Hemoglobin 28.2 pg (27.0-31.0); Mean Corpuscular Volume 89.9 fL (78.0-98.0); Mean Platelet Volume 6.4 fL (7.4-10.4); Platelet Count 495 thou/uL (130-400); RBC Distribution Width 13.1 % (11.5-14.5); Red Blood Cell (RBC) Count 5.25 mill/uL (4.20-5.40); White Blood Cell (WBC) Count 14.8 thou/uL (4.8-10.8)
[2019-04-04 05:51] LABS: Anion Gap 13 mmol/L (10-20); BUN (Urea Nitrogen) 13 mg/dL (9.8-20.1); Calc. Creatinine Clearance 218 mL/min (70-130); Calcium 9.1 mg/dL (7.8-10.44); Carbon Dioxide 24 mmol/L (22-29); Chloride 106 mmol/L (98-107); Estimated GFR-MDRD Greater than 90; Glucose 138 mg/dL (70-105); Potassium 4.2 mmol/L (3.5-5.1); Sodium 139 mmol/L (136-145)
[2019-04-04] MEDS: Budesonide 0.5 MG/2 ML NEB INH SCH ×2 (07:16→18:47)
[2019-04-04] MEDS: Arformoterol 15 MCG/2 ML NEB NEB SCH ×2 (07:16→18:48)
[2019-04-04] MEDS: guaiFENesin ER 600 MG TAB PO SCH (09:27)
[2019-04-04] MEDS: Simethicone Chewable 80 MG TAB PO SCH ×4 (09:28→21:40)
[2019-04-04] MEDS: Gabapentin 400 MG CAP PO SCH ×4 (09:28→20:49)
[2019-04-04] MEDS: Famotidine 20 MG TAB PO SCH ×2 (09:28→20:49)
[2019-04-04] MEDS: FLUoxetine HCl 20 MG CAP PO SCH ×2 (09:28→20:50)
[2019-04-04] MEDS: Cyclobenzaprine 10 MG TAB PO SCH ×3 (09:28→20:45)
[2019-04-04] MEDS: Enoxaparin Sodium 40 MG/0.4 ML SYRINGE SC SCH (09:29)
[2019-04-04] MEDS: Clotrimazole 1 % Cream 30 GM TUBE TOP SCH ×2 (09:29→21:01)
[2019-04-04] MEDS: Saccharomyces boulardii 250 MG CAP PO SCH (09:30)
[2019-04-04] MEDS: Sodium Chloride 5% Opth 15 ML BOT R EYE SCH ×3 (09:30→21:00)
[2019-04-04] MEDS: Nystatin Powder 15 GM BOT TOP SCH ×2 (09:30→20:59)
[2019-04-04] MEDS: Brimonidine Tartrate 0.2% Ophth Soln 5 ml Bottle R EYE SCH ×3 (09:30→21:02)
[2019-04-04] MEDS: Mometasone/Formoterol 120 PUFF INHALER INH SCH ×2 (10:08→18:48)
--- NOTE | 2019-04-04 10:29 | PRG ---
DATE OF SERVICE: 04/04/2019 SUBJECTIVE: She says she feels better in terms of her cough after starting the EzPAP yesterday. OBJECTIVE: VITAL SIGNS: Temperature is 98.4, pulse 121, respirations 18, O2 saturation 98% on 3 L, and blood pressure 142/78. HEENT: Unremarkable. NECK: No adenopathy or JVD. CHEST: Clear anteriorly. CARDIAC: S1 and S2. Regular without murmur. ABDOMEN: Soft. EXTREMITIES: No edema. LABORATORY DATA: White blood cell count 14.8, hematocrit 47.2, and platelet count 495. Sodium 139, potassium 4.2, chloride 106, CO2 of 24, , glucose 138. ASSESSMENT: 1. Asthmatic bronchitis. 2. Multiple sclerosis. PLAN: I do not really think the patient's symptoms are as bad as she is letting on, and I suspect there may be a malingering component to her current hospitalization. The EzPAP has helped in her opinion; however, that is not a viable solution at home. I will try her on an Acapella flutter valve and see if that works. I have advised that she needs a sleep study as an outpatient to see if she would qualify for outpatient BiPAP. She was quite reluctant to undergo that. She does have care issues that would make a sleep study in the Sleep Lab very difficult. I am, in the meantime, continuing other medications and will transition to oral steroids. Job ID: [id number]
[2019-04-04] MEDS: Lactinex Tablet PO SCH (12:57)
--- NOTE | 2019-04-04 14:16 | PQF ---
CLINICAL DOCUMENTATION IMPROVEMENT CLARIFICATION FORM: ICD-10 Updated PLEASE DO AN ADDENDUM TO THE PROGRESS NOTE WITH ANY DOCUMENTATION UPDATES OR ADDITIONS AND CARRY THROUGH TO DC SUMMARY. THANK YOU. DATE: 04/04/2019; 04/05/2019 ATTN: Dr. Ricketts Please exercise your independent, professional judgment in responding to the clarification form. Clinical indicators are provided on the bottom of this form for your review Please check appropriate box(es): [ ] Sepsis due to UTI due to indwelling rodriguez catheter. [ ] Sepsis due to UTI not due to indwelling rodriguez catheter. [ ] Localized infection without sepsis [ X ] Other diagnosis Presumed sepsis from COPD exacerbation and or possible catheter associated UTI [ ] Unable to determine In addition, please specify: Present on Admission (POA): [ X ] Yes [ ] No [ ] Unable to determine For continuity of documentation, please document condition throughout progress notes and discharge summary. Thank You. CLINICAL INDICATORS - SIGNS / SYMPTOMS / LABS ER NURSES NOTES 03/30: BP 180/120, Pulse 130, Resp. 25. Temp 99.5, O2 SAT 96 on Face mask. ER Nursing Assessment: Pt has an indwelling catheter and a colostomy bag. Urine collection: Pt already has a rodriguez established. PN 03/31: Chronic indwelling rodriguez. UTI PN 04/01-04/02: Sepsis. Resolved. RISKS: H&P 03/30: Debilitating multiple sclerosis resulting in bed-bound state, hemiplegia from the waist down. Urine with evidence of urinary tract infection with yeast. PN 03/31: Chronic indwelling rodriguez. TREATMENT: MAR: Order 03/31-04/02: IV Zosyn MAR: Order 04/02: Levaquin 750mg po Thank you, Talia (This form is maintained as a part of the permanent medical record) 2014 [employer] All Rights Reserved Talia Irene RN, BSN [email or web address] Office: [phone] [facility] SYSTEMMaria [facility] Carmen
[2019-04-04] MEDS: Multivitamin W/ Minerals 1 TAB PO SCH (17:12)
[2019-04-04] MEDS ORDERED: Ibuprofen 200 MG TAB PO SCH (18:45)
--- NOTE | 2019-04-04 19:51 | PDOC.HOSPP ---
- Subjective Encounter Date: 04/04/19 Encounter Time: 16:49 Subjective: Morbidly obese female with debiluitating MS associated with paraparesis and neurogenic bladder s/p chronic indwelling rodriguez, UC s/p diversion colostomy, recently discharge following treatment for COPD exacerbation, now readmitted with worsening SOB and cough. Still coughing with minimal sputum production but feeling better overall. - Objective Vital Signs & Weight: Vital Signs (12 hours) Temp Pulse Resp BP Pulse Ox 04/04/19 18:48 109 H 16 95 04/04/19 18:47 109 H 16 95 04/04/19 14:04 116 H 20 96 04/04/19 10:03 118 H 20 95 04/04/19 08:32 98.4 F 121 H 18 142/78 H 98 Weight Weight 302 lb 11.2 oz I&O: 04/03/19 04/04/19 04/05/19 06:59 06:59 06:59 Intake Total 1440 620 Output Total 1865 1550 Balance -425 -930 Result Diagrams: 04/04/19 05:21 04/04/19 05:21 Hospitalist ROS - Medication Medications: Active Medications Generic Name Dose Route Start Last Admin Trade Name Freq PRN Reason Stop Dose Admin Acidophilus 1 tab 03/31/19 12:00 04/04/19 12:57 Floranex PO 1 tab 1200 KAREN Administration Albuterol/Ipratropium 3 ml 04/03/19 10:30 04/04/19 18:48 Duoneb EZPAP 3 ml [id number] KAREN Administration Arformoterol Tartrate 15 mcg 03/31/19 18:30 04/04/19 18:48 Brovana NEB 15 mcg BID-RT KAREN Administration Baclofen 15 mg 03/31/19 05:00 04/04/19 06:13 Lioresal PO 15 mg 0500,2300 KAREN Administration Baclofen 5 mg 04/01/19 11:00 04/04/19 17:11 Lioresal PO 5 mg 1100,1700 KAREN Administration Benzonatate 100 mg 03/30/19 21:42 04/03/19 05:52 Tessalon PO 100 mg Q4H PRN Administration Cough Brimonidine Tartrate 1 drop 03/31/19 09:00 04/04/19 15:35 Alphagan 0.2% Ophth Soln R EYE 1 drp TID KAREN Administration Budesonide 0.5 mg 04/03/19 18:30 04/04/19 18:47 Pulmicort Neb Solution INH 0.5 mg BID-RT KAREN Administration Cholecalciferol 5,000 units 03/31/19 09:00 04/04/19 09:29 Vitamin D3 PO 5,000 units DAILY KAREN Administration Clotrimazole 1 gm 03/31/19 21:00 04/04/19 09:29 Lotrimin 1% Cream TOP 1 applic BID KAREN Administration Cyclobenzaprine HCl 10 mg 03/31/19 09:00 04/04/19 15:35 Flexeril PO 10 mg TID KAREN Administration Docusate Sodium 100 mg 03/31/19 21:00 04/03/19 20:57 Colace PO 100 mg HS KAREN Administration Enoxaparin Sodium 40 mg 03/31/19 09:00 04/04/19 09:29 Lovenox SC 40 mg 0900 KAREN Administration Famotidine 20 mg 03/31/19 09:00 04/04/19 09:28 Pepcid PO 20 mg BID KAREN Administration Fluoxetine HCl 20 mg 03/31/19 09:00 04/04/19 09:28 Prozac PO 20 mg BID KAREN Administration Gabapentin 800 mg 03/31/19 09:00 04/04/19 17:11 Neurontin PO 800 mg QID KAREN Administration Hyoscyamine Sulfate 0.25 mg 03/31/19 09:00 04/04/19 17:12 Levsin PO 0.25 mg QID KAREN Administration Iron/Minerals/Multivitamins 1 tab 03/31/19 17:00 04/04/19 17:12 Theragran M PO 1 tab QPM-WM KAREN Administration Latanoprost 1 drop 03/31/19 21:00 04/03/19 21:08 Xalatan 0.005% Ophth Soln R EYE 1 drp HS KAREN Administration Levofloxacin 750 mg 04/03/19 06:00 04/04/19 06:13 Levaquin PO 04/10/19 06:01 750 mg 0600 KAREN Administration Mesalamine 1,000 mg 03/31/19 21:00 04/03/19 21:00 [place]asa [place] 1,000 mg HS KAREN Administration Mometasone Furoate/Formoterol Fumar 2 puff 04/01/19 18:30 04/04/19 18:48 Dulera 200 Mcg/5 Mcg Inhaler INH 2 puff BID-RT KAREN Administration Montelukast Sodium 10 mg 04/03/19 21:00 04/03/19 20:57 Singulair PO 10 mg QPM KAREN Administration Mupirocin 0 gm 03/30/19 21:40 04/02/19 08:45 Bactroban 2% Ointment TOP 1 applic PRN PRN Administration Wound Care Nystatin 0 gm 03/31/19 09:00 04/04/19 09:30 Mycostatin Powder TOP 1 applic BID KAREN Administration Saccharomyces Boulardii 250 mg 03/31/19 09:00 04/04/19 09:30 Florastor PO 250 mg QAM KAREN Administration Simethicone 240 mg 03/31/19 09:00 04/04/19 17:11 Mylicon Chewable PO 240 mg QID KAREN Administration Sodium Chloride 1 drop 03/31/19 09:00 04/04/19 12:57 Nancy-128 5% Oph Kandy R EYE 1 drp QID KAREN Administration Throat Lozenges 1 aziza 04/01/19 12:33 04/01/19 23:19 Cepastat Lozenges PO 1 aziza Q2H PRN Administration Sore Throat - Exam General Appearance: awake alert General - other findings: morbidly obese Eye: anicteric sclera ENT: normocephalic atraumatic, moist mucosa Neck: symmetric Heart: RRR Heart - other findings: tachycardic Respiratory: no wheezes, no ronchi, no tachypnea Respiratory - other findings: few right basal crackles posteriorly noted Gastrointestinal: soft, non-tender, non-distended, normal bowel sounds Extremities: no cyanosis, no edema Neurological: CN's grossly intact, no new deficit Psychiatric: normal affect, A&O x 3 Hosp A/P (1) Acute respiratory failure with hypoxia Code(s): J96.01 - ACUTE RESPIRATORY FAILURE WITH HYPOXIA Status: Acute (2) COPD exacerbation Code(s): J44.1 - CHRONIC OBSTRUCTIVE PULMONARY DISEASE W (ACUTE) EXACERBATION Status: Acute (3) Acute bronchitis Code(s): J20.9 - ACUTE BRONCHITIS, UNSPECIFIED Status: Acute (4) Complicated UTI (urinary tract infection) Code(s): N39.0 - URINARY TRACT INFECTION, SITE NOT SPECIFIED Status: Acute (5) Colostomy in place Code(s): Z93.3 - COLOSTOMY STATUS Status: Chronic (6) Functional quadriplegia secondary to MS Code(s): G35 - MULTIPLE SCLEROSIS; R53.2 - FUNCTIONAL QUADRIPLEGIA Status: Chronic (7) Morbid obesity Code(s): E66.01 - MORBID (SEVERE) OBESITY DUE TO EXCESS CALORIES Status: Chronic (8) Multiple sclerosis, secondary progressive Code(s): G35 - MULTIPLE SCLEROSIS Status: Chronic (9) Neurogenic bladder Code(s): N31.9 - NEUROMUSCULAR DYSFUNCTION OF BLADDER, UNSPECIFIED Status: Chronic (10) Ulcerative colitis Code(s): K51.90 - ULCERATIVE COLITIS, UNSPECIFIED, WITHOUT COMPLICATIONS Status: Chronic - Plan Start low dose metoprolol for persistent tachycardia. Continue bronchodilators, steroid, oxygen and antibiotics. Continue EZpap and acapella as per Pulmonary Wean oxygen as tolerated. Continue other supportive care. Continue PT
[2019-04-04] MEDS: Docusate 100 MG CAP PO SCH (20:49)
[2019-04-04] MEDS: Montelukast Sodium 10 mg Tablet PO SCH (20:50)
[2019-04-04] MEDS ORDERED: Clopidogrel Bisulfate 75 MG TAB ONE (20:51)
[2019-04-04] MEDS: Mesalamine 1000 MG Suppository PR SCH (20:57)
[2019-04-04] MEDS ORDERED: Metoprolol Tartrate 25 MG TAB PO SCH (21:00)
[2019-04-04] MEDS: Latanoprost 0.005% Ophth Soln 2.5 ml Bottle R EYE SCH (21:00)
[2019-04-04] MEDS ORDERED: predniSONE 20 MG TAB PO SCH (21:00)
[2019-04-05] MEDS: Baclofen 10 MG TAB PO SCH ×4 (05:06→22:54)
[2019-04-05] MEDS: Mometasone/Formoterol 120 PUFF INHALER INH SCH ×2 (06:49→18:31)
[2019-04-05] MEDS: Arformoterol 15 MCG/2 ML NEB NEB SCH ×2 (06:50→18:31)
[2019-04-05] MEDS: Budesonide 0.5 MG/2 ML NEB INH SCH ×2 (06:51→18:31)
[2019-04-05 08:43] LABS: Anion Gap 14 mmol/L (10-20); BUN (Urea Nitrogen) 14 mg/dL (9.8-20.1); Calc. Creatinine Clearance 237 mL/min (70-130); Calcium 8.8 mg/dL (7.8-10.44); Carbon Dioxide 22 mmol/L (22-29); Chloride 107 mmol/L (98-107); Estimated GFR-MDRD Greater than 90; Glucose 107 mg/dL (70-105); Magnesium 2.3 mg/dL (1.6-2.6); Potassium 4.5 mmol/L (3.5-5.1); Sodium 138 mmol/L (136-145)
[2019-04-05] MEDS: Gabapentin 400 MG CAP PO SCH ×4 (08:49→20:37)
[2019-04-05] MEDS: Simethicone Chewable 80 MG TAB PO SCH ×4 (08:49→20:35)
[2019-04-05] MEDS: Famotidine 20 MG TAB PO SCH ×2 (08:50→20:38)
[2019-04-05] MEDS: Metoprolol Tartrate 25 MG TAB PO SCH ×2 (08:50→20:39)
[2019-04-05] MEDS: Enoxaparin Sodium 40 MG/0.4 ML SYRINGE SC SCH (08:50)
[2019-04-05] MEDS: FLUoxetine HCl 20 MG CAP PO SCH ×2 (08:50→20:37)
[2019-04-05] MEDS: Saccharomyces boulardii 250 MG CAP PO SCH (08:50)
[2019-04-05] MEDS: Nystatin Powder 15 GM BOT TOP SCH ×2 (08:51→20:34)
[2019-04-05] MEDS: Cyclobenzaprine 10 MG TAB PO SCH ×3 (08:51→20:39)
[2019-04-05] MEDS: Brimonidine Tartrate 0.2% Ophth Soln 5 ml Bottle R EYE SCH ×3 (08:52→20:32)
[2019-04-05] MEDS: Clotrimazole 1 % Cream 30 GM TUBE TOP SCH ×2 (08:52→20:34)
[2019-04-05] MEDS: Sodium Chloride 5% Opth 15 ML BOT R EYE SCH ×4 (08:52→20:31)
[2019-04-05] MEDS: methylPREDNISolone Sod Succ 40 MG VIAL IVP SCH ×3 (09:36→20:33)
[2019-04-05] MEDS: Cefepime 1 GM in Sodium Chloride 0.9% 100 ML IVPB SCH ×2 (09:36→20:33)
--- NOTE | 2019-04-05 09:50 | PRG ---
DATE OF SERVICE: 04/05/2019 SUBJECTIVE: She seems worse this morning. She is coughing more. She did not sleep well last night. OBJECTIVE: VITAL SIGNS: Temperature 97.7, pulse 111, blood pressure not available for review, and O2 saturation 93% on 1.5 L. HEENT: Unremarkable. NECK: No JVD. LUNGS: Coarse rhonchi bilaterally. CARDIAC: S1, S2. Regular. ABDOMEN: Soft. EXTREMITIES: No edema. LABORATORY DATA: No labs were done today. ASSESSMENT: Continued persistent asthmatic bronchitis with little discernible improvement. PLAN: 1. I will go ahead and add a secondary antibiotic. 2. Go back to IV steroids. 3. Continue aggressive pulmonary toilet measures. Job ID: [id number]
[2019-04-05] MEDS: Lactinex Tablet PO SCH (11:20)
[2019-04-05] MEDS ORDERED: methylPREDNISolone Sod Succ 40 MG VIAL IVP SCH (12:00)
[2019-04-05] MEDS: Multivitamin W/ Minerals 1 TAB PO SCH (16:16)
--- NOTE | 2019-04-05 19:42 | PDOC.HOSPP ---
- Subjective Encounter Date: 04/05/19 Encounter Time: 11:41 Subjective: Morbidly obese female with debilitating MS associated with paraparesis and neurogenic bladder s/p chronic indwelling rodriguez, UC s/p diversion colostomy, recently discharge following treatment for COPD exacerbation, now readmitted with worsening SOB and cough. Cough reportedly worse overnight. No fever. - Objective Vital Signs & Weight: Vital Signs (12 hours) Temp Pulse Resp BP Pulse Ox 04/05/19 18:20 100 16 95 04/05/19 16:00 101 H 20 94 L 04/05/19 15:58 103 H 93 L 04/05/19 10:34 90 20 96 04/05/19 08:00 97.9 F 104 H 20 127/85 98 Weight Weight 302 lb 11.2 oz I&O: 04/04/19 04/05/19 04/06/19 06:59 06:59 06:59 Intake Total 620 800 920 Output Total 1550 1500 1900 Balance -440 -700 -697 Result Diagrams: 04/04/19 05:21 04/05/19 08:10 Hospitalist ROS - Medication Medications: Active Medications Generic Name Dose Route Start Last Admin Trade Name Freq PRN Reason Stop Dose Admin Acidophilus 1 tab 03/31/19 12:00 04/05/19 11:20 Floranex PO 1 tab 1200 KAREN Administration Albuterol/Ipratropium 3 ml 04/03/19 10:30 04/05/19 18:20 Duoneb EZPAP 3 ml [id number] KAREN Administration Arformoterol Tartrate 15 mcg 03/31/19 18:30 04/05/19 18:31 Brovana NEB 15 mcg BID-RT KAREN Administration Baclofen 15 mg 03/31/19 05:00 04/05/19 05:06 Lioresal PO 15 mg 0500,2300 KAREN Administration Baclofen 5 mg 04/01/19 11:00 04/05/19 16:17 Lioresal PO 5 mg 1100,1700 KAREN Administration Benzonatate 100 mg 03/30/19 21:42 04/03/19 05:52 Tessalon PO 100 mg Q4H PRN Administration Cough Brimonidine Tartrate 1 drop 03/31/19 09:00 04/05/19 15:21 Alphagan 0.2% Ophth Soln R EYE 1 drp TID KAREN Administration Budesonide 0.5 mg 04/03/19 18:30 04/05/19 18:31 Pulmicort Neb Solution INH 0.5 mg BID-RT KAREN Administration Cholecalciferol 5,000 units 03/31/19 09:00 04/05/19 08:49 Vitamin D3 PO 5,000 units DAILY KAREN Administration Clotrimazole 1 gm 03/31/19 21:00 04/05/19 08:52 Lotrimin 1% Cream TOP 1 applic BID KAREN Administration Cyclobenzaprine HCl 10 mg 03/31/19 09:00 04/05/19 15:22 Flexeril PO 10 mg TID KAREN Administration Docusate Sodium 100 mg 03/31/19 21:00 04/04/19 20:49 Colace PO 100 mg HS KAREN Administration Enoxaparin Sodium 40 mg 03/31/19 09:00 04/05/19 08:50 Lovenox SC 40 mg 0900 KAREN Administration Famotidine 20 mg 03/31/19 09:00 04/05/19 08:50 Pepcid PO 20 mg BID KAREN Administration Fluoxetine HCl 20 mg 03/31/19 09:00 04/05/19 08:50 Prozac PO 20 mg BID KAREN Administration Gabapentin 800 mg 03/31/19 09:00 04/05/19 16:16 Neurontin PO 800 mg QID KAREN Administration Hyoscyamine Sulfate 0.25 mg 03/31/19 09:00 04/05/19 16:16 Levsin PO 0.25 mg QID KAREN Administration Cefepime HCl 1 gm/ Sodium 100 mls @ 200 mls/hr 04/05/19 09:00 04/05/19 09:36 Chloride IVPB 100 mls Q12HR KAREN Administration Iron/Minerals/Multivitamins 1 tab 03/31/19 17:00 04/05/19 16:16 Theragran M PO 1 tab QPM-WM KAREN Administration Latanoprost 1 drop 03/31/19 21:00 04/04/19 21:00 Xalatan 0.005% Ophth Soln R EYE 1 drp HS KAREN Administration Levofloxacin 750 mg 04/03/19 06:00 04/05/19 05:06 Levaquin PO 04/10/19 06:01 750 mg 0600 KAREN Administration Mesalamine 1,000 mg 03/31/19 21:00 04/04/19 20:57 [place]asa [place] 1,000 mg HS KAREN Administration Methylprednisolone Sodium Succinate 40 mg 04/05/19 09:00 04/05/19 15:22 Solu-Medrol IVP 40 mg 0300,0900,1500,2100 KAREN Administration Metoprolol Tartrate 25 mg 04/05/19 09:00 04/05/19 08:50 Lopressor PO 25 mg BID KAREN Administration Mometasone Furoate/Formoterol Fumar 2 puff 04/01/19 18:30 04/05/19 18:31 Dulera 200 Mcg/5 Mcg Inhaler INH 2 puff BID-RT KAREN Administration Montelukast Sodium 10 mg 04/03/19 21:00 04/04/19 20:50 Singulair PO 10 mg QPM KAREN Administration Mupirocin 0 gm 03/30/19 21:40 04/02/19 08:45 Bactroban 2% Ointment TOP 1 applic PRN PRN Administration Wound Care Nystatin 0 gm 03/31/19 09:00 04/05/19 08:51 Mycostatin Powder TOP 1 applic BID KAREN Administration Saccharomyces Boulardii 250 mg 03/31/19 09:00 04/05/19 08:50 Florastor PO 250 mg QAM KAREN Administration Simethicone 240 mg 03/31/19 09:00 04/05/19 16:16 Mylicon Chewable PO 240 mg QID KAREN Administration Sodium Chloride 10 ml 03/30/19 21:34 04/04/19 20:59 Flush - Normal Saline IVF 10 ml PRN PRN Administration Saline Flush Sodium Chloride 1 drop 03/31/19 09:00 04/05/19 15:21 Nancy-128 5% Oph Kandy R EYE 1 drp QID KAREN Administration Throat Lozenges 1 aziza 04/01/19 12:33 04/01/19 23:19 Cepastat Lozenges PO 1 aziza Q2H PRN Administration Sore Throat - Exam General Appearance: awake alert General - other findings: obese Eye: anicteric sclera Neck: no JVD Heart: RRR Heart - other findings: tachycardic Respiratory - other findings: fair air entry with transmitted sound vs crackles especially right base Gastrointestinal: soft, non-tender, non-distended, normal bowel sounds Gastrointestinal - other findings: colostomy noted Extremities: no edema Neurological: CN's grossly intact, no new deficit Psychiatric: A&O x 3 Hosp A/P (1) Acute respiratory failure with hypoxia Code(s): J96.01 - ACUTE RESPIRATORY FAILURE WITH HYPOXIA Status: Acute (2) COPD exacerbation Code(s): J44.1 - CHRONIC OBSTRUCTIVE PULMONARY DISEASE W (ACUTE) EXACERBATION Status: Acute (3) Acute bronchitis Code(s): J20.9 - ACUTE BRONCHITIS, UNSPECIFIED Status: Acute (4) Complicated UTI (urinary tract infection) Code(s): N39.0 - URINARY TRACT INFECTION, SITE NOT SPECIFIED Status: Acute (5) Colostomy in place Code(s): Z93.3 - COLOSTOMY STATUS Status: Chronic (6) Functional quadriplegia secondary to MS Code(s): G35 - MULTIPLE SCLEROSIS; R53.2 - FUNCTIONAL QUADRIPLEGIA Status: Chronic (7) Morbid obesity Code(s): E66.01 - MORBID (SEVERE) OBESITY DUE TO EXCESS CALORIES Status: Chronic (8) Multiple sclerosis, secondary progressive Code(s): G35 - MULTIPLE SCLEROSIS Status: Chronic (9) Neurogenic bladder Code(s): N31.9 - NEUROMUSCULAR DYSFUNCTION OF BLADDER, UNSPECIFIED Status: Chronic (10) Ulcerative colitis Code(s): K51.90 - ULCERATIVE COLITIS, UNSPECIFIED, WITHOUT COMPLICATIONS Status: Chronic (11) Asthma exacerbation Code(s): J45.901 - UNSPECIFIED ASTHMA WITH (ACUTE) EXACERBATION Status: Acute Qualifiers: Asthma severity: moderate (12) Sepsis Code(s): A41.9 - SEPSIS, UNSPECIFIED ORGANISM Status: Resolved - Plan Continue bronchodilators, steroid, oxygen and antibiotics. Continue EZpap and acapella as per Pulmonary Wean oxygen as tolerated. Continue other supportive care. Continue low dose metoprolol for tachycardia. get repeat D dimer and get CTA chest is D dimer is elevated. Had CTA chest recently but contrast timing was inadequate. Continue PT
[2019-04-05] MEDS: Latanoprost 0.005% Ophth Soln 2.5 ml Bottle R EYE SCH (20:31)
[2019-04-05] MEDS: Docusate 100 MG CAP PO SCH (20:37)
[2019-04-05] MEDS: Mesalamine 1000 MG Suppository PR SCH (20:39)
[2019-04-05] MEDS: Montelukast Sodium 10 mg Tablet PO SCH (20:39)
[2019-04-06] MEDS: methylPREDNISolone Sod Succ 40 MG VIAL IVP SCH ×4 (02:14→20:45)
[2019-04-06] MEDS: Baclofen 10 MG TAB PO SCH ×4 (05:41→22:22)
[2019-04-06] MEDS: Mometasone/Formoterol 120 PUFF INHALER INH SCH ×2 (06:31→18:32)
[2019-04-06] MEDS: Arformoterol 15 MCG/2 ML NEB NEB SCH ×2 (06:34→18:31)
[2019-04-06] MEDS: Budesonide 0.5 MG/2 ML NEB INH SCH ×2 (06:35→18:30)
[2019-04-06] MEDS: Enoxaparin Sodium 40 MG/0.4 ML SYRINGE SC SCH (09:16)
[2019-04-06] MEDS: Cefepime 1 GM in Sodium Chloride 0.9% 100 ML IVPB SCH ×2 (09:16→20:45)
[2019-04-06] MEDS: FLUoxetine HCl 20 MG CAP PO SCH ×2 (09:17→20:48)
[2019-04-06] MEDS: guaiFENesin/DM ER PO SCH ×2 (09:17→20:54)
[2019-04-06] MEDS: Cyclobenzaprine 10 MG TAB PO SCH ×3 (09:17→20:48)
[2019-04-06] MEDS: Simethicone Chewable 80 MG TAB PO SCH ×4 (09:17→20:51)
[2019-04-06] MEDS: Gabapentin 400 MG CAP PO SCH ×4 (09:17→20:48)
[2019-04-06] MEDS: Famotidine 20 MG TAB PO SCH ×2 (09:18→20:48)
[2019-04-06] MEDS: Metoprolol Tartrate 25 MG TAB PO SCH ×2 (09:18→20:48)
[2019-04-06] MEDS: Saccharomyces boulardii 250 MG CAP PO SCH (09:18)
[2019-04-06] MEDS: Brimonidine Tartrate 0.2% Ophth Soln 5 ml Bottle R EYE SCH ×3 (09:19→20:45)
[2019-04-06] MEDS: Clotrimazole 1 % Cream 30 GM TUBE TOP SCH ×2 (09:19→20:49)
[2019-04-06] MEDS: Nystatin Powder 15 GM BOT TOP SCH ×2 (09:19→20:49)
[2019-04-06] MEDS: Sodium Chloride 5% Opth 15 ML BOT R EYE SCH ×4 (09:20→20:44)
--- NOTE | 2019-04-06 09:58 | PRG ---
DATE OF SERVICE: 04/06/2019 SUBJECTIVE: Still struggling with secretions. Does not feel much different than yesterday. OBJECTIVE: VITAL SIGNS: O2 saturation 96%, respiratory rate 20, pulse 100, temperature 98.1. HEENT: Unremarkable. NECK: No JVD. LUNGS: Coarse rhonchi bilaterally. CARDIAC: S1 and S2. Regular. ABDOMEN: Soft. EXTREMITIES: No edema. ASSESSMENT: 1. Asthmatic bronchitis. 2. Poor mucus clearance. 3. Multiple sclerosis. PLAN: Continue steroids, bronchodilators, EzPAP, flutter valve. I will put her on a scheduled mucolytic. Job ID: [id number]
[2019-04-06] MEDS: Lactinex Tablet PO SCH (12:53)
[2019-04-06] MEDS: Multivitamin W/ Minerals 1 TAB PO SCH (16:23)
--- NOTE | 2019-04-06 18:21 | PDOC.HOSPP ---
- Subjective Encounter Date: 04/06/19 Encounter Time: 13:18 Subjective: Morbidly obese female with debilitating MS associated with paraparesis and neurogenic bladder s/p chronic indwelling rodriguez, UC s/p diversion colostomy, recently discharge following treatment for COPD exacerbation, now readmitted with worsening SOB and cough. Still with wet cough with minimal sputum production. Remained afebrile. - Objective Vital Signs & Weight: Vital Signs (12 hours) Temp Pulse Resp BP Pulse Ox 04/06/19 14:36 101 H 20 93 L 04/06/19 10:28 97 20 94 L 04/06/19 08:00 98.4 F 127/89 94 L 04/06/19 06:35 96 04/06/19 06:34 100 20 96 04/06/19 06:31 100 20 96 Weight Weight 302 lb 11.2 oz I&O: 04/05/19 04/06/19 04/07/19 06:59 06:59 06:59 Intake Total 800 1830 1710 Output Total 1500 3300 2120 Balance -700 -1470 -410 Result Diagrams: 04/04/19 05:21 04/05/19 08:10 Hospitalist ROS - Medication Medications: Active Medications Generic Name Dose Route Start Last Admin Trade Name Freq PRN Reason Stop Dose Admin Acidophilus 1 tab 03/31/19 12:00 04/06/19 12:53 Floranex PO 1 tab 1200 KAREN Administration Albuterol/Ipratropium 3 ml 04/03/19 10:30 04/06/19 14:36 Duoneb EZPAP 3 ml [id number] KAREN Administration Arformoterol Tartrate 15 mcg 03/31/19 18:30 04/06/19 06:34 Brovana NEB 15 mcg BID-RT KAREN Administration Baclofen 15 mg 03/31/19 05:00 04/06/19 05:41 Lioresal PO 15 mg 0500,2300 KAREN Administration Baclofen 5 mg 04/01/19 11:00 04/06/19 16:22 Lioresal PO 5 mg 1100,1700 KAREN Administration Benzonatate 100 mg 03/30/19 21:42 04/03/19 05:52 Tessalon PO 100 mg Q4H PRN Administration Cough Brimonidine Tartrate 1 drop 03/31/19 09:00 04/06/19 16:25 Alphagan 0.2% Ophth Soln R EYE 1 drp TID KAREN Administration Budesonide 0.5 mg 04/03/19 18:30 04/06/19 06:35 Pulmicort Neb Solution INH 0.5 mg BID-RT KAREN Administration Cholecalciferol 5,000 units 03/31/19 09:00 04/06/19 09:17 Vitamin D3 PO 5,000 units DAILY KAREN Administration Clotrimazole 1 gm 03/31/19 21:00 04/06/19 09:19 Lotrimin 1% Cream TOP 1 applic BID KAREN Administration Cyclobenzaprine HCl 10 mg 03/31/19 09:00 04/06/19 16:23 Flexeril PO 10 mg TID KAREN Administration Docusate Sodium 100 mg 03/31/19 21:00 04/05/19 20:37 Colace PO 100 mg HS KAREN Administration Enoxaparin Sodium 40 mg 03/31/19 09:00 04/06/19 09:16 Lovenox SC 40 mg 0900 KAREN Administration Famotidine 20 mg 03/31/19 09:00 04/06/19 09:18 Pepcid PO 20 mg BID KAREN Administration Fluoxetine HCl 20 mg 03/31/19 09:00 04/06/19 09:17 Prozac PO 20 mg BID KAREN Administration Gabapentin 800 mg 03/31/19 09:00 04/06/19 16:23 Neurontin PO 800 mg QID KAREN Administration Guaifenesin/Dextromethorphan 1 tab 04/06/19 09:00 04/06/19 09:17 Mucinex Dm PO 1 tab Q12HR KAREN Administration Hyoscyamine Sulfate 0.25 mg 03/31/19 09:00 04/06/19 16:23 Levsin PO 0.25 mg QID KAREN Administration Cefepime HCl 1 gm/ Sodium 100 mls @ 200 mls/hr 04/05/19 09:00 04/06/19 09:16 Chloride IVPB 100 mls Q12HR KAREN Administration Iron/Minerals/Multivitamins 1 tab 03/31/19 17:00 04/06/19 16:23 Theragran M PO 1 tab QPM-WM KAREN Administration Latanoprost 1 drop 03/31/19 21:00 04/05/19 20:31 Xalatan 0.005% Ophth Soln R EYE 1 drp HS KAREN Administration Levofloxacin 750 mg 04/03/19 06:00 04/06/19 05:40 Levaquin PO 04/10/19 06:01 750 mg 0600 KAREN Administration Mesalamine 1,000 mg 03/31/19 21:00 04/05/19 20:39 [place] 1,000 mg HS KAREN Administration Methylprednisolone Sodium Succinate 40 mg 04/05/19 09:00 04/06/19 16:24 Solu-Medrol IVP 40 mg 0300,0900,1500,2100 KAREN Administration Metoprolol Tartrate 25 mg 04/05/19 09:00 04/06/19 09:18 Lopressor PO 25 mg BID KAREN Administration Mometasone Furoate/Formoterol Fumar 2 puff 04/01/19 18:30 04/06/19 06:31 Dulera 200 Mcg/5 Mcg Inhaler INH 2 puff BID-RT KAREN Administration Montelukast Sodium 10 mg 04/03/19 21:00 04/05/19 20:39 Singulair PO 10 mg QPM KAREN Administration Mupirocin 0 gm 03/30/19 21:40 04/02/19 08:45 Bactroban 2% Ointment TOP 1 applic PRN PRN Administration Wound Care Nystatin 0 gm 03/31/19 09:00 04/06/19 09:19 Mycostatin Powder TOP 1 applic BID KAREN Administration Saccharomyces Boulardii 250 mg 03/31/19 09:00 04/06/19 09:18 Florastor PO 250 mg QAM KAREN Administration Simethicone 240 mg 03/31/19 09:00 04/06/19 16:24 Mylicon Chewable PO 240 mg QID KAREN Administration Sodium Chloride 10 ml 03/30/19 21:34 04/04/19 20:59 Flush - Normal Saline IVF 10 ml PRN PRN Administration Saline Flush Sodium Chloride 1 drop 03/31/19 09:00 04/06/19 16:25 Nancy-128 5% Oph Kandy R EYE 1 drp QID KAREN Administration Throat Lozenges 1 aziza 04/01/19 12:33 04/01/19 23:19 Cepastat Lozenges PO 1 aizza Q2H PRN Administration Sore Throat - Exam General Appearance: awake alert General - other findings: obese Eye: anicteric sclera ENT: normocephalic atraumatic Heart: RRR Respiratory: no wheezes, no ronchi, no tachypnea Respiratory - other findings: fair air entry with bilaateral transmitted sound + /- crackles. Gastrointestinal: soft, non-tender, non-distended, normal bowel sounds Gastrointestinal - other findings: Colostomy noted Extremities: no cyanosis, no edema Neurological: CN's grossly intact, no new deficit Psychiatric: normal affect, A&O x 3 Hosp A/P (1) Acute respiratory failure with hypoxia Code(s): J96.01 - ACUTE RESPIRATORY FAILURE WITH HYPOXIA Status: Suspected (2) COPD exacerbation Code(s): J44.1 - CHRONIC OBSTRUCTIVE PULMONARY DISEASE W (ACUTE) EXACERBATION Status: Acute (3) Acute bronchitis Code(s): J20.9 - ACUTE BRONCHITIS, UNSPECIFIED Status: Acute (4) Complicated UTI (urinary tract infection) Code(s): N39.0 - URINARY TRACT INFECTION, SITE NOT SPECIFIED Status: Acute (5) Colostomy in place Code(s): Z93.3 - COLOSTOMY STATUS Status: Chronic (6) Functional quadriplegia secondary to MS Code(s): G35 - MULTIPLE SCLEROSIS; R53.2 - FUNCTIONAL QUADRIPLEGIA Status: Chronic (7) Morbid obesity Code(s): E66.01 - MORBID (SEVERE) OBESITY DUE TO EXCESS CALORIES Status: Chronic (8) Multiple sclerosis, secondary progressive Code(s): G35 - MULTIPLE SCLEROSIS Status: Chronic (9) Neurogenic bladder Code(s): N31.9 - NEUROMUSCULAR DYSFUNCTION OF BLADDER, UNSPECIFIED Status: Chronic (10) Ulcerative colitis Code(s): K51.90 - ULCERATIVE COLITIS, UNSPECIFIED, WITHOUT COMPLICATIONS Status: Chronic (11) Asthma exacerbation Code(s): J45.901 - UNSPECIFIED ASTHMA WITH (ACUTE) EXACERBATION Status: Acute Qualifiers: Asthma severity: moderate (12) Sepsis Code(s): A41.9 - SEPSIS, UNSPECIFIED ORGANISM Status: Resolved - Plan Continue bronchodilators, steroid, oxygen. Antibiotics broadened by pulmonary Continue EZpap and acapella as per Pulmonary. Continue other supportive care. Continue low dose metoprolol for tachycardia. PE unlikely with normal D dimer Continue PT For discharge once cleared by pulmonary
[2019-04-06] MEDS: Latanoprost 0.005% Ophth Soln 2.5 ml Bottle R EYE SCH (20:45)
[2019-04-06] MEDS: Mesalamine 1000 MG Suppository PR SCH (20:47)
[2019-04-06] MEDS: Docusate 100 MG CAP PO SCH (20:48)
[2019-04-06] MEDS: Montelukast Sodium 10 mg Tablet PO SCH (20:48)
[2019-04-07] MEDS: methylPREDNISolone Sod Succ 40 MG VIAL IVP SCH ×3 (03:13→21:11)
[2019-04-07] MEDS: Baclofen 10 MG TAB PO SCH ×4 (05:41→23:03)
[2019-04-07 06:15] LABS: ALT (SGPT) 33 U/L (8-55); AST (SGOT) 15 U/L (5-34); Albumin 3.4 g/dL (3.5-5.0); Alkaline Phosphatase 85 U/L (40-150); Anion Gap 14 mmol/L (10-20); BUN (Urea Nitrogen) 18 mg/dL (9.8-20.1); Bilirubin, Total 0.2 mg/dL (0.2-1.2); CRP (Inflammatory) Less than 0.50 mg/dL (= or < 0.5); Calc. Creatinine Clearance 222 mL/min (70-130); Calcium 9.3 mg/dL (7.8-10.44); Carbon Dioxide 23 mmol/L (22-29); Chloride 107 mmol/L (98-107); Estimated GFR-MDRD Greater than 90; Globulin 2.7 g/dL (2.4-3.5); Glucose 142 mg/dL (70-105); Potassium 4.5 mmol/L (3.5-5.1); Protein, Total 6.1 g/dL (6.0-8.3); Sodium 139 mmol/L (136-145)
[2019-04-07] MEDS: Budesonide 0.5 MG/2 ML NEB INH SCH ×2 (06:20→18:55)
[2019-04-07] MEDS: Arformoterol 15 MCG/2 ML NEB NEB SCH ×2 (06:30→18:55)
[2019-04-07] MEDS: Mometasone/Formoterol 120 PUFF INHALER INH SCH ×2 (06:37→18:55)
[2019-04-07 06:39] LABS: Band 3 % (5-11); Hemoglobin 15.4 g/dL (12.0-16.0); Lymphocytes 4 % (21-51); MDiff Complete? YES; Mean Corpuscular HGB CONC 32.1 g/dL (32.0-36.0); Mean Corpuscular Hemoglobin 28.6 pg (27.0-31.0); Mean Platelet Volume 6.8 fL (7.4-10.4); Monocytes 3 % (0-10); Neutrophil 90 % (42-75); Platelet Count 496 thou/uL (130-400); RBC Distribution Width 13.4 % (11.5-14.5); Red Blood Cell (RBC) Count 5.38 mill/uL (4.20-5.40); White Blood Cell (WBC) Count 23.4 thou/uL (4.8-10.8)
[2019-04-07] MEDS: Gabapentin 400 MG CAP PO SCH ×4 (08:38→21:10)
[2019-04-07] MEDS: Cyclobenzaprine 10 MG TAB PO SCH ×3 (08:38→21:10)
[2019-04-07] MEDS: Famotidine 20 MG TAB PO SCH ×2 (08:38→21:09)
[2019-04-07] MEDS: Saccharomyces boulardii 250 MG CAP PO SCH (08:39)
[2019-04-07] MEDS: Simethicone Chewable 80 MG TAB PO SCH ×4 (08:39→21:10)
[2019-04-07] MEDS: Metoprolol Tartrate 25 MG TAB PO SCH ×2 (08:39→21:10)
[2019-04-07] MEDS: FLUoxetine HCl 20 MG CAP PO SCH ×2 (08:39→21:10)
[2019-04-07] MEDS: guaiFENesin/DM ER PO SCH ×2 (08:40→21:19)
[2019-04-07] MEDS: Cefepime 1 GM in Sodium Chloride 0.9% 100 ML IVPB SCH ×2 (08:41→21:10)
[2019-04-07] MEDS: Enoxaparin Sodium 40 MG/0.4 ML SYRINGE SC SCH (08:41)
[2019-04-07] MEDS: Sodium Chloride 5% Opth 15 ML BOT R EYE SCH ×4 (08:42→21:09)
[2019-04-07] MEDS: Brimonidine Tartrate 0.2% Ophth Soln 5 ml Bottle R EYE SCH ×3 (08:42→21:09)
[2019-04-07] MEDS: Clotrimazole 1 % Cream 30 GM TUBE TOP SCH ×2 (08:43→21:15)
[2019-04-07] MEDS: Nystatin Powder 15 GM BOT TOP SCH ×2 (08:43→21:16)
--- NOTE | 2019-04-07 10:11 | PRG ---
DATE OF SERVICE: 04/07/2019 SUBJECTIVE: The patient says she still feels terrible and is having difficulty breathing at night honestly when she does not know someone is observing her. She looks quite comfortable. OBJECTIVE: VITAL SIGNS: Temperature 98.4, pulse 96, respirations 18, O2 saturation 95%, and blood pressure 129/75. HEENT: Unremarkable. NECK: No adenopathy. No JVD. LUNGS: Fairly clear anteriorly today. CARDIAC: S1, S2. Regular. ABDOMEN: Soft. EXTREMITIES: No edema. LABORATORY DATA: White blood cell count 23.4, hematocrit 27.9, and platelet count 496. Sodium 139, potassium 4.5, chloride 107, CO2 of 23, BUN 18, creatinine 0.6, and glucose 142. ASSESSMENT: 1. Chronic respiratory insufficiency secondary to asthmatic bronchitis and poor neuromuscular reflexes from her multiple sclerosis. 2. Multiple sclerosis. PLAN: I told her I think we are doing about as much as we can with the steroids, antibiotics, bronchodilators, flutter valve, EzPAP, mucolytics, etc. She may at some point need a sleep study, but the logistics of getting her to the Sleep Lab in getting this done are almost impossible. Blood gases obtained in the past do not show any evidence of hypercapnia. Therefore, she would not qualify for noninvasive ventilation via neuromuscular compassionate use. I would really recommend that she be in a long-term, although I think she would outrightly refuse to do that. Short of that, I think we need to convince her, it is time to go home. Job ID: [id number]
[2019-04-07] MEDS: Lactinex Tablet PO SCH (11:47)
[2019-04-07] MEDS: Cepastat Lozenges 1 LOZ PO PRN (16:10)
[2019-04-07] MEDS: Multivitamin W/ Minerals 1 TAB PO SCH (16:11)
[2019-04-07] MEDS: Mesalamine 1000 MG Suppository PR SCH (20:54)
--- NOTE | 2019-04-07 21:06 | PDOC.HOSPP ---
- Subjective Encounter Date: 04/07/19 Encounter Time: 11:05 Subjective: Morbidly obese female with debilitating MS associated with paraparesis and neurogenic bladder s/p chronic indwelling rodriguez, UC s/p diversion colostomy, recently discharge following treatment for COPD exacerbation, now readmitted with worsening SOB and cough. Still with wet cough with minimal sputum production. REstarted on oxygen last night after success weaning previously. Remained afebrile. - Objective Vital Signs & Weight: Vital Signs (12 hours) Pulse Resp Pulse Ox 04/07/19 18:54 99 18 93 L 04/07/19 15:14 18 96 04/07/19 14:21 108 H 16 04/07/19 10:01 105 H 16 Weight Weight 302 lb 11.2 oz I&O: 04/06/19 04/07/19 04/08/19 06:59 06:59 06:59 Intake Total 1830 2630 2260 Output Total 3300 3370 2150 Balance -1470 -740 110 Result Diagrams: 04/07/19 05:06 04/07/19 05:06 Hospitalist ROS - Medication Medications: Active Medications Generic Name Dose Route Start Last Admin Trade Name Freq PRN Reason Stop Dose Admin Acidophilus 1 tab 03/31/19 12:00 04/07/19 11:47 Floranex PO 1 tab 1200 KAREN Administration Albuterol/Ipratropium 3 ml 04/03/19 10:30 04/07/19 18:54 Duoneb EZPAP 3 ml [id number] KAREN Administration Arformoterol Tartrate 15 mcg 03/31/19 18:30 04/07/19 18:55 Brovana NEB 15 mcg BID-RT KAREN Administration Baclofen 15 mg 03/31/19 05:00 04/07/19 05:41 Lioresal PO 15 mg 0500,2300 KAREN Administration Baclofen 5 mg 04/01/19 11:00 04/07/19 16:11 Lioresal PO 5 mg 1100,1700 KAREN Administration Benzonatate 100 mg 03/30/19 21:42 04/03/19 05:52 Tessalon PO 100 mg Q4H PRN Administration Cough Brimonidine Tartrate 1 drop 03/31/19 09:00 04/07/19 16:11 Alphagan 0.2% Ophth Soln R EYE 1 drp TID KAREN Administration Budesonide 0.5 mg 04/03/19 18:30 04/07/19 18:55 Pulmicort Neb Solution INH 0.5 mg BID-RT KAREN Administration Cholecalciferol 5,000 units 03/31/19 09:00 04/07/19 08:40 Vitamin D3 PO 5,000 units DAILY KAREN Administration Clotrimazole 1 gm 03/31/19 21:00 04/07/19 08:43 Lotrimin 1% Cream TOP 1 applic BID KAREN Administration Cyclobenzaprine HCl 10 mg 03/31/19 09:00 04/07/19 16:11 Flexeril PO 10 mg TID KAREN Administration Docusate Sodium 100 mg 03/31/19 21:00 04/06/19 20:48 Colace PO 100 mg HS KAREN Administration Enoxaparin Sodium 40 mg 03/31/19 09:00 04/07/19 08:41 Lovenox SC 40 mg 0900 KAREN Administration Famotidine 20 mg 03/31/19 09:00 04/07/19 08:38 Pepcid PO 20 mg BID KAREN Administration Fluoxetine HCl 20 mg 03/31/19 09:00 04/07/19 08:39 Prozac PO 20 mg BID KAREN Administration Gabapentin 800 mg 03/31/19 09:00 04/07/19 16:10 Neurontin PO 800 mg QID KAREN Administration Guaifenesin/Dextromethorphan 1 tab 04/06/19 09:00 04/07/19 08:40 Mucinex Dm PO 1 tab Q12HR KAREN Administration Hyoscyamine Sulfate 0.25 mg 03/31/19 09:00 04/07/19 16:10 Levsin PO 0.25 mg QID KAREN Administration Cefepime HCl 1 gm/ Sodium 100 mls @ 200 mls/hr 04/05/19 09:00 04/07/19 08:41 Chloride IVPB 100 mls Q12HR KAREN Administration Iron/Minerals/Multivitamins 1 tab 03/31/19 17:00 04/07/19 16:11 Theragran M PO 1 tab QPM-WM KAREN Administration Latanoprost 1 drop 03/31/19 21:00 04/06/19 20:45 Xalatan 0.005% Ophth Soln R EYE 1 drp HS KAREN Administration Levofloxacin 750 mg 04/03/19 06:00 04/07/19 05:41 Levaquin PO 04/10/19 06:01 750 mg 0600 KAREN Administration Mesalamine 1,000 mg 03/31/19 21:00 04/06/19 20:47 Canasa [place] 1,000 mg HS KAREN Administration Methylprednisolone Sodium Succinate 20 mg 04/07/19 09:00 04/07/19 09:35 Solu-Medrol IVP 20 mg 0900,2100 KAREN Administration Metoprolol Tartrate 25 mg 04/05/19 09:00 04/07/19 08:39 Lopressor PO 25 mg BID KAREN Administration Mometasone Furoate/Formoterol Fumar 2 puff 04/01/19 18:30 04/07/19 18:55 Dulera 200 Mcg/5 Mcg Inhaler INH 2 puff BID-RT KAREN Administration Montelukast Sodium 10 mg 04/03/19 21:00 04/06/19 20:48 Singulair PO 10 mg QPM KAREN Administration Mupirocin 0 gm 03/30/19 21:40 04/02/19 08:45 Bactroban 2% Ointment TOP 1 applic PRN PRN Administration Wound Care Nystatin 0 gm 03/31/19 09:00 04/07/19 08:43 Mycostatin Powder TOP 1 applic BID KAREN Administration Saccharomyces Boulardii 250 mg 03/31/19 09:00 04/07/19 08:39 Florastor PO 250 mg QAM KAREN Administration Simethicone 240 mg 03/31/19 09:00 04/07/19 16:10 Mylicon Chewable PO 240 mg QID KAREN Administration Sodium Chloride 10 ml 03/30/19 21:34 04/04/19 20:59 Flush - Normal Saline IVF 10 ml PRN PRN Administration Saline Flush Sodium Chloride 1 drop 03/31/19 09:00 04/07/19 16:11 Nancy-128 5% Oph Kandy R EYE 1 drp QID KAREN Administration Throat Lozenges 1 aziza 04/01/19 12:33 04/07/19 16:10 Cepastat Lozenges PO 1 aziza Q2H PRN Administration Sore Throat - Exam General Appearance: awake alert Eye: anicteric sclera ENT: normocephalic atraumatic Heart: RRR Respiratory: no wheezes, no ronchi Respiratory - other findings: fair air entry with transmitted sound Gastrointestinal: soft, non-tender, non-distended, normal bowel sounds Extremities: no cyanosis, no edema Neurological: CN's grossly intact, no new deficit Musculoskeletal - other findings: disuse atrophy of lower limbs noted Psychiatric: A&O x 3 Hosp A/P (1) Acute respiratory failure with hypoxia Code(s): J96.01 - ACUTE RESPIRATORY FAILURE WITH HYPOXIA Status: Suspected (2) COPD exacerbation Code(s): J44.1 - CHRONIC OBSTRUCTIVE PULMONARY DISEASE W (ACUTE) EXACERBATION Status: Acute (3) Acute bronchitis Code(s): J20.9 - ACUTE BRONCHITIS, UNSPECIFIED Status: Acute (4) Complicated UTI (urinary tract infection) Code(s): N39.0 - URINARY TRACT INFECTION, SITE NOT SPECIFIED Status: Acute (5) Colostomy in place Code(s): Z93.3 - COLOSTOMY STATUS Status: Chronic (6) Functional quadriplegia secondary to MS Code(s): G35 - MULTIPLE SCLEROSIS; R53.2 - FUNCTIONAL QUADRIPLEGIA Status: Chronic (7) Morbid obesity Code(s): E66.01 - MORBID (SEVERE) OBESITY DUE TO EXCESS CALORIES Status: Chronic (8) Multiple sclerosis, secondary progressive Code(s): G35 - MULTIPLE SCLEROSIS Status: Chronic (9) Neurogenic bladder Code(s): N31.9 - NEUROMUSCULAR DYSFUNCTION OF BLADDER, UNSPECIFIED Status: Chronic (10) Ulcerative colitis Code(s): K51.90 - ULCERATIVE COLITIS, UNSPECIFIED, WITHOUT COMPLICATIONS Status: Chronic (11) Asthma exacerbation Code(s): J45.901 - UNSPECIFIED ASTHMA WITH (ACUTE) EXACERBATION Status: Acute Qualifiers: Asthma severity: moderate (12) Sepsis Code(s): A41.9 - SEPSIS, UNSPECIFIED ORGANISM Status: Resolved - Plan Continue bronchodilators, steroid, oxygen. Continue antibiotics Continue EZpap and acapella as per Pulmonary. Continue other supportive care. Continue low dose metoprolol for tachycardia. Continue PT For discharge once cleared by pulmonary
[2019-04-07] MEDS: Montelukast Sodium 10 mg Tablet PO SCH (21:09)
[2019-04-07] MEDS: Docusate 100 MG CAP PO SCH (21:09)
[2019-04-07] MEDS: Latanoprost 0.005% Ophth Soln 2.5 ml Bottle R EYE SCH (21:09)
[2019-04-07] MEDS: Mupirocin 2% Ointment 22 GM Tube TOP PRN (21:15)
[2019-04-07] MEDS ORDERED: Acetylcysteine 10% 100 MG/ML 30 ml Vial INH SCH (21:30)
[2019-04-08] MEDS: Acetylcysteine 10% 100 MG/ML 30 ml Vial INH SCH ×4 (00:57→19:25)
[2019-04-08] MEDS: Baclofen 10 MG TAB PO SCH ×4 (05:27→22:46)
[2019-04-08] MEDS: Budesonide 0.5 MG/2 ML NEB INH SCH ×2 (06:00→19:43)
[2019-04-08] MEDS: Arformoterol 15 MCG/2 ML NEB NEB SCH ×2 (06:15→19:41)
[2019-04-08] MEDS: Mometasone/Formoterol 120 PUFF INHALER INH SCH ×2 (06:33→19:59)
[2019-04-08] MEDS: Gabapentin 400 MG CAP PO SCH ×4 (09:11→20:26)
[2019-04-08] MEDS: Saccharomyces boulardii 250 MG CAP PO SCH (09:11)
[2019-04-08] MEDS: Simethicone Chewable 80 MG TAB PO SCH ×4 (09:12→20:25)
[2019-04-08] MEDS: FLUoxetine HCl 20 MG CAP PO SCH ×2 (09:12→20:27)
[2019-04-08] MEDS: Famotidine 20 MG TAB PO SCH ×2 (09:12→20:28)
[2019-04-08] MEDS: Enoxaparin Sodium 40 MG/0.4 ML SYRINGE SC SCH (09:12)
[2019-04-08] MEDS: Cyclobenzaprine 10 MG TAB PO SCH ×3 (09:12→20:27)
[2019-04-08] MEDS: Metoprolol Tartrate 25 MG TAB PO SCH ×2 (09:12→20:26)
[2019-04-08] MEDS: Brimonidine Tartrate 0.2% Ophth Soln 5 ml Bottle R EYE SCH ×3 (09:13→20:29)
[2019-04-08] MEDS: methylPREDNISolone Sod Succ 40 MG VIAL IVP SCH ×2 (09:13→20:28)
[2019-04-08] MEDS: Sodium Chloride 5% Opth 15 ML BOT R EYE SCH ×4 (09:13→20:23)
[2019-04-08] MEDS: Nystatin Powder 15 GM BOT TOP SCH ×2 (09:13→20:29)
[2019-04-08] MEDS: Clotrimazole 1 % Cream 30 GM TUBE TOP SCH ×2 (09:14→20:30)
[2019-04-08] MEDS: Cefepime 1 GM in Sodium Chloride 0.9% 100 ML IVPB SCH ×2 (09:14→20:24)
[2019-04-08] MEDS: guaiFENesin/DM ER PO SCH ×2 (09:23→20:27)
[2019-04-08] MEDS: Lactinex Tablet PO SCH (12:22)
--- NOTE | 2019-04-08 12:35 | PDOC.HOSPP ---
- Subjective Encounter Date: 04/08/19 Encounter Time: 12:33 Subjective: Morbidly obese female with debilitating MS associated with paraparesis and neurogenic bladder s/p chronic indwelling rodriguez, UC s/p diversion colostomy, recently discharge following treatment for COPD exacerbation, now readmitted with worsening SOB and cough. Cough is better with addition of mucomyst. Remained afebrile. - Objective Vital Signs & Weight: Vital Signs (12 hours) Temp Pulse Resp BP Pulse Ox 04/08/19 12:00 86 12 04/08/19 08:00 97.9 F 96 18 130/85 95 04/08/19 06:33 92 12 04/08/19 06:15 93 12 04/08/19 06:05 95 04/08/19 06:00 92 12 04/08/19 02:43 81 14 96 Weight Weight 302 lb 11.2 oz I&O: 04/07/19 04/08/19 04/09/19 06:59 06:59 06:59 Intake Total 2630 2260 Output Total 3370 3400 Balance -740 -1140 Result Diagrams: 04/07/19 05:06 04/07/19 05:06 Hospitalist ROS - Medication Medications: Active Medications Generic Name Dose Route Start Last Admin Trade Name Freq PRN Reason Stop Dose Admin Acetylcysteine 300 mg 04/08/19 01:00 04/08/19 12:32 Mucomyst 10% (Oral Or Inh) INH 300 mg [id number] KAREN Administration Acidophilus 1 tab 03/31/19 12:00 04/08/19 12:22 Floranex PO 1 tab 1200 KAREN Administration Albuterol/Ipratropium 3 ml 04/03/19 10:30 04/08/19 12:00 Duoneb EZPAP 3 ml [id number] KAREN Administration Arformoterol Tartrate 15 mcg 03/31/19 18:30 04/08/19 06:15 Brovana NEB 15 mcg BID-RT KAREN Administration Baclofen 15 mg 03/31/19 05:00 04/08/19 05:27 Lioresal PO 15 mg 0500,2300 KAREN Administration Baclofen 5 mg 04/01/19 11:00 04/08/19 12:23 Lioresal PO 5 mg 1100,1700 KAREN Administration Benzonatate 100 mg 03/30/19 21:42 04/03/19 05:52 Tessalon PO 100 mg Q4H PRN Administration Cough Brimonidine Tartrate 1 drop 03/31/19 09:00 04/08/19 09:13 Alphagan 0.2% Ophth Soln R EYE 1 drp TID KAREN Administration Budesonide 0.5 mg 04/03/19 18:30 04/08/19 06:00 Pulmicort Neb Solution INH 0.5 mg BID-RT KAREN Administration Cholecalciferol 5,000 units 03/31/19 09:00 04/08/19 09:11 Vitamin D3 PO 5,000 units DAILY KAREN Administration Clotrimazole 1 gm 03/31/19 21:00 04/08/19 09:14 Lotrimin 1% Cream TOP 1 applic BID KAREN Administration Cyclobenzaprine HCl 10 mg 03/31/19 09:00 04/08/19 09:12 Flexeril PO 10 mg TID KAREN Administration Docusate Sodium 100 mg 03/31/19 21:00 04/07/19 21:09 Colace PO 100 mg HS KAREN Administration Enoxaparin Sodium 40 mg 03/31/19 09:00 04/08/19 09:12 Lovenox SC 40 mg 0900 KAREN Administration Famotidine 20 mg 03/31/19 09:00 04/08/19 09:12 Pepcid PO 20 mg BID KAREN Administration Fluoxetine HCl 20 mg 03/31/19 09:00 04/08/19 09:12 Prozac PO 20 mg BID KAREN Administration Gabapentin 800 mg 03/31/19 09:00 04/08/19 12:22 Neurontin PO 800 mg QID KAREN Administration Guaifenesin/Dextromethorphan 1 tab 04/06/19 09:00 04/08/19 09:23 Mucinex Dm PO 1 tab Q12HR KAREN Administration Hyoscyamine Sulfate 0.25 mg 03/31/19 09:00 04/08/19 12:22 Levsin PO 0.25 mg QID KAREN Administration Cefepime HCl 1 gm/ Sodium 100 mls @ 200 mls/hr 04/05/19 09:00 04/08/19 09:14 Chloride IVPB 100 mls Q12HR KAREN Administration Iron/Minerals/Multivitamins 1 tab 03/31/19 17:00 04/07/19 16:11 Theragran M PO 1 tab QPM-WM KAREN Administration Latanoprost 1 drop 03/31/19 21:00 04/07/19 21:09 Xalatan 0.005% Ophth Soln R EYE 1 drp HS KAREN Administration Levofloxacin 750 mg 04/03/19 06:00 04/08/19 05:28 Levaquin PO 04/10/19 06:01 750 mg 0600 KAREN Administration Mesalamine 1,000 mg 03/31/19 21:00 04/07/19 20:54 [place]asa [place] 1,000 mg HS KAREN Administration Methylprednisolone Sodium Succinate 20 mg 04/07/19 09:00 04/08/19 09:13 Solu-Medrol IVP 20 mg 0900,2100 KAREN Administration Metoprolol Tartrate 25 mg 04/05/19 09:00 04/08/19 09:12 Lopressor PO 25 mg BID KAREN Administration Mometasone Furoate/Formoterol Fumar 2 puff 04/01/19 18:30 04/08/19 06:33 Dulera 200 Mcg/5 Mcg Inhaler INH 2 puff BID-RT KAREN Administration Montelukast Sodium 10 mg 04/03/19 21:00 04/07/19 21:09 Singulair PO 10 mg QPM KAREN Administration Mupirocin 0 gm 03/30/19 21:40 04/07/19 21:15 Bactroban 2% Ointment TOP 1 applic PRN PRN Administration Wound Care Nystatin 0 gm 03/31/19 09:00 04/08/19 09:13 Mycostatin Powder TOP 1 applic BID KAREN Administration Saccharomyces Boulardii 250 mg 03/31/19 09:00 04/08/19 09:11 Florastor PO 250 mg QAM KAREN Administration Simethicone 240 mg 03/31/19 09:00 04/08/19 12:22 Mylicon Chewable PO 240 mg QID KAREN Administration Sodium Chloride 10 ml 03/30/19 21:34 04/04/19 20:59 Flush - Normal Saline IVF 10 ml PRN PRN Administration Saline Flush Sodium Chloride 1 drop 03/31/19 09:00 04/08/19 12:23 Nancy-128 5% Oph Kandy R EYE 1 drp QID KAREN Administration Throat Lozenges 1 aziza 04/01/19 12:33 04/07/19 16:10 Cepastat Lozenges PO 1 aziza Q2H PRN Administration Sore Throat - Exam General Appearance: awake alert Eye: anicteric sclera ENT: normocephalic atraumatic Neck: symmetric Heart: RRR Respiratory: no wheezes, no ronchi, no tachypnea Respiratory - other findings: fair air entry with few transmitted sound Gastrointestinal: soft, non-tender, non-distended, normal bowel sounds Gastrointestinal - other findings: Colostomy noted Extremities: no edema Neurological: CN's grossly intact, no new deficit Psychiatric: A&O x 3 Hosp A/P (1) Acute respiratory failure with hypoxia Code(s): J96.01 - ACUTE RESPIRATORY FAILURE WITH HYPOXIA Status: Suspected (2) COPD exacerbation Code(s): J44.1 - CHRONIC OBSTRUCTIVE PULMONARY DISEASE W (ACUTE) EXACERBATION Status: Acute (3) Acute bronchitis Code(s): J20.9 - ACUTE BRONCHITIS, UNSPECIFIED Status: Acute (4) Complicated UTI (urinary tract infection) Code(s): N39.0 - URINARY TRACT INFECTION, SITE NOT SPECIFIED Status: Acute (5) Colostomy in place Code(s): Z93.3 - COLOSTOMY STATUS Status: Chronic (6) Functional quadriplegia secondary to MS Code(s): G35 - MULTIPLE SCLEROSIS; R53.2 - FUNCTIONAL QUADRIPLEGIA Status: Chronic (7) Morbid obesity Code(s): E66.01 - MORBID (SEVERE) OBESITY DUE TO EXCESS CALORIES Status: Chronic (8) Multiple sclerosis, secondary progressive Code(s): G35 - MULTIPLE SCLEROSIS Status: Chronic (9) Neurogenic bladder Code(s): N31.9 - NEUROMUSCULAR DYSFUNCTION OF BLADDER, UNSPECIFIED Status: Chronic (10) Ulcerative colitis Code(s): K51.90 - ULCERATIVE COLITIS, UNSPECIFIED, WITHOUT COMPLICATIONS Status: Chronic (11) Asthma exacerbation Code(s): J45.901 - UNSPECIFIED ASTHMA WITH (ACUTE) EXACERBATION Status: Acute Qualifiers: Asthma severity: moderate (12) Sepsis Code(s): A41.9 - SEPSIS, UNSPECIFIED ORGANISM Status: Resolved - Plan Continue bronchodilators, steroid, oxygen, antibiotics and mucolytics. Continue other supportive care. Continue low dose metoprolol for tachycardia. For discharge once cleared by pulmonary
[2019-04-08] MEDS: Multivitamin W/ Minerals 1 TAB PO SCH (16:19)
[2019-04-08] MEDS: Montelukast Sodium 10 mg Tablet PO SCH (20:26)
[2019-04-08] MEDS: Docusate 100 MG CAP PO SCH (20:27)
[2019-04-08] MEDS: Mupirocin 2% Ointment 22 GM Tube TOP PRN (20:29)
[2019-04-08] MEDS: Mesalamine 1000 MG Suppository PR SCH (20:29)
[2019-04-08] MEDS: Latanoprost 0.005% Ophth Soln 2.5 ml Bottle R EYE SCH (20:29)
[2019-04-09] MEDS: Acetylcysteine 10% 100 MG/ML 30 ml Vial INH SCH ×3 (01:38→16:44)
[2019-04-09] MEDS: Baclofen 10 MG TAB PO SCH ×3 (05:22→18:22)
[2019-04-09 05:37] LABS: Anion Gap 14 mmol/L (10-20); BUN (Urea Nitrogen) 16 mg/dL (9.8-20.1); Calc. Creatinine Clearance 251 mL/min (70-130); Calcium 8.8 mg/dL (7.8-10.44); Carbon Dioxide 22 mmol/L (22-29); Chloride 106 mmol/L (98-107); Estimated GFR-MDRD Greater than 90; Glucose 136 mg/dL (70-105); Potassium 4.3 mmol/L (3.5-5.1); Sodium 138 mmol/L (136-145)
[2019-04-09 06:22] LABS: Band 6 % (5-11); Hemoglobin 15.1 g/dL (12.0-16.0); Lymphocytes 6 % (21-51); MDiff Complete? YES; Mean Corpuscular Hemoglobin 28.7 pg (27.0-31.0); Mean Corpuscular Volume 89.6 fL (78.0-98.0); Mean Platelet Volume 6.7 fL (7.4-10.4); Monocytes 6 % (0-10); Neutrophil 82 % (42-75); Platelet Count 404 thou/uL (130-400); Platelet Morphology Comment Appears Adequate; RBC Distribution Width 13.6 % (11.5-14.5); Red Blood Cell (RBC) Count 5.25 mill/uL (4.20-5.40); White Blood Cell (WBC) Count 23.1 thou/uL (4.8-10.8)
[2019-04-09] MEDS: Budesonide 0.5 MG/2 ML NEB INH SCH (07:53)
[2019-04-09 08:06] VITALS: BP 119/76; TEMP 97.9
[2019-04-09] MEDS: Arformoterol 15 MCG/2 ML NEB NEB SCH (08:13)
[2019-04-09] MEDS: Mometasone/Formoterol 120 PUFF INHALER INH SCH (08:37)
--- NOTE | 2019-04-09 09:09 | PDOC.HOSPP ---
- Subjective Encounter Date: 04/09/19 Encounter Time: 09:07 Subjective: Morbidly obese female with debilitating MS associated with paraparesis and neurogenic bladder s/p chronic indwelling rodriguez, UC s/p diversion colostomy, recently discharge following treatment for COPD exacerbation, now readmitted with worsening SOB and cough. Feeling better. Cough has subsided. Off oxygen since 2-3 days now. Desirous of going home today. - Objective Vital Signs & Weight: Vital Signs (12 hours) Temp Pulse Resp BP Pulse Ox 04/09/19 08:37 92 12 04/09/19 08:13 103 H 16 04/09/19 08:05 97.9 F 99 16 119/76 96 04/09/19 07:53 103 H 16 04/09/19 01:38 91 14 95 04/08/19 22:50 95 16 94 L Weight Weight 302 lb 11.2 oz I&O: 04/08/19 04/09/19 04/10/19 06:59 06:59 06:59 Intake Total 2260 1680 Output Total 3400 1420 Balance -1140 260 Result Diagrams: 04/09/19 04:54 04/09/19 04:54 Hospitalist ROS - Medication Medications: Active Medications Generic Name Dose Route Start Last Admin Trade Name Freq PRN Reason Stop Dose Admin Acetylcysteine 300 mg 04/08/19 01:00 04/09/19 08:24 Mucomyst 10% (Oral Or Inh) INH 300 mg [id number] KAREN Administration Acidophilus 1 tab 03/31/19 12:00 04/08/19 12:22 Floranex PO 1 tab 1200 KAREN Administration Albuterol/Ipratropium 3 ml 04/03/19 10:30 04/09/19 07:53 Duoneb EZPAP 3 ml [id number] KAREN Administration Arformoterol Tartrate 15 mcg 03/31/19 18:30 04/09/19 08:13 Brovana NEB 15 mcg BID-RT KAREN Administration Baclofen 15 mg 03/31/19 05:00 04/09/19 05:22 Lioresal PO 15 mg 0500,2300 KAREN Administration Baclofen 5 mg 04/01/19 11:00 04/08/19 16:19 Lioresal PO 5 mg 1100,1700 KAREN Administration Benzonatate 100 mg 03/30/19 21:42 04/03/19 05:52 Tessalon PO 100 mg Q4H PRN Administration Cough Brimonidine Tartrate 1 drop 03/31/19 09:00 04/08/19 20:29 Alphagan 0.2% Ophth Soln R EYE 1 drp TID KAREN Administration Budesonide 0.5 mg 04/03/19 18:30 04/09/19 07:53 Pulmicort Neb Solution INH 0.5 mg BID-RT KAREN Administration Cholecalciferol 5,000 units 03/31/19 09:00 04/08/19 09:11 Vitamin D3 PO 5,000 units DAILY KAREN Administration Clotrimazole 1 gm 03/31/19 21:00 04/08/19 20:30 Lotrimin 1% Cream TOP 1 applic BID KAREN Administration Cyclobenzaprine HCl 10 mg 03/31/19 09:00 04/08/19 20:27 Flexeril PO 10 mg TID KAREN Administration Docusate Sodium 100 mg 03/31/19 21:00 04/08/19 20:27 Colace PO 100 mg HS KAREN Administration Enoxaparin Sodium 40 mg 03/31/19 09:00 04/08/19 09:12 Lovenox SC 40 mg 0900 KAREN Administration Famotidine 20 mg 03/31/19 09:00 04/08/19 20:28 Pepcid PO 20 mg BID KAREN Administration Fluoxetine HCl 20 mg 03/31/19 09:00 04/08/19 20:27 Prozac PO 20 mg BID KAREN Administration Gabapentin 800 mg 03/31/19 09:00 04/08/19 20:26 Neurontin PO 800 mg QID KAREN Administration Guaifenesin/Dextromethorphan 1 tab 04/06/19 09:00 04/08/19 20:27 Mucinex Dm PO 1 tab Q12HR KAREN Administration Hyoscyamine Sulfate 0.25 mg 03/31/19 09:00 04/08/19 20:25 Levsin PO 0.25 mg QID KAREN Administration Cefepime HCl 1 gm/ Sodium 100 mls @ 200 mls/hr 04/05/19 09:00 04/08/19 20:24 Chloride IVPB 100 mls Q12HR KAREN Administration Iron/Minerals/Multivitamins 1 tab 03/31/19 17:00 04/08/19 16:19 Theragran M PO 1 tab QPM-WM KAREN Administration Latanoprost 1 drop 03/31/19 21:00 04/08/19 20:29 Xalatan 0.005% Ophth Soln R EYE 1 drp HS KAREN Administration Levofloxacin 750 mg 04/03/19 06:00 04/09/19 05:23 Levaquin PO 04/10/19 06:01 750 mg 0600 KAREN Administration Mesalamine 1,000 mg 03/31/19 21:00 04/08/19 20:29 Canasa [place] 1,000 mg HS KAREN Administration Methylprednisolone Sodium Succinate 20 mg 04/07/19 09:00 04/08/19 20:28 Solu-Medrol IVP 20 mg 09,2100 KAREN Administration Metoprolol Tartrate 25 mg 04/05/19 09:00 04/08/19 20:26 Lopressor PO 25 mg BID KAREN Administration Mometasone Furoate/Formoterol Fumar 2 puff 04/01/19 18:30 04/09/19 08:37 Dulera 200 Mcg/5 Mcg Inhaler INH 2 puff BID-RT KAREN Administration Montelukast Sodium 10 mg 04/03/19 21:00 04/08/19 20:26 Singulair PO 10 mg QPM KAREN Administration Mupirocin 0 gm 03/30/19 21:40 04/08/19 20:29 Bactroban 2% Ointment TOP 1 applic PRN PRN Administration Wound Care Nystatin 0 gm 03/31/19 09:00 04/08/19 20:29 Mycostatin Powder TOP 1 applic BID KAREN Administration Saccharomyces Boulardii 250 mg 03/31/19 09:00 04/08/19 09:11 Florastor PO 250 mg QAM KAREN Administration Simethicone 240 mg 03/31/19 09:00 04/08/19 20:25 Mylicon Chewable PO 240 mg QID KAREN Administration Sodium Chloride 10 ml 03/30/19 21:34 04/04/19 20:59 Flush - Normal Saline IVF 10 ml PRN PRN Administration Saline Flush Sodium Chloride 1 drop 03/31/19 09:00 04/08/19 20:23 Nancy-128 5% Oph Kandy R EYE 1 drp QID KAREN Administration Throat Lozenges 1 aziza 04/01/19 12:33 04/07/19 16:10 Cepastat Lozenges PO 1 aziza Q2H PRN Administration Sore Throat - Exam General Appearance: awake alert Eye: anicteric sclera ENT: normocephalic atraumatic Neck: symmetric Heart: RRR Respiratory: no wheezes, no ronchi, no tachypnea Respiratory - other findings: good air entry bilaterally with few transmitted sound right base posteriorl Gastrointestinal: soft, non-tender, non-distended, normal bowel sounds Extremities: no cyanosis, no edema Neurological: CN's grossly intact, no new deficit Psychiatric: normal affect, A&O x 3 Hosp A/P (1) Acute respiratory failure with hypoxia Code(s): J96.01 - ACUTE RESPIRATORY FAILURE WITH HYPOXIA Status: Suspected (2) COPD exacerbation Code(s): J44.1 - CHRONIC OBSTRUCTIVE PULMONARY DISEASE W (ACUTE) EXACERBATION Status: Acute (3) Acute bronchitis Code(s): J20.9 - ACUTE BRONCHITIS, UNSPECIFIED Status: Acute (4) Complicated UTI (urinary tract infection) Code(s): N39.0 - URINARY TRACT INFECTION, SITE NOT SPECIFIED Status: Acute (5) Colostomy in place Code(s): Z93.3 - COLOSTOMY STATUS Status: Chronic (6) Functional quadriplegia secondary to MS Code(s): G35 - MULTIPLE SCLEROSIS; R53.2 - FUNCTIONAL QUADRIPLEGIA Status: Chronic (7) Morbid obesity Code(s): E66.01 - MORBID (SEVERE) OBESITY DUE TO EXCESS CALORIES Status: Chronic (8) Multiple sclerosis, secondary progressive Code(s): G35 - MULTIPLE SCLEROSIS Status: Chronic (9) Neurogenic bladder Code(s): N31.9 - NEUROMUSCULAR DYSFUNCTION OF BLADDER, UNSPECIFIED Status: Chronic (10) Ulcerative colitis Code(s): K51.90 - ULCERATIVE COLITIS, UNSPECIFIED, WITHOUT COMPLICATIONS Status: Chronic (11) Asthma exacerbation Code(s): J45.901 - UNSPECIFIED ASTHMA WITH (ACUTE) EXACERBATION Status: Acute Qualifiers: Asthma severity: moderate (12) Sepsis Code(s): A41.9 - SEPSIS, UNSPECIFIED ORGANISM Status: Resolved - Plan Discharge home today. Continue bronchodilators, steroid,and mucolytics. Discharged on steroid taper and doxycycline
[2019-04-09] MEDS: methylPREDNISolone Sod Succ 40 MG VIAL IVP SCH (09:33)
[2019-04-09] MEDS: Saccharomyces boulardii 250 MG CAP PO SCH (09:33)
[2019-04-09] MEDS: Enoxaparin Sodium 40 MG/0.4 ML SYRINGE SC SCH (09:33)
[2019-04-09] MEDS: Cyclobenzaprine 10 MG TAB PO SCH ×2 (09:34→15:07)
[2019-04-09] MEDS: Metoprolol Tartrate 25 MG TAB PO SCH (09:34)
[2019-04-09] MEDS: FLUoxetine HCl 20 MG CAP PO SCH (09:34)
[2019-04-09] MEDS: Famotidine 20 MG TAB PO SCH (09:34)
[2019-04-09] MEDS: Gabapentin 400 MG CAP PO SCH ×3 (09:34→18:23)
[2019-04-09] MEDS: Cefepime 1 GM in Sodium Chloride 0.9% 100 ML IVPB SCH (09:34)
[2019-04-09] MEDS: Simethicone Chewable 80 MG TAB PO SCH ×3 (09:37→18:24)
[2019-04-09] MEDS: Sodium Chloride 5% Opth 15 ML BOT R EYE SCH ×3 (09:39→18:25)
[2019-04-09] MEDS: guaiFENesin/DM ER PO SCH (09:49)
[2019-04-09] MEDS: Brimonidine Tartrate 0.2% Ophth Soln 5 ml Bottle R EYE SCH ×2 (09:50→18:22)
[2019-04-09] MEDS: Clotrimazole 1 % Cream 30 GM TUBE TOP SCH (09:51)
[2019-04-09] MEDS: Nystatin Powder 15 GM BOT TOP SCH (10:04)
[2019-04-09] MEDS: Lactinex Tablet PO SCH (12:37)
[2019-04-09] MEDS: Mesalamine 1000 MG Suppository PR SCH (15:07)
--- NOTE | 2019-04-09 15:33 | PRG ---
DATE OF SERVICE: 04/09/2019 SUBJECTIVE: Jose Monreal is scheduled to go home at 6 o'clock. She would not have any family at home, but will tomorrow. OBJECTIVE: VITAL SIGNS: She is afebrile. Heart rate is 100, respiratory rate 16, and blood pressure 119/76. LUNGS: Remarkable for a few rhonchi, but she says her cough has been better and she is using her flutter device, which she feels is helping her. IMPRESSION AND PLAN: Multiple sclerosis with muscle weakness and retained secretions, clinically stable. Anticipated she will be discharged within the next 24 hours. Job ID: [id number]
[2019-04-09] MEDS: Multivitamin W/ Minerals 1 TAB PO SCH (18:23)
== END 2019-04-09 18:45 | disposition home health service (06) | DRG 871 ==
LOC: ERS 14:57 → T4-B 19:15 → OBSVTOIN 03-31 15:24
PROVIDERS: ADMIT Internal Medicine; ATTEND Internal Medicine
DX: A41.9 Sepsis, unspecified organism (principal); R53.2 Functional quadriplegia; J96.01 Acute respiratory failure with hypoxia; T83.511A Infection and inflammatory reaction due to indwelling urethral catheter, initial encounter; J44.1 Chronic obstructive pulmonary disease with (acute) exacerbation; E87.2 Acidosis; K51.90 Ulcerative colitis, unspecified, without complications; N39.0 Urinary tract infection, site not specified; Z68.41 Body mass index [BMI] 40.0-44.9, adult; J44.0 Chronic obstructive pulmonary disease with (acute) lower respiratory infection; G89.4 Chronic pain syndrome; I05.0 Rheumatic mitral stenosis; E66.01 Morbid (severe) obesity due to excess calories; J20.9 Acute bronchitis, unspecified; H54.40 Blindness, one eye, unspecified eye; I89.0 Lymphedema, not elsewhere classified; Y83.9 Surgical procedure, unspecified as the cause of abnormal reaction of the patient, or of later complication, without mention of misadventure at the time of the procedure; Y92.9 Unspecified place or not applicable; Z74.01 Bed confinement status; Z90.49 Acquired absence of other specified parts of digestive tract; Z98.51 Tubal ligation status; Z93.3 Colostomy status
CPT/HCPCS: 36415; 71045; 80048; 80053; 81003; 81015; 82805; 83605; 83735; 83880; 84145; 84484; 85025; 85379; 86140; 87040; 87077; 87086; 87186; 94640; 94664; 96365; 96367; 96375; J0692; J1650; J1885; J2543; J2920; J3370; J3475; J3490; J7512; J7608; J7614; J7620; J7626

== ENCOUNTER 2019-06-19 16:47 | Inpatient (IN) | payer MEDICARE, OTHER ==
[2019-06-19 17:34] LABS: #Basophils 0.1 thou/uL (0.0-0.2); #Eosinphils 0.2 thou/uL (0.0-0.7); #Lymphocytes 3.6 thou/uL (1.20-3.40); #Monocytes 2.1 thou/uL (0.11-0.59); #Neutrophils 12.8 thou/uL (1.40-6.50); %Basophils 0.7 % (0.0-1.0); %Eosinophils 1.1 % (0.0-10.0); %Lymphocytes 18.9 % (21.0-51.0); %Neutrophils 68.4 % (42.0-75.0); Hemoglobin 14.9 g/dL (12.0-16.0); Mean Corpuscular HGB CONC 31.8 g/dL (32.0-36.0); Mean Corpuscular Volume 91.1 fL (78.0-98.0); Mean Platelet Volume 6.7 fL (7.4-10.4); Platelet Count 473 thou/uL (130-400); RBC Distribution Width 13.7 % (11.5-14.5); Red Blood Cell (RBC) Count 5.13 mill/uL (4.20-5.40); White Blood Cell (WBC) Count 18.7 thou/uL (4.8-10.8)
[2019-06-19 17:57] LABS: ALT (SGPT) 67 U/L (8-55); AST (SGOT) 31 U/L (5-34); Albumin 3.5 g/dL (3.5-5.0); Alkaline Phosphatase 113 U/L (40-110); Anion Gap 15 mmol/L (10-20); BUN (Urea Nitrogen) 6 mg/dL (9.8-20.1); Calc. Creatinine Clearance 0 mL/min (70-130); Calcium 9.5 mg/dL (7.8-10.44); Carbon Dioxide 21 mmol/L (22-29); Chloride 104 mmol/L (98-107); Estimated GFR-MDRD Greater than 90; Globulin 2.9 g/dL (2.4-3.5); Glucose 120 mg/dL (70-105); Potassium 4.1 mmol/L (3.5-5.1); Protein, Total 6.4 g/dL (6.0-8.3); Sodium 136 mmol/L (136-145)
--- NOTE | 2019-06-19 18:09 | RAD ---
RADIOGRAPH CHEST 1 VIEW: DATE: 06/19/2019 TIME: 5:23 PM HISTORY: 59-year-old female. Follow-up infiltrate. COMPARISON: 04/01/2019 FINDINGS: There is no interval change in the dense opacity at the left base, totally silhouetting the left john diaphragm and cardiac apex, and completely effacing the left lateral costophrenic angle. Review of prior CT angiogram of the chest of 03/18/2019 demonstrates that this is a pericardial fat pad rather t baird a pleural effusion or infiltrate. In the contralateral right lower lung zone, the previously demonstrated subsegmental atelectasis has resolved. The rest of the visualized lung sood are clear. Right lateral costophrenic angle is sharp. No pulmonary edema or pneumothorax. IMPRESSION: 1) no evidence of active pulmonary disease. 2) the dense opacity at the left base is a large pericardial fat pad, rather than infiltrate or pleur al effusion.
[2019-06-19 18:20] LABS: Bilirubin Moderate (Negative); Blood, Urine Large (Negative); Glucose, Urine (Dipstick) Negative (Negative); Leukocyte Moderate (Negative); Nitrite Positive (Negative); Protein, Urine (Dipstick) 100 mg/dL (Neg-Trace); Urobilinogen 0.2 mg/dL (Less than 2)
[2019-06-19 18:22] LABS: Clarity Turbid (Clear)
[2019-06-19 18:26] LABS: Bacteria/HPF 3+ HPF (None Seen); WBC/HPF Greater Than 50 HPF (0-3); Yeast-Budding 1+ HPF (None Seen)
[2019-06-19] MEDS ORDERED: cefTRIAXone\\ROCEPHIN 1 GM VIAL ONE (18:35)
[2019-06-19] MEDS ORDERED: methylPREDNISolone Sod Succ/PF 125 MG/2 ML VIAL ONE (22:49)
[2019-06-20 01:53] VITALS: BMI 43.7
[2019-06-20] MEDS ORDERED: Ondansetron PF 4 MG/2 ML Vial IVP PRN (07:21)
[2019-06-20] MEDS ORDERED: Calcium Carbonate 500 MG ChewTAB PO PRN (07:21)
[2019-06-20] MEDS ORDERED: Bisacodyl 5 MG TAB PO PRN (07:21)
[2019-06-20] MEDS ORDERED: HYDROcodone/Acetaminophen 7.5/325 mg Tablet PO PRN (07:27)
[2019-06-20] MEDS ORDERED: Mesalamine 1000 MG Suppository PR PRN (07:27)
[2019-06-20] MEDS ORDERED: cefTRIAXone Sodium 1 MG in Syringe 0 ML IVPB SCH ×2 (07:30→18:30)
[2019-06-20 08:17] LABS: ALT (SGPT) 63 U/L (8-55); AST (SGOT) 24 U/L (5-34); Albumin 3.6 g/dL (3.5-5.0); Alkaline Phosphatase 112 U/L (40-110); Anion Gap 15 mmol/L (10-20); BUN (Urea Nitrogen) 7 mg/dL (9.8-20.1); Bilirubin, Total 0.4 mg/dL (0.2-1.2); Calc. Creatinine Clearance 223 mL/min (70-130); Calcium 9.9 mg/dL (7.8-10.44); Carbon Dioxide 20 mmol/L (22-29); Chloride 106 mmol/L (98-107); Estimated GFR-MDRD Greater than 90; Glucose 154 mg/dL (70-105); Protein, Total 7.6 g/dL (6.0-8.3); Sodium 137 mmol/L (136-145)
[2019-06-20 08:48] LABS: Hemoglobin 15.1 g/dL (12.0-16.0); Mean Corpuscular Hemoglobin 30.7 pg (27.0-31.0); Mean Platelet Volume 7.4 fL (7.4-10.4); Platelet Count 448 thou/uL (130-400); RBC Distribution Width 13.7 % (11.5-14.5); Red Blood Cell (RBC) Count 4.93 mill/uL (4.20-5.40); White Blood Cell (WBC) Count 13.9 thou/uL (4.8-10.8)
[2019-06-20] MEDS ORDERED: FOS PO SCH (09:00)
[2019-06-20] MEDS ORDERED: Non-Formulary Item 1 EACH (Cholecalciferol (Vitamin D3) [Vitamin D3] 5,000 UNIT) PO SCH (09:00)
[2019-06-20] MEDS ORDERED: B LON PO SCH (09:00)
[2019-06-20] MEDS ORDERED: Non-Formulary Item 1 EACH (Gabapentin [Gabapentin] 800 MG) PO SCH (09:00)
[2019-06-20] MEDS ORDERED: CASEI PO SCH (09:00)
[2019-06-20] MEDS ORDERED: B BIF PO SCH (09:00)
[2019-06-20] MEDS ORDERED: [UNRECOGNIZED DRUG - OTHER] PO SCH (09:00)
[2019-06-20] MEDS ORDERED: CALCIUM CARBONATE 500 MG PO SCH (09:00)
[2019-06-20] MEDS ORDERED: ACID PO SCH (09:00)
[2019-06-20] MEDS ORDERED: Non-Formulary Item 1 EACH (Fluticasone/Salmeterol [Advair Hfa 115/21 Inhaler] 2 INH) INH SCH (09:00)
[2019-06-20] MEDS: Gabapentin 400 MG CAP PO SCH ×4 (09:38→21:41)
[2019-06-20] MEDS: Cyclobenzaprine 10 MG TAB PO SCH ×3 (09:38→21:41)
[2019-06-20] MEDS: FLUoxetine HCl 20 MG CAP PO SCH ×2 (09:39→21:52)
[2019-06-20] MEDS: Heparin 5,000 UNITS/ML VIAL SC SCH ×2 (09:39→16:00)
[2019-06-20] MEDS: Calcium Carbonate 500 MG TAB PO SCH ×2 (09:39→17:21)
--- NOTE | 2019-06-20 10:53 | PDOC.HHP ---
Hospitalist HPI - History of Present Illness shortness of breath/cough History of Present Illness: This is a 59 year old female with history of MS, recurrent shingles, COPD, neuropathic pain who presented to the ER with increasing shortness of breath and cough. The patient states that on Wednesday she started developing a dry cough. It became excessive on Wednesday. On Wednesday she couldn't tolerate it and called her home health nurse and respiratory therapist who suggested she go to the ER due to increased work of breathing. The patient reports increasing shortness of breath as well. She is unable to produce any phlegm. Has only mild congestion in her chest. She complains of chills and feeling warm and says her normal temperature is 97, but was 98.6 in the ER. She has mild runny nose, no sore throat. She denies sick contacts. She also complains of chest pressure in the lower parts of her chest, but denies diaphoresis, palpitations, dizziness or lightheadedness. She is a former smoker. She says she was recently diagnosed with COPD during her last admission and finished a course of prednisone . The patient denies abdominal pain but complains of nausea. She did not vomit. She denies constipation or diarrhea. She has a chronic rodriguez catheter for neurogenic bladder and it was last changed a month ago. She usually gets it changed once a month. ED Course: The patient had labs in ER which showed WBC of 18, an EKG which showed sinus tachycardia with short KY with premature atrial complexes and nonspecific T wave abnormality. Chest X ray shows no acute disease. THe patient had a UA which showed large blood, bilirubin, positive nitrite. She was given IV levaquin and ceftriaxone in the ER. Since coming up to the floor the patient feels much better in terms of her shortness of breath and chills. Hospitalist ROS - Review of Systems Constitutional: reports: fever, chills ENT: denies: ear pain, ear discharge Respiratory: reports: cough, dry, shortness of breath Cardiovascular: reports: chest pain Gastrointestinal: reports: nausea. denies: vomiting, abdominal pain, diarrhea, constipation Genitourinary: reports: retention. denies: dysuria, frequency Skin: reports: other (had recent shingles rash which is healing) Neurological: reports: other (paraplegic in lower extremities) - Medication Medications: Active Medications Generic Name Dose Route Start Last Admin Trade Name Freq PRN Reason Stop Dose Admin Albuterol/Ipratropium 3 ml 06/19/19 22:30 06/20/19 10:38 Duoneb NEB 3 ml [id number] KAREN Administration Calcium Carbonate 500 mg 06/20/19 08:00 06/20/19 09:39 Oscal-500 PO 500 mg BID-WM KAREN Administration Cholecalciferol 5,000 units 06/20/19 09:00 06/20/19 09:38 Vitamin D3 PO 5,000 units DAILY KAREN Administration Cyclobenzaprine HCl 10 mg 06/20/19 09:00 06/20/19 09:38 Flexeril PO 10 mg TID KAREN Administration Fluoxetine HCl 20 mg 06/20/19 09:00 06/20/19 09:39 Prozac PO 20 mg BID KAREN Administration Gabapentin 800 mg 06/20/19 09:00 06/20/19 09:38 Neurontin PO 800 mg QID KAREN Administration Heparin Sodium (Porcine) 5,000 units 06/20/19 09:00 06/20/19 09:39 Heparin SC 5,000 units TID KAREN Administration Sodium Chloride 10 ml 06/20/19 09:00 06/20/19 09:39 Flush - Normal Saline IVF 10 ml Q12HR KAREN Administration Hospitalist History - Past Medical History Pulmonary: reports: COPD Gastrointestinal: reports: Other (ulcerative colitis and Crohn's disease s/p colectomy) Heme/Onc: reports: no pertinent history Psych: reports: Depression Musculoskeletal: reports: no pertinent history (paraplegic) Infectious Disease: reports: Herpes zoster (had seven attacks in the past year) ENT: denies: no pertinent history Renal/: reports: Other (neurogenic bladder) - Past Surgical History Past Surgical History: reports: Tubal Ligation Other Surgical History: Ganglion cyst removal Colectomy - Family History Other Family History: Dad had heart disease and possibly had MS. Father had emphysema and is Older brother has MS - Social History Smoking Status: Former smoker Alcohol: reports: None Drugs: reports: none Living Situation: Alone Domestic Violence: Negative Activity level: bed bound Other Social History: Smoked for sixteen years, quit in 1990. - Exam General Appearance: NAD, awake alert Eye: PERRL, anicteric sclera ENT: normocephalic atraumatic, no oropharyngeal lesions Neck: supple, symmetric, no JVD, no thyromegaly Heart: RRR, no murmur, no gallops, no rubs Respiratory: CTAB, no wheezes, no ronchi Respiratory - other findings: LLQ rales Gastrointestinal: soft, non-tender, non-distended Gastrointestinal - other findings: Colostomy LLQ Extremities: no cyanosis, no clubbing, no edema Skin: normal turgor, no lesions, no rashes Skin - other findings: no shingles rash noted. Some dry skin on gluteal area. Purple discoloration Neurological: cranial nerve grossly intact, normal sensation to touch, no focal deficits, no new deficit Neurological - other findings: patient paraplegic in lower legs Musculoskeletal - other findings: can move her arms but not her legs. RLE more swollen than left. Psychiatric: normal affect, normal behavior, A&O x 3 Hospitalist Results - Labs Result Diagrams: 06/20/19 07:40 06/20/19 07:40 Lab results: WBC 13.9 thou/uL (4.8-10.8) H 06/20/19 07:40 Hgb 15.1 g/dL (12.0-16.0) 06/20/19 07:40 Hct 45.8 % (36.0-47.0) 06/20/19 07:40 MCV 93.0 fL (78.0-98.0) 06/20/19 07:40 Plt Count 448 thou/uL (130-400) H 06/20/19 07:40 Neutrophils % 68.4 % (42.0-75.0) 06/19/19 17:14 Sodium 137 mmol/L (136-145) 06/20/19 07:40 Potassium 4.0 mmol/L (3.5-5.1) 06/20/19 07:40 Chloride 106 mmol/L (98-107) 06/20/19 07:40 Carbon Dioxide 20 mmol/L (22-29) L 06/20/19 07:40 BUN 7 mg/dL (9.8-20.1) L 06/20/19 07:40 Creatinine 0.60 mg/dL (0.6-1.1) 06/20/19 07:40 Glucose 154 mg/dL (70-105) H 06/20/19 07:40 Lactic Acid 1.0 mmol/L (0.5-2.2) 06/19/19 17:14 Calcium 9.9 mg/dL (7.8-10.44) 06/20/19 07:40 Total Bilirubin 0.4 mg/dL (0.2-1.2) 06/20/19 07:40 AST 24 U/L (5-34) 06/20/19 07:40 ALT 63 U/L (8-55) H 06/20/19 07:40 Alkaline Phosphatase 112 U/L (40-110) H 06/20/19 07:40 Troponin I Less than 0.010 ng/mL (< 0.028) 06/19/19 17:14 B-Natriuretic Peptide 20.1 pg/mL (0-100) 06/19/19 17:14 Serum Total Protein 7.6 g/dL (6.0-8.3) 06/20/19 07:40 Albumin 3.6 g/dL (3.5-5.0) 06/20/19 07:40 Urine Ketones > or equal to 80 mg/dL (Negative) A 06/19/19 18:09 Urine Blood Large (Negative) A 06/19/19 18:09 Urine Nitrite Positive (Negative) A 06/19/19 18:09 Ur Leukocyte Esterase Moderate (Negative) H 06/19/19 18:09 Urine RBC 7-10 HPF (0-3) A 06/19/19 18:09 Urine WBC Greater Than 50 HPF (0-3) A 06/19/19 18:09 Ur Squamous Epith Cells 4-6 HPF (0-3) A 06/19/19 18:09 Urine Bacteria 3+ HPF (None Seen) A 06/19/19 18:09 - EKG Interpretation EKG: The patient had an EKG which showed sinus tachycardia with short KY with premature atrial complexes and nonspecific T wave abnormality. - Radiology Interpretation Chest x-ray Status: image reviewed by me Additional Comment: no acute disease Hospitalist H&P A/P - Plan Plan: Chest X ray: large pericardial fat pad at left base This is a 59 year old female with past medical history of MS, COPD, neurogenic bladder with chronic rodriguez, ulcerative colitis with colostomy who presented with shortness of breath and cough, found to be tachycardic with WBC of 18, s/p IV levaquin and ceftriaxone in the ER Sepsis secondary to possible pneumonia versus UTI - patient had low grade temp, tachycardia, WBC of 18. S/p IV levaquin and ceftriaxone with improvement - will continue ceftriaxone and add azithromycin. Chest X ray normal but given clinical picture will treat empirically for pneumonia - blood cultures negative, will send sputum sample COPD - continue duoneb q4 and albuterol prn - will hold off on steroid for now unless significant wheezing - continue advair and singulair Chronic lymphedema - currently right leg appears more swollen than left, will check dopplers -purple discoloration on right due to Raynaud's per patient. Check FRANCIS in am Nausea/Elevated ALP - Will check RUQ ultrasound Ulcerative colitis/Crohn's s/p colectomy - hold mesalamine for now MS- continue baclofen and gabapentin Recurrent Shingles - continue valtrex Depression - fluoxetine Glaucoma - continue eye drops DVT prophylaxis: heparin SC Code status: DNR/DNI
[2019-06-20] MEDS ORDERED: valACYclovir 500 MG TAB PO SCH ×2 (11:06→11:15)
[2019-06-20] MEDS: Brimonidine Tartrate 0.2% Ophth Soln 5 ml Bottle R EYE SCH ×3 (11:07→21:52)
[2019-06-20] MEDS ORDERED: Albuterol Sulfate 1.25 MG/3 ML NEB NEB PRN (11:14)
[2019-06-20] MEDS ORDERED: Non-Formulary Item 1 EACH (Lactobacillus Acidophilus [Probiotic] 1 CAPSULE) PO SCH (12:00)
[2019-06-20] MEDS: Azithromycin 500 MG in Sodium Chloride 0.9% 250 ML 250 ML IVPB SCH (12:31)
[2019-06-20] MEDS: Lactinex Tablet PO SCH (12:32)
[2019-06-20] MEDS ORDERED: Iopamidol-370 76% 500 ML 1 ML ONE (13:27)
--- NOTE | 2019-06-20 14:46 | ULT ---
EXAM: Bilateral lower extremity venous Doppler HISTORY: Lower extremity lymphedema. Purple skin color on right. FINDINGS: Grayscale, color-flow, Doppler evaluation, spectral analysis of the bilateral lower extremities venou s structures is performed with 2-D imaging. The bilateral common femoral, superficial femoral, popliteal, posterior tibial, proximal greater saphenous and profunda femoral veins are imaged. There is decreased lumen compressibility with increased luminal echogenicity seen involving the right common femoral, profunda femoral, superficial femoral, and popliteal veins. No flow is present within the right common femoral or profunda femoral veins suggesting occlusive DVT. Significantly dim inished flow is seen within the right superficial femoral vein and popliteal vein. Normal flow is seen in the visualized right posterior tibial vein There is normal luminal compressibility, flow, and augmentation in the visualized deep venous structu res of the left lower extremity. IMPRESSION: 1. Occlusive DVT involving the right common femoral and profunda femoral veins with nonocclusive DVT involving the right lower extremity superficial femoral and popliteal veins. 2. No evidence of a DVT involving the visualized deep venous structures left lower extremity. 3. Above findings were discussed with Teresa, nurse in charge of the patient's hospital care on the hospital floor by Jeniffer visual education director on 06/20/2019 at 1426 hours.
--- NOTE | 2019-06-20 14:46 | ULT ---
US Gallbladder RUQ: 06/20/2019 11:25 AM CLINICAL HISTORY: Elevated LFTs with nausea. STUDY: Limited right upper quadrant ultrasound of abdomen. COMPARISON: 02/10/2015 FINDINGS: Liver: Size: Normal. Echogenicity: Normal. Contour: Smooth. Mass: None. Bile ducts: No intrahepatic or extrahepatic biliary dilatation. Common bile duct measures 5 mm. Gallbladder: Normal. Pancreas: Head, body, and tail appear normal. Right kidney: No pelvicalyceal dilatation. Right kidney measuring 12.5 cm in length. IMPRESSION: Unremarkable exam.
[2019-06-20] MEDS: Acetylcysteine 10% 100 MG/ML 30 ml Vial NEB SCH ×2 (16:01→22:18)
--- NOTE | 2019-06-20 17:24 | CT ---
CT arteriogram chest with IV contrast and 3-D imaging HISTORY: Cough. Dyspnea. COMPARISON: 03/18/2019. FINDINGS: No filling defects are apparent within the central pulmonary arteries. Motion artifact and photon deficiency due to soft tissue attenuation limits evaluation of the more peripheral pulmonary arteries. Normal branching great vessels at the aortic arch. Mild atelectasis at each lung base. No e vidence of pneumothorax or mediastinal adenopathy. Small cyst within the dome of the liver. Old bilateral rib fractures. Partial compression of the T8 superior endplate is stable. IMPRESSION: No CT evidence of pulmonary embolus. Mild bibasilar lung atelectasis. Chronic-type findings are stable.
[2019-06-20] MEDS ORDERED: cefTRIAXone\\ROCEPHIN 1 GM in Sodium Chloride 0.9% 100 ML IVPB SCH (18:00)
[2019-06-20] MEDS: Mometasone/Formoterol 120 PUFF INHALER INH SCH (18:58)
[2019-06-20] MEDS ORDERED: Labetalol HCl 100 MG/20 ML VIAL SLOW IVP PRN (19:57)
[2019-06-20] MEDS ORDERED: Non-Formulary Item 1 EACH (Travoprost [Travatan Z] 1 DROP) R EYE SCH (21:00)
[2019-06-20] MEDS: Enoxaparin Sodium 80 MG/0.8 ML SYRINGE SC SCH (21:31)
[2019-06-20] MEDS: guaiFENesin ER 600 MG TAB PO SCH (21:41)
[2019-06-20] MEDS: Montelukast Sodium 10 mg Tablet PO SCH (21:42)
[2019-06-20] MEDS: valACYclovir 500 MG TAB PO SCH (21:42)
[2019-06-20] MEDS: Docusate 100 MG CAP PO SCH (21:43)
[2019-06-20] MEDS: Latanoprost 0.005% Ophth Soln 2.5 ml Bottle R EYE SCH (21:51)
[2019-06-21 06:59] LABS: Mean Corpuscular Hemoglobin 29.4 pg (27.0-31.0); Mean Corpuscular Volume 92.1 fL (78.0-98.0); Mean Platelet Volume 7.1 fL (7.4-10.4); Platelet Count 555 thou/uL (130-400); RBC Distribution Width 13.8 % (11.5-14.5); Red Blood Cell (RBC) Count 4.76 mill/uL (4.20-5.40); White Blood Cell (WBC) Count 20.9 thou/uL (4.8-10.8)
[2019-06-21 07:14] LABS: Anion Gap 14 mmol/L (10-20); BUN (Urea Nitrogen) 11 mg/dL (9.8-20.1); Calc. Creatinine Clearance 206 mL/min (70-130); Calcium 10.2 mg/dL (7.8-10.44); Carbon Dioxide 22 mmol/L (22-29); Chloride 105 mmol/L (98-107); Estimated GFR-MDRD Greater than 90; Glucose 130 mg/dL (70-105); Potassium 3.6 mmol/L (3.5-5.1); Sodium 137 mmol/L (136-145)
[2019-06-21] MEDS: Acetylcysteine 10% 100 MG/ML 30 ml Vial NEB SCH ×2 (07:41→14:28)
[2019-06-21] MEDS: Mometasone/Formoterol 120 PUFF INHALER INH SCH ×2 (07:46→18:59)
[2019-06-21 08:29] LABS: Band 3 % (5-11); Lymphocytes 4 % (21-51); MDiff Complete? YES; Monocytes 12 % (0-10); Neutrophil 80 % (42-75); Platelet Morphology Comment Appears Increased; RBC Morphology Normal; Reactive Lymphocytes 1 % (0-10)
[2019-06-21] MEDS: Gabapentin 400 MG CAP PO SCH ×4 (08:58→22:25)
[2019-06-21] MEDS: Saccharomyces boulardii 250 MG CAP PO SCH (08:58)
[2019-06-21] MEDS: guaiFENesin ER 600 MG TAB PO SCH ×2 (08:59→22:25)
[2019-06-21] MEDS: FLUoxetine HCl 20 MG CAP PO SCH ×2 (08:59→22:26)
[2019-06-21] MEDS: valACYclovir 500 MG TAB PO SCH ×2 (08:59→22:25)
[2019-06-21] MEDS: Cyclobenzaprine 10 MG TAB PO SCH ×3 (08:59→22:26)
[2019-06-21] MEDS: Calcium Carbonate 500 MG TAB PO SCH ×2 (08:59→17:55)
[2019-06-21] MEDS ORDERED: Enoxaparin Sodium 40 MG/0.4 ML SYRINGE SC SCH (09:00)
[2019-06-21] MEDS: Brimonidine Tartrate 0.2% Ophth Soln 5 ml Bottle R EYE SCH ×3 (09:00→22:23)
[2019-06-21] MEDS: Enoxaparin Sodium 80 MG/0.8 ML SYRINGE SC SCH ×2 (09:10→22:24)
--- NOTE | 2019-06-21 09:13 | CON ---
DATE OF CONSULTATION: HISTORY OF PRESENT ILLNESS: Jose Monreal is a 59-year-old female with couple of prior admissions this summer for dyspnea and again admitted with increasing shortness of breath as well as a nonproductive cough. She was found to have some swelling right greater than left in her lower extremities and an ultrasound demonstrated DVT of the right femoral vein. CT angio of the chest demonstrated no evidence of pulmonary embolus. Similarly, there was some atelectatic changes in the left base, but no obvious pneumonia. PAST MEDICAL HISTORY: As noted includes multiple sclerosis and she has morbid obesity. As a result of those 2 issues, she has basically been nonambulatory for the past decade. She lives alone, although she has a couple of renters that are there and she has home health assistance. The patient reports Raynaud's. SOCIAL HISTORY: Otherwise, she has not smoked in many years at least approaching 20 years now. PHYSICAL EXAMINATION: GENERAL: On examination, she is alert and cooperative lady, currently receiving a nebulizer treatment. She is in no respiratory distress. VITAL SIGNS: She has some mild resting tachycardia of about 110. Blood pressures recorded 130/70. NECK: No carotid bruits. LUNGS: Clear to auscultation anteriorly. CARDIAC: Reveals no murmurs, and she does have the noted resting tachycardia. EXTREMITIES: She has some bluish skin discoloration of the right greater than left foot and ankle area. She has no edema at this time that is palpable. I am unable to palpate pedal pulses, but she has excellent Doppler in her left DP, right PT, right DP. PLAN: At this time, the patient is on Lovenox, anticoagulation and this can be transitioned to oral drugs and I think that is the best initial approach. I see no indication at the present time for an IVC filter and have discussed these findings and recommendations with the patient. Job ID: [id number]
[2019-06-21] MEDS: Azithromycin 500 MG in Sodium Chloride 0.9% 250 ML 250 ML IVPB SCH (12:28)
[2019-06-21] MEDS: Lactinex Tablet PO SCH (12:28)
--- NOTE | 2019-06-21 13:24 | CON ---
DATE OF CONSULTATION: HISTORY OF PRESENT ILLNESS: Ms. Monreal is a 59-year-old female, who was found to have a DVT. She has multiple sclerosis, has been bedridden for over [address] pulmonary angiogram shows no evidence of thromboembolic disease. She does not have any pulmonary infiltrate suggestive of pneumonia. I was consulted by Dr. Ray because of presence of DVT. He was consulted for filter and does not recommend a filter. I have seen her multiple times in the past. PAST MEDICAL HISTORY: Remarkable for: 1. Multiple sclerosis. 2. Life-threatening obesity. She says she has lost 60 pounds on her current diet. 3. History of coronary artery disease. 4. Chronic stasis changes. 5. Raynaud's. 6. History of an ostomy in the past. I met her in 2013 after an abdominal procedure, where she was left overnight ventilated because of her multiple comorbidities. 7. History of asthma. 8. History of depression. 9. History of wrist surgery. 10. History of tubal ligation. FAMILY HISTORY: Negative for lung disease in early age. REVIEW OF SYSTEMS: Remarkable only for mild dyspnea. She is a former smoker. Does not drink. MEDICATIONS: Reviewed. PHYSICAL EXAMINATION: GENERAL: She is in no distress. I last saw her in March. In my opinion, she looks better than she looked back then. VITAL SIGNS: She is afebrile. Heart rate is 120, respiratory rate is 18, oximetry is 97% on room air, and blood pressure 141/81. HEAD AND NECK: Unremarkable. LUNGS: Clear. HEART: Regular rhythm. ABDOMEN: Soft and nontender. EXTREMITIES: Without edema. LABORATORY DATA: White count 20.9, hemoglobin 14, and platelets 555. Electrolytes are normal. Renal functions normal. ALT 63, AST 24, and alkaline phosphatase 112. IMPRESSION: Deep venous thrombosis. I would recommend full-dose oral anticoagulants for now and with loading dose and then switch to standard dose anticoagulation for 6 months. At 6 months, I would recommend switching her to prophylactic dose Xarelto or Eliquis and probably continue this for life given that she will chronically be bedridden. Hopefully, this will decrease chance of a future thromboembolic event. I will see her as needed in the future. She has a doctor who calls on her at her house who set her up with a percussion vest and some type of noninvasive ventilation. I have explained to her that getting her weight off is the most important issue at hand and that her dyspnea is at least in a significant part related to her size and her deconditioning that is a result of being bedridden for approximately 10 years. She said she understands. Job ID: [id number]
[2019-06-21] MEDS ORDERED: Benzonatate 100 MG CAP PO PRN (13:58)
--- NOTE | 2019-06-21 14:03 | PDOC.HOSPP ---
- Subjective Encounter Date: 06/21/19 Encounter Time: 01:40 Subjective: The patient is still having coughing fits. She says it starts out as a dry cough and then turns into a wet cough. She also says that she has trouble swallowing bread and certain foods trigger her coughing spells and make her choke. She has had barium swallow in the past, but not recently. She has not had an EGD before. She denies vomiting. She denies chest pain. Shortness of breath is similar. Per RT, she is refusing mucomyst Regarding tachycardia, patient follows with Dr. Burgos who did an ECHO on her in April and told her that her heart was in great shape. Patient says she was told by Dr. Salcedo to lose weight. SHe is interested in trying a low carbohydrate diet and would like to talk to dietary. She is not interested in bariatric surgery. She also wants dietary recommendations with regards to what vegetables to eat for her ulcerative colitis considering broccoli makes her stool very formed in her colostomy. - Objective Vital Signs & Weight: Vital Signs (12 hours) Temp Pulse Resp BP Pulse Ox 06/21/19 12:57 97.7 F 121 H 16 127/75 96 06/21/19 10:53 123 H 20 06/21/19 08:58 121 H 06/21/19 08:05 97.8 F 121 H 18 141/81 H 97 06/21/19 07:42 112 H 20 98 06/21/19 03:00 98 F 118 H 16 130/73 93 L Weight Weight 305 lb 3.2 oz I&O: 06/20/19 06/21/19 06/22/19 06:59 06:59 06:59 Intake Total 120 550 Output Total 975 1250 Balance -855 700 Result Diagrams: 06/21/19 06:22 06/21/19 06:22 Hospitalist ROS - Review of Systems Constitutional: denies: fever, chills Eyes: denies: vision change Respiratory: reports: cough Cardiovascular: denies: chest pain, palpitations Gastrointestinal: denies: nausea, vomiting, abdominal pain, diarrhea, constipation - Medication Medications: Active Medications Generic Name Dose Route Start Last Admin Trade Name Freq PRN Reason Stop Dose Admin Acetylcysteine 300 mg 06/20/19 14:00 06/21/19 07:41 Mucomyst 10% (Oral Or Inh) NEB Not Given Q8HR KAREN Acidophilus 1 tab 06/20/19 12:00 06/21/19 12:28 Floranex PO 1 tab 1200 KAREN Administration Brimonidine Tartrate 1 drop 06/20/19 09:00 06/21/19 09:00 Alphagan 0.2% Ophth Soln R EYE 1 drop TID KAREN Administration Calcium Carbonate 500 mg 06/20/19 08:00 06/21/19 08:59 Oscal-500 PO 500 mg BID-WM KAREN Administration Cholecalciferol 5,000 units 06/20/19 09:00 06/21/19 08:58 Vitamin D3 PO 5,000 units DAILY KAREN Administration Cyclobenzaprine HCl 10 mg 06/20/19 09:00 06/21/19 08:59 Flexeril PO 10 mg TID KAREN Administration Diltiazem HCl 120 mg 06/21/19 09:00 06/21/19 08:58 Cardizem Cd PO 120 mg DAILY KAREN Administration Docusate Sodium 100 mg 06/20/19 21:00 06/20/19 21:43 Colace PO 100 mg HS KAREN Administration Enoxaparin Sodium 140 mg 06/20/19 21:00 06/21/19 09:10 Lovenox SC 140 mg 0900,2100 KAREN Administration Fluoxetine HCl 20 mg 06/20/19 09:00 06/21/19 08:59 Prozac PO 20 mg BID KAREN Administration Gabapentin 800 mg 06/20/19 09:00 06/21/19 12:28 Neurontin PO 800 mg QID KAREN Administration Guaifenesin 600 mg 06/20/19 21:00 06/21/19 08:59 Mucinex PO 600 mg Q12HR KAREN Administration Hyoscyamine Sulfate 0.25 mg 06/20/19 09:00 06/21/19 12:28 Levsin PO 0.25 mg QID KAREN Administration Latanoprost 1 drop 06/20/19 21:00 06/20/19 21:51 Xalatan 0.005% Ophth Soln R EYE 1 drop HS KAREN Administration Mometasone Furoate/Formoterol Fumar 2 puff 06/20/19 18:30 06/21/19 07:46 Dulera 100 Mcg/5 Mcg Inhaler INH 2 puff BID-RT KAREN Administration Montelukast Sodium 10 mg 06/20/19 21:00 06/20/19 21:42 Singulair PO 10 mg QPM KAREN Administration Saccharomyces Boulardii 250 mg 06/21/19 09:00 06/21/19 08:58 Florastor PO 250 mg DAILY KAREN Administration Sodium Chloride 10 ml 06/20/19 09:00 06/21/19 09:00 Flush - Normal Saline IVF 10 ml Q12HR KAREN Administration Valacyclovir HCl 1,000 mg 06/20/19 21:00 06/21/19 08:59 Valtrex PO 1,000 mg BID KAREN Administration - Exam General Appearance: NAD, awake alert General - other findings: tachycardic. Moderate distress Eye: PERRL, anicteric sclera ENT: normocephalic atraumatic, no oropharyngeal lesions Neck: supple, symmetric, no JVD Heart: RRR, no murmur, no gallops, no rubs Respiratory - other findings: Rhonchi at right lung base Gastrointestinal: soft, non-tender, non-distended, normal bowel sounds Extremities: no cyanosis, no clubbing, no edema Skin: normal turgor, no lesions Skin - other findings: Right foot purple and cold, diminished pulses. Left foot cold, no pulses Neurological: cranial nerve grossly intact, normal sensation to touch, no focal deficits, no new deficit Musculoskeletal: normal tone, normal strength, no muscle wasting Psychiatric: normal affect, normal behavior, A&O x 3, oriented to person Hosp A/P - Plan Venogram: occlusive DVT involving right common femoral and profunda femoral veins with nonocclusive DVT involving RLE superficial femoral and popliteal veins. Abd Ultrasound: unremarkable CTA thorax: bibasilar lung atelectasis, no PE This is a 59 year old female with past medical history of MS, COPD, neurogenic bladder with chronic rodriguez, ulcerative colitis with colostomy who presented with shortness of breath and cough, found to be tachycardic with WBC of 18, s/p IV levaquin and ceftriaxone in the ER Sepsis secondary to possible pneumonia versus UTI - patient had low grade temp, tachycardia, WBC of 18. S/p IV levaquin and ceftriaxone with improvement. Chest Xray and CTA show no pneumonia, however WBC has increased to 20. Will switch to vancomycin and zosyn given that patient is still tachycardic - blood cultures show 1/2 staph, will repeat blood cultures - sputum culture pending #Right common femoral DVT #Chronic lymphedema - started on empiric lovenox 1 mg SC BID - skin color in lower leg not purple today, however right foot still cold and purple with no pulse. Patient reports she has Raynauds . FRANCIS pending - will transition to oral when tachycardia improves Dysphagia - speech consult - consider barium swallow Morbid obesity - dietary nutrition consult. Switch diet to 60 gm carbohydrate diet COPD - continue duoneb q4 and albuterol prn - will hold off on steroid for now unless significant wheezing - continue advair and singulair Nausea/Elevated ALP - RUQ ultrasound normal Ulcerative colitis/Crohn's s/p colectomy - hold mesalamine for now MS with paraplegia- continue baclofen and gabapentin. PT consult Recurrent Shingles - continue valtrex Depression - fluoxetine Glaucoma - continue eye drops Code status: DNR/DNI
[2019-06-21] MEDS ORDERED: Pantoprazole 40 MG GRANULES PACKET PO SCH (14:30)
[2019-06-21] MEDS: Vancomycin HCl 1 GM in Premix Bag 1 BAG IVPB SCH (14:40)
[2019-06-21 15:58] LABS: ANA Symphony (Qualitative) Negative (Negative); ANA Symphony (Quantitative) 0.1 Ratio (< 0.7 Negative); dsDNA IgG Antibody 0.5 IU/mL (<10 Negative)
[2019-06-21] MEDS: Piperacillin/Tazobactam 3.375 GM in Sodium Chloride 0.9% 100 ML IVPB SCH (17:54)
[2019-06-21] MEDS ORDERED: Vancomycin HCl 1 GM in Sodium Chloride 0.9% 250 ML 250 ML IVPB SCH (21:00)
[2019-06-21] MEDS: Latanoprost 0.005% Ophth Soln 2.5 ml Bottle R EYE SCH (22:24)
[2019-06-21] MEDS: Montelukast Sodium 10 mg Tablet PO SCH (22:25)
[2019-06-21] MEDS: Docusate 100 MG CAP PO SCH (22:26)
[2019-06-22] MEDS: Piperacillin/Tazobactam 3.375 GM in Sodium Chloride 0.9% 100 ML IVPB SCH ×4 (01:01→17:54)
[2019-06-22] MEDS: Vancomycin HCl 1 GM in Premix Bag 1 BAG IVPB SCH ×2 (03:58→16:02)
[2019-06-22 05:01] LABS: Hemoglobin 12.8 g/dL (12.0-16.0); Mean Corpuscular HGB CONC 31.3 g/dL (32.0-36.0); Mean Corpuscular Hemoglobin 28.6 pg (27.0-31.0); Mean Corpuscular Volume 91.3 fL (78.0-98.0); Mean Platelet Volume 6.6 fL (7.4-10.4); Platelet Count 495 thou/uL (130-400); RBC Distribution Width 13.8 % (11.5-14.5); Red Blood Cell (RBC) Count 4.49 mill/uL (4.20-5.40); White Blood Cell (WBC) Count 14.8 thou/uL (4.8-10.8)
[2019-06-22 05:17] LABS: ALT (SGPT) 140 U/L (8-55); AST (SGOT) 51 U/L (5-34); Albumin 3.3 g/dL (3.5-5.0); Alkaline Phosphatase 91 U/L (40-110); Anion Gap 11 mmol/L (10-20); BUN (Urea Nitrogen) 13 mg/dL (9.8-20.1); Bilirubin, Total 0.4 mg/dL (0.2-1.2); Calc. Creatinine Clearance 206 mL/min (70-130); Calcium 9.8 mg/dL (7.8-10.44); Carbon Dioxide 25 mmol/L (22-29); Chloride 107 mmol/L (98-107); Estimated GFR-MDRD Greater than 90; Globulin 3.3 g/dL (2.4-3.5); Glucose 117 mg/dL (70-105); Potassium 3.3 mmol/L (3.5-5.1); Protein, Total 6.6 g/dL (6.0-8.3); Sodium 140 mmol/L (136-145)
[2019-06-22] MEDS: Mometasone/Formoterol 120 PUFF INHALER INH SCH ×2 (07:15→18:48)
[2019-06-22] MEDS: Brimonidine Tartrate 0.2% Ophth Soln 5 ml Bottle R EYE SCH ×3 (08:47→21:07)
[2019-06-22] MEDS: Calcium Carbonate 500 MG TAB PO SCH ×2 (08:47→16:05)
[2019-06-22] MEDS: Cyclobenzaprine 10 MG TAB PO SCH ×3 (08:48→21:08)
[2019-06-22] MEDS: FLUoxetine HCl 20 MG CAP PO SCH ×2 (08:51→21:08)
[2019-06-22] MEDS: Gabapentin 400 MG CAP PO SCH ×4 (08:51→21:08)
[2019-06-22] MEDS: Enoxaparin Sodium 80 MG/0.8 ML SYRINGE SC SCH (08:51)
[2019-06-22] MEDS: Pantoprazole 40 MG GRANULES PACKET PO SCH (08:52)
[2019-06-22] MEDS: valACYclovir 500 MG TAB PO SCH ×2 (08:52→21:08)
[2019-06-22] MEDS: Saccharomyces boulardii 250 MG CAP PO SCH (08:52)
[2019-06-22] MEDS: guaiFENesin ER 600 MG TAB PO SCH ×2 (08:52→21:08)
[2019-06-22] MEDS: Acetylcysteine 10% 100 MG/ML 30 ml Vial NEB SCH ×3 (09:14→14:43)
[2019-06-22] MEDS ORDERED: Potassium Chloride 20 MEQ TAB PO SCH (11:45)
[2019-06-22] MEDS: Lactinex Tablet PO SCH (12:14)
--- NOTE | 2019-06-22 17:57 | PDOC.HOSPP ---
- Subjective Encounter Date: 06/22/19 Encounter Time: 17:55 Subjective: The patient is doing better. Still has a cough that's deep and is starting to use an ENT suction to help get stuff out. She was told by speech to have a mechanical ground soft diet. Says she got helpful information from the whipper beater. She denies chest pain. - Objective Vital Signs & Weight: Vital Signs (12 hours) Temp Pulse Pulse Pulse Resp BP BP 06/22/19 15:56 98.2 F 111 H 20 06/22/19 14:44 113 H 20 06/22/19 11:41 114 H 115 H 120/83 128/91 H 06/22/19 11:20 98.4 F 116 H 20 06/22/19 10:38 122 H 20 06/22/19 08:44 97.6 F 109 H 16 06/22/19 07:21 06/22/19 07:19 108 H 20 06/22/19 07:15 108 H 20 BP Pulse Ox 06/22/19 15:56 130/72 96 06/22/19 14:44 99 06/22/19 11:41 06/22/19 11:20 119/76 97 06/22/19 10:38 97 06/22/19 08:44 131/80 97 06/22/19 07:21 98 06/22/19 07:19 98 06/22/19 07:15 98 Weight Weight 305 lb 3.2 oz I&O: 06/21/19 06/22/19 06/23/19 06:59 06:59 06:59 Intake Total 550 1120 Output Total 1250 925 Balance -700 195 Result Diagrams: 06/22/19 04:47 06/22/19 04:47 Hospitalist ROS - Review of Systems Constitutional: denies: fever, chills Respiratory: reports: cough - Medication Medications: Active Medications Generic Name Dose Route Start Last Admin Trade Name Freq PRN Reason Stop Dose Admin Acetylcysteine 300 mg 06/20/19 14:00 06/22/19 14:43 Mucomyst 10% (Oral Or Inh) NEB Not Given Q8HR KAREN Acidophilus 1 tab 06/20/19 12:00 06/22/19 12:14 Floranex PO 1 tab 1200 KAREN Administration Albuterol/Ipratropium 3 ml 06/21/19 14:30 06/22/19 14:44 Duoneb NEB 3 ml [id number] KAREN Administration Brimonidine Tartrate 1 drop 06/20/19 09:00 06/22/19 16:01 Alphagan 0.2% Ophth Soln R EYE 1 drop TID KAREN Administration Calcium Carbonate 500 mg 06/20/19 08:00 06/22/19 16:05 Oscal-500 PO 500 mg BID-WM KAREN Administration Cholecalciferol 5,000 units 06/20/19 09:00 06/22/19 08:48 Vitamin D3 PO 5,000 units DAILY KAREN Administration Cyclobenzaprine HCl 10 mg 06/20/19 09:00 06/22/19 16:02 Flexeril PO 10 mg TID KAREN Administration Diltiazem HCl 120 mg 06/21/19 09:00 06/22/19 08:48 Cardizem Cd PO 120 mg DAILY KAREN Administration Docusate Sodium 100 mg 06/20/19 21:00 06/21/19 22:26 Colace PO 100 mg HS KAREN Administration Enoxaparin Sodium 140 mg 06/20/19 21:00 06/22/19 08:51 Lovenox SC 140 mg 0900,2100 KAREN Administration Fluoxetine HCl 20 mg 06/20/19 09:00 06/22/19 08:51 Prozac PO 20 mg BID KAREN Administration Gabapentin 800 mg 06/20/19 09:00 06/22/19 16:04 Neurontin PO 800 mg QID KAREN Administration Guaifenesin 600 mg 06/20/19 21:00 06/22/19 08:52 Mucinex PO 600 mg Q12HR KAREN Administration Hyoscyamine Sulfate 0.25 mg 06/20/19 09:00 06/22/19 16:04 Levsin PO 0.25 mg QID KAREN Administration Piperacillin Sod/Tazobactam 100 mls @ 200 mls/hr 06/21/19 18:00 06/22/19 12: 15 Sod 3.375 gm/ Sodium Chloride IVPB 100 mls Q6HR KAREN Administration Vancomycin HCl 1 gm/ Device 200 mls @ 200 mls/hr 06/21/19 15:00 06/22/19 16: 02 IVPB 200 mls 0300,1500 KAREN Administration Latanoprost 1 drop 06/20/19 21:00 06/21/19 22:24 Xalatan 0.005% Ophth Soln R EYE 1 drop HS KAREN Administration Mometasone Furoate/Formoterol Fumar 2 puff 06/20/19 18:30 06/22/19 07:15 Dulera 100 Mcg/5 Mcg Inhaler INH 2 puff BID-RT KAREN Administration Montelukast Sodium 10 mg 06/20/19 21:00 06/21/19 22:25 Singulair PO 10 mg QPM KAREN Administration Pantoprazole Sodium 40 mg 06/22/19 09:00 06/22/19 08:52 Protonix PO 40 mg DAILY KAREN Administration Saccharomyces Boulardii 250 mg 06/21/19 09:00 06/22/19 08:52 Florastor PO 250 mg DAILY KAREN Administration Sodium Chloride 10 ml 06/20/19 09:00 06/22/19 08:59 Flush - Normal Saline IVF 10 ml Q12HR KAREN Administration Valacyclovir HCl 1,000 mg 06/20/19 21:00 06/22/19 08:52 Valtrex PO 1,000 mg BID KAREN Administration - Exam General Appearance: NAD, awake alert Eye: PERRL, anicteric sclera ENT: normocephalic atraumatic, no oropharyngeal lesions Neck: supple, symmetric, no JVD, no carotid bruit Heart: RRR, no murmur, no gallops, no rubs Respiratory: CTAB, no wheezes, no ronchi Respiratory - other findings: mild rale at base Gastrointestinal: soft, non-tender, non-distended, normal bowel sounds Extremities: no cyanosis, no clubbing, no edema Skin: normal turgor, no lesions, no rashes Skin - other findings: 2+ DP pulses. Feet are no longer purple and warm to touch Neurological: cranial nerve grossly intact, normal sensation to touch Neurological - other findings: paraplegic due to MS Musculoskeletal: normal tone, normal strength, no muscle wasting Psychiatric: normal affect, normal behavior, A&O x 3, oriented to person Hosp A/P - Plan Venogram: occlusive DVT involving right common femoral and profunda femoral veins with nonocclusive DVT involving RLE superficial femoral and popliteal veins. Abd Ultrasound: unremarkable CTA thorax: bibasilar lung atelectasis, no PE ECHO: 55-60% with small pericardial effusion This is a 59 year old female with past medical history of MS, COPD, neurogenic bladder with chronic rodriguez, ulcerative colitis with colostomy who presented with shortness of breath and cough, found to be tachycardic with WBC of 18, s/p IV levaquin and ceftriaxone in the ER Sepsis secondary to possible pneumonia - patient had low grade temp, tachycardia, WBC of 18. S/p IV levaquin and ceftriaxone with improvement. Chest Xray and CTA show no pneumonia, however WBC has increased to 20. Started vanc and zosyn 06/21. Continue since WBC has improved - blood cultures show 1/2 staph, repeat cultures pending - urine culture growing howard only 25 to 75,000 will not treat given patient not symptomatic from this however catheter should be changed if not done - sputum culture pending #Right common femoral DVT #Chronic lymphedema - started on empiric lovenox 1 mg SC BID. Will switch to apixaban given that skin color is now normal and temp is warm with palpable pulses - FRANCIS is normal Small pericardial effusion - no evidence of tamponade on ECHO. Will monitor Dysphagia - speech consult recommended mechanical softt diet with thin liquids Morbid obesity - dietary nutrition consult, following - patient requesting 1500 francine diet COPD - continue duoneb q4 and albuterol prn - will hold off on steroid for now unless significant wheezing - continue advair and singulair Nausea/Elevated ALP - RUQ ultrasound normal Ulcerative colitis/Crohn's s/p colectomy - hold mesalamine for now MS with paraplegia- continue baclofen and gabapentin. PT consult Recurrent Shingles - continue valtrex Depression - fluoxetine Glaucoma - continue eye drops Dispo: home with home health. F/u repeat blood cultures. Consider d/c 1-2 days Code status: DNR/DNI
[2019-06-22] MEDS: Latanoprost 0.005% Ophth Soln 2.5 ml Bottle R EYE SCH (21:07)
[2019-06-22] MEDS: Apixaban 5 MG TAB PO SCH (21:08)
[2019-06-22] MEDS: Montelukast Sodium 10 mg Tablet PO SCH (21:08)
[2019-06-22] MEDS: Docusate 100 MG CAP PO SCH (21:08)
[2019-06-23] MEDS: Piperacillin/Tazobactam 3.375 GM in Sodium Chloride 0.9% 100 ML IVPB SCH ×4 (00:11→22:24)
[2019-06-23] MEDS: Vancomycin HCl 1 GM in Premix Bag 1 BAG IVPB SCH (02:35)
[2019-06-23 05:17] LABS: Hemoglobin 13.1 g/dL (12.0-16.0); Mean Corpuscular HGB CONC 31.7 g/dL (32.0-36.0); Mean Corpuscular Hemoglobin 29.2 pg (27.0-31.0); Mean Corpuscular Volume 92.1 fL (78.0-98.0); Mean Platelet Volume 6.6 fL (7.4-10.4); Platelet Count 507 thou/uL (130-400); RBC Distribution Width 13.8 % (11.5-14.5); Red Blood Cell (RBC) Count 4.49 mill/uL (4.20-5.40); White Blood Cell (WBC) Count 10.7 thou/uL (4.8-10.8)
[2019-06-23 05:39] LABS: ALT (SGPT) 142 U/L (8-55); AST (SGOT) 49 U/L (5-34); Albumin 3.3 g/dL (3.5-5.0); Alkaline Phosphatase 90 U/L (40-110); Anion Gap 12 mmol/L (10-20); BUN (Urea Nitrogen) 10 mg/dL (9.8-20.1); Bilirubin, Total 0.3 mg/dL (0.2-1.2); Calc. Creatinine Clearance 227 mL/min (70-130); Carbon Dioxide 21 mmol/L (22-29); Chloride 109 mmol/L (98-107); Estimated GFR-MDRD Greater than 90; Globulin 3.3 g/dL (2.4-3.5); Glucose 106 mg/dL (70-105); Potassium 3.6 mmol/L (3.5-5.1); Protein, Total 6.6 g/dL (6.0-8.3); Sodium 138 mmol/L (136-145)
[2019-06-23] MEDS: Mometasone/Formoterol 120 PUFF INHALER INH SCH ×3 (07:24→21:51)
[2019-06-23] MEDS: Acetylcysteine 10% 100 MG/ML 30 ml Vial NEB SCH ×2 (08:58→14:28)
[2019-06-23] MEDS: valACYclovir 500 MG TAB PO SCH ×2 (09:02→22:19)
[2019-06-23] MEDS: Pantoprazole 40 MG GRANULES PACKET PO SCH (09:02)
[2019-06-23] MEDS: Brimonidine Tartrate 0.2% Ophth Soln 5 ml Bottle R EYE SCH ×3 (09:02→22:14)
[2019-06-23] MEDS: FLUoxetine HCl 20 MG CAP PO SCH ×2 (09:03→22:18)
[2019-06-23] MEDS: Saccharomyces boulardii 250 MG CAP PO SCH (09:03)
[2019-06-23] MEDS: Apixaban 5 MG TAB PO SCH ×2 (09:03→22:14)
[2019-06-23] MEDS: guaiFENesin ER 600 MG TAB PO SCH ×2 (09:04→22:18)
[2019-06-23] MEDS: Gabapentin 400 MG CAP PO SCH ×4 (09:04→22:18)
[2019-06-23] MEDS: Calcium Carbonate 500 MG TAB PO SCH ×2 (09:04→18:05)
[2019-06-23] MEDS: Cyclobenzaprine 10 MG TAB PO SCH ×3 (09:04→22:17)
[2019-06-23] MEDS: Lactinex Tablet PO SCH (12:28)
--- NOTE | 2019-06-23 12:56 | PDOC.HOSPP ---
- Subjective Encounter Date: 06/23/19 Encounter Time: 12:54 Subjective: Patient is doing better. She is finally able to cough up some phlegm. States it was whitish yellow. She sent a sputum sample. She complains that the IV vancomycin is making her hand red and swollen. Discussed discontinuing this since repeat blood cultures negative. Patient denies dysuria Per tech patient's right foot went blue again and went back to pink after elevating her leg - Objective Vital Signs & Weight: Vital Signs (12 hours) Temp Pulse Pulse Pulse Resp BP BP 06/23/19 12:00 98.3 F 123 H 18 06/23/19 10:34 113 H 18 06/23/19 10:06 118 H 117 H 117/65 111/73 06/23/19 09:03 118 H 06/23/19 08:00 97.8 F 118 H 16 06/23/19 07:23 104 H 16 06/23/19 04:00 98.3 F 85 18 06/23/19 01:43 92 18 BP Pulse Ox 06/23/19 12:00 117/63 98 06/23/19 10:34 99 06/23/19 10:06 06/23/19 09:03 06/23/19 08:00 120/74 97 06/23/19 07:23 99 06/23/19 04:00 127/78 96 06/23/19 01:43 98 Weight Weight 305 lb 3.2 oz I&O: 06/22/19 06/23/19 06/24/19 06:59 06:59 06:59 Intake Total 1120 1340 Output Total 925 730 Balance 195 610 Result Diagrams: 06/23/19 04:58 06/23/19 04:58 Hospitalist ROS - Review of Systems Constitutional: denies: fever, chills - Medication Medications: Active Medications Generic Name Dose Route Start Last Admin Trade Name Freq PRN Reason Stop Dose Admin Acetylcysteine 300 mg 06/20/19 14:00 06/23/19 08:58 Mucomyst 10% (Oral Or Inh) NEB Not Given Q8HR KAREN Acidophilus 1 tab 06/20/19 12:00 06/23/19 12:28 Floranex PO 1 tab 1200 KAREN Administration Albuterol/Ipratropium 3 ml 06/21/19 14:30 06/23/19 10:34 Duoneb NEB 3 ml [id number] KAREN Administration Apixaban 10 mg 06/22/19 21:00 06/23/19 09:03 Eliquis PO 10 mg BID KAREN Administration Brimonidine Tartrate 1 drop 06/20/19 09:00 06/23/19 09:02 Alphagan 0.2% Ophth Soln R EYE 1 drop TID KAREN Administration Calcium Carbonate 500 mg 06/20/19 08:00 06/23/19 09:04 Oscal-500 PO 500 mg BID-WM KAREN Administration Cholecalciferol 5,000 units 06/20/19 09:00 06/23/19 09:02 Vitamin D3 PO 5,000 units DAILY KAREN Administration Cyclobenzaprine HCl 10 mg 06/20/19 09:00 06/23/19 09:04 Flexeril PO 10 mg TID KAREN Administration Diltiazem HCl 120 mg 06/21/19 09:00 06/23/19 09:03 Cardizem Cd PO 120 mg DAILY KAREN Administration Docusate Sodium 100 mg 06/20/19 21:00 06/22/19 21:08 Colace PO 100 mg HS KAREN Administration Fluoxetine HCl 20 mg 06/20/19 09:00 06/23/19 09:03 Prozac PO 20 mg BID KAREN Administration Gabapentin 800 mg 06/20/19 09:00 06/23/19 12:28 Neurontin PO 800 mg QID KAREN Administration Guaifenesin 600 mg 06/20/19 21:00 06/23/19 09:04 Mucinex PO 600 mg Q12HR AKREN Administration Hyoscyamine Sulfate 0.25 mg 06/20/19 09:00 06/23/19 09:02 Levsin PO 0.25 mg QID KAREN Administration Piperacillin Sod/Tazobactam 100 mls @ 200 mls/hr 06/21/19 18:00 06/23/19 12: 29 Sod 3.375 gm/ Sodium Chloride IVPB 100 mls Q6HR KAREN Administration Vancomycin HCl 1 gm/ Device 200 mls @ 200 mls/hr 06/21/19 15:00 06/23/19 02: 35 IVPB 200 mls 0300,1500 KAREN Administration Latanoprost 1 drop 06/20/19 21:00 06/22/19 21:07 Xalatan 0.005% Ophth Soln R EYE 1 drop HS KAREN Administration Mometasone Furoate/Formoterol Fumar 2 puff 06/20/19 18:30 06/23/19 07:24 Dulera 100 Mcg/5 Mcg Inhaler INH Not Given BID-RT KAREN Montelukast Sodium 10 mg 06/20/19 21:00 06/22/19 21:08 Singulair PO 10 mg QPM KAREN Administration Pantoprazole Sodium 40 mg 06/22/19 09:00 06/23/19 09:02 Protonix PO 40 mg DAILY KAREN Administration Saccharomyces Boulardii 250 mg 06/21/19 09:00 06/23/19 09:03 Florastor PO 250 mg DAILY KAREN Administration Sodium Chloride 10 ml 06/20/19 09:00 06/23/19 09:04 Flush - Normal Saline IVF 10 ml Q12HR KAREN Administration Valacyclovir HCl 1,000 mg 06/20/19 21:00 06/23/19 09:02 Valtrex PO 1,000 mg BID KAREN Administration - Exam General Appearance: NAD, awake alert Eye: PERRL, anicteric sclera ENT: normocephalic atraumatic, no oropharyngeal lesions Neck: supple, symmetric, no JVD, no thyromegaly Heart: RRR, no murmur, no gallops, no rubs Respiratory: CTAB, no wheezes, no rales, no ronchi Gastrointestinal: soft, non-tender, non-distended, normal bowel sounds Extremities: no cyanosis, no clubbing, 2+ LE edema (nonpitting. Feet are pink, warm to palpation with 2+ pulses) Extremities - other findings: right hand erythema and swelling with some warmth. Skin: normal turgor, no lesions, no rashes Neurological: cranial nerve grossly intact, normal sensation to touch Neurological - other findings: paraplegic Psychiatric: normal affect, normal behavior, A&O x 3 Hosp A/P - Plan Venogram: occlusive DVT involving right common femoral and profunda femoral veins with nonocclusive DVT involving RLE superficial femoral and popliteal veins. Abd Ultrasound: unremarkable CTA thorax: bibasilar lung atelectasis, no PE ECHO: 55-60% with small pericardial effusion This is a 59 year old female with past medical history of MS, COPD, neurogenic bladder with chronic rodriguez, ulcerative colitis with colostomy who presented with shortness of breath and cough, found to be tachycardic with WBC of 18, s/p IV levaquin and ceftriaxone in the ER Sepsis secondary to possible pneumonia - patient had low grade temp, tachycardia, WBC of 18. CTA showed no pneumonia, however clinically had rales, therefore treating empirically. . Was on ceftriaxone and azithromycin, switched to vanc and zosyn 06/21 due to increasing leukocytosis -leukocytosis resolved, will d/c vancomycin, continue IV zosyn. Sputum culture pending. - blood cultures show 1/2 staph, repeat cultures negative - urine culture growing howard only 25 to 75,000 will not treat given patient not symptomatic from this however catheter should be changed #Right common femoral DVT #Chronic lymphedema - started lovenox 1 mg SC BID and switched to apixaban 10 mg bid x 7 days ( currently day 2), then 5 mg po bid after - FRANCIS is normal Small pericardial effusion - no evidence of tamponade on ECHO. Will monitor Dysphagia - speech consult recommended mechanical softt diet with thin liquids. Now upgraded to regular Morbid obesity - dietary nutrition consult, following - patient on 1500 francine diet, states it is still too much food COPD - continue duoneb q4 and albuterol prn - will hold off on steroid for now unless significant wheezing - continue advair and singulair Transaminitis - AST/ALT increasing slightly. - RUQ ultrasound normal - not on tylenol Ulcerative colitis/Crohn's s/p colectomy - hold mesalamine for now MS with paraplegia- continue baclofen and gabapentin. PT consult Recurrent Shingles - continue valtrex Depression - fluoxetine Glaucoma - continue eye drops Dispo: f/u sputum culture. Continue IV zosyn for another day, consider switching to oral tomorrow Code status: DNR/DNI
[2019-06-23] MEDS: Docusate 100 MG CAP PO SCH (22:18)
[2019-06-23] MEDS: Montelukast Sodium 10 mg Tablet PO SCH (22:19)
[2019-06-23] MEDS: Latanoprost 0.005% Ophth Soln 2.5 ml Bottle R EYE SCH (22:19)
[2019-06-24] MEDS: Acetylcysteine 10% 100 MG/ML 30 ml Vial NEB SCH ×4 (00:11→22:21)
[2019-06-24] MEDS: Piperacillin/Tazobactam 3.375 GM in Sodium Chloride 0.9% 100 ML IVPB SCH ×4 (00:19→18:05)
[2019-06-24 04:41] LABS: Hemoglobin 13.5 g/dL (12.0-16.0); Mean Corpuscular HGB CONC 32.5 g/dL (32.0-36.0); Mean Corpuscular Hemoglobin 29.6 pg (27.0-31.0); Mean Corpuscular Volume 91.2 fL (78.0-98.0); Mean Platelet Volume 6.5 fL (7.4-10.4); Platelet Count 484 thou/uL (130-400); Red Blood Cell (RBC) Count 4.57 mill/uL (4.20-5.40); White Blood Cell (WBC) Count 14.4 thou/uL (4.8-10.8)
[2019-06-24 04:43] LABS: Hemoglobin 13.5 g/dL (12.0-16.0); Platelet Count 479 thou/uL (130-400)
[2019-06-24 05:05] LABS: ALT (SGPT) 128 U/L (8-55); AST (SGOT) 42 U/L (5-34); Albumin 3.1 g/dL (3.5-5.0); Alkaline Phosphatase 86 U/L (40-110); Anion Gap 10 mmol/L (10-20); BUN (Urea Nitrogen) 10 mg/dL (9.8-20.1); Bilirubin, Total 0.3 mg/dL (0.2-1.2); Calc. Creatinine Clearance 227 mL/min (70-130); Carbon Dioxide 23 mmol/L (22-29); Chloride 108 mmol/L (98-107); Estimated GFR-MDRD Greater than 90; Globulin 3.4 g/dL (2.4-3.5); Glucose 95 mg/dL (70-105); Potassium 3.4 mmol/L (3.5-5.1); Protein, Total 6.5 g/dL (6.0-8.3); Sodium 138 mmol/L (136-145)
[2019-06-24] MEDS: Mometasone/Formoterol 120 PUFF INHALER INH SCH ×2 (08:01→18:54)
[2019-06-24] MEDS: Calcium Carbonate 500 MG TAB PO SCH ×2 (09:23→17:04)
[2019-06-24] MEDS: Gabapentin 400 MG CAP PO SCH ×4 (09:24→22:20)
[2019-06-24] MEDS: Apixaban 5 MG TAB PO SCH ×2 (09:24→22:18)
[2019-06-24] MEDS: guaiFENesin ER 600 MG TAB PO SCH ×2 (09:24→22:20)
[2019-06-24] MEDS: Pantoprazole 40 MG GRANULES PACKET PO SCH (09:25)
[2019-06-24] MEDS: Brimonidine Tartrate 0.2% Ophth Soln 5 ml Bottle R EYE SCH ×3 (09:25→22:19)
[2019-06-24] MEDS: Saccharomyces boulardii 250 MG CAP PO SCH (09:25)
[2019-06-24] MEDS: FLUoxetine HCl 20 MG CAP PO SCH ×2 (09:25→22:20)
[2019-06-24] MEDS: valACYclovir 500 MG TAB PO SCH ×2 (09:25→22:21)
[2019-06-24] MEDS: Cyclobenzaprine 10 MG TAB PO SCH ×3 (11:21→22:29)
[2019-06-24] MEDS: Lactinex Tablet PO SCH (13:13)
--- NOTE | 2019-06-24 15:32 | PDOC.HOSPP ---
- Subjective Subjective: Doing ok. No specific complaints. Has some questions, but no problems reported. - Objective Vital Signs & Weight: Vital Signs (12 hours) Temp Pulse Resp BP BP Pulse Ox 06/24/19 14:18 113 H 18 99 06/24/19 11:39 97.8 F 109 H 18 122/74 99 06/24/19 10:53 110 H 18 98 06/24/19 09:23 106 H 118/70 06/24/19 09:15 98.5 F 106 H 16 118/70 98 06/24/19 07:49 104 H 16 100 06/24/19 04:00 98.0 F 105 H 17 107/71 96 Weight Weight 305 lb 3.2 oz I&O: 06/23/19 06/24/19 06/25/19 06:59 06:59 06:59 Intake Total 1340 2950 Output Total 730 750 Balance 610 2200 Result Diagrams: 06/24/19 04:11 06/24/19 04:12 Hospitalist ROS - Medication Medications: Active Medications Generic Name Dose Route Start Last Admin Trade Name [place] PRN Reason Stop Dose Admin Acetylcysteine 300 mg 06/20/19 14:00 06/24/19 14:32 Mucomyst 10% (Oral Or Inh) NEB Not Given Q8HR KAREN Acidophilus 1 tab 06/20/19 12:00 06/24/19 13:13 Floranex PO 1 tab 1200 KAREN Administration Albuterol/Ipratropium 3 ml 06/21/19 14:30 06/24/19 14:18 Duoneb NEB 3 ml [id number] KAREN Administration Apixaban 10 mg 06/22/19 21:00 06/24/19 09:24 Eliquis PO 10 mg BID KAREN Administration Brimonidine Tartrate 1 drop 06/20/19 09:00 06/24/19 09:25 Alphagan 0.2% Ophth Soln R EYE 1 drop TID KAREN Administration Calcium Carbonate 500 mg 06/20/19 08:00 06/24/19 09:23 Oscal-500 PO 500 mg BID-WM KAREN Administration Cholecalciferol 5,000 units 06/20/19 09:00 06/24/19 09:23 Vitamin D3 PO 5,000 units DAILY KAREN Administration Cyclobenzaprine HCl 10 mg 06/20/19 09:00 06/24/19 11:21 Flexeril PO 10 mg TID KAREN Administration Diltiazem HCl 120 mg 06/21/19 09:00 06/24/19 09:23 Cardizem Cd PO 120 mg DAILY KAREN Administration Docusate Sodium 100 mg 06/20/19 21:00 06/23/19 22:18 Colace PO 100 mg HS KAREN Administration Fluoxetine HCl 20 mg 06/20/19 09:00 06/24/19 09:25 Prozac PO 20 mg BID KAREN Administration Gabapentin 800 mg 06/20/19 09:00 06/24/19 13:13 Neurontin PO 800 mg QID KAREN Administration Guaifenesin 600 mg 06/20/19 21:00 06/24/19 09:24 Mucinex PO 600 mg Q12HR KAREN Administration Hyoscyamine Sulfate 0.25 mg 06/20/19 09:00 06/24/19 11:21 Levsin PO 0.25 mg QID KAREN Administration Piperacillin Sod/Tazobactam 100 mls @ 200 mls/hr 06/21/19 18:00 06/24/19 13: 13 Sod 3.375 gm/ Sodium Chloride IVPB 100 mls Q6HR KAREN Administration Latanoprost 1 drop 06/20/19 21:00 06/23/19 22:19 Xalatan 0.005% Ophth Soln R EYE 1 drop HS KAREN Administration Mometasone Furoate/Formoterol Fumar 2 puff 06/20/19 18:30 06/24/19 08:01 Dulera 100 Mcg/5 Mcg Inhaler INH 2 puff BID-RT KAREN Administration Montelukast Sodium 10 mg 06/20/19 21:00 06/23/19 22:19 Singulair PO 10 mg QPM KAREN Administration Pantoprazole Sodium 40 mg 06/22/19 09:00 06/24/19 09:25 Protonix PO 40 mg DAILY KAREN Administration Saccharomyces Boulardii 250 mg 06/21/19 09:00 06/24/19 09:25 Florastor PO 250 mg DAILY KAREN Administration Sodium Chloride 10 ml 06/20/19 09:00 06/23/19 22:19 Flush - Normal Saline IVF 10 ml Q12HR KAREN Administration Valacyclovir HCl 1,000 mg 06/20/19 21:00 06/24/19 09:25 Valtrex PO 1,000 mg BID KAREN Administration - Exam General Appearance: NAD, awake alert General - other findings: Morbidly obese. Heart: RRR, no murmur, no gallops, no rubs, normal peripheral pulses Respiratory: CTAB, no wheezes, no rales, no ronchi, normal chest expansion, no tachypnea, normal percussion Gastrointestinal: soft, non-tender, non-distended, normal bowel sounds, no palpable masses, no hepatomegaly, no splenomegaly, no bruit Extremities: no cyanosis Extremities - other findings: Trace edema. Muscle atrophy Skin: normal turgor Neurological - other findings: LE's non-functional. Psychiatric: normal affect, normal behavior, A&O x 3 Hosp A/P (1) DVT (deep venous thrombosis) Code(s): I82.409 - ACUTE EMBOLISM AND THOMBOS UNSP DEEP VN UNSP LOWER EXTREMITY Status: Acute (2) Colostomy in place Code(s): Z93.3 - COLOSTOMY STATUS Status: Chronic (3) Functional quadriplegia secondary to MS Code(s): G35 - MULTIPLE SCLEROSIS; R53.2 - FUNCTIONAL QUADRIPLEGIA Status: Chronic (4) HTN (hypertension) Code(s): I10 - ESSENTIAL (PRIMARY) HYPERTENSION Status: Chronic (5) Morbid obesity Code(s): E66.01 - MORBID (SEVERE) OBESITY DUE TO EXCESS CALORIES Status: Chronic (6) Multiple sclerosis, secondary progressive Code(s): G35 - MULTIPLE SCLEROSIS Status: Chronic (7) Neurogenic bladder Code(s): N31.9 - NEUROMUSCULAR DYSFUNCTION OF BLADDER, UNSPECIFIED Status: Chronic (8) Transaminitis Code(s): R74.0 - NONSPEC ELEV OF LEVELS OF TRANSAMNS & LACTIC ACID DEHYDRGNSE Status: Acute (9) COPD (chronic obstructive pulmonary disease) Status: Acute (10) Dysphagia Code(s): R13.10 - DYSPHAGIA, UNSPECIFIED Status: Acute (11) IBD (inflammatory bowel disease) Code(s): K52.9 - NONINFECTIVE GASTROENTERITIS AND COLITIS, UNSPECIFIED Status : Acute (12) Glaucoma Code(s): H40.9 - UNSPECIFIED GLAUCOMA Status: Acute (13) Morbid obesity with BMI of 40.0-44.9, adult Code(s): E66.01 - MORBID (SEVERE) OBESITY DUE TO EXCESS CALORIES; Z68.41 - BODY MASS INDEX (BMI) 40.0-44.9, ADULT Status: Acute - Plan CT chest showed some atelectasis and chronic changes, but no specific infiltrate. Complete course of oral antibiotics. Continue with NOAC. Her was on Warfarin and we discussed the difference in meds and management. Discussed her on-going activity level and therapy. Medically stable for DC, but her caregiver will not be available until tomorrow. Continue mechanical soft diet. Elevated LFT's likely due to some SINGH.
[2019-06-24] MEDS: Montelukast Sodium 10 mg Tablet PO SCH (22:20)
[2019-06-24] MEDS: Latanoprost 0.005% Ophth Soln 2.5 ml Bottle R EYE SCH (22:20)
[2019-06-24] MEDS: Docusate 100 MG CAP PO SCH (22:20)
[2019-06-25] MEDS: Piperacillin/Tazobactam 3.375 GM in Sodium Chloride 0.9% 100 ML IVPB SCH ×2 (00:09→06:22)
[2019-06-25] MEDS: Acetylcysteine 10% 100 MG/ML 30 ml Vial NEB SCH ×2 (06:20→15:23)
[2019-06-25] MEDS: Mometasone/Formoterol 120 PUFF INHALER INH SCH (07:33)
[2019-06-25 08:42] LABS: #Basophils 0.1 thou/uL (0.0-0.2); #Eosinphils 0.6 thou/uL (0.0-0.7); #Lymphocytes 3.6 thou/uL (1.20-3.40); #Monocytes 1.2 thou/uL (0.11-0.59); #Neutrophils 10.1 thou/uL (1.40-6.50); %Basophils 0.3 % (0.0-1.0); %Eosinophils 3.8 % (0.0-10.0); %Monocytes 7.9 % (0.0-10.0); Mean Corpuscular HGB CONC 32.1 g/dL (32.0-36.0); Mean Corpuscular Hemoglobin 29.7 pg (27.0-31.0); Mean Corpuscular Volume 92.7 fL (78.0-98.0); Mean Platelet Volume 6.5 fL (7.4-10.4); Platelet Count 518 thou/uL (130-400); RBC Distribution Width 14.1 % (11.5-14.5); Red Blood Cell (RBC) Count 4.38 mill/uL (4.20-5.40); White Blood Cell (WBC) Count 15.6 thou/uL (4.8-10.8)
[2019-06-25] MEDS ORDERED: Amoxicillin/Potassium Clav 875 MG TAB PO SCH (09:00)
[2019-06-25] MEDS: Saccharomyces boulardii 250 MG CAP PO SCH (09:03)
[2019-06-25] MEDS: Gabapentin 400 MG CAP PO SCH ×2 (09:03→14:03)
[2019-06-25] MEDS: Pantoprazole 40 MG GRANULES PACKET PO SCH (09:03)
[2019-06-25] MEDS: guaiFENesin ER 600 MG TAB PO SCH (09:03)
[2019-06-25] MEDS: Calcium Carbonate 500 MG TAB PO SCH (09:03)
[2019-06-25] MEDS: Cyclobenzaprine 10 MG TAB PO SCH ×2 (09:04→15:21)
[2019-06-25] MEDS: FLUoxetine HCl 20 MG CAP PO SCH (09:04)
[2019-06-25] MEDS: valACYclovir 500 MG TAB PO SCH (09:04)
[2019-06-25] MEDS: Apixaban 5 MG TAB PO SCH (09:04)
[2019-06-25] MEDS: Brimonidine Tartrate 0.2% Ophth Soln 5 ml Bottle R EYE SCH ×2 (10:20→15:22)
--- NOTE | 2019-06-25 10:46 | RAD ---
RADIOGRAPH CHEST 1 VIEW: DATE: 06/25/2019 HISTORY: 59-year-old female with leukocytosis FINDINGS: There is no airspace density, pulmonary edema, or pneumothorax. The lateral costophrenic angles are n ot effaced. Prominent opacity at left base especially laterally, is unchanged compared to 06/19/2019, and was shown by recent CT to represent a large paracardial fat pad. IMPRESSION: No acute pulmonary findings.
[2019-06-25] MEDS: Lactinex Tablet PO SCH (11:51)
[2019-06-25 11:53] VITALS: BP 112/71; TEMP 99.8
--- NOTE | 2019-06-25 16:08 | EKG ---
Test Reason : STAT Blood Pressure : / mmHG Vent. Rate : 124 BPM Atrial Rate : 124 BPM P-R Int : 124 ms QRS Dur : 086 ms QT Int : 306 ms P-R-T Axes : -01 004 030 degrees QTc Int : 439 ms Sinus tachycardia Possible Anterior infarct , age undetermined Abnormal ECG When compared with ECG of 19-JUN-2019 17:03, (Unconfirmed) Borderline criteria for Anterior infarct are now Present Confirmed by DR. Carmel MORLEY ([id number]) on 06/25/2019 4:08:18 PM Referred By: LI Confirmed By:DR. Carmel MORLEY
--- NOTE | 2019-06-25 16:18 | DIS ---
DATE OF ADMISSION: 06/19/2019 DATE OF DISCHARGE: 06/25/2019 DISCHARGE DIAGNOSES: 1. Sepsis. 2. Presumptive pneumonia. 3. Funguria. 4. Chronic obstructive pulmonary disease. 5. Chronic lymphedema. 6. Ulcerative colitis, status post colostomy. 7. History of multiple sclerosis with effective paraplegia. 8. History of depression. 9. History of glaucoma. 10. Deep venous thrombosis. 11. Morbid obesity. 12. Chronic neurogenic bladder, requiring Telles. 13. Mild transaminitis. 14. Dysphagia, on mechanical soft diet. HISTORY: This patient is a 59-year-old female with debility from multiple sclerosis with essentially nonfunctioning lower extremities, who is essentially bed bound with chronic indwelling Telles and colostomy. She also has chronic morbid obesity. She had presented to the emergency department with cough and shortness of breath. She had a white count of 18,000 and tachycardia, some evidence of urinary tract infection on UA. She was started on Levaquin and Rocephin and admitted with sepsis, felt to likely be related to pneumonia or urinary tract infection. She had chronic lower extremity lymphedema. HOSPITAL COURSE: The patient was admitted, started on broad-spectrum antibiotics. She had a lower extremity Doppler obtained, which revealed occlusive DVT involving the right common femoral and profunda femoral veins with nonocclusive DVT involving the right lower extremity, superficial femoral and popliteal veins. She was subsequently started on anticoagulation. She was seen in consultation by Dr. Ray for the possibility of a filter; however, it was not felt to be indicated. She was also seen in consultation by Dr. Salcedo, Pulmonology Service, who again reiterated to the patient that much of her issue was related to her obesity and encouraged her to continue to work toward addressing that. She had a CTA of the chest, which showed no evidence of pulmonary embolus and only showed some chronic findings and mild basilar atelectasis. She underwent echocardiogram revealing an EF of 55% to 60%. Mildly dilated left atrium. She had blood culture that grew a coagulase-negative Staph, consistent with a contaminant. Urine culture grew Celina with relatively low-colony counts. Respiratory culture only grew normal respiratory rosemary, and repeat blood cultures were negative. The patient did initially receive some Solu-Medrol in the emergency department. Her white cell count actually increased slightly, then came down and then started to come back up again toward the time of her discharge. Repeat chest x-ray remained negative, she was afebrile, although she did continue to have some persistent tachycardia. However, in addressing this with the patient, she reported that she had been following with Dr. Burgos as an outpatient for persistent tachycardia and was aware that this was not a new finding or new problem for her. She felt quite well overall, had no specific complaints. Her breathing was back to baseline and she was felt to be stable for discharge to home. DISCHARGE PHYSICAL EXAMINATION: VITAL SIGNS: On the day of discharge, T-max was 98.4, pulse 109, respirations 22, O2 saturation 97% on room air, and BP was 111/70. GENERAL: She was awake and alert, pleasant, no distress. HEART: Her heart was tachy without murmurs. LUNGS: Diminished at the bases. Difficult to auscultate because of her body habitus and obesity, but otherwise clear without significant rales. ABDOMEN: Obese, soft, nontender, and nondistended. EXTREMITIES: Had modest nonpitting edema. DISPOSITION: The patient will be discharged to home. DISCHARGE MEDICATIONS: She will continue with her usual home medications including; 1. Metoprolol 25 mg p.o. b.i.d. 2. Diltiazem XR 120 mg daily. 3. Calcium 500 b.i.d. 4. Valtrex 1000 mg b.i.d. 5. Baclofen 5 mg b.i.d. 6. Mucomyst inhaler p.r.n. 7. Baclofen 15 mg b.i.d. 8. Flexeril 10 mg t.i.d. 9. Vitamin D3, 5000 units daily. 10. Alphagan eye drops. 11. Advair HFA two inhalations b.i.d. 12. Prozac 20 mg b.i.d. 13. Docusate 100 mg at bedtime. 14. DuoNebs p.r.n. 15. Hyoscyamine 0.25 p.o. q.i.d. 16. Purling 7.5 q.4 hours p.r.n. 17. Gabapentin 800 mg q.i.d. 18. Meclizine 25 mg b.i.d. p.r.n. 19. Probiotic one p.o. daily. 20. Singulair 10 mg daily. 21. Mesalamine 1000 mg at bedtime p.r.n. 22. Multivitamin one p.o. daily. 23. Mupirocin topical p.r.n. 24. Simethicone p.r.n. 25. Mucinex DM one p.o. q.24 p.r.n. 26. Travatan 1 drop right eye at bedtime. 27. Sodium chloride one drop q.i.d. 28. She will have prescriptions for Diflucan 200 mg p.o. daily. 29. Eliquis 5 mg b.i.d. 30. Augmentin 875 one p.o. b.i.d. DISCHARGE ACTIVITIES: She will have activity as tolerated. DISCHARGE DIET: She will remain on a regular diet. FOLLOWUP: She will follow up with her PCP, Zulema Tsang. She can return to the hospital at any time should she have the need to do so. Job ID: [id number]
== END 2019-06-25 16:15 | disposition home health service (06) | DRG 871 ==
LOC: ERS 16:47 → 2NO 19:40 → ERS 06-20 01:15
PROVIDERS: ADMIT Internal Medicine; ATTEND Internal Medicine
DX: A41.9 Sepsis, unspecified organism (principal); J18.9 Pneumonia, unspecified organism; K50.90 Crohn's disease, unspecified, without complications; J44.0 Chronic obstructive pulmonary disease with (acute) lower respiratory infection; I82.412 Acute embolism and thrombosis of left femoral vein; B37.49 Other urogenital candidiasis; I31.3 Pericardial effusion (noninflammatory); B48.8 Other specified mycoses; G82.20 Paraplegia, unspecified; Z66 Do not resuscitate; G35 Multiple sclerosis; I73.00 Raynaud's syndrome without gangrene; H54.40 Blindness, one eye, unspecified eye; F32.9 Major depressive disorder, single episode, unspecified; B02.9 Zoster without complications; H40.9 Unspecified glaucoma; F41.9 Anxiety disorder, unspecified; E66.01 Morbid (severe) obesity due to excess calories; I89.0 Lymphedema, not elsewhere classified; R13.10 Dysphagia, unspecified; N31.9 Neuromuscular dysfunction of bladder, unspecified; L89.152 Pressure ulcer of sacral region, stage 2; Z79.51 Long term (current) use of inhaled steroids; Z93.3 Colostomy status; Z87.891 Personal history of nicotine dependence; Z88.1 Allergy status to other antibiotic agents; Z79.899 Other long term (current) drug therapy; Z74.01 Bed confinement status
CPT/HCPCS: 36415; 71045; 71275; 76705; 80048; 80053; 81003; 81015; 83036; 83605; 83880; 84484; 85007; 85014; 85018; 85025; 85027; 85049; 86038; 86225; 87040; 87070; 87086; 87149; 87205; 89220; 93005; 93010; 93306; 93970; 94640; 96365; 96367; 96375; J0456; J0696; J1644; J1650; J1956; J2543; J2930; J3370; J3490; J7050; J7608; J7620; Q9967